=== PATIENT | male | born 1955 | race Caucasian/White ===

== ENCOUNTER 2020-12-04 11:17 | Inpatient (IN) | payer MEDICARE, SELFPAY ==
[2020-12-04] VITALS (7 sets, daily range): BP systolic 116–155; BP diastolic 47–66; PULSE 42–60; RESP 12–16; TEMP 36.7–36.8; O2SAT 96–98; BMI 34.4
--- NOTE | ~2020-12-04 | US_ITS ---
EXAMINATION: RENAL ARTERY ULTRASOUND AND DOPPLER EXAM CLINICAL INFORMATION: Uncontrolled hypertension COMPARISON: None TECHNIQUE: Doppler color and grayscale evaluation of the kidneys and the renal arteries including waveform spectral analysis evaluation of the renal veins. FINDINGS: The kidneys are normal in contour and symmetric in size with the right kidney measuring 10.3 x 5 x 5.2 cm and the left kidney measuring 10.8 x 5.4 x 4.5 cm. Renal cortical thickness and echogenicity is normal. No renal stone, mass or hydronephrosis is seen. Aortic peak systolic velocity of the mid abdominal aorta measures 97 cm/s which is normal. Right renal artery is patent. Right renal artery peak systolic velocities measure 187 cm/s proximally, 2 cm/s in the midportion and 10 2 cm/s distally. Right renal artery to aorta ratio is normal. Resistive indices in the right kidney are normal measuring 0.7-0 8. The right renal vein is patent. The left renal artery is patent. There is increased peak systolic velocity in the left renal artery and elevated left renal artery to aorta ratio suggestive of left renal artery stenosis. Left renal artery peak systolic velocities measure 96 cm/s proximally, 280 cm/s in the midportion and 202 cm/s distally. Left renal artery to aorta ratio measures 2.9. Resistive indices in the left kidney are normal measuring 0.7-0.8. The left renal vein is patent. US/US renal doppler IMPRESSION: Normal renal ultrasound. Left renal artery stenosis. No evidence of right renal artery stenosis.
--- NOTE | ~2020-12-04 | MR_ITS ---
EXAMINATION: MR ANGIOGRAPHY ABDOMEN WITHOUT AND WITH CONTRAST CLINICAL INFORMATION: Left renal artery stenosis by ultrasound. COMPARISON: Ultrasound kidneys 12/05/2020 TECHNIQUE: Axial T2 gradient-echo, fat-sat axial pre- and post-contrast T1 FSPGR and post-contrast MRA of abdominal aorta with attention to the renal arteries were performed. Approximately 20 mL of Gadavist was injected. FINDINGS: NON-MRA: Both kidneys are normal size, signal and contour. Right kidney measures 9.4 cm and left kidney measures 9.65 cm. Post-contrast, there is symmetrical renal cortical enhancement without any enhancing renal mass, cyst or hydronephrosis. The perinephric soft tissues are normal. Bilateral adrenal glands are symmetrical and normal. Partially visualized inferior right hepatic lobe, spleen and the pancreas appear unremarkable. MRA KIDNEYS: The abdominal aorta is normal course and caliber. No evidence of aneurysm. Bilateral common iliac arteries are widely patent and normal caliber. There are solitary renal arteries bilaterally. There is early bifurcation of left renal artery into a smaller superior and a larger inferior branch. There is minimal narrowing in the superior branch of left renal artery. The inferior larger branch renal artery is widely patent. The main renal artery is patent with a solitary right renal artery with early branching into superior smaller and inferior larger branch. Both the branches are widely patent. 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 The superior and the inferior mesenteric arteries are widely patent. MR/MR angio abdomen wo/w con IMPRESSION: Solitary renal arteries with early branching bilaterally. There is mild stenosis in the superior branch of left renal artery. The main arteries are widely patent. 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 The superior and inferior mesenteric arteries are patent. Normal bilateral symmetrical nephrograms without focal lesion or abnormal enhancement. No hydronephrosis seen.
--- NOTE | ~2020-12-04 | CT_ITS ---
EXAMINATION: CT HEAD WITHOUT CONTRAST CLINICAL INFORMATION: Chronic headache, hypertension COMPARISON: None TECHNIQUE: Contiguous axial imaging was performed from the skull base to vertex without intravenous administration of contrast. Additional 2-D coronal and sagittal reformatted images are generated on the CT workstation and uploaded to PACS. This CT examination was performed using dose optimization techniques as appropriate, variously including the following: *Automated exposure control *Adjustment of mA and/or kV according to patient size (this includes techniques or standardized protocols for targeted exams where dose is matched to indication/reason for exam; i.e. extremities or head) *Use of iterative reconstruction technique DLP: 710 mGy-cm FINDINGS: There is no intracranial hemorrhage, hematoma, or extra-axial fluid collection. There is no hydrocephalus. No edema or mass effect or midline shift. There is mild symmetric gliosis in the bilateral anterior external capsule and adjacent to the frontal horns likely small vessel ischemic changes. No visible acute territorial infarct. There is a benign midline lipoma 0.9 cm and homogeneous low attenuation residing just anterior superior to the calcified tiny open. The calvarium appears intact. There is no pneumocephalus or orbital emphysema. The visualized sinuses and middle ears and mastoid air cells show no significant mucosal thickening. There are no air-fluid levels. CT/CT head/brain wo con IMPRESSION: 1. No acute intracranial abnormality. No hydrocephalus or hemorrhage. 2. Incidental 1 cm midline lipoma. 3. Mild symmetric periventricular white matter gliosis adjacent to frontal horns and involving bilateral anterior external capsule. No acute territorial infarct.
--- NOTE | 2020-12-04 12:34 | ECG_ITS ---
Test Reason : HIGH BLOOD PRESSURE Blood Pressure : / mmHG Vent. Rate : 044 BPM Atrial Rate : 044 BPM P-R Int : 160 ms QRS Dur : 096 ms QT Int : 438 ms P-R-T Axes : 051 -40 016 degrees QTc Int : 374 ms Marked sinus bradycardia with sinus arrhythmia Left axis deviation Abnormal ECG No previous ECGs available Referred By: Rhett Cameron Electronically Signed By:GABBI CANCINO
[2020-12-04] MEDS: Butalb/Acetamin/Caff 50/325/40 TABLET 1 TAB PO (12:43)
[2020-12-04] MEDS: 0.9 % Sodium Chloride 1,000 ML 999 ML IV (12:46)
[2020-12-04 12:58] LABS: MANUAL DIFF FLAG NO
[2020-12-04 13:01] LABS: Basophils Percent Auto 0.5 % (0-2); Eosinophils Absolute Auto 0.1 X10*3/uL (0.0-0.4); Eosinophils Percent Auto 1.7 % (0-4); Hematocrit 45.4 % (42-52); Hemoglobin 14.9 g/dl (14.0-18.0); Imm Gran Abs Auto 0.01 X10*3/uL (0.00-0.03); Imm Gran Pct Auto 0.1 % (0.0-0.4); Lymphocytes Absolute Auto 1.9 X10*3/uL (1.2-4.9); Lymphocytes Percent Auto 25.6 % (20-40); Mean Corpuscular HGB Conc 32.8 g/dl (31.0-36.0); Mean Corpuscular Hemoglobin 29.6 pg (27.0-33.0); Mean Corpuscular Volume 90.3 fL (80-98); Mean Platelet Volume 9.4 fL (9.4-12.4); Monocytes Absolute Auto 0.7 X10*3/uL (0.1-1.2); Monocytes Percent Auto 9.2 % (2-11); Neutrophils Absolute Auto 4.7 X10*3/uL (2.0-8.3); Neutrophils Percent Auto 62.9 % (45-73); Platelet Count 235 X10*3/uL (160-400); Red Blood Count 5.03 X10*6/uL (4.60-5.80); Red Cell Distribution Width 12.5 % (11.0-16.0); White Blood Count 7.5 X10*3/uL (4.8-10.8)
[2020-12-04 13:06] LABS: INTERNATIONAL NORM RATIO 1.1 (0.9-1.1); Prothrombin Time 12.5 SEC (10.8-13.0)
[2020-12-04 13:10] LABS: Partial Thromboplastin Time 33.8 SEC (24.1-38.0)
[2020-12-04 13:22] LABS: Alanine Aminotransferase 41 U/L (0-40); Albumin Level 4.2 g/dL (3.5-5.0); Alkaline Phosphatase 70 U/L (39-117); Anion Gap 14 (12-20); Aspartate Amino Transferase 32 U/L (5-37); Bilirubin Total 0.3 mg/dL (0.0-1.0); Blood Urea Nitrogen 18 mg/dL (9-16); Calcium 9.8 mg/dL (8.4-10.2); Carbon Dioxide 27 mmol/L (22-29); Chloride 102 mmol/L (96-108); Creatinine Clr Calc Pharmacy 77.2; Estimated Glomerular Filt Rate > 60; Glucose Random 89 mg/dL (60-115); Potassium 4.3 mmol/L (3.3-5.1); Sodium 139 mmol/L (135-145)
[2020-12-04 13:27] LABS: B Type Natriuretic Peptide 24 pg/mL (<100); Troponin-I High Sensitivity < 3.5 ng/L (<3.5-35.0)
--- NOTE | 2020-12-04 13:50 | ED_ITS ---
HPI - General Adult General Chief complaint: Dizziness Stated complaint: uncontrolled BP Time Seen by Provider: 12/04/20 12:28 Source: patient Mode of arrival: ambulatory Limitations: no limitations History of Present Illness HPI narrative: Patient presents to the ED for elevated blood pressure. Patient presents to ED for elevated blood pressure at nighttime for months which cause headache. Patient states in the morning his blood pressure will be normal and then by 18:00 his blood pressure will be 235 systolic and he will have a headache. Patient states this has been going on since the last week of June. He states his PCP has changes meds multiple times. Patient states having headache since yesterday and blood pressure yesterday was systolic of 240. Patient states as expected this morning his blood pressure is fine. Patient is on losartan and Doxil sin. Related Data Allergies Allergy/AdvReac Type Severity Reaction Status Date / Time No Known Allergies Allergy Verified 12/04/20 12:28 Review of Systems Review of Systems: Yes all other systems are reviewed and are negative Constitutional: Constitutional: Reports as per HPI, Reports no additional constitutional complaints and Reports headache(s) Eyes: Eyes: Reports as per HPI and Reports no additional eye complaints ENT: Reports system reviewed and no additional complaints, except as documen michelle, Reports as per HPI and Reports headache(s) Cardiovascular: Cardiovascular: Reports as per HPI and Reports no additional cardiovascular complaints Respiratory: Respiratory: Reports as per HPI and Reports no additional respiratory complaints Gastrointestinal: Gastrointestinal: Reports as per HPI and Reports no additional gastrointestinal complaints Genitourinary: Genitourinary: Reports no additional male genitourinary complaints and Reports as per HPI Musculoskeletal: Musculoskeletal: Reports no additional musculoskeletal complaints and Reports as per HPI Neurologic: Reports system reviewed and no additional complaints, except as documented, Reports as per HPI and Reports headache(s) Psychiatric: Psychiatric: Reports no additional psychiatric complaints and Reports as per HPI [facility] Social History Social History Advance Directives: No Advance Directives Information Provided: No Physical Exam Vital Signs: Vital Signs: Last Vital Signs Temp 98.1 F 12/04/20 15:07 Pulse 42 L 12/04/20 15:07 Resp 15 12/04/20 15:07 BP 151/51 H 12/04/20 15:07 Pulse Ox 98 12/04/20 15:07 Body Mass Index 34.4 Const: General: cooperative, healthy appearing, comfortable, no acute distress, well developed, alert and awake Orientation/consciousness: patient oriented x3 HENMT: Head: Yes normal to inspection, Yes No palpable skull fracture present, Yes normocephalic, Yes atraumatic and No abrasion Eyes: General: appearance normal, both eyes and all related structures Neck: Neck: Yes normal visual inspection, Yes full ROM, Yes no lymphadenopathy, Yes no meningeal signs, Yes trachea midline, Yes supple and No tender Chest: Chest palpation & inspection: normal inspection of the chest and normal palpation of entire chest wall Resp: Effort & Inspection: normal respiratory effort and able to speak in complete sentences Auscultation: clear to auscultation bilaterally Cardio: Jugular venous distension: no JVD Heart sounds: S1 normal heart sound present and S2 normal heart sound present GI: Inspection: Yes normal to inspection and No abdominal wall ecchymosis Palpation (GI): Soft to palpation, not firm, nontender, no guarding and not rigid : General: No CVA tenderness and Yes no CVA tenderness Back/Spine/Pelvis: Back: no CVA tenderness, No CVA tenderness and No back tenderness Skin: General skin exam: no rashes or lesions noted and elasticity normal Neuro: Other: Negative facial droop. Negative slurred speech. All extremities equal strength 5+. Negative pronator drift. [id number] rapid hand movement intact. Negative Romberg General: patient oriented x3, gait normal, no meningeal signs and CN's II-XI intact bilaterally Cranial nerves: Yes CN's II-XII intact bilaterally Extrem: General: Yes normal to inspection and Yes full ROM Psych: Appearance: grossly normal, well kempt and not disheveled Course Course Course Narrative: Patient blood pressure is normal. Will do labs, EKG, troponi n, and head CT scan. Fioricet given. Negative for any neuro deficit. Reevaluation(s) Reevaluation #1: Patient's neuro exam is normal. Patient's CT scan of head came back normal EKG. Headache improved with Fioricet. Patient blood pressure has been stable during the ED visit. Patient is concerned to go home. Patient's tr oponin negative. Will speak with patient's PCP Dr. Hernández for any further recommendations. Time: 12:53 Reevaluation #2: I spoke with Dr. Hernández and he states patient should be admitted for pheochromocytoma workup. He states he has been aware of patient's blood pressure being normal in the morning and then increasing to systolic of 230s with headache at nighttime. He does not think patient should be discharged home. Patient presently stable. Presenting case to hospitalist Dr. Melgar who accepted case for admission for uncontrolled hypertension Time: 17:06 Medical Decision Making MDM Narrative Medical decision making narrative: Uncontrolled high blood pressure Lab Data Result diagrams: 12/04/20 12:53 12/04/20 12:53 Labs: Lab Results 12/04/20 12/04/20 12/04/20 Range/Units 12:53 12:53 12:53 WBC 7.5 (4.8-10.8) X10*3/uL RBC 5.03 (4.60-5.80) X10*6/uL Hgb 14.9 (14.0-18.0) g/dl Hct 45.4 (42-52) % MCV 90.3 (80-98) fL MCH 29.6 (27.0-33.0) pg MCHC 32.8 (31.0-36.0) g/dl RDW 12.5 (11.0-16.0) % Plt Count 235 (160-400) X10*3/uL MPV 9.4 (9.4-12.4) fL Immature Gran % (Auto) 0.1 (0.0-0.4) % Neut % (Auto) 62.9 (45-73) % Lymph % (Auto) 25.6 (20-40) % [place] % (Auto) 9.2 (2-11) % Eos % (Auto) 1.7 (0-4) % Baso % (Auto) 0.5 (0-2) % Lymph # (Auto) 1.9 (1.2-4.9) X10*3/uL [place] # (Auto) 0.7 (0.1-1.2) X10*3/uL Eos # (Auto) 0.1 (0.0-0.4) X10*3/uL Baso # (Auto) 0.0 (0.0-0.2) X10*3/uL Abs Immat Gran (auto) 0.01 (0.00-0.03) X10*3/uL Absolute Neuts (auto) 4.7 (2.0-8.3) X10*3/uL Absolute Nucleated RBC 0.000 (0.0-0.012) X10*3/uL Nucleated RBC % (auto) 0.0 (0.0-0.2) /100WBC Hold Purple Top SEE NOTE PT (10.8-13.0) SEC INR (0.9-1.1) APTT (24.1-38.0) SEC Sodium 139 (135-145) mmol/L Potassium 4.3 (3.3-5.1) mmol/L Chloride 102 (96-108) mmol/L Carbon Dioxide 27 (22-29) mmol/L Anion Gap 14 (12-20) BUN 18 H (9-16) mg/dL Creatinine 0.99 (0.5-1.4) mg/dL Estim Creat Clear Calc 77.2 Estimated GFR > 60 Random Glucose 89 (60-115) mg/dL Calcium 9.8 (8.4-10.2) mg/dL Total Bilirubin 0.3 (0.0-1.0) mg/dL AST 32 (5-37) U/L ALT 41 H (0-40) U/L Alkaline Phosphatase 70 (39-117) U/L Troponin I High Sens (<3.5-35.0) ng/L B-Natriuretic Peptide (<100) pg/mL Total Protein 7.0 (6.5-8.0) g/dL Albumin 4.2 (3.5-5.0) g/dL 12/04/20 12/04/20 Range/Units 12:53 12:53 WBC (4.8-10.8) X10*3/uL RBC (4.60-5.80) X10*6/uL Hgb (14.0-18.0) g/dl Hct (42-52) % MCV (80-98) fL MCH (27.0-33.0) pg MCHC (31.0-36.0) g/dl RDW (11.0-16.0) % Plt Count (160-400) X10*3/uL MPV (9.4-12.4) fL Immature Gran % (Auto) (0.0-0.4) % Neut % (Auto) (45-73) % Lymph % (Auto) (20-40) % [place] % (Auto) (2-11) % Eos % (Auto) (0-4) % Baso % (Auto) (0-2) % Lymph # (Auto) (1.2-4.9) X10*3/uL [place] # (Auto) (0.1-1.2) X10*3/uL Eos # (Auto) (0.0-0.4) X10*3/uL Baso # (Auto) (0.0-0.2) X10*3/uL Abs Immat Gran (auto) (0.00-0.03) X10*3/uL Absolute Neuts (auto) (2.0-8.3) X10*3/uL Absolute Nucleated RBC (0.0-0.012) X10*3/uL Nucleated RBC % (auto) (0.0-0.2) /100WBC Hold Purple Top PT 12.5 (10.8-13.0) SEC INR 1.1 (0.9-1.1) APTT 33.8 (24.1-38.0) SEC Sodium (135-145) mmol/L Potassium (3.3-5.1) mmol/L Chloride (96-108) mmol/L Carbon Dioxide (22-29) mmol/L Anion Gap (12-20) BUN (9-16) mg/dL Creatinine (0.5-1.4) mg/dL Estim Creat Clear Calc Estimated GFR Random Glucose (60-115) mg/dL Calcium (8.4-10.2) mg/dL Total Bilirubin (0.0-1.0) mg/dL AST (5-37) U/L ALT (0-40) U/L Alkaline Phosphatase (39-117) U/L Troponin I High Sens < 3.5 (<3.5-35.0) ng/L B-Natriuretic Peptide 24 (<100) pg/mL Total Protein (6.5-8.0) g/dL Albumin (3.5-5.0) g/dL ECG Data Interpretation: Sinus bradycardia. Ventricular rate 44. Pr interval 160. QRS 96. QTC 374 Discharge Plan Discharge Clinical Impression: Hypertension Patient Disposition: Admitted As Inpatient
--- NOTE | 2020-12-04 17:32 | PHA.MEDREC ---
Pharmacy Consult ? Medication Reconciliation Pharmacy has completed the medication reconciliation.
--- NOTE | 2020-12-04 17:52 | PM.IMHP ---
History of Present Illness Date of Service: 12/04/20 <JOSHUA Botello - Last Filed: 12/04/20 18:15> Chief Complaint: Uncontrolled hypertension <JOSHUA Botello - Last Filed: 12/04/20 18:15> This is a 65-year-old male who was sent to the emergency department by Dr. Hernández due to uncontrolled hypertension. Patient states that for the past 6 months he has been having elevated blood pressure at night. He reports that his blood pressure goes as high as 230 systolic. This is intermittently associated with posterior headaches. Twice this week he also reports having the sensation that his face was swollen. He denies any chest pain, dyspnea, orthopnea or vision changes. He recently had routine blood work drawn but is not aware of any imaging studies done as an outpatient. It seems he has been trialed on a few medications which she has been unable to tolerate for various reasons. Previously was on metoprolol, stopped 11/27. started on nifedipine that same day but only took for 2 days. Was previously on HCTZ it is unclear why he doesn't take that any longer. He is currently taking Cardura and losartan. On arrival to the emergency department his blood pressure was 140/63 followed by 151/51. CBC and BMP were unremarkable. He was noted to be bradycardic with heart rate in the 40s. EKG showed sinus bradycardia. He was previously on beta-gurinder but no longer takes metoprolol at home. <JOSHUA Botello - Last Filed: 12/04/20 18:15> Review of Systems Review of Systems: Yes all other systems are reviewed and are negative <JOSHUA Botello Last Filed: 12/04/20 18:15> Constitutional: Constitutional: Denies chills and Denies fever(s) <JOSHUA Botello Last Filed: 12/04/20 18:15> Cardiovascular: Cardiovascular: Denies chest pain <JOSHUA Botello Last Filed: 12/04/20 18:15> Respiratory: Respiratory: Denies cough <JOSHUA Botello Last Filed: 12/04/20 18:15> Gastrointestinal: Gastrointestinal: Denies abdominal pain <JOSHUA Botello Last Filed: 12/04/20 18:15> [facility] Medical History: Medical History (Updated 12/04/20 @ 18:00 by JOSHUA Botello) Hypertension <JOSHUA Botello - Last Filed: 12/04/20 18:15> Functional capacity: independent ambulation <JOSHUA Botello - Last Filed: 12/04/20 18:15> Pertinent family history: Multiple family members including mother and father with history of hypertension <JOSHUA Botello - Last Filed: 12/04/20 18:15> Surgical History: Surgical History H/O right knee surgery H/O shoulder surgery History of hip surgery Hx of cholecystectomy <JOSHUA Botello - Last Filed: 12/04/20 18:15> Social History: Social History (Updated 12/04/20 @ 18:02 by JOSHUA Botello) Household Members: Spouse Alcohol intake: current Alcohol intake frequency: holidays/special occasions only Patient Tobacco Use Status: Never used Tobacco Use of substances other than those prescribed or required for medical reasons: No Advance Directives: No Advance Directives Information Provided: No <JOSHUA Botello - Last Filed: 12/04/20 18:15> Meds Allergies/Adverse reactions: Allergies Allergy/AdvReac Type Severity Reaction Status Date / Time No Known Allergies Allergy Verified 12/04/20 12:28 <JOSHUA Botello - Last Filed: 12/04/20 18:15> Active Medications: Current Medications Generic Name Dose Route Start Last Admin Trade Name Andresq PRN Reason Stop Dose Admin Pharmacy Consult 1 each 12/04/20 17:12 Consult Rx Perform Med Rec MISCELLANE ONCE PRN Consult order <JOSHUA Botello - Last Filed: 12/04/20 18:15> Home medications: Home Medications Medication Instructions Recorded Confirmed Last Taken Type azelastine 1 spray INTRANASAL BEDTIME 12/04/20 12/04/20 12/03/20 History desonide 1 appl TOPICAL BID 12/04/20 12/04/20 12/04/20 History doxazosin 1 tab PO BEDTIME 12/04/20 12/04/20 12/03/20 History losartan 1 tab PO DAILY 12/04/20 12/04/20 12/04/20 History <JOSHUA Botello - Last Filed: 12/04/20 18:15> Physical Exam Vital Signs and Narrative: Vital Signs: Last Vital Signs Temp 98.1 F 12/04/20 15:07 Pulse 42 L 12/04/20 15:07 Resp 15 12/04/20 15:07 BP 151/51 H 12/04/20 15:07 Pulse Ox 98 12/04/20 15:07 Body Mass Index 34.4 <JOSHUA Botello - Last Filed: 12/04/20 18:15> Const: General: comfortable, no acute distress, alert and awake <JOSHUA Botello - Last Filed: 12/04/20 18:15> Nutritional Appearance: overweight <JOSHUA Botello - Last Filed: 12/04/20 18:15> Orientation/consciousness: patient oriented x3 <JOSHUA Botello - Last Filed: 12/04/20 18:15> HENMT: Head: Yes normocephalic and Yes atraumatic <JOSHUA Botello - Last Filed: 12/04/20 18:15> Eyes: Sclerae: sclerae normal <JOSHUA Botello - Last Filed: 12/04/20 18:15> Chest: Chest palpation & inspection: normal inspection of the chest <JOSHUA Botello - Last Filed: 12/04/20 18:15> Resp: Effort & Inspection: normal respiratory effort and no respiratory distress <JOSHUA Botello - Last Filed: 12/04/20 18:15> Auscultation: clear to auscultation bilaterally <JOSHUA Botello - Last Filed: 12/04/20 18:15> Cardio: Rate: bradycardic <JOSHUA Botello - Last Filed: 12/04/20 18:15> Rhythm: regular rhythm <JOSHUA Botello - Last Filed: 12/04/20 18:15> GI: Palpation (GI): Soft to palpation and nontender <JOSHUA Botello - Last Filed: 12/04/20 18:15> Neuro: General: patient oriented x3 <JOSHUA Botello - Last Filed: 12/04/20 18:15> Cranial nerves: Yes CN's II-XII intact bilaterally and Yes Bilaterally intact EOM present <JOSHUA Botello - Last Filed: 12/04/20 18:15> Results Labs CBC and Chem 7: : 12/04/20 12:53 12/04/20 12:53 <JOSHUA Botello - Last Filed: 12/04/20 18:15> Labs: Laboratory Results - last 24 hr 12/04/20 12/04/20 12/04/20 12:53 12:53 12:53 MCV 90.3 MCH 29.6 MCHC 32.8 RDW 12.5 Plt Count 235 MPV 9.4 Immature Gran % (Auto) 0.1 Neut % (Auto) 62.9 Lymph % (Auto) 25.6 [place] % (Auto) 9.2 Eos % (Auto) 1.7 Baso % (Auto) 0.5 Lymph # (Auto) 1.9 [place] # (Auto) 0.7 Eos # (Auto) 0.1 Baso # (Auto) 0.0 Abs Immat Gran (auto) 0.01 Absolute Neuts (auto) 4.7 Absolute Nucleated RBC 0.000 Nucleated RBC % (auto) 0.0 Hold Purple Top SEE NOTE PT INR APTT Anion Gap 14 Estim Creat Clear Calc 77.2 Estimated GFR > 60 Random Glucose 89 Calcium 9.8 Total Bilirubin 0.3 AST 32 ALT 41 H Alkaline Phosphatase 70 Troponin I High Sens B-Natriuretic Peptide Total Protein 7.0 Albumin 4.2 12/04/20 12/04/20 12:53 12:53 MCV MCH MCHC RDW Plt Count MPV Immature Gran % (Auto) Neut % (Auto) Lymph % (Auto) [place] % (Auto) Eos % (Auto) Baso % (Auto) Lymph # (Auto) [place] # (Auto) Eos # (Auto) Baso # (Auto) Abs Immat Gran (auto) Absolute Neuts (auto) Absolute Nucleated RBC Nucleated RBC % (auto) Hold Purple Top PT 12.5 INR 1.1 APTT 33.8 Anion Gap Estim Creat Clear Calc Estimated GFR Random Glucose Calcium Total Bilirubin AST ALT Alkaline Phosphatase Troponin I High Sens < 3.5 B-Natriuretic Peptide 24 Total Protein Albumin <JOSHUA Botello - Last Filed: 12/04/20 18:15> Imaging Radiologist's Impressions: Impressions Head CT 12/04/20 12:34 IMPRESSION: 1. No acute intracranial abnormality. No hydrocephalus or hemorrhage. 2. Incidental 1 cm midline lipoma. 3. Mild symmetric periventricular white matter gliosis adjacent to frontal horns and involving bilateral anterior external capsule. No acute territorial infarct. <JOSHUA Botello - Last Filed: 12/04/20 18:15> Assessment and Plan (1) Uncontrolled hypertension: Status: Acute <JOSHUA Botello - Last Filed: 12/04/20 18:15> This is a 65-year-old male with history of hypertension who was sent to the emergency department for further investigation of his uncontrolled hypertension. Uncontrolled hypertension Patient reports elevated blood pressure in the evening. BP currently 150s Sent for evaluation of pheochromocytoma Unclear if patient has had outpatient imaging, may need abdominal CT. Previously on metoprolol, stopped 11/27. started on nifedipine that same day but only took for 2 days. -nephrology consult -urinalysis -plasma metanephrines -continue home dose of losartan, Cardura -will add hydralazine, can up titrate as needed Bradycardia Denies current use of beta-gurinder, stopped metoprolol November 27 Does not appear to be on any other rate lowering medication at this time EKG was sinus bradycardia -telemetry monitoring -echocardiogram -cardiology consult DVT prophylaxis-Lovenox Code status-full code This case was discussed with Dr. Melgar <JOSHAU Botello - Last Filed: 12/04/20 18:15> Quality Stroke Does the patient have a stroke diagnosis?: No <JOSHUA Botello - Last Filed: 12/04/20 18:15> VTE Prior VTE?: No <JOSHUA Botello - Last Filed: 12/04/20 18:15> VTE Risk Level:: Medical - moderate - high <JOSHUA Botello Last Filed: 12/04/20 18:15> VTE Device Contraindication: Treatment Not Indicated <JOSHUA Botello - Last Filed: 12/04/20 18:15> VTE Drug Contraindication: N/A - Med Ordered <JOSHUA Botello - Last Filed: 12/04/20 18:15>
[2020-12-04 19:17] LABS: Glucose Urine UA NEG (NEG); Leukocyte Esterase Urine NEG (NEG); Nitrite Urine NEG (NEG); Specific Gravity - Urine 1.025 (1.005-1.025); Urine Blood NEG (NEG); Urine Ketones NEG (NEG); Urine Protein NEG (NEG-TRACE)
[2020-12-04 19:18] LABS: Appearance Urine CLEAR; Color Urine YELLOW
[2020-12-04 19:28] LABS: COVID-19 Test Negative (Negative)
--- NOTE | 2020-12-04 20:23 | PC.NURSE ---
PT RESTING IN STRETCHER AND DENIES ANY COMPLAINTS. PT ON MONITOR WITH HR 48, DENIES CP OR SOB. PT AWAITING FOR ROOM ASSIGNMENT. WILL CONTINUE TO MONITOR PT.
[2020-12-04] MEDS: Enoxaparin Sodium 40 MG/0.4 ML SYRINGE SUBCUT (22:05)
[2020-12-04] MEDS: Doxazosin Mesylate 2 MG TABLET 4 MG PO (22:06)
--- NOTE | 2020-12-04 22:13 | PC.NURSE ---
PT MEDICATED PER EMAR. WILL CONTINUE TO MONITOR PT.
[2020-12-05] VITALS (8 sets, daily range): BP systolic 131–164; BP diastolic 60–75; PULSE 43–97; RESP 18–20; TEMP 36.3–37; O2SAT 91–98
[2020-12-05 06:12] LABS: Anion Gap 11 (12-20); Blood Urea Nitrogen 14 mg/dL (9-16); Calcium 9.3 mg/dL (8.4-10.2); Carbon Dioxide 29 mmol/L (22-29); Chloride 105 mmol/L (96-108); Estimated Glomerular Filt Rate > 60; Glucose Random 85 mg/dL (60-115); Potassium 4.2 mmol/L (3.3-5.1); Sodium 141 mmol/L (135-145)
[2020-12-05] MEDS: Triamcinolone Acet 0.025 % Cream 15 GM TUBE 1 APPL TOPICAL ×2 (10:00→20:37)
[2020-12-05] MEDS: Losartan Potassium 50 MG TABLET 100 MG PO (10:00)
[2020-12-05] MEDS: 0.9 % Sodium Chloride Flush 3 ML SYRINGE IVFLUSH ×2 (10:00→15:56)
--- NOTE | 2020-12-05 11:26 | HO.PM.IMPN ---
Subjective Subjective Date of Service: 12/05/20 <JOSHUA Botello - Last Filed: 12/05/20 11:37> 12/05/20 <Harrison Leo MD - Last Filed: 12/05/20 21:46> Interval History: Seen and examined this morning Reports having a good night, uneventful No chest pain, dizziness, shortness of breath Blood pressure well controlled overnight <JOSHUA Botello - Last Filed: 12/05/20 11:37> Review of Systems Review of Systems: Yes all other systems are reviewed and are negative <JOSHUA Botello - Last Filed: 12/05/20 11:37> Constitutional Constitutional: Denies chills and Denies fever(s) <JOSHUA Botello - Last Filed: 12/05/20 11:37> Cardiovascular Cardiovascular: Denies chest pain <JOSHUA Botello - Last Filed: 12/05/20 11:37> Respiratory Respiratory: Denies cough <JOSHUA Botello - Last Filed: 12/05/20 11:37> Gastrointestinal Gastrointestinal: Denies abdominal pain <JOSHUA Botello - Last Filed: 12/05/20 11:37> Physical Exam Vital Signs: Vital Signs: Last Vital Signs Temp 98.3 F 12/05/20 11:22 Pulse 45 L 12/05/20 11:22 Resp 18 12/05/20 11:22 BP 138/60 12/05/20 11:22 Pulse Ox 94 12/05/20 11:22 Body Mass Index 34.4 <JOSHUA Botello - Last Filed: 12/05/20 11:37> Const: General: healthy appearing, comfortable, no acute distress, alert and awake <JOSHUA Botello - Last Filed: 12/05/20 11:37> Nutritional Appearance: overweight <JOSHUA Botello Last Filed: 12/05/20 11:37> Orientation/consciousness: patient oriented x3 <JOSHUA Botello Last Filed: 12/05/20 11:37> HENMT: Head: Yes normocephalic and Yes atraumatic <JOSHUA Botello - Last Filed: 12/05/20 11:37> Eyes: Sclerae: sclerae normal <JOSHUA Botello Last Filed: 12/05/20 11:37> Chest: Chest palpation & inspection: normal inspection of the chest <JOSHUA Botello - Last Filed: 12/05/20 11:37> Resp: Effort & Inspection: normal respiratory effort and no respiratory distress <JOSHUA Botello Last Filed: 12/05/20 11:37> Cardio: Rate: regular rate <JOSHUA Botello Last Filed: 12/05/20 11:37> Rhythm: regular rhythm <JOSHUA Botello Last Filed: 12/05/20 11:37> GI: Palpation (GI): Soft to palpation and nontender <JOSHUA Botello Last Filed: 12/05/20 11:37> Neuro: General: patient oriented x3 <JOSHUA Botello Last Filed: 12/05/20 11:37> Cranial nerves: Yes CN's II-XII intact bilaterally and Yes Bilaterally intact EOM present <JOSHUA Botello Last Filed: 12/05/20 11:37> Objective Data Current Medications Generic Name Dose Route Start Last Admin Trade Name Freq PRN Reason Stop Dose Admin Acetaminophen 650 mg 12/04/20 21:53 Acetaminophen 325 Mg Tablet PO Q6H PRN Pain, Mild (Pain Scale 1-3) Azelastine HCl 1 spray 12/04/20 21:53 12/05/20 01:43 Azelastine Hcl Nasal 137 Mcg/Pool 30 Ml NOSTRIL-B Not Given BEDTIME ALIZA Docusate Sodium 100 mg 12/04/20 21:53 Docusate Sodium 100 Mg Capsule PO DAILY PRN Constipation Doxazosin Mesylate 4 mg 12/04/20 21:53 12/04/20 22:06 Doxazosin Mesylate 2 Mg Tablet PO 4 mg BEDTIME ALIZA Administration Protocol Enoxaparin Sodium 40 mg 12/04/20 21:53 12/04/20 22:05 Enoxaparin Sodium 40 Mg/0.4 Ml Syringe SUBCUT 40 mg Q24H ALIZA Administration Losartan Potassium 100 mg 12/05/20 09:00 12/05/20 10:00 Losartan Potassium 50 Mg Tablet PO 100 mg DAILY ALIZA Administration Protocol Ondansetron HCl 4 mg 12/04/20 21:53 Ondansetron Hcl 4 Mg/2 Ml Vial IVPUSH Q8H PRN Nausea and Vomiting Pharmacy Consult 1 each 12/04/20 17:12 Consult Rx Perform Med Rec MISCELLANE ONCE PRN Consult order Sodium Chloride 3 ml 12/05/20 00:00 12/05/20 10:00 0.9 % Sodium Chloride Flush 3 Ml Syringe IVFLUSH 3 ml QSHIFT ALIZA Administration Triamcinolone Acetonide 1 appl 12/05/20 09:00 12/05/20 10:00 Triamcinolone Acet 0.025 % Cream 15 Gm Tube TOPICAL 1 appl BID ALIZA Administration <JOSHUA Botello - Last Filed: 12/05/20 11:37> Labs CBC & Chem 7: : 12/04/20 12:53 12/05/20 05:12 <JOSHUA Botello - Last Filed: 12/05/20 11:37> Labs: Laboratory Results - last 24 hr 12/04/20 12/04/20 12/04/20 12:53 12:53 12:53 WBC 7.5 RBC 5.03 Hgb 14.9 Hct 45.4 MCV 90.3 MCH 29.6 MCHC 32.8 RDW 12.5 Plt Count 235 MPV 9.4 Immature Gran % (Auto) 0.1 Neut % (Auto) 62.9 Lymph % (Auto) 25.6 [place] % (Auto) 9.2 Eos % (Auto) 1.7 Baso % (Auto) 0.5 Lymph # (Auto) 1.9 [place] # (Auto) 0.7 Eos # (Auto) 0.1 Baso # (Auto) 0.0 Abs Immat Gran (auto) 0.01 Absolute Neuts (auto) 4.7 Absolute Nucleated RBC 0.000 Nucleated RBC % (auto) 0.0 Hold Purple Top SEE NOTE PT INR APTT Sodium 139 Potassium 4.3 Chloride 102 Carbon Dioxide 27 Anion Gap 14 BUN 18 H Creatinine 0.99 Estim Creat Clear Calc 77.2 Estimated GFR > 60 Random Glucose 89 Calcium 9.8 Total Bilirubin 0.3 AST 32 ALT 41 H Alkaline Phosphatase 70 Troponin I High Sens B-Natriuretic Peptide Total Protein 7.0 Albumin 4.2 Urine Color Urine Appearance Urine pH Ur Specific [place] Urine Protein Urine Glucose (UA) Urine Ketones Urine Blood Urine Nitrite Ur Leukocyte Esterase COVID-19 (CHAPIN) COVID-19 Clin Com 12/04/20 12/04/20 12/04/20 12:53 12:53 19:06 WBC RBC Hgb Hct MCV MCH MCHC RDW Plt Count MPV Immature Gran % (Auto) Neut % (Auto) Lymph % (Auto) [place] % (Auto) Eos % (Auto) Baso % (Auto) Lymph # (Auto) [place] # (Auto) Eos # (Auto) Baso # (Auto) Abs Immat Gran (auto) Absolute Neuts (auto) Absolute Nucleated RBC Nucleated RBC % (auto) Hold Purple Top PT 12.5 INR 1.1 APTT 33.8 Sodium Potassium Chloride Carbon Dioxide Anion Gap BUN Creatinine Estim Creat Clear Calc Estimated GFR Random Glucose Calcium Total Bilirubin AST ALT Alkaline Phosphatase Troponin I High Sens < 3.5 B-Natriuretic Peptide 24 Total Protein Albumin Urine Color Urine Appearance Urine pH Ur Specific [place] Urine Protein Urine Glucose (UA) Urine Ketones Urine Blood Urine Nitrite Ur Leukocyte Esterase COVID-19 (CHAPIN) Negative COVID-19 Jewel [employer]oned Com See Note 12/04/20 12/05/20 19:06 05:12 WBC RBC Hgb Hct MCV MCH MCHC RDW Plt Count MPV Immature Gran % (Auto) Neut % (Auto) Lymph % (Auto) [place] % (Auto) Eos % (Auto) Baso % (Auto) Lymph # (Auto) [place] # (Auto) Eos # (Auto) Baso # (Auto) Abs Immat Gran (auto) Absolute Neuts (auto) Absolute Nucleated RBC Nucleated RBC % (auto) Hold Purple Top PT INR APTT Sodium 141 Potassium 4.2 Chloride 105 Carbon Dioxide 29 Anion Gap 11 L BUN 14 Creatinine 0.90 Estim Creat Clear Calc 85.0 Estimated GFR > 60 Random Glucose 85 Calcium 9.3 Total Bilirubin AST ALT Alkaline Phosphatase Troponin I High Sens B-Natriuretic Peptide Total Protein Albumin Urine Color YELLOW Urine Appearance CLEAR Urine pH 6.0 Ur Specific [place] 1.025 Urine Protein NEG Urine Glucose (UA) NEG Urine Ketones NEG Urine Blood NEG Urine Nitrite NEG Ur Leukocyte Esterase NEG COVID-19 (CHAPIN) COVID-19 Clin Com <JOSHUA Botello - Last Filed: 12/05/20 11:37> Quality Stroke Does the patient have a stroke diagnosis?: No <JOSHUA Botello - Last Filed: 12/05/20 11:37> VTE Prior VTE?: No <JOSHUA Botello - Last Filed: 12/05/20 11:37> VTE Risk Level:: Medical - moderate - high <JOSHUA Botello - Last Filed: 12/05/20 11:37> VTE Device Contraindication: Treatment Not Indicated <JOSHUA Botello - Last Filed: 12/05/20 11:37> VTE Drug Contraindication: N/A - Med Ordered <OJSHUA Botello - Last Filed: 12/05/20 11:37> Assessment and Plan (1) Uncontrolled hypertension: Status: Acute <JOSHUA Botello - Last Filed: 12/05/20 11:37> Assessment and Plan: This is a 65-year-old male with history of hypertension who was sent to the emergency department for further investigation of his uncontrolled hypertension. Uncontrolled hypertension Patient reports elevated blood pressure in the evening. BP currently 150s Sent for evaluation of uncontrolled hypertension, needs workup for secondary causes of hypertension Previously on metoprolol, stopped 11/27. started on nifedipine that same day but only took for 2 days. -continue home dose of losartan and Cardura. Initially hydralazine was added however blood pressure has been 150 or under since admission therefore will discontinue. -urinalysis unremarkable -plasma metanephrines and renin/aldosterone pending -renal ultrasound ordered and results pending -nephrology consult pending -consider abdominal CT if remainder of workup is unremarkable Bradycardia. HR in 40s Denies current use of beta-gurinder, stopped metoprolol November 27. Does not appear to be on any other rate lowering medication at this time EKG was sinus bradycardia -seen by Cardiology, does not feel that bradycardia is contributing to symptoms. No further workup necessary at this time -echocardiogram pending DVT prophylaxis-Lovenox Code status-full code This case was discussed with Dr. Leo <JOSHUA Botello - Last Filed: 12/05/20 11:37> I saw and examined the patient and discussed the managment with JOSHUA and I agree with discharge plan, except as otherwise stated <Harrison Leo MD - Last Filed: 12/05/20 21:46>
[2020-12-05] MEDS: Acetaminophen 325 MG TABLET 650 MG PO (11:30)
--- NOTE | 2020-12-05 12:15 | P.CONCA_ITS ---
History of Present Illness History of Present Illness Date of Service: 12/05/20 Consult reason: other (bradycardia) Chief complaint: uncontrolled hypertension Narrative: This is a cardiology consultation regarding bradycardia. patient denies any previous cardiac concerns whatsoever. No history of any coronary disease myocardial infarction or cardiomyopathy or in fact anything else at all. He states that he has hypertension and runs very high blood pressures as into the 200s. The concern raised at this time is bradycardia. It seems that he was on metoprolol 50 mg at 1 point but due to slower heart rates, it was cut down to 25 mg daily. Subsequently, it seems that has been stopped completely. Patient does not have any chest pain or shortness of breath or any other concerning symptoms. He does get lightheaded at times but that seems quite nonspecific. He also he gets headaches that could be just from the hypertension. Review of Systems Review of Systems: Yes all other systems are reviewed and are negative Cardiovascular: Cardiovascular: Reports as per HPI, Reports no additional cardiovascular complaints, Denies acrocyanosis, Denies cool extremities, Denies painful fingertips, Denies chest pain, Denies chest pain at rest, Denies diaphoresis, Denies syncope, Denies irregular heart rhythm, Denies claudication, Denies leg edema, Reports lightheadedness, Denies palpitations and Denies dyspnea Respiratory: Respiratory: Denies dyspnea Neurologic: Denies syncope Endocrine: Endocrine: Denies palpitations PMFSH Past Medical History Medical History (Updated 12/05/20 @ 12:18 by Vince Hernandez MD) Hypertension Functional capacity: independent ambulation Surgical History Surgical History H/O right knee surgery H/O shoulder surgery History of hip surgery Hx of cholecystectomy Social History Social History (Updated 12/04/20 @ 18:02 by JOSHUA Botello) Household Members: Spouse Housing: House Do you presently have visiting nurse or other home services: No Alcohol intake: current Alcohol intake frequency: holidays/special occasions only Patient Tobacco Use Status: Never used Tobacco Second Hand Smoke Exposure: No Use of substances other than those prescribed or required for medical reasons: No Currently Displaying Signs/Symptoms of Drug Intoxication Withdrawal: No Any prior treatment program specific to substance use: No Have you been hit, kicked, punched, or otherwise hurt by someone within the past year? If so, by whom?: No Do you feel safe in your current relationship?: Yes Is there a partner from a previous relationship who is making you feel unsafe now?: No Are you made to feel afraid or neglected: No [employer]ism Healthcare Practices: Confucianism Advance Directives: No Advance Directives Information Provided: No Do you have thoughts of harming others: None Do you have a plan to hurt others: No Plan Recently lost weight without trying: No Eating poorly because of decreased appetite: No Nutrition Risks: No Nutritional Risk Poor oral hygiene: No Meds Allergies Allergy/AdvReac Type Severity Reaction Status Date / Time No Known Allergies Allergy Verified 12/04/20 12:28 Active Medications: Current Medications Generic Name Dose Route Start Last Admin Trade Name Freq PRN Reason Stop Dose Admin Acetaminophen 650 mg 12/04/20 21:53 12/05/20 11:30 Acetaminophen 325 Mg Tablet PO 650 mg Q6H PRN Administration Pain, Mild (Pain Scale 1-3) Azelastine HCl 1 spray 12/04/20 21:53 12/05/20 01:43 Azelastine Hcl Nasal 137 Mcg/[place] 30 Ml NOSTRIL-B Not Given BEDTIME ALIZA Docusate Sodium 100 mg 12/04/20 21:53 Docusate Sodium 100 Mg Capsule PO DAILY PRN Constipation Doxazosin Mesylate 4 mg 12/04/20 21:53 12/04/20 22:06 Doxazosin Mesylate 2 Mg Tablet PO 4 mg BEDTIME ALIZA Administration Protocol Enoxaparin Sodium 40 mg 12/04/20 21:53 12/04/20 22:05 Enoxaparin Sodium 40 Mg/0.4 Ml Syringe SUBCUT 40 mg Q24H ALIZA Administration Losartan Potassium 100 mg 12/05/20 09:00 12/05/20 10:00 Losartan Potassium 50 Mg Tablet PO 100 mg DAILY ALIZA Administration Protocol Ondansetron HCl 4 mg 12/04/20 21:53 Ondansetron Hcl 4 Mg/2 Ml Vial IVPUSH Q8H PRN Nausea and Vomiting Pharmacy Consult 1 each 12/04/20 17:12 Consult Rx Perform Med Rec MISCELLANE ONCE PRN Consult order Sodium Chloride 3 ml 12/05/20 00:00 12/05/20 10:00 0.9 % Sodium Chloride Flush 3 Ml Syringe IVFLUSH 3 ml QSHIFT ALIZA Administration Triamcinolone Acetonide 1 appl 12/05/20 09:00 12/05/20 10:00 Triamcinolone Acet 0.025 % Cream 15 Gm Tube TOPICAL 1 appl BID ALIZA Administration Home Medications Medication Instructions Recorded Confirmed Last Taken Type azelastine 1 spray INTRANASAL BEDTIME 12/04/20 12/04/20 12/03/20 History desonide 1 appl TOPICAL BID 12/04/20 12/04/20 12/04/20 History doxazosin 1 tab PO BEDTIME 12/04/20 12/04/20 12/03/20 History losartan 1 tab PO DAILY 12/04/20 12/04/20 12/04/20 History Physical Exam Vital Signs: Vital Signs: Last Vital Signs Temp 98.3 F 12/05/20 11:22 Pulse 45 L 12/05/20 11:22 Resp 18 12/05/20 11:22 BP 138/60 12/05/20 11:22 Pulse Ox 94 12/05/20 11:22 Body Mass Index 34.4 Const: General: cooperative and no acute distress HENMT: Other: Unremarkable Neck: Neck: Yes normal visual inspection Chest: Chest palpation & inspection: normal inspection of the chest Resp: Auscultation: clear to auscultation bilaterally, no crackles and no wheezes Cardio: Jugular venous distension: no JVD Palpation: normal PMI Heart sounds: S1 normal heart sound present, S2 normal heart sound present, no gallops, no murmurs and no rubs GI: Palpation (GI): Soft to palpation Back/Spine/Pelvis: Other: unremarkable Skin: General skin exam: no rashes or lesions noted Neuro: Cranial nerves: Yes Other cranial nerve findings present Extrem: General: Yes no clubbing, cyanosis or edema Psych: Mental Status: other Results Labs and Meds Result diagrams: 12/04/20 12:53 12/05/20 05:12 Lab results: Laboratory Results - last 24 hr 12/04/20 12/04/20 12/04/20 12:53 12:53 12:53 WBC 7.5 RBC 5.03 Hgb 14.9 Hct 45.4 MCV 90.3 MCH 29.6 MCHC 32.8 RDW 12.5 Plt Count 235 MPV 9.4 Immature Gran % (Auto) 0.1 Neut % (Auto) 62.9 Lymph % (Auto) 25.6 [place] % (Auto) 9.2 Eos % (Auto) 1.7 Baso % (Auto) 0.5 Lymph # (Auto) 1.9 [place] # (Auto) 0.7 Eos # (Auto) 0.1 Baso # (Auto) 0.0 Abs Immat Gran (auto) 0.01 Absolute Neuts (auto) 4.7 Absolute Nucleated RBC 0.000 Nucleated RBC % (auto) 0.0 Hold Purple Top SEE NOTE PT INR APTT Sodium 139 Potassium 4.3 Chloride 102 Carbon Dioxide 27 Anion Gap 14 BUN 18 H Creatinine 0.99 Estim Creat Clear Calc 77.2 Estimated GFR > 60 Random Glucose 89 Calcium 9.8 Total Bilirubin 0.3 AST 32 ALT 41 H Alkaline Phosphatase 70 Troponin I High Sens B-Natriuretic Peptide Total Protein 7.0 Albumin 4.2 Urine Color Urine Appearance Urine pH Ur Specific [place] Urine Protein Urine Glucose (UA) Urine Ketones Urine Blood Urine Nitrite Ur Leukocyte Esterase COVID-19 (CHAPIN) COVID-[place] 12/04/20 12/04/20 12/04/20 12:53 12:53 19:06 WBC RBC Hgb Hct MCV MCH MCHC RDW Plt Count MPV Immature Gran % (Auto) Neut % (Auto) Lymph % (Auto) [place] % (Auto) Eos % (Auto) Baso % (Auto) Lymph # (Auto) [place] # (Auto) Eos # (Auto) Baso # (Auto) Abs Immat Gran (auto) Absolute Neuts (auto) Absolute Nucleated RBC Nucleated RBC % (auto) Hold Purple Top PT 12.5 INR 1.1 APTT 33.8 Sodium Potassium Chloride Carbon Dioxide Anion Gap BUN Creatinine Estim Creat Clear Calc Estimated GFR Random Glucose Calcium Total Bilirubin AST ALT Alkaline Phosphatase Troponin I High Sens < 3.5 B-Natriuretic Peptide 24 Total Protein Albumin Urine Color Urine Appearance Urine pH Ur Specific [place] Urine Protein Urine Glucose (UA) Urine Ketones Urine Blood Urine Nitrite Ur Leukocyte Esterase COVID-19 (CHAPIN) Negative COVID-[place] See Note 12/04/20 12/05/20 19:06 05:12 WBC RBC Hgb Hct MCV MCH MCHC RDW Plt Count MPV Immature Gran % (Auto) Neut % (Auto) Lymph % (Auto) [place] % (Auto) Eos % (Auto) Baso % (Auto) Lymph # (Auto) [place] # (Auto) Eos # (Auto) Baso # (Auto) Abs Immat Gran (auto) Absolute Neuts (auto) Absolute Nucleated RBC Nucleated RBC % (auto) Hold Purple Top PT INR APTT Sodium 141 Potassium 4.2 Chloride 105 Carbon Dioxide 29 Anion Gap 11 L BUN 14 Creatinine 0.90 Estim Creat Clear Calc 85.0 Estimated GFR > 60 Random Glucose 85 Calcium 9.3 Total Bilirubin AST ALT Alkaline Phosphatase Troponin I High Sens B-Natriuretic Peptide Total Protein Albumin Urine Color YELLOW Urine Appearance CLEAR Urine pH 6.0 Ur Specific [place] 1.025 Urine Protein NEG Urine Glucose (UA) NEG Urine Ketones NEG Urine Blood NEG Urine Nitrite NEG Ur Leukocyte Esterase NEG COVID-19 (CHAPIN) COVID-19 Clin Com ECG Attestation: I personally reviewed and interpreted this ECG as follows: Interpretation: EKG- Sinus bradycardia at 44/Min. No significant ST-T changes. Leftward axis. Imaging Radiologist's impression: Impressions Head CT 12/04/20 12:34 IMPRESSION: 1. No acute intracranial abnormality. No hydrocephalus or hemorrhage. 2. Incidental 1 cm midline lipoma. 3. Mild symmetric periventricular white matter gliosis adjacent to frontal horns and involving bilateral anterior external capsule. No acute territorial infarct. Renal Ultrasound 12/05/20 08:56 IMPRESSION: Normal renal ultrasound. Left renal artery stenosis. No evidence of right renal artery stenosis. Assessment and Plan (1) Sinus bradycardia: Status: Acute (2) Uncontrolled hypertension: Status: Acute Labs reviewed. Hemoglobin is 14.9. White cell 7.5. Platelets 235. Sodium 141. Potassium 4.2. Creatinine is 0.9. HS troponin less than 3.5. Cardiac BNP is 24. Telemetry shows sinus rhythm at about 52/min; over night rates in the 40s. Highly doubt if sinus bradycardia is actually causing any symptoms at this time. At this time, may stay off the beta-blockers. Otherwise no specific inpatient testing is needed. Upon discharge, we will get an outpatient Holter and an echocardiogram follow-up in the office. May need sleep study as well. Procedures Date of Service Date of Service: 12/05/20
--- NOTE | 2020-12-05 15:18 | MHC.CM.PN ---
Met with patient. Went over IMM. Lives with , independent, drives. sees PCP regularly, is HCP, she will bring in copy when she visits. Anticipate no needs at dc
[2020-12-05] MEDS: Spironolactone 25 MG TABLET PO (17:59)
[2020-12-05] MEDS: Magnesium Hydrox/Alum Hydrox 30 ML ORAL.SUSP 15 ML PO (19:25)
--- NOTE | 2020-12-05 19:32 | PC.NURSE ---
pt reported having 3 loose BM's today, reported some abdominal cramping and acid reflux.Educated to use the collection container for BM for RN to assess. Pt had one more loose BM that was lose and fluffy. JOSHUA Alaniz was notified. Maalox was ordered for acid reflux, will obtain next stool sample
[2020-12-05] MEDS: Doxazosin Mesylate 2 MG TABLET 4 MG PO (20:35)
[2020-12-05] MEDS: Azelastine HCl Nasal 137 MCG/Spray 30 ML 1 SPRAY NOSTRIL-B (20:37)
[2020-12-05 21:50] LABS: CDIFF Ag Negative (Negative); CDIFF Internal ctrl Dots and bkg OK (V); CDiff Toxin Negative (Negative)
[2020-12-05] MEDS: Enoxaparin Sodium 40 MG/0.4 ML SYRINGE SUBCUT (22:12)
[2020-12-06] VITALS (8 sets, daily range): BP systolic 127–152; BP diastolic 58–74; PULSE 45–60; RESP 18; TEMP 36.3–37.2; O2SAT 92–96
[2020-12-06] MEDS: 0.9 % Sodium Chloride Flush 3 ML SYRINGE IVFLUSH ×4 (01:49→21:03)
--- NOTE | 2020-12-06 09:07 | HO.PM.IMPN ---
Subjective Subjective Date of Service: 12/06/20 Interval History: seen and examined this morning. uneventful evening. no complaints today. headache resolved. had a few episodes of diarrhea yesterday after, no more diarrhea today. blood pressure has remained controlled ovrnight Review of Systems Review of Systems: Yes all other systems are reviewed and are negative Constitutional Constitutional: Denies chills and Denies fever(s) Cardiovascular Cardiovascular: Denies chest pain Respiratory Respiratory: Denies cough Gastrointestinal Gastrointestinal: Denies abdominal pain Physical Exam Vital Signs: Vital Signs: Last Vital Signs Temp 97.3 F 12/06/20 07:24 Pulse 60 12/06/20 07:24 Resp 18 12/06/20 07:24 BP 138/62 12/06/20 07:24 Pulse Ox 93 12/06/20 07:24 Body Mass Index 34.4 Const: Other: sitting up in chair General: healthy appearing, comfortable, alert and awake Nutritional Appearance: well nourished Orientation/consciousness: patient oriented x3 HENMT: Head: Yes normocephalic and Yes atraumatic Eyes: Sclerae: sclerae normal Chest: Chest palpation & inspection: normal inspection of the chest Resp: Effort & Inspection: normal respiratory effort and no respiratory distress Auscultation: clear to auscultation bilaterally Cardio: Rhythm: regular rhythm GI: Palpation (GI): Soft to palpation and nontender Neuro: General: patient oriented x3 Cranial nerves: Yes CN's II-XII intact bilaterally and Yes Bilaterally intact EOM present Objective Data Current Medications Generic Name Dose Route Start Last Admin Trade Name Freq PRN Reason Stop Dose Admin Acetaminophen 650 mg 12/04/20 21:53 12/05/20 11:30 Acetaminophen 325 Mg Tablet PO 650 mg Q6H PRN Administration Pain, Mild (Pain Scale 1-3) Al Hydroxide/Mg Hydroxide 15 ml 12/05/20 17:04 12/05/20 19:25 Magnesium Hydrox/Alum Hydrox 30 Ml Oral.Susp PO 15 ml Q6H PRN Administration Dyspepsia Azelastine HCl 1 spray 12/04/20 21:53 12/05/20 20:37 Azelastine Hcl Nasal 137 Mcg/[place] 30 Ml NOSTRIL-B 1 spray BEDTIME ALIZA Administration Docusate Sodium 100 mg 12/04/20 21:53 Docusate Sodium 100 Mg Capsule PO DAILY PRN Constipation Doxazosin Mesylate 4 mg 12/04/20 21:53 12/05/20 20:35 Doxazosin Mesylate 2 Mg Tablet PO 4 mg BEDTIME ALIZA Administration Protocol Enoxaparin Sodium 40 mg 12/04/20 21:53 12/05/20 22:12 Enoxaparin Sodium 40 Mg/0.4 Ml Syringe SUBCUT 40 mg Q24H ALIZA Administration Losartan Potassium 100 mg 12/05/20 09:00 12/05/20 10:00 Losartan Potassium 50 Mg Tablet PO 100 mg DAILY ALIZA Administration Protocol Ondansetron HCl 4 mg 12/04/20 21:53 Ondansetron Hcl 4 Mg/2 Ml Vial IVPUSH Q8H PRN Nausea and Vomiting Pharmacy Consult 1 each 12/04/20 17:12 Consult Rx Perform Med Rec MISCELLANE ONCE PRN Consult order Sodium Chloride 3 ml 12/05/20 00:00 12/06/20 01:49 0.9 % Sodium Chloride Flush 3 Ml Syringe IVFLUSH 3 ml QSHIFT ALIZA Administration Spironolactone 25 mg 12/05/20 17:45 12/05/20 17:59 Spironolactone 25 Mg Tablet PO 25 mg DAILY ALIZA Administration Protocol Triamcinolone Acetonide 1 appl 12/05/20 09:00 12/05/20 20:37 Triamcinolone Acet 0.025 % Cream 15 Gm Tube TOPICAL 1 appl BID ALIZA Administration Labs CBC & Chem 7: 12/04/20 12:53 12/05/20 05:12 Labs: Laboratory Results - last 24 hr 12/05/20 20:41 C. difficile Toxin A&B Negative C. difficile Antigen Negative C. difficile Interpret SEE NOTE Microbiology Microbiology Results: Microbiology 12/05/20 20:41 Stool Culture - Preliminary Stool Normal so far. Quality Stroke Does the patient have a stroke diagnosis?: No VTE Prior VTE?: No VTE Risk Level:: Medical - moderate - high VTE Device Contraindication: Treatment Not Indicated VTE Drug Contraindication: N/A - Med Ordered Assessment and Plan (1) Uncontrolled hypertension: Status: Acute Assessment and Plan: This is a 65-year-old male with history of hypertension who was sent to the emergency department for further investigation of his uncontrolled hypertension. Uncontrolled hypertension Sent for evaluation of uncontrolled hypertension, needs workup for secondary causes Patient reports elevated blood pressure primarily in the evening at home. BP has been well controlled during hospitalization. Has been tried on a few different medications but has been unable to tolerate for various reasons including metoprolol, nifedipine and HCTZ -continue home dose of losartan and Cardura. -urinalysis unremarkable -plasma metanephrines and renin/aldosterone pending -consider abdominal CT if remainder of workup is unremarkable -seen by nephrology, started on aldactone -renal doppler showing Left renal artery stenosis, will obtain renal MRA, if + will consult vascular surgery -sleep study scheduled for first week of September Bradycardia. HR in 40s Denies current use of beta-gurinder, stopped metoprolol November 27. Does not appear to be on any other rate lowering medication at this time EKG was sinus bradycardia -seen by Cardiology, does not feel that bradycardia is contributing to symptoms. No further workup necessary at this time. echo and further work up as outpatient Headache resolved Diarrhea resolved -cdif negative DVT prophylaxis-Lovenox Code status-full code This case was discussed with Dr. Leo
[2020-12-06] MEDS: Spironolactone 25 MG TABLET PO (09:21)
[2020-12-06] MEDS: Losartan Potassium 50 MG TABLET 100 MG PO (09:21)
--- NOTE | 2020-12-06 11:56 | PM.PNCARD ---
Subjective Subjective Date of Service: 12/06/20 Interval history: No dizziness. Denies any cardiac complaints. Review of Systems Review of Systems Yes all other systems are reviewed and are negative Cardiovascular: Reports as per HPI, Reports no additional cardiovascular complaints, Denies acrocyanosis, Denies cool extremities, Denies painful fingertips, Denies chest pain, Denies chest pain at rest, Denies diaphoresis, Denies syncope, Denies irregular heart rhythm, Denies claudication, Denies leg edema, Reports lightheadedness, Denies palpitations and Denies dyspnea Respiratory: Denies dyspnea Denies syncope Endocrine: Denies palpitations Physical Exam Vital Signs: Last Vital Signs Temp 97.4 F 12/06/20 11:23 Pulse 50 12/06/20 11:23 Resp 18 12/06/20 11:23 BP 142/62 H 12/06/20 11:23 Pulse Ox 92 12/06/20 11:23 Body Mass Index 34.4 Const General: cooperative and no acute distress HENIN Other: Unremarkable Neck Neck: Yes normal visual inspection Chest Chest palpation & inspection: normal inspection of the chest Resp Auscultation: clear to auscultation bilaterally, no crackles and no wheezes Cardio Jugular venous distension: no JVD Palpation: normal PMI Heart sounds: S1 normal heart sound present, S2 normal heart sound present, no gallops, no murmurs and no rubs GI Palpation (GI): Soft to palpation Back/Spine/Pelvis Other: unremarkable Skin General skin exam: no rashes or lesions noted Neuro Cranial nerves: Yes Other cranial nerve findings present Extrem General: Yes no clubbing, cyanosis or edema Psych Mental Status: other Results Labs and Meds Result diagrams: 12/04/20 12:53 12/05/20 05:12 Lab results: Laboratory Results - last 24 hr 12/05/20 20:41 C. difficile Toxin A&B Negative C. difficile Antigen Negative C. difficile Interpret SEE NOTE Progress Note: A&P Assessment and plan (1) Sinus bradycardia: Status: Acute (2) Uncontrolled hypertension: Status: Acute Assessment and Plan: Labs reviewed. Hemoglobin is 14.9. White cell 7.5. Platelets 235. Sodium 141. Potassium 4.2. Creatinine is 0.9. HS troponin less than 3.5. Cardiac BNP is 24. Telemetry shows sinus rhythm at about 52/min; over night rates in the 40s. Highly doubt if sinus bradycardia is actually causing any symptoms at this time. At this time, may stay off the beta-blockers. Otherwise no specific inpatient testing is needed. Upon discharge, we will get an outpatient Holter and an echocardiogram follow-up in the office. May need sleep study as well. Fall Risk Details Current Medications: Current Medications Generic Name Dose Route Start Last Admin Trade Name Freq PRN Reason Stop Dose Admin Acetaminophen 650 mg 12/04/20 21:53 12/05/20 11:30 Acetaminophen 325 Mg Tablet PO 650 mg Q6H PRN Administration Pain, Mild (Pain Scale 1-3) Al Hydroxide/Mg Hydroxide 15 ml 12/05/20 17:04 12/05/20 19:25 Magnesium Hydrox/Alum Hydrox 30 Ml Oral.Susp PO 15 ml Q6H PRN Administration Dyspepsia Azelastine HCl 1 spray 12/04/20 21:53 12/05/20 20:37 Azelastine Hcl Nasal 137 Mcg/[place] 30 Ml NOSTRIL-B 1 spray BEDTIME ALIZA Administration Docusate Sodium 100 mg 12/04/20 21:53 Docusate Sodium 100 Mg Capsule PO DAILY PRN Constipation Doxazosin Mesylate 4 mg 12/04/20 21:53 12/05/20 20:35 Doxazosin Mesylate 2 Mg Tablet PO 4 mg BEDTIME ALIZA Administration Protocol Enoxaparin Sodium 40 mg 12/04/20 21:53 12/05/20 22:12 Enoxaparin Sodium 40 Mg/0.4 Ml Syringe SUBCUT 40 mg Q24H ALIZA Administration Losartan Potassium 100 mg 12/05/20 09:00 12/06/20 09:21 Losartan Potassium 50 Mg Tablet PO 100 mg DAILY ALIZA Administration Protocol Ondansetron HCl 4 mg 12/04/20 21:53 Ondansetron Hcl 4 Mg/2 Ml Vial IVPUSH Q8H PRN Nausea and Vomiting Pharmacy Consult 1 each 12/04/20 17:12 Consult Rx Perform Med Rec MISCELLANE ONCE PRN Consult order Sodium Chloride 3 ml 12/05/20 00:00 12/06/20 09:24 0.9 % Sodium Chloride Flush 3 Ml Syringe IVFLUSH 3 ml QSHIFT ALIZA Administration Spironolactone 25 mg 12/05/20 17:45 12/06/20 09:21 Spironolactone 25 Mg Tablet PO 25 mg DAILY ALIZA Administration Protocol Triamcinolone Acetonide 1 appl 12/05/20 09:00 12/05/20 20:37 Triamcinolone Acet 0.025 % Cream 15 Gm Tube TOPICAL 1 appl BID ALIZA Administration Time Spent With Patient Time: Total time spent is greater than 50% in coordination of care (as documented) at patient's floor/unit and/or counseling patient: Time with patient: less than 15 minutes Progress Note: Quality Stroke Does the patient have a stroke diagnosis?: No Procedures Date of Service Date of Service: 12/06/20
[2020-12-06] MEDS: Triamcinolone Acet 0.025 % Cream 15 GM TUBE 1 APPL TOPICAL ×2 (13:18→21:03)
--- NOTE | 2020-12-06 14:55 | PM.PNNEP ---
Subjective Subjective Date of Service: 12/06/20 Interval history: seen and examined this morning. no complaints today. headache resolved. blood pressure has remained controlled overnight States BP is high only if active On Aldactone Physical Exam Vital Signs: Vital Signs: Last Vital Signs Temp 97.4 F 12/06/20 11:23 Pulse 50 12/06/20 11:23 Resp 18 12/06/20 11:23 BP 142/62 H 12/06/20 11:23 Pulse Ox 92 12/06/20 11:23 Body Mass Index 34.4 Const: Other: sitting up in chair General: cooperative, healthy appearing, comfortable, no acute distress, well developed, alert and awake Nutritional Appearance: well nourished and overweight Orientation/consciousness: patient oriented x3 HENMT: Other: Unremarkable Head: Yes normal to inspection, Yes No palpable skull fracture present, Yes normocephalic, Yes atraumatic and No abrasion Eyes: General: appearance normal, both eyes and all related structures Sclerae: sclerae normal Neck: Neck: Yes normal visual inspection, Yes full ROM, Yes no lymphadenopathy, Yes no meningeal signs, Yes trachea midline, Yes supple and No tender Chest: Chest palpation & inspection: normal inspection of the chest and normal palpation of entire chest wall Resp: Effort & Inspection: normal respiratory effort, able to speak in complete sentences and no respiratory distress Auscultation: clear to auscultation bilaterally, no crackles and no wheezes Cardio: Jugular venous distension: no JVD Palpation: normal PMI Rate: regular rate and bradycardic Rhythm: regular rhythm Heart sounds: S1 normal heart sound present, S2 normal heart sound present, no gallops, no murmurs and no rubs GI: Inspection: Yes normal to inspection and No abdominal wall ecchymosis Palpation (GI): Soft to palpation, not firm, nontender, no guarding and not rigid : General: No CVA tenderness and Yes no CVA tenderness Back/Spine/Pelvis: Other: unremarkable Back: no CVA tenderness, No CVA tenderness and No back tenderness Skin: General skin exam: no rashes or lesions noted and elasticity normal Neuro: General: patient oriented x3, gait normal, no meningeal signs and CN's II-XI intact bilaterally Cranial nerves: Yes CN's II-XII intact bilaterally, Yes Bilaterally intact EOM present and Yes Other cranial nerve findings present Extrem: General: Yes normal to inspection, Yes full ROM and Yes no clubbing, cyanosis or edema Psych: Appearance: grossly normal, well kempt and not disheveled Mental Status: other Objective Data Labs CBC & Chem 7: 12/04/20 12:53 12/05/20 05:12 Labs: Laboratory Results - last 24 hr 12/05/20 20:41 C. difficile Toxin A&B Negative C. difficile Antigen Negative C. difficile Interpret SEE NOTE Microbiology Microbiology Results: Microbiology 12/05/20 20:41 Stool Stool Culture - Preliminary Normal so far. Assessment & Plan Assessment and plan (1) Sinus bradycardia: Status: Acute (2) Uncontrolled hypertension: Status: Acute Assessment and Plan: This is a 65-year-old male with history of hypertension who was sent to the emergency department for further investigation of his uncontrolled hypertension. Uncontrolled hypertension Sent for evaluation of uncontrolled hypertension- Ongoing workup for secondary causes BP has been well controlled during hospitalization. Unable to tolerate for various reasons including metoprolol, nifedipine and HCTZ continue home dose of losartan and Cardura. plasma metanephrines and renin/aldosterone pending contineu aldactone doppler showing Left renal artery stenosis- Asked medical team to order- renal MRA sleep study scheduled for first week of September Bradycardia. HR in 40s-seen by Cardiology, does not feel that bradycardia is contributing to symptoms. No further workup necessary at this time Asked nurse to check his BP after he ambulates Time Spent With Patient Time: Total time spent is greater than 50% in coordination of care (as documented) at patient's floor/unit and/or counseling patient: Procedures Date of Service Date of Service: 12/06/20 Progress Note: Quality Stroke Does the patient have a stroke diagnosis?: No
[2020-12-06] MEDS: Doxazosin Mesylate 2 MG TABLET 4 MG PO (21:01)
[2020-12-06] MEDS: Enoxaparin Sodium 40 MG/0.4 ML SYRINGE SUBCUT (21:01)
[2020-12-06] MEDS: Azelastine HCl Nasal 137 MCG/Spray 30 ML 1 SPRAY NOSTRIL-B (21:01)
[2020-12-07] VITALS (7 sets, daily range): BP systolic 128–152; BP diastolic 58–74; PULSE 46–57; RESP 18–20; TEMP 36.3–37.3; O2SAT 93–95
[2020-12-07] MEDS: Spironolactone 25 MG TABLET PO (08:51)
[2020-12-07] MEDS: 0.9 % Sodium Chloride Flush 3 ML SYRINGE IVFLUSH (08:51)
[2020-12-07] MEDS: Losartan Potassium 50 MG TABLET 100 MG PO (08:51)
[2020-12-07] MEDS: Triamcinolone Acet 0.025 % Cream 15 GM TUBE 1 APPL TOPICAL (08:53)
--- NOTE | 2020-12-07 11:29 | MHC.CM.PN ---
Per ROUNDS discussion, Patient needs a MRA and may be able to return home later today; CM will follow.
--- NOTE | 2020-12-07 11:31 | CONS_ITS ---
DATE OF SERVICE: 12/05/2020 REASON FOR CONSULTATION: Consult requested by the medical team to evaluate and help in management of patient with uncontrolled hypertension. HISTORY OF PRESENT ILLNESS: The patient is a 65-year-old male with past medical history of longstanding ouagnzokj-dz-cfoloox hypertension followed by Dr. Hernández who send the patient to the hospital due to uncontrolled hypertension. For the last 6 months, he has been having elevated blood pressures at night. His blood pressure apparently goes up to the 230 systolics. This is associated with intermittent posterior headaches. He denied any chest pain, shortness of breath and orthopnea, vision changes. He has apparently tried a few antihypertensive medication, not able to be tolerate it. He was on metoprolol, which was started on November 27. He was started on nifedipine, but only took it for 2 days. He has been on hydrochlorothiazide and has been stopped for unclear reasons. Currently, he is taking Cardura and losartan. In the ER, patient had a systolic blood pressure was around 140 to 150. Lab was unremarkable. Has bradycardia with a heart rate of 40s. EKG also showed sinus bradycardia. The patient is able to ambulate inside the room. He gives history of having snoring episodes and is going for a sleep study in the near future. Renal consult has been requested to help with management of hypertension. REVIEW OF SYSTEMS: As noted above. Other system review negative. PAST MEDICAL HISTORY: Included history of hypertension as mentioned before. There is no diabetes. FAMILY HISTORY: Multiple members of the family having hypertension. PAST SURGICAL HISTORY: Right knee surgery, history of shoulder surgery, hip surgery and cholecystectomy. SOCIAL HISTORY: Patient lives with his spouse, frequently takes alcohol. Does not smoke or use drugs. ALLERGIES: PATIENT HAS NO KNOWN DRUG ALLERGIES. MEDICATION AT HOME: Include losartan and doxazosin. PHYSICAL EXAMINATION: GENERAL: Patient is resting in the bed. Awake, alert, oriented x3. No significant distress. VITAL SIGNS: Blood pressure was 131/63, and the pressures have been ranging in around 130 to 140s today. HEENT: Shows pupils equal round and reactive bilaterally light. No jugular venous distention noted. NECK: Supple. No thyromegaly is noted. Mucosa moist. There is no scleral icterus or conjunctival congestion. CARDIOVASCULAR SYSTEM: S1, S2 without rub or murmur. RESPIRATORY SYSTEM: Air entry decreased in bases. No crepitation or rhonchi is noted. ABDOMEN: Obese, soft. Bowel sounds normal. EXTREMITIES: Showed no edema. There is no peripheral cyanosis or clubbing. NEURO: Essentially nonfocal. LABS: Done recently sodium 141, potassium 4.2, chloride 105, CO2 29, BUN 14, creatinine 0.9. Hemoglobin 14.5, hematocrit 45, WBC 7.5, and platelets 235. IMPRESSION: A 65-year-old male with uncontrolled hypertension. His blood pressure has been fairly well controlled in the hospital on the same medication regimen. He was bradycardic, but he is off metoprolol and his pulse rate is still around 45 to 50. He has had multiple intolerances to medication. Renal ultrasound done and the results are pending. I agree with sending plasma metanephrines for workup for pheochromocytoma. I will also agree with doing a renin and aldosterone level to look for hyperadrenalism. I suspect this patient has sleep apnea based on the history and he might have secondary hypertension related to sleep apnea as well. The spironolactone works well with patients with sleep apnea associated secondary hypertension and I have taken the liberty to start him on a small dose of spironolactone 25 mg once a day. If his blood pressure drops, then we can cut down the losartan or discontinue the doxazosin. His potassium level and electrolyte level needs to be monitored in about 1-2 weeks on the ARB and spironolactone. He should be on a strict 2 g sodium diet and needs to lose weight. As mentioned before, patient stated that he has a sleep study, which is being scheduled as an outpatient, which might help us in managing his blood pressure better if he has sleep apnea. Thank you for allowing me to participate in medical management of patient. MD DINORAH Shin/RICKEY / [id number]
--- NOTE | 2020-12-07 12:12 | PM.CNGS ---
History of Present Illness Consult details Consult date: 12/07/20 Reason for consult: other (Left renal artery stenosis) Narrative: Very pleasant 65-year-old gentleman presents for evaluation regarding left renal artery stenosis. He was originally admitted to the hospital for uncontrolled hypertension. He had been maintained at home on losartan and docs as us in. At the time of admission his blood pressure systolic was in the 150s. He notes that it was significantly more uncontrolled at home. At the current time his blood pressure is 128/59. Review of Systems Review of Systems: Yes all other systems are reviewed and are negative Constitutional: Constitutional: Reports no additional constitutional complaints ENT: Reports Normal hearing present Cardiovascular: Cardiovascular: Denies chest pain, Denies chest pain at rest, Denies chest pain with activity and Denies pedal edema Respiratory: Respiratory: Denies cough Gastrointestinal: Gastrointestinal: Denies abdominal pain Musculoskeletal: Musculoskeletal: Denies abnormal gait, Denies muscle cramps and Denies radiating pain into limb Integumentary/Breasts: Skin/Breast: Denies skin ulcer and Denies wounds Neurologic: Reports Normal hearing present and Denies abnormal gait Psychiatric: Psychiatric: Reports no additional psychiatric complaints [facility] Past Medical History Medical History (Updated 12/07/20 @ 12:14 by Linwood Perdomo MD) Hypertension Functional capacity: independent ambulation Surgical History Surgical History H/O right knee surgery H/O shoulder surgery History of hip surgery Hx of cholecystectomy Social History Social History (Updated 12/04/20 @ 18:02 by JOSHUA Botello) Household Members: Spouse Housing: House Do you presently have visiting nurse or other home services: No Alcohol intake: current Alcohol intake frequency: holidays/special occasions only Patient Tobacco Use Status: Never used Tobacco Second Hand Smoke Exposure: No Use of substances other than those prescribed or required for medical reasons: No Currently Displaying Signs/Symptoms of Drug Intoxication Withdrawal: No Any prior treatment program specific to substance use: No Have you been hit, kicked, punched, or otherwise hurt by someone within the past year? If so, by whom?: No Do you feel safe in your current relationship?: Yes Is there a partner from a previous relationship who is making you feel unsafe now?: No Are you made to feel afraid or neglected: No Jewish Healthcare Practices: Orthodox Advance Directives: No Advance Directives Information Provided: No Do you have thoughts of harming others: None Do you have a plan to hurt others: No Plan Recently lost weight without trying: No Eating poorly because of decreased appetite: No Nutrition Risks: No Nutritional Risk Poor oral hygiene: No service: No Current occupational status: retired Meds Allergies Allergy/AdvReac Type Severity Reaction Status Date / Time No Known Allergies Allergy Verified 12/04/20 12:28 Active Medications: Current Medications Generic Name Dose Route Start Last Admin Trade Name Freq PRN Reason Stop Dose Admin Acetaminophen 650 mg 12/04/20 21:53 12/05/20 11:30 Acetaminophen 325 Mg Tablet PO 650 mg Q6H PRN Administration Pain, Mild (Pain Scale 1-3) Al Hydroxide/Mg Hydroxide 15 ml 12/05/20 17:04 12/05/20 19:25 Magnesium Hydrox/Alum Hydrox 30 Ml Oral.Susp PO 15 ml Q6H PRN Administration Dyspepsia Azelastine HCl 1 spray 12/04/20 21:53 12/06/20 21:01 Azelastine Hcl Nasal 137 Mcg/[place] 30 Ml NOSTRIL-B 1 spray BEDTIME ALIZA Administration Docusate Sodium 100 mg 12/04/20 21:53 Docusate Sodium 100 Mg Capsule PO DAILY PRN Constipation Doxazosin Mesylate 4 mg 12/04/20 21:53 12/06/20 21:01 Doxazosin Mesylate 2 Mg Tablet PO 4 mg BEDTIME ALIZA Administration Protocol Enoxaparin Sodium 40 mg 12/04/20 21:53 12/06/20 21:01 Enoxaparin Sodium 40 Mg/0.4 Ml Syringe SUBCUT 40 mg Q24H ALIZA Administration Losartan Potassium 100 mg 12/05/20 09:00 12/07/20 08:51 Losartan Potassium 50 Mg Tablet PO 100 mg DAILY ALIZA Administration Protocol Ondansetron HCl 4 mg 12/04/20 21:53 Ondansetron Hcl 4 Mg/2 Ml Vial IVPUSH Q8H PRN Nausea and Vomiting Pharmacy Consult 1 each 12/04/20 17:12 Consult Rx Perform Med Rec MISCELLANE ONCE PRN Consult order Sodium Chloride 3 ml 12/05/20 00:00 12/07/20 08:51 0.9 % Sodium Chloride Flush 3 Ml Syringe IVFLUSH 3 ml QSHIFT ALIZA Administration Spironolactone 25 mg 12/05/20 17:45 12/07/20 08:51 Spironolactone 25 Mg Tablet PO 25 mg DAILY ALIZA Administration Protocol Triamcinolone Acetonide 1 appl 12/05/20 09:00 12/07/20 08:53 Triamcinolone Acet 0.025 % Cream 15 Gm Tube TOPICAL 1 appl BID ALIZA Administration Home Medications Medication Instructions Recorded Confirmed Last Taken Type azelastine 1 spray INTRANASAL BEDTIME 12/04/20 12/04/20 12/03/20 History desonide 1 appl TOPICAL BID 12/04/20 12/04/20 12/04/20 History doxazosin 1 tab PO BEDTIME 12/04/20 12/04/20 12/03/20 History losartan 1 tab PO DAILY 12/04/20 12/04/20 12/04/20 History Physical Exam Vital Signs: Vital Signs: Last Vital Signs Temp 99.2 F 12/07/20 07:23 Pulse 48 L 12/07/20 08:51 Resp 18 12/07/20 07:23 BP 128/59 L 12/07/20 08:51 Pulse Ox 95 12/07/20 07:23 Body Mass Index 34.4 Const: General: cooperative, healthy appearing and comfortable Orientation/consciousness: oriented to person, oriented to place and oriented to time HENMT: Head: Yes normal to inspection Neck: Neck: Yes normal visual inspection Carotids: no bruits Chest: Chest palpation & inspection: normal inspection of the chest Resp: Effort & Inspection: normal respiratory effort and able to speak in complete sentences Auscultation: clear to auscultation bilaterally, no crackles, no rales, no rhonchi and no wheezes Cardio: Rate: regular rate Rhythm: regular rhythm Heart sounds: S1 normal heart sound present and S2 normal heart sound present Bruits: no carotid bruits Peripheral pulses: Peripheral pulses 2+ throughout GI: Inspection: Yes normal to inspection Skin: Wounds: no wounds Hair: normal Neuro: General: oriented to person, oriented to place and oriented to time Cranial nerves: Yes CN's II-XII intact bilaterally and Yes Normal hearing present Cognition (Neuro): normal cognition Motor exam (neuro): 5/5 motor strength present throughout Extrem: Other: venous exam: No significant superficial varicosities or spider telangiectasias, minimal edema General: No clubbing, No cyanosis and No edema Psych: Appearance: grossly normal Mental Status: mental status grossly normal Speech and movement: Normal speech and movement present Results Labs Result diagrams: 12/04/20 12:53 12/05/20 05:12 Labs: Urine 12/04/20 Range/Units 19:06 Urine Color YELLOW Urine Appearance CLEAR Urine pH 6.0 (5.0-8.0) Ur Specific [place] 1.025 (1.005-1.025) Urine Protein NEG (NEG-TRACE) MG/DL Urine Glucose (UA) NEG (NEG) MG/DL All other labs normal. Assessment and Plan (1) Left renal artery stenosis: Status: Acute In short patient has uncontrolled hypertension. It appears that he is doing better during his hospitalization. He is currently being maintained on losartan cardura and Aldactone. I did have an opportunity to review his renal artery ultrasound and images. There is evidence of elevated velocities in the left renal artery and is concerning for left renal artery stenosis. There is an MRA pending to better elucidate the true degree of stenosis. I have discussed the pathophysiology with the patient and the potential cause of hypertension from renal artery stenosis. I do think although his blood pressure is better controlled it is prudent for us to proceed with more detailed imaging. Pending those results will discuss findings with patient and possible options and interventions if required. Thank you for allowing us to assist in his care. If there are any questions or concerns please do not hesitate to contact us. Procedures Date of Service Date of Service: 12/07/20
--- NOTE | 2020-12-07 15:22 | P.PNIM_ITS ---
Subjective Subjective Date of Service: 12/07/20 <Re Jimenez NP - Last Filed: 12/07/20 15:27> 12/09/20 <Jarret Beckman MD - Last Filed: 12/09/20 16:18> Interval History: follow-up hypertension BP better today <Re Jimenez NP - Last Filed: 12/07/20 15:27> Physical Exam Vital Signs: Vital Signs: Last Vital Signs Temp 97.3 F 12/07/20 12:00 Pulse 57 12/07/20 12:00 Resp 18 12/07/20 12:00 BP 131/62 12/07/20 12:00 Pulse Ox 93 12/07/20 12:00 Body Mass Index 34.4 <Re Jimenez NP - Last Filed: 12/07/20 15:27> Appearing in no acute distress lung sounds are clear to auscultation heart regular rate rhythm, clear S1, S2 positive bowel sounds, abdomen is soft, nontender neuro patient is alert x3, no focal deficits <Re Jimenez NP - Last Filed: 12/07/20 15:27> Objective Data Current Medications Generic Name Dose Route Start Last Admin Trade Name Freq PRN Reason Stop Dose Admin Acetaminophen 650 mg 12/04/20 21:53 12/05/20 11:30 Acetaminophen 325 Mg Tablet PO 650 mg Q6H PRN Administration Pain, Mild (Pain Scale 1-3) Al Hydroxide/Mg Hydroxide 15 ml 12/05/20 17:04 12/05/20 19:25 Magnesium Hydrox/Alum Hydrox 30 Ml Oral.Susp PO 15 ml Q6H PRN Administration Dyspepsia Azelastine HCl 1 spray 12/04/20 21:53 12/06/20 21:01 Azelastine Hcl Nasal 137 Mcg/[place] 30 Ml NOSTRIL-B 1 spray BEDTIME ALIZA Administration Docusate Sodium 100 mg 12/04/20 21:53 Docusate Sodium 100 Mg Capsule PO DAILY PRN Constipation Doxazosin Mesylate 4 mg 12/04/20 21:53 12/06/20 21:01 Doxazosin Mesylate 2 Mg Tablet PO 4 mg BEDTIME ALIZA Administration Protocol Enoxaparin Sodium 40 mg 12/04/20 21:53 12/06/20 21:01 Enoxaparin Sodium 40 Mg/0.4 Ml Syringe SUBCUT 40 mg Q24H ALIZA Administration Losartan Potassium 100 mg 12/05/20 09:00 12/07/20 08:51 Losartan Potassium 50 Mg Tablet PO 100 mg DAILY ALIZA Administration Protocol Ondansetron HCl 4 mg 12/04/20 21:53 Ondansetron Hcl 4 Mg/2 Ml Vial IVPUSH Q8H PRN Nausea and Vomiting Pharmacy Consult 1 each 12/04/20 17:12 Consult Rx Perform Med Rec MISCELLANE ONCE PRN Consult order Sodium Chloride 3 ml 12/05/20 00:00 12/07/20 08:51 0.9 % Sodium Chloride Flush 3 Ml Syringe IVFLUSH 3 ml QSHIFT ALIZA Administration Spironolactone 25 mg 12/05/20 17:45 12/07/20 08:51 Spironolactone 25 Mg Tablet PO 25 mg DAILY ALIZA Administration Protocol Triamcinolone Acetonide 1 appl 12/05/20 09:00 12/07/20 08:53 Triamcinolone Acet 0.025 % Cream 15 Gm Tube TOPICAL 1 appl BID ALIZA Administration <Re Jimenez NP - Last Filed: 12/07/20 15:27> Labs CBC & Chem 7: : 12/04/20 12:53 12/05/20 05:12 <Re Jimenez NP - Last Filed: 12/07/20 15:27> Microbiology Microbiology Results: Microbiology 12/05/20 20:41 Stool Stool Culture - Preliminary Normal so far. <Re Jimenez NP - Last Filed: 12/07/20 15:27> Progress Note: A&P (1) Left renal artery stenosis: Status: Acute <Re Jimenez NP - Last Filed: 12/07/20 15:27> Assessment and Plan: This is a 65-year-old male with history of hypertension who was sent to the emergency department for further investigation of his uncontrolled hypertension. Uncontrolled hypertension. ? r/t sleep apnea Sent for evaluation of uncontrolled hypertension, needs workup for secondary causes Patient reports elevated blood pressure primarily in the evening at home. BP has been well controlled during hospitalization. Has been tried on a few different medications but has been unable to tolerate for various reasons including metoprolol, nifedipine and HCTZ -continue home dose of losartan and Cardura. -urinalysis unremarkable -plasma metanephrines and renin/aldosterone pending -consider abdominal CT if remainder of workup is unremarkable -seen by nephrology, started on aldactone -renal doppler showing Left renal artery stenosis, will obtain renal MRA, if + will consult vascular surgery -sleep study scheduled for first week of September Bradycardia. HR in 40s Denies current use of beta-gurinder, stopped metoprolol November 27. Does not appear to be on any other rate lowering medication at this time EKG was sinus bradycardia -seen by Cardiology, does not feel that bradycardia is contributing to symptoms. No further workup necessary at this time. echo and further work up as outpatient Headache resolved Diarrhea resolved -cdif negative DVT prophylaxis-Lovenox Code status-full code This case was discussed with Dr. Beckman <Re Jimenez NP - Last Filed: 12/07/20 15:27> Quality Stroke Does the patient have a stroke diagnosis?: No <Re Jimenez NP - Last Filed: 12/07/20 15:27> VTE Prior VTE?: No <Re Jimenez NP - Last Filed: 12/07/20 15:27> VTE Risk Level:: Medical - moderate - high <Re Jimenez NP - Last Filed: 12/07/20 15:27> VTE Device Contraindication: Treatment Not Indicated <Re Jimenez NP - Last Filed: 12/07/20 15:27> VTE Drug Contraindication: N/A - Med Ordered <Re Jimenez NP - Last Filed: 12/07/20 15:27>
--- NOTE | 2020-12-07 15:33 | PM.DS ---
DS: Providers Provider Date of Service: 12/07/20 <Re Jimenez NP - Last Filed: 12/07/20 15:44> 12/07/20 <Jarret Beckman MD - Last Filed: 12/08/20 11:56> Date of admission: 12/04/20 17:50 <Re Jimenez NP - Last Filed: 12/07/20 15:44> Date of discharge: 12/07/20 <Re Jimenez NP - Last Filed: 12/07/20 15:44> Primary care physician: Peewee Maxwell MD <Re Jimenez NP - Last Filed: 12/07/20 15:44> Admitting clinician: Reena Lerner <Re Jimenez NP - Last Filed: 12/07/20 15:44> Attending physician on admission: Sixto Melgar <Re Jimenez NP - Last Filed: 12/07/20 15:44> Consults: 12/04/20 17:50 Consult to Nephrology Routine Consulting Provider: Kyler Cid Reason for consultation: uncontrolled HTN Has provider been notified: No 12/04/20 21:53 Consult to Cardiology Routine Consulting Provider: Vince Hernandez Reason for consultation: bradycardia, uncontrolled htn Has provider been notified: No 12/05/20 11:37 Consult to Vascular Surgery Routine Consulting Provider: Linwood Perdomo Reason for consultation: Left renal artery stenosis Has provider been notified: No <Re Jimenez NP - Last Filed: 12/07/20 15:44> Attending physician on discharge: Jarret Beckman <Re Jimenez NP - Last Filed: 12/07/20 15:44> Discharging clinician: Re Jimenez <Re Jimenez NP - Last Filed: 12/07/20 15:44> DS: Diagnosis Discharge Diagnosis (1) Left renal artery stenosis: Status: Acute <Re Jimenez NP - Last Filed: 12/07/20 15:44> DS: Medications Discharge Medications Home Medications: Home Medications Medication Instructions Recorded Confirmed azelastine 1 spray INTRANASAL BEDTIME 12/04/20 12/04/20 desonide 1 appl TOPICAL BID 12/04/20 12/04/20 doxazosin 1 tab PO BEDTIME 12/04/20 12/04/20 losartan 1 tab PO DAILY 12/04/20 12/04/20 Previous Rx's Medication Instructions Recorded spironolactone 25 mg PO DAILY #30 tab 12/07/20 <Re Jimenez NP - Last Filed: 12/07/20 15:44> DS: Summary Hospital Course Hospital Course: HP as per admitting provider This is a 65-year-old male who was sent to the emergency department by Dr. Hernández due to uncontrolled hypertension. Patient states that for the past 6 months he has been having elevated blood pressure at night. He reports that his blood pressure goes as high as 230 systolic. This is intermittently associated with posterior headaches. Twice this week he also reports having the sensation that his face was swollen. He denies any chest pain, dyspnea, orthopnea or vision changes. He recently had routine blood work drawn but is not aware of any imaging studies done as an outpatient. It seems he has been trialed on a few medications which she has been unable to tolerate for various reasons. Previously was on metoprolol, stopped 11/27. started on nifedipine that same day but only took for 2 days. Was previously on HCTZ it is unclear why he doesn't take that any longer. He is currently taking Cardura and losartan. On arrival to the emergency department his blood pressure was 140/63 followed by 151/51. CBC and BMP were unremarkable. He was noted to be bradycardic with heart rate in the 40s. EKG showed sinus bradycardia. He was previously on beta-gurinder but no longer takes metoprolol at home . Hypertension. Patient Bety admitted with headaches, systolic blood pressures above 230 he was seen and evaluated by Nephrology. Continued on losartan and cardura, spironolactone added with good effect. Plasma metanephrines, renin and aldosterone workup pending renal ultrasound showed renal artery stenosis, MRA done today which showed solitary renal arteries with early branching bilaterally with mild stenosis in the superior branch of the left renal artery the main arteries are widely patent. His blood pressure pressure has been much more stable during this admission. He will be discharged follow-up with vascular surgery as an outpatient. Bradycardia. Appears to be chronic not on any beta blockades apparently his metoprolol was stopped on November 27 seen evaluated by Cardiology with no further workup necessary at this time. He could follow up with his primary care provider if further workup is discussed stated. Attending Attestation: Patient seen and examined independently and I was present during smith portion of E/M service. Agree with Luis Jimenez NP's history, physical, assessment, and plan. <Re Jimenez NP - Last Filed: 12/07/20 15:44> Time Spent with Patient Time attestation: Total time spent providing and/or coordinating discharge services: <Re Jimenez NP - Last Filed: 12/07/20 15:44> Discharge coordination time: Greater than 30 minutes <Re Jimenez NP - Last Filed: 12/07/20 15:44> Quality: Stroke Does the patient have a stroke diagnosis?: No <Re Jimenez NP - Last Filed: 12/07/20 15:44> Physical Exam Vital Signs: Vital Signs: Last Vital Signs Temp 97.9 F 12/07/20 15:24 Pulse 51 12/07/20 15:24 Resp 18 12/07/20 15:24 BP 131/58 L 12/07/20 15:24 Pulse Ox 95 12/07/20 15:24 Body Mass Index 34.4 <Re Jimenez NP - Last Filed: 12/07/20 15:44> Appearing in no acute distress lung sounds are clear to auscultation heart regular rate rhythm, clear S1, S2 positive bowel sounds, abdomen is soft, nontender neuro patient is alert x3, no focal deficits <Re Jimenez NP - Last Filed: 12/07/20 15:44> DS: Data Data Completed and Pending Labs on day of discharge: Preliminary micro results at discharge 12/05/20 20:41 Stool Culture - Preliminary Stool Normal so far. <Re Jimenez NP - Last Filed: 12/07/20 15:44> Discharge Plan Discharge Anticipated Discharge Date/Time: 12/07/20 15:29 <Re Jimenez NP - Last Filed: 12/07/20 15:44> Patient Disposition: Home, Self-Care <Re Jimneez NP - Last Filed: 12/07/20 15:44> Discharge Diagnosis: hypertension renal artery stenosis <Re Jimenez NP - Last Filed: 12/07/20 15:44> hypertension renal artery stenosis <Jarret Beckman MD - Last Filed: 12/08/20 11:56> Referrals: Linwood Perdomo MD [Physician] - 1 Week (Renal artery stenosis ) Peewee Maxwell MD [Primary Care Provider] - 1 Week <Re Jimenez NP - Last Filed: 12/07/20 15:44> Discharge Medications: New spironolactone 25 mg Tablet 25 mg PO DAILY Qty: 30 RF: 0 Continued desonide 0.05 % cream 1 appl topical BID RF: 0 doxazosin 4 mg tablet 1 tab PO BEDTIME RF: 0 losartan 100 mg tablet 1 tab PO DAILY RF: 0 azelastine 137 mcg (0.1 %) Aerosol,[place] 1 spray INTRANASAL BEDTIME RF: 0 <Re Jimenez NP - Last Filed: 12/07/20 15:44> Discharge Orders: Discharge Order (Routine); Ordered 12/07/20 Ordered By: Re Jimenez <Re Jimenez NP - Last Filed: 12/07/20 15:44> Diet: advance to usual diet <Re Jimenez NP - Last Filed: 12/07/20 15:44> advance to usual diet <Jarret Beckman MD - Last Filed: 12/08/20 11:56> Activity on Discharge: As tolerated <Re Jimenez NP - Last Filed: 12/07/20 15:44> As tolerated <Jarret Beckman MD - Last Filed: 12/08/20 11:56> Stand Alone Forms: Patient Portal Discharge page <Re Jimenez NP - Last Filed: 12/07/20 15:44> Care Plan Goals: improvement in blood pressure <Re Jimenez NP - Last Filed: 12/07/20 15:44> Health Concerns: hypertension renal artery stenosis <Re Jimenez NP - Last Filed: 12/07/20 15:44> Plan of Treatment: continue with new medications as prescribed Follow-up with your scheduled sleep study <Re Jimenez NP - Last Filed: 12/07/20 15:44> Assessment: see discharge summary <Re Jimenez NP - Last Filed: 12/07/20 15:44> Discharge Date/Time: 12/07/20 17:16 <Re Jimenez NP - Last Filed: 12/07/20 15:44>
--- NOTE | 2020-12-07 15:39 | MHC.CM.PN ---
Patient has been medically cleared for dc to home today, no services. Last IMM completed on 12/05/2020.
--- NOTE | 2020-12-07 17:21 | PM.PNNEP ---
Subjective Subjective Date of Service: 12/07/20 Interval history: follow-up hypertension BP better today Physical Exam Vital Signs: Vital Signs: Last Vital Signs Temp 97.9 F 12/07/20 15:24 Pulse 51 12/07/20 15:24 Resp 18 12/07/20 15:24 BP 131/58 L 12/07/20 15:24 Pulse Ox 95 12/07/20 15:24 Body Mass Index 34.4 Appearing in no acute distress lung sounds are clear to auscultation heart regular rate rhythm, clear S1, S2 positive bowel sounds, abdomen is soft, nontender neuro patient is alert x3, no focal deficits Objective Data Labs CBC & Chem 7: 12/04/20 12:53 12/05/20 05:12 Microbiology Microbiology Results: Microbiology 12/05/20 20:41 Stool Stool Culture - Preliminary Normal so far. Assessment & Plan Time Spent With Patient Time: This is a 65-year-old male with history of hypertension who was sent to the emergency department for further investigation of his uncontrolled hypertension. Uncontrolled hypertension- improved Sent for evaluation of uncontrolled hypertension- Ongoing workup for secondary causes BP has been well controlled during hospitalization. Unable to tolerate for various reasons including metoprolol, nifedipine and HCTZ continue home dose of losartan and Cardura. plasma metanephrines and renin/aldosterone pending continue aldactone doppler showing Left renal artery stenosis- Asked medical team to order- renal MRA- No sig MELVA sleep study scheduled for first week of September Can be d/c'd F/u with Dr. Hernández Needs out pt Lytes to check K level on Aldactone + ARB Total time spent is greater than 50% in coordination of care (as documented) at patient's floor/unit and/or counseling patient: Procedures Date of Service Date of Service: 12/07/20 Progress Note: Quality Stroke Does the patient have a stroke diagnosis?: No
[2020-12-09 18:26] LABS: Metanephrine, Free <25 pg/mL (<=57); Normetanephrines, Free 94 pg/mL (<=148); Total Metanephrine, Free 94 pg/mL (<=205)
[2020-12-11 15:06] LABS: Aldosterone/Renin Ratio 0.4 Ratio (0.9-28.9); Plasma Renin Activity 5.35 ng/mL/h (0.25-5.82)
== END 2020-12-07 17:16 | disposition home or self-care (01) | DRG 700 ==
LOC: HO.ED 17:07 → HO.EDOVER 18:05 → HO.IMC 22:45
PROVIDERS: Physician Assistant; Admitting Provider Physician Assistant Medical; Emergency Provider Emergency Medicine; PCP Internal Medicine; Visit Provider Family Medicine
DX: I70.1 Atherosclerosis of renal artery (principal); R00.1 Bradycardia, unspecified; R19.7 Diarrhea, unspecified; G47.30 Sleep apnea, unspecified; Z20.822 Contact with and (suspected) exposure to COVID-19; Z79.899 Other long term (current) drug therapy
CPT/HCPCS: 36415; 70450; 74185; 80048; 80053; 81003; 82088; 83835; 83880; 84484; 85025; 85610; 85730; 87045; 87046; 87324; 87449; 87635; 93005; 93975; 99285; A9585; J1650

== ENCOUNTER → 2020-12-23 20:04 | Outpatient (REF) | payer MEDICARE, SELFPAY | LOC: HO.SL 20:04 | PROVIDERS: PCP Internal Medicine; Visit Provider Internal Medicine | DX: R06.83 Snoring (principal); F51.11 Primary hypersomnia; I10 Essential (primary) hypertension; R35.1 Nocturia; R45.4 Irritability and anger; R40.0 Somnolence | CPT/HCPCS: 95810 ==

== ENCOUNTER 2021-01-07 16:15 | Outpatient (REF) | payer MEDICARE, SELFPAY ==
--- NOTE | ~2021-01-07 | US_ITS ---
EXAMINATION: US RETROPERITONEAL COMPLETE (RENAL) CLINICAL INFORMATION: Frequency. Check postvoid residual. COMPARISON: MRA abdomen 12/07/2020. Ultrasound renal Doppler 12/05/2020. TECHNIQUE: Real-time imaging of the kidneys and bladder. FINDINGS: RIGHT KIDNEY: 9.7 x 5.4 x 4.7 cm (SAG x AP x TRV). The kidney is normal in size, contour, and echogenicity. Renal cortical thickness is normal. No calculi or focal parenchymal lesions. No hydronephrosis. LEFT KIDNEY: 9.8 x 5.6 x 4.2 cm (SAG x AP x TRV). The kidney is normal in size, contour, and echogenicity. Renal cortical thickness is normal. No calculi or focal parenchymal lesions. No hydronephrosis. BLADDER: Well distended and normal. Bilateral ureteral jets are demonstrated. Prevoid bladder volume is 161.6 mL. Postvoid bladder volume is 35 mL. Prostate volume 3.2 mL. US/US retroperitoneal comp IMPRESSION: Unremarkable renal ultrasound. Small postvoid residual bladder volume. Normal bilateral ureteral jets seen.
== END 2021-01-07 16:16 | disposition home or self-care (01) ==
LOC: HO.US 16:15
PROVIDERS: Visit Provider Internal Medicine
DX: R39.15 Urgency of urination (principal)
CPT/HCPCS: 76770

== ENCOUNTER → 2021-05-04 14:13 | Outpatient (BNVA) | payer MEDICARE, SELFPAY | PROVIDERS: PCP Internal Medicine; Visit Provider Surgery Vascular Surgery | DX: I70.1 Atherosclerosis of renal artery (principal) | CPT/HCPCS: 99212 ==

== ENCOUNTER → 2022-03-21 13:19 | Outpatient (REF) | payer MEDICARE, SELFPAY ==
--- NOTE | 2022-03-21 13:23 | ECG_ITS ---
Hook-up date: 2022-03-21 12:36:00 Duration: 24:30:00 Test Indications: BRADYCARDIA Medications: 95558 QRS complexes 1707 Ventricular ectopics which represent 2 % of total QRS comp. 11 Supraventricular ectopics which represent <1 % of total QRS comp. * Paced QRS complexs which represent % of total QRS comp. VENTRICULAR ECTOPY 1699 Isolated 24 Bigeminal Cycles 4 Couplets 0 Runs 0 Beats in Runs * Beats LONGEST at * BPM at :: -- * Beats FASTEST at * BPM at :: -- SUPRAVENTRICULAR ECTOPY 11 Isolated 0 Couplets 0 Runs 0 Beats in Runs * Beats LONGEST at * BPM at :: -- * Beats FASTEST at * BPM at :: -- HEART RATES 32 MIN at 05:04:58 2022-03-22 51 AVG 100 MAX at 18:50:36 2022-03-21 LONGEST RR 2.2160 secs at 03:25:06 2022-03-22 S-T LEVELS Channel 1 - 128 mm at 12:36:00 2022-03-21 - 128 mm at 12:36:00 2022-03-21 Channel 2 - 128 mm at 12:36:00 2022-03-21 - 128 mm at 12:36:00 2022-03-21 Channel 3 - 128 mm at 03:15:51 -- - 128 mm at 03:15:51 Underlying rhythm is sinus; Average ventricular rate 51/min; range 32-100/min; About 58% of the time, rate <60/min; no significant pauses or heart blocks; Frequent ventricular ectopy, 2% burden; some couplets but no runs; 'heartburn' , 'warmth' described in diary correlates with sinus rhythm. Referred By: Peewee Maxwell Overread By: GABBI CANCINO
== END ==
LOC: HO.CARD 13:19
PROVIDERS: PCP Internal Medicine; Visit Provider Internal Medicine
DX: R00.1 Bradycardia, unspecified (principal)
CPT/HCPCS: 93226

== ENCOUNTER → 2022-05-05 09:52 | Outpatient (BNVA) | payer MEDICARE, SELFPAY | PROVIDERS: PCP Internal Medicine; Referring Provider Internal Medicine; Visit Provider Internal Medicine | DX: I10 Essential (primary) hypertension (principal); R00.1 Bradycardia, unspecified | CPT/HCPCS: 93005; 99212 ==

== ENCOUNTER → 2022-05-17 09:27 | Outpatient (REF) | payer MEDICARE, SELFPAY ==
--- NOTE | 2022-05-17 09:31 | CA_ITS ---
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 The visually estimated ejection fraction is between 65-70%. - No obvious valvular pathology seen on this study. Findings Left Ventricle Normal left ventricular cavity size. There is mildly increased left ventricular wall thickness. The left ventricular systolic function is normal. The visually estimated ejection fraction is between 65-70%. There is no evidence of regional wall motion abnormalities. Diastolic function is normal for age. Right Ventricle Normal right ventricular cavity size and systolic function. Atria Both atria are normal in size. Aortic Valve There is a normal trileaflet aortic valve. There is no aortic valve stenosis. There is no aortic valve regurgitation. Mitral Valve The mitral valve appears normal. There is no mitral valve regurgitation. There is no mitral valve stenosis. Pulmonic Valve The pulmonic valve is likely normal. Tricuspid Valve Normal tricuspid valve structure. There is trace tricuspid valve regurgitation. There is no evidence of pulmonary hypertension. Great Vessels The asc aorta is normal in size. Venous The inferior vena cava is normal in size and collapses greater than 50% with inspiration. Pericardium/Pleural There is no evidence of pericardial effusion. Prior Study Comparison No prior study available for comparison. Recommendations, Care & Conclusions No obvious valvular pathology seen on this study. Measurements 2D Linear Measurements IVSd: 1.12 0.6-0.9/0.6-1.0 cm LVIDd: 4.44 3.9-5.3/4.2-5.9 cm LVIDd Index: 2.20 2.4-3.2/2.2-3.1 cm/m2 LVIDs: 2.93 2.0-3.6 cm LVPWd: 1.12 0.7-1.1 cm Ao Root: 3.10 2.1-3.5 cm LA Diam: 4.40 2.7-3.8/3.0-4.0 cm LAIDs Index: 2.18 1.5-2.3 cm/m2 LV Mass: 218.97 67-162/88-224 g LV Mass Index: 108.40 43-95/49-115 g/m2 LVOT Diam: 2.30 3.0+(-)1.3 cm 2D Systolic Function EF 4C: 64.00 >55% EF 2C: 62.10 >55% EF BiP: 60.80 >55% Mitral Valve MV Pk E: 0.56 MV PK A: 0.88 MV Decel Time: 364.00 E/A: 0.60 E'Lateral: 4.24 E'Medial: 8.48 E/E' Med: 6.60 E/E' Lat: 13.10 PHT: 107.00 MVA PHT: 2.06 Decel [place]: 1.53 Aortic Valve AoV Pk [place]: 1.85 AoV Mn [place]: 1.08 AoV VTI: 0.36 AoV Pk Grad: 14.00 Aov Mn Grad: 6.00 JOE Cont.VTI: 3.36 LVOT LVOT Pk [place]: 1.33 LVOT Mn [place]: 0.79 LVOT VTI: 0.29 LVOT Pk Grad: 7.00 LVOT Mn Grad: 3.00 LVOT Diam: 2.30 LVOT Area: 4.15 Diastolic Function MV Pk E: 0.56 MV Pk A: 0.88 E/A: 0.60 E'Medial: 8.48 E/E' Med: 6.60 E' Laterial: 4.24 E/E' Lat: 13.10 Right Ventricle TAPSE (mm): 23.00 TVS' [place]: 14.00 Tricuspid Valve TR Pk Farhat: 2.22 TR Pk Grad: 20.00 RA Press: 3.00 RVSP: 23.00 Great Vessels Aorta Ao Root-2D: 3.10 2.0-3.7 cm Ao Asc: 3.10 2.1-3.4 cm Pulmonary Valve PV Pk Farhat: 1.27 Peak PV Grad: 6.00 Updated in Other Vendor System with Status of Final Vince Hernandez MD electronically signed on 05/18/2022 10:23:45 AM with status of Final
--- NOTE | 2022-05-17 09:31 | CA_ITS ---
Acquisition Time: 2022-05-17 10:25:35 Total Exercise Time: 00:08:30 Test Indications: BRADYCARDIA Medications: LOSARTAN Protocol: MARGY Max HR: 141 BPM 92% of Pred: 152 BPM Max BP: 170/048 mmHG Max Work Load: 10.1 METS Exercise stress test with exercise 8 min 30 sec of Margy protocol, achieving 92% MPHR, 10.1METs, with mild sob, no chest discomfort, with isolated PVCs and PACs, with normotensive and normal chronotopic response to exercise, without EKG changes meeting criteria for ischemia. In recovery EKGs show sinus arrythmia as heart rate returns back to baseline, no heart blocks seen during test. Test reviewed with Dr Dyson Referred By: Vince Hernandez Overread By: JENNIFER MTZ
== END ==
LOC: HO.CARD 09:27
PROVIDERS: Visit Provider Internal Medicine
DX: R00.1 Bradycardia, unspecified (principal); I10 Essential (primary) hypertension
CPT/HCPCS: 93017; 93306

== ENCOUNTER → 2022-08-26 13:08 | Outpatient (BNVA) | payer MEDICARE, SELFPAY | PROVIDERS: PCP Internal Medicine; Visit Provider Nurse Practitioner Family | DX: R00.1 Bradycardia, unspecified (principal); I10 Essential (primary) hypertension | CPT/HCPCS: 93005; 99212 ==

== ENCOUNTER → 2022-09-08 11:23 | Outpatient (REF) | payer MEDICARE, SELFPAY ==
--- NOTE | 2022-09-08 11:26 | HM_ITS ---
Conclusion: 1. Patient was monitored for total period of 2 days and 23 hours 2. Baseline was normal sinus rhythm with average heart of 59 beats per minute with lower start of 37 beats per minute 3. No significant pauses noted 4. Frequent sinus bradycardia with 66.8% of time heart rate below 60 beats per minute 5. Occasional PACs with total burden of 0.4% 6. Multiple short episodes of SVT longest lasting 9 beats at 159 beats per minute 7. Total of 1945 PVCs accounting for 0.85% of total PVCs accounting for occasional PVCs 8. 1 episode marked on the patient counter correlating with isolated PVCs MTDD
== END ==
LOC: HO.CARD 11:23
PROVIDERS: PCP Internal Medicine; Visit Provider Nurse Practitioner Family
DX: R00.1 Bradycardia, unspecified (principal)
CPT/HCPCS: 93242

== ENCOUNTER → 2022-10-18 14:11 | Outpatient (BNVA) | payer MEDICARE, SELFPAY | PROVIDERS: PCP Internal Medicine; Referring Provider Internal Medicine; Visit Provider Internal Medicine | DX: R00.1 Bradycardia, unspecified (principal); I10 Essential (primary) hypertension; E66.01 Morbid (severe) obesity due to excess calories; G47.33 Obstructive sleep apnea (adult) (pediatric); Z68.37 Body mass index [BMI] 37.0-37.9, adult; Z99.89 Dependence on other enabling machines and devices | CPT/HCPCS: 99212 ==

== ENCOUNTER → 2022-12-16 12:39 | Outpatient (BNVA) | payer MEDICARE, SELFPAY | PROVIDERS: PCP Internal Medicine; Visit Provider Nurse Practitioner Family | DX: N52.9 Male erectile dysfunction, unspecified (principal); E29.1 Testicular hypofunction | CPT/HCPCS: 99202 ==

== ENCOUNTER 2023-01-16 08:44 | Outpatient (REF) | payer MEDICARE, SELFPAY ==
--- NOTE | ~2023-01-16 | XR_ITS ---
EXAMINATION: XR PELVIS CLINICAL INFORMATION: Pain in unspecified hip COMPARISON: None TECHNIQUE: 2 AP views of the pelvis. FINDINGS: Left total hip arthroplasty. Advanced degenerative changes right hip with remodeling of articular surfaces and hypertrophic change. Degenerative changes with sclerosis in the bilateral sacroiliac joints. XR/XR pelvis 1-2V IMPRESSION: Left total hip arthroplasty. Advanced degenerative changes right hip. Evaluation limited due to technical factors, body habitus and only AP views provided. Dedicated imaging and possible CT scan or MRI recommended for further evaluation.
== END 2023-01-16 08:45 | disposition home or self-care (01) ==
LOC: HO.HOSX 08:44
PROVIDERS: Visit Provider Orthopaedic Surgery
DX: M16.11 Unilateral primary osteoarthritis, right hip (principal)
CPT/HCPCS: 72170

== ENCOUNTER 2023-01-16 08:51 | Outpatient (AMB) | payer MEDICARE, SELFPAY ==
[2023-01-16 08:56] VITALS: BMI 37.1
--- NOTE | 2023-01-16 08:56 | MHC.OFFVIS ---
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 States he is having hihp pain for the last few months. No injury he can recall. Pain is mainly by his lateral aspect of hip. Denies groin pain . Difficulty driving . States he has soreness especially in the mornings. 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 He has pain with weight-bearing activities, mostly walking or climbing in and out of a car. He says a recent long drive was very painful for him. He localizes his pain to the groin, and walks with a limp, which he did not realize he did. He says his pain limits his ability to drive, which he is upset about. He denies any prior treatment. He says he does not go walking often, and is limited to ~1 mile when he does go walking. He has a hx of a left RUBEN when he was 58. FOR[facility]LY [facility] Medical History Hypertension Morbid obesity Surgical History H/O right knee surgery H/O shoulder surgery History of hip surgery Hx of cholecystectomy Family History Father Enlarged heart Mother No problems noted. Social History Household Members: Spouse Housing: House Do you presently have visiting nurse or other home services: No Alcohol intake: never Patient Tobacco Use Status: Never used Tobacco Second Hand Smoke Exposure: No service: No Current occupational status: retired Review of Systems Const All systems reviewed & are unremarkable except as noted in HPI and below Physical Exam Vital Signs: BMI result Body Mass Index 37.1 Const General: no acute distress, alert and awake Orientation/consciousness: patient oriented x3 HEENT Head: Yes normocephalic and Yes atraumatic Eyes EOM: EOMs intact bilaterally Resp Effort & Inspection: normal respiratory effort and able to speak in complete sentences Cardio Jugular venous distension: no JVD Skin General skin exam: turgor normal Rashes: no rashes Neuro General: patient oriented x3 Extrem Other: Right Hip: Trendelenburg gait - Trendelenburg sign Limited IR Mildly + impingement test + stinchfield Psych Appearance: grossly normal Affect: normal affect Attitude: cooperative Results Reviewed Results Reviewed: I personally reviewed relevant radiographs. Severe right hip osteoarthritis Left total hip arthroplasty in expected post operative position with no hardware complications or evidence of loosening Assessment & Plan Assessment & Plan (1) Osteoarthritis of right hip: Code(s): M16.11 - Unilateral primary osteoarthritis, right hip Plan: This is a 67 year old man with severe right hip OA. He has pain with some activity, primarily with driving which he finds most bothersome, though he is unable to ambulate more than a few minutes he states he doesn't need to. He denies any prior treatment and is not particularly limited in his ADLs. I discussed his diagnosis and treatment options. I think he would benefit from a RUBEN in the future. He will speak with Fernanda for more information and will follow up with his to discuss surgery, prn. He is hesitant which I understand but his gait mechanics are terrible and he seems very limited. He will let me know. Plan Scribed for Michael John MD by Abdirizak Khan, medical transcription editor, on 01/16/23 at 9:15 AM, EST. Orders: Orders XR pelvis 1-2V 01/16/23 M25.559 - Pain in unspecified hip Coding Level of Care Code New Pt Level 4 (41249) Diagnoses Osteoarthritis of right hip M16.11
== END 2023-01-16 09:37 | disposition home or self-care (01) ==
PROVIDERS: PCP Internal Medicine; Visit Provider Orthopaedic Surgery
DX: M16.11 Unilateral primary osteoarthritis, right hip (principal)
CPT/HCPCS: 99204

== ENCOUNTER 2023-03-17 11:39 | Outpatient (AMB) | payer MEDICARE, SELFPAY ==
--- NOTE | 2023-03-17 11:42 | A.OFFVIS_ITS ---
Intake Intake Visit Reasons: 3 month labs Intake Note: Patient is present for follow-up low testosterone, labs results Urology Medications: none Blood Thinner: none Clinic Administrator Required: No Accompanied by: Self / Same As Patient Allergies No Known Allergies Allergy (Verified 03/18/23 09:26) Medication List - Last Reconciled 03/18/23 by KARINA Abdi azelastine intranasal clotrimazole-betamethasone 1-0.05 % appl topical fluticasone propionate 50 mcg/actuation sprays intranasal losartan 100 mg PO DAILY spironolactone 25 mg PO DAILY testosterone 2 pumps topical DAILY 30 days HPI HPI Comments History of Present Illness Details Joshua is a very pleasant 67 year old male patient of Dr. Maxwell. He has a past medical history of obesity, OLGA on CPAP, and hypertension. He presents to the office today for follow-up of his hypogonadism. Of note, patient was seen approximately 3 months ago at which time he was started on low- dose Cialis in attempt to improve hypogonadism/testosterone levels. Recent testosterone results reviewed with the patient today 03/11--123 free testosterone 4.7 11/08-- 132 Patient reports he continues with fatigue/tiredness and having issues with erectile dysfunction. When asked patient does report having sleep apnea and be ing complaint with his CPAP machine each and every night. Patient does report getting 8 hours of sleep per night. He reports recently retiring and has been going to the gym and doing 10-20 labs in an Olympic sized pool for approximately 30 minutes 3 times per week. He reports having lost approximately 15 lb. He otherwise denies any urinary issues or concerns. When asked he denies urinary urgency, urinary frequency, incontinence, nocturia, hematuria, dysuria, foul smelling urine, changes to urinary stream, flank pain, fever, and or chills. He is happy with his current voiding parameters. He reports having his PSA checked with his PCP. He otherwise denies any other issues or concerns at this time. Discussed at length importance of weight loss for improvement in erectile dysfunction, hypogonadism, and overall health and well being. He discusses the loss of his two children to overdose/substance abuse. He also discusses being retired and spending much of his time doing household and outdoor chores. PENDING SALE TO [facility] Medical History Morbid obesity Hypertension Surgical History H/O right knee surgery H/O shoulder surgery History of hip surgery Hx of cholecystectomy Family History Father Enlarged heart Mother No problems noted. Social History Household Members: Spouse Housing: House Do you presently have visiting nurse or other home services: No Alcohol intake: never Patient Tobacco Use Status: Never used Tobacco Second Hand Smoke Exposure: No service: No Current occupational status: retired Review of Systems Const All systems reviewed & are unremarkable except as noted in HPI and below Reports as per HPI Eyes Reports no additional complaints ENT Reports no additional complaints Card Reports as per HPI Resp Reports no additional complaints GI Reports no additional complaints Reports as per HPI Musc Reports no additional complaints Neuro Reports no additional complaints Psych Reports as per HPI Endo Reports no additional complaints Norm/Lymph Reports no additional complaints Aller/Immun Reports no additional complaints Physical Exam Const General: cooperative, comfortable, no acute distress, well developed, alert and awake Nutritional Appearance: overweight Orientation/consciousness: patient oriented x3 Limitations: no limitations HEENT Head: Yes normal to inspection, Yes normocephalic and Yes atraumatic Ears: hearing grossly normal bilaterally Eyes General: appearance normal, both eyes and all related structures Neck Neck: Yes normal visual inspection and Yes trachea midline Chest Chest palpation & inspection: normal inspection of the chest Resp Effort & Inspection: normal respiratory effort and able to speak in complete sentences Cardio Rate: regular rate GI Inspection: Yes normal to inspection General: Yes no CVA tenderness Back/Spine/Pelvis Back: no CVA tenderness Skin General skin exam: no rashes or lesions noted Neuro General: patient oriented x3 Extrem General: Yes normal to inspection Psych Appearance: grossly normal and well kempt Mental Status: mental status grossly normal Speech and movement: Normal speech and movement present and Clear speech present Affect: normal affect Attitude: cooperative Thought process: Normal thought process present Thought content: Normal thought content present Insight: Fair insight present (Psych) Judgement: Fair judgement present (Psych) Assessment & Plan Assessment & Plan (1) Hypogonadism in male: Code(s): E29.1 - Testicular hypofunction (2) Erectile disorder: Code(s): N52.9 - Male erectile dysfunction, unspecified Plan Recent testosterone results reviewed with the patient today; as noted above. Stop 5 mg of Cialis. Start testosterone as discussed and prescribed. Discussed at length importance of continuing to be compliant with CPAP machine as well as weight loss for improvement in hypogonadism, ED, as well as for overall health and well-being. Will obtain CBC, PSA, and testosterone total and free in 3 months. Patient denies any bothersome urinary issues at this time. Patient reports to be happy with current voiding parameters. Follow-up in 3 months with labs to be completed prior; or sooner with any issues, concerns, and or questions Orders: Orders Complete Blood Count no Diff 3 Months E29.1 - Testicular hypofunction Prostate Specific Antigen 3 Months E29.1 - Testicular hypofunction Testosterone, Free/Total 3 Months E29.1 - Testicular hypofunction Medications: New testosterone apply 2 pumps over max area - alternate shoulders on alternate days 2 pumps topical DAILY 30 days 75 grams 1RF E29.1 - Testicular hypofunction, R79.89 - Other specified abnormal findings of blood chemistry Patient Instructions: The patient had an opportunity to ask questions regarding the treatment plan. All questions were answered. Physical exam, labs, and imaging were discussed and reviewed in detail. As well as risks, benefits, and discussion of treatment choices. No major barriers to understanding were identified. The patient expressed understanding and agreement with the above treatment plan. The patient was made aware they should contact our office by phone for worsening of their current condition, the appearance of new symptoms, or with any questions or concerns. Compliance is encouraged with any medications and follow up testing that is ordered. It is a privilege to be allowed the opportunity to participate in? your urological care.? Again, if you have any questions or concerns If you have any questions or concerns please do not hesitate to contact me. The office is [phone]. This note is constructed using voice recognition software. While every effort has been made to ensure accuracy tram driver errors may have been included. Yours sincerely, KARINA Abdi Coding Level of Care Code Est Pt Level 4 (56831) Diagnoses Hypogonadism in male E29.1 Erectile disorder N52.9
== END 2023-03-17 12:05 | disposition home or self-care (01) ==
PROVIDERS: PCP Internal Medicine; Visit Provider Nurse Practitioner Family
DX: E29.1 Testicular hypofunction (principal); N52.9 Male erectile dysfunction, unspecified
CPT/HCPCS: 99214

== ENCOUNTER → 2023-03-17 11:39 | Outpatient (BNVA) | payer MEDICARE, SELFPAY | PROVIDERS: PCP Internal Medicine; Visit Provider Nurse Practitioner Family | DX: E29.1 Testicular hypofunction (principal); N52.9 Male erectile dysfunction, unspecified | CPT/HCPCS: 99212 ==

== ENCOUNTER 2023-06-16 10:55 | Outpatient (AMB) | payer MEDICARE, SELFPAY ==
--- NOTE | 2023-06-16 11:18 | MHC.OFFVIS ---
Intake Intake Visit Reasons: 3m/labs Intake Note: Patient is present for follow-up low testosterone, labs results (psa 0.42) (testosterone 230) Urology Medications: testosterone Blood Thinner: none Order Management Specialist Required: No Accompanied by: Self / Same As Patient Allergies No Known Allergies Allergy (Verified 06/17/23 19:16) Medication List - Last Reconciled 06/17/23 by KARINA Abdi azelastine intranasal clotrimazole-betamethasone 1-0.05 % appl topical fluticasone propionate 50 mcg/actuation sprays intranasal losartan 100 mg PO DAILY spironolactone 25 mg PO DAILY testosterone 4 pumps topical DAILY 30 days HPI HPI Comments History of Present Illness Details Joshua is a very pleasant 68 year old male patient of Dr. Maxwell. He has a past medical history of obesity, OLGA on CPAP, and hypertension. He presents to the office today for follow-up of his hypogonadism. In discussion with the patient today reports compliance with testosterone as prescribed. Recent labs reviewed with the patient today. 03/11--123 free testosterone 4.7 11/08-- 132 06/10--Total T--230 free T--9.17 06/10--PSA--0.42 Patient reports he continues with fatigue/tiredness and having issues with erectile dysfunction. Discussed increasing testosterone. He otherwise denies any urinary issues or concerns. When asked he denies urinary urgency, urinary frequency, incontinence, nocturia, hematuria, dysuria, foul smelling urine, changes to urinary stream, flank pain, fever, and or chills. He is happy with his current voiding parameters. He otherwise denies any other issues or concerns at this time. Discussed at length importance of weight loss for improvement in erectile dysfunction, hypogonadism, and overall health and well being. He discusses the loss of his two children to overdose/substance abuse. He also discusses being retired and spending much of his time doing household and outdoor chores. REPLACED BY [facility] Medical History Morbid obesity Hypertension Surgical History History of hip surgery H/O shoulder surgery Hx of cholecystectomy H/O right knee surgery Family History Father Enlarged heart Mother No problems noted. Social History Household Members: Spouse Housing: House Do you presently have visiting nurse or other home services: No Alcohol intake: never Patient Tobacco Use Status: Never used Tobacco Second Hand Smoke Exposure: No service: No Current occupational status: retired Review of Systems Const All systems reviewed & are unremarkable except as noted in HPI and below Reports as per HPI Eyes Reports no additional complaints ENT Reports no additional complaints Card Reports as per HPI Resp Reports no additional complaints GI Reports no additional complaints Reports as per HPI Musc Reports no additional complaints Neuro Reports no additional complaints Psych Reports as per HPI Endo Reports no additional complaints Norm/Lymph Reports no additional complaints Aller/Immun Reports no additional complaints Physical Exam Const General: cooperative, comfortable, no acute distress, well developed, alert and awake Nutritional Appearance: overweight Orientation/consciousness: patient oriented x3 Limitations: no limitations HEENT Head: Yes normal to inspection, Yes normocephalic and Yes atraumatic Ears: hearing grossly normal bilaterally Eyes General: appearance normal, both eyes and all related structures Neck Neck: Yes normal visual inspection and Yes trachea midline Chest Chest palpation & inspection: normal inspection of the chest Resp Effort & Inspection: normal respiratory effort and able to speak in complete sentences Cardio Rate: regular rate GI Inspection: Yes normal to inspection General: Yes no CVA tenderness Back/Spine/Pelvis Back: no CVA tenderness Skin General skin exam: no rashes or lesions noted Neuro General: patient oriented x3 Extrem General: Yes normal to inspection Psych Appearance: grossly normal and well kempt Mental Status: mental status grossly normal Speech and movement: Normal speech and movement present and Clear speech present Affect: normal affect Attitude: cooperative Thought process: Normal thought process present Thought content: Normal thought content present Insight: Fair insight present (Psych) Judgement: Fair judgement present (Psych) Results AMB Urinalysis, Automated UA Leukoctes 0 Karan/uL Last Edit by Fany Womack on 06/16/23 11:55 UA Nitrite Negative Last Edit by Fany Womack on 06/16/23 11:55 UA Urobilinogen 0.2 mg/dL Last Edit by Fany Womack on 06/16/23 11:55 UA Protein 0 mg/dL Last Edit by Fany Womack on 06/16/23 11:55 UA pH 6.0 Last Edit by Fany Womack on 06/16/23 11:55 UA Blood 0 Young/uL Last Edit by Fany Womack on 06/16/23 11:55 UA Specific [place] 1.025 Last Edit by Fany Womack on 06/16/23 11:55 UA Ketone Negative Last Edit by Fany Womack on 06/16/23 11:55 UA Bilirubin 0 mg/dL Last Edit by Fany Womack on 06/16/23 11:55 UA Glucose 0 mg/dL Last Edit by Fany Womack on 06/16/23 11:55 Results Reviewed Results Reviewed: Laboratory Last Values Urine pH (Auto) 6.0 06/16/23 11:19 Specific [place] (Auto) 1.025 06/16/23 11:19 Urine Protein (Auto) 0 mg/dL 06/16/23 11:19 Glucose (UA)(Auto) 0 mg/dL 06/16/23 11:19 Urine Ketones (Auto) Negative 06/16/23 11:19 Urine Blood (Auto) 0 Young/uL 06/16/23 11:19 Urine Nitrite (Auto) Negative 06/16/23 11:19 Urine Bilirubin (Auto) 0 mg/dL 06/16/23 11:19 Urine Urobilinogen (Auto) 0.2 mg/dL 06/16/23 11:19 Leukocyte Esterase (Auto) 0 Karan/uL 06/16/23 11:19 Assessment & Plan Assessment & Plan (1) Hypogonadism in male: Code(s): E29.1 - Testicular hypofunction (2) Erectile disorder: Code(s): N52.9 - Male erectile dysfunction, unspecified Plan In office urinalysis results reviewed with the patient today; as noted above Recent testosterone results reviewed with the patient today; as noted above. Will increase testosterone as discussed; increase in script sent Discussed at length importance of continuing to be compliant with CPAP machine as well as weight loss for improvement in hypogonadism, ED, as well as for overall health and well-being. Will obtain CBC and testosterone total and free in 3 months. Patient denies any bothersome urinary issues at this time. Patient reports to be happy with current voiding parameters. Follow-up in 3 months with labs to be completed prior; or sooner with any issues, concerns, and or questions Orders: Orders AMB Urinalysis Automated 06/16/23 Z13.9 - Encounter for screening, unspecified Complete Blood Count no Diff 3 Months E29.1 - Testicular hypofunction Testosterone, Free/Total 3 Months E11.69 - Type 2 diabetes mellitus with other specified complication, N52.1 - Erectile dysfunction due to diseases classified elsewhere Medications: Changed From testosterone apply 2 pumps over max area - alternate shoulders on alternate days 2 pumps topical DAILY 30 days 75 grams 1RF E29.1 - Testicular hypofunction, R79.89 - Other specified abnormal findings of blood chemistry To testosterone apply 2 pumps over max area - alternate shoulders on alternate days 4 pumps topical DAILY 30 days 75 grams 1RF E29.1 - Testicular hypofunction, R79.89 - Other specified abnormal findings of blood chemistry Patient Instructions: The patient had an opportunity to ask questions regarding the treatment plan. All questions were answered. Physical exam, labs, and imaging were discussed and reviewed in detail. As well as risks, benefits, and discussion of treatment choices. No major barriers to understanding were identified. The patient expressed understanding and agreement with the above treatment plan. The patient was made aware they should contact our office by phone for worsening of their current condition, the appearance of new symptoms, or with any questions or concerns. Compliance is encouraged with any medications and follow up testing that is ordered. It is a privilege to be allowed the opportunity to participate in? your urological care.? Again, if you have any questions or concerns If you have any questions or concerns please do not hesitate to contact me. The office is [phone]. This note is constructed using voice recognition software. While every effort has been made to ensure accuracy featherer errors may have been included. Yours sincerely, KARINA Abdi Coding Level of Care Code Est Pt Level 3 (93057) Diagnoses Hypogonadism in male E29.1 Erectile disorder N52.9
== END 2023-06-16 12:11 | disposition home or self-care (01) ==
PROVIDERS: PCP Internal Medicine; Visit Provider Nurse Practitioner Family
DX: E29.1 Testicular hypofunction (principal); N52.9 Male erectile dysfunction, unspecified
CPT/HCPCS: 99213

== ENCOUNTER → 2023-06-16 10:55 | Outpatient (BNVA) | payer MEDICARE, SELFPAY | PROVIDERS: PCP Internal Medicine; Visit Provider Nurse Practitioner Family | DX: E29.1 Testicular hypofunction (principal); N52.9 Male erectile dysfunction, unspecified | CPT/HCPCS: 81003; 99212 ==

== ENCOUNTER 2023-09-15 10:07 | Outpatient (AMB) | payer MEDICARE, SELFPAY ==
--- NOTE | 2023-09-15 10:37 | MHC.OFFVIS ---
Intake Intake Visit Reasons: 6m follow up/Labs(set) Intake Note: Patient is present for follow up hypogonadism, erectile dysfunction, and lab results Testosterone: 596 Free Testosterone: 24.8 Urology Medications: testosterone Blood Thinner: none Superintendent Menagerie Required: No Accompanied by: Self / Same As Patient Allergies No Known Allergies Allergy (Verified 09/16/23 11:29) Medication List - Last Reconciled 09/16/23 by DESIREE Abdi- azelastine intranasal clotrimazole-betamethasone 1-0.05 % appl topical fluticasone propionate 50 mcg/actuation sprays intranasal losartan 100 mg PO DAILY metoprolol succinate ER 12.5 mg PO DAILY spironolactone 25 mg PO DAILY testosterone 4 pumps topical DAILY 30 days HPI HPI Comments History of Present Illness Details Joshua is a very pleasant 68 year old male patient of Dr. Maxwell. He has a past medical history of obesity, OLGA on CPAP, and hypertension. He presents to the office today for follow-up of his hypogonadism. In discussion with the patient today reports compliance with testosterone as prescribed. Recent labs reviewed with the patient today. 03/11--Total T 123, free testosterone 4.7--11/08-- Total Testosterone 132--06/10--Total Testosterone 230, free Testosterone 9.17--06/10--PSA--0.42 09/09--Total Testosterone 596, Free testosterone 24.8, H/H 13.9, 43.3 Patient discusses he is somewhat starting to feel his energy is returning. He reports having finally gotten better as he had been following up with his PCP for bronchitis and pneumonia. He reports having gotten back to the gym and is swimming approximately 45 minutes daily. He otherwise denies any urinary issues or concerns. When asked he denies urinary urgency, urinary frequency, incontinence, nocturia, hematuria, dysuria, foul smelling urine, changes to urinary stream, flank pain, fever, and or chills. He is happy with his current voiding parameters. He otherwise denies any other issues or concerns at this time. Discussed at length importance of weight loss for improvement in erectile dysfunction, hypogonadism, and overall health and well being. He discusses noting increase heart rate and palpitations the last two times he was having sexual intercorse and is following up with cardiology regarding this issue. He discusses the loss of his two children to overdose/substance abuse. He also discusses being retired and spending much of his time doing household and outdoor chores. [facility] Medical History Morbid obesity Hypertension Surgical History History of hip surgery H/O shoulder surgery Hx of cholecystectomy H/O right knee surgery Family History Father Enlarged heart Mother No problems noted. Social History Household Members: Spouse Housing: House Do you presently have visiting nurse or other home services: No Alcohol intake: never Patient Tobacco Use Status: Never used Tobacco Second Hand Smoke Exposure: No service: No Current occupational status: retired Review of Systems Const All systems reviewed & are unremarkable except as noted in HPI and below Reports as per HPI Eyes Reports no additional complaints ENT Reports no additional complaints Card Reports as per HPI Resp Reports no additional complaints GI Reports no additional complaints Reports as per HPI Musc Reports no additional complaints Neuro Reports no additional complaints Psych Reports as per HPI Endo Reports no additional complaints Norm/Lymph Reports no additional complaints Aller/Immun Reports no additional complaints Physical Exam Const General: cooperative, comfortable, no acute distress, well developed, alert and awake Nutritional Appearance: overweight Orientation/consciousness: patient oriented x3 Limitations: no limitations HEENT Head: Yes normal to inspection, Yes normocephalic and Yes atraumatic Ears: hearing grossly normal bilaterally Eyes General: appearance normal, both eyes and all related structures Neck Neck: Yes normal visual inspection and Yes trachea midline Chest Chest palpation & inspection: normal inspection of the chest Resp Effort & Inspection: normal respiratory effort and able to speak in complete sentences Cardio Rate: regular rate GI Inspection: Yes normal to inspection General: Yes no CVA tenderness Back/Spine/Pelvis Back: no CVA tenderness Skin General skin exam: no rashes or lesions noted Neuro General: patient oriented x3 Extrem General: Yes normal to inspection Psych Appearance: grossly normal and well kempt Mental Status: mental status grossly normal Speech and movement: Normal speech and movement present and Clear speech present Affect: normal affect Attitude: cooperative Thought process: Normal thought process present Thought content: Normal thought content present Insight: Fair insight present (Psych) Judgement: Fair judgement present (Psych) Results AMB Urinalysis, Automated UA Leukoctes 0 Karan/uL Last Edit by Fany Womack on 09/15/23 11:07 UA Nitrite Negative Last Edit by Fany Womack on 09/15/23 11:07 UA Urobilinogen 0.2 mg/dL Last Edit by Fany Womack on 09/15/23 11:07 UA Protein 0 mg/dL Last Edit by Fany Womack on 09/15/23 11:07 UA pH 5.5 Last Edit by Fany Womack on 09/15/23 11:07 UA Blood 25 [place]/uL Last Edit by Fany Womack on 09/15/23 11:07 UA Specific [place] 1.025 Last Edit by Fany Womack on 09/15/23 11:07 UA Ketone Negative Last Edit by Fayn Womack on 09/15/23 11:07 UA Bilirubin 1 mg/dL Last Edit by Fany Womack on 09/15/23 11:07 UA Glucose 0 mg/dL Last Edit by Fany Womack on 09/15/23 11:07 Results Reviewed Results Reviewed: Laboratory Last Values Urine pH (Auto) 5.5 09/15/23 10:38 Specific [place] (Auto) 1.025 09/15/23 10:38 Urine Protein (Auto) 0 mg/dL 09/15/23 10:38 Glucose (UA)(Auto) 0 mg/dL 09/15/23 10:38 Urine Ketones (Auto) Negative 09/15/23 10:38 Urine Blood (Auto) 25 Young/uL 09/15/23 10:38 Urine Nitrite (Auto) Negative 09/15/23 10:38 Urine Bilirubin (Auto) 1 mg/dL 09/15/23 10:38 Urine Urobilinogen (Auto) 0.2 mg/dL 09/15/23 10:38 Leukocyte Esterase (Auto) 0 Karan/uL 09/15/23 10:38 Assessment & Plan Assessment & Plan (1) Hypogonadism in male: Code(s): E29.1 - Testicular hypofunction (2) Erectile disorder: Code(s): N52.9 - Male erectile dysfunction, unspecified Plan In office urinalysis results reviewed with the patient today; as noted above Recent labs reviewed with the patient today; as noted above. Continue Testosterone as prescribed; refill provided Discussed at length importance of continuing to be compliant with CPAP machine as well as weight loss for improvement in hypogonadism, ED, as well as for overall health and well-being. Will obtain CBC, testosterone, free testosterone, and PSA in 6 months. Patient denies any bothersome urinary issues at this time. Patient reports to be happy with current voiding parameters. Follow up with cardiology as planned. Follow-up in 6 months with labs to be completed prior; or sooner with any issues, concerns, and or questions Orders: Orders AMB Urinalysis Automated 09/15/23 Z13.9 - Encounter for screening, unspecified Testosterone, Free/Total 6 Months E29.1 - Testicular hypofunction Prostate Specific Antigen 6 Months E29.1 - Testicular hypofunction Complete Blood Count no Diff 6 Months E29.1 - Testicular hypofunction Medications: Refilled testosterone This is an increase in dosage 4 pumps topical DAILY 30 days 75 grams 5RF E29.1 - Testicular hypofunction, R79.89 - Other specified abnormal findings of blood chemistry Patient Instructions: The patient had an opportunity to ask questions regarding the treatment plan. All questions were answered. Physical exam, labs, and imaging were discussed and reviewed in detail. As well as risks, benefits, and discussion of treatment choices. No major barriers to understanding were identified. The patient expressed understanding and agreement with the above treatment plan. The patient was made aware they should contact our office by phone for worsening of their current condition, the appearance of new symptoms, or with any questions or concerns. Compliance is encouraged with any medications and follow up testing that is ordered. It is a privilege to be allowed the opportunity to participate in? your urological care.? Again, if you have any questions or concerns If you have any questions or concerns please do not hesitate to contact me. The office is [phone]. This note is constructed using voice recognition software. While every effort has been made to ensure accuracy rabbet operator errors may have been included. Yours sincerely, KARINA Abdi Coding Level of Care Code Est Pt Level 4 (69553) Diagnoses Hypogonadism in male E29.1 Erectile disorder N52.9 Time Spent (min) 30
== END 2023-09-15 11:39 | disposition home or self-care (01) ==
PROVIDERS: PCP Internal Medicine; Visit Provider Nurse Practitioner Family
DX: E29.1 Testicular hypofunction (principal); N52.9 Male erectile dysfunction, unspecified
CPT/HCPCS: 99214

== ENCOUNTER → 2023-09-15 10:07 | Outpatient (BNVA) | payer MEDICARE, SELFPAY | PROVIDERS: PCP Internal Medicine; Visit Provider Nurse Practitioner Family | DX: N52.9 Male erectile dysfunction, unspecified (principal); E29.1 Testicular hypofunction; R79.89 Other specified abnormal findings of blood chemistry; I10 Essential (primary) hypertension | CPT/HCPCS: 81003; 99212 ==

== ENCOUNTER → 2023-10-18 10:42 | Outpatient (REF) | payer MEDICARE, SELFPAY ==
--- NOTE | 2023-10-18 10:45 | HM_ITS ---
Conclusion: 1. Patient was monitored for total period of 3 days 2. Baseline was normal sinus rhythm with average heart of 51 beats per minute 3. Frequent sinus bradycardia noted with 72% of time heart rate below 60 beats per minute with no significant pauses 4. Occasional PACs and PVCs noted with 5 SVT events, longest lasting 4 beats at 134 beats per minute 5. No patient reported events MTDD
== END ==
LOC: HO.CARD 10:42
PROVIDERS: PCP Internal Medicine; Visit Provider Nurse Practitioner Family
DX: R00.1 Bradycardia, unspecified (principal); I47.10 Supraventricular tachycardia, unspecified
CPT/HCPCS: 93242

== ENCOUNTER → 2023-10-18 10:45 | Outpatient (BNV) | payer MEDICARE, SELFPAY | PROVIDERS: PCP Internal Medicine; Visit Provider Internal Medicine Cardiovascular Disease | DX: R00.1 Bradycardia, unspecified (principal) | CPT/HCPCS: 93244 ==

== ENCOUNTER 2023-10-31 14:11 | Outpatient (AMB) | payer MEDICARE, SELFPAY ==
[2023-10-31 14:16] VITALS: BP 142/70; PULSE 54; BMI 37.8
--- NOTE | 2023-10-31 14:16 | MHC.OFFVIS ---
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 Today he reports that he has been noticing fatigue and shortness of breath. He denies PND, orthopnea or edema. He exercises routinely and says that when he does his usual exercise he has 2 stopped early due to his shortness of breath symptom. Is not getting chest discomfort at rest or with activity. Does not check his heart rate regularly. Tells me he needs a pacemaker. He says when he is at rest he can feel his heart rate slowing down. When this happens he usually gets up and does some activity which helps. No presyncope, syncope, falls. He had been on metoprolol low-dose up until recently when he was instructed to stop. [facility] Medical History Morbid obesity Hypertension Surgical History History of hip surgery H/O shoulder surgery Hx of cholecystectomy H/O right knee surgery Family History Father Enlarged heart Mother No problems noted. Social History Household Members: Spouse Housing: House Do you presently have visiting nurse or other home services: No Alcohol intake: never Patient Tobacco Use Status: Never used Tobacco Second Hand Smoke Exposure: No service: No Current occupational status: retired Review of Systems Const All systems reviewed & are unremarkable except as noted in HPI and below Reports fatigue ENT Denies dizziness Card Denies chest pain, Denies chest pain at rest, Denies chest pain with activity, Denies rapid heart rate, Denies pedal edema, Denies edema, Denies leg edema, Denies lightheadedness, Denies palpitations, Reports dyspnea, Reports dyspnea on exertion and Denies orthopnea Resp Denies cough, Reports dyspnea and Reports dyspnea on exertion GI Denies hematochezia and Denies change in stool character Musc Denies abnormal gait, Denies limited range of motion, Denies muscle cramps, Denies muscle weakness, Denies numbness, Denies radiating pain into limb, Denies stiffness and Denies tingling Neuro Denies abnormal gait, Denies dizziness, Denies numbness and Denies tingling Endo Reports fatigue and Denies palpitations Physical Exam Vital Signs: Last Vital Signs Pulse 54 10/31/23 14:16 BP 142/70 H 10/31/23 14:16 BMI result Body Mass Index 37.8 Const General: cooperative, healthy appearing, comfortable and no acute distress Orientation/consciousness: patient oriented x3 Neck Neck: Yes normal visual inspection and Yes no JVD Resp Effort & Inspection: normal respiratory effort Auscultation: clear to auscultation bilaterally, no crackles, no rales, no rhonchi and no wheezes Cardio Jugular venous distension: no JVD Rate: bradycardic Rhythm: regular rhythm Heart sounds: S1 normal heart sound present, S2 normal heart sound present, no murmurs and no rubs Neuro General: patient oriented x3 Extrem General: Yes normal to inspection, No no pedal edema and No calf tenderness Psych Appearance: grossly normal Mental Status: mental status grossly normal Speech and movement: Normal speech and movement present Office Procedures EKG Details: today, read by me, sinus bradycardia, left axis deviation, QTC 371 milliseconds, rate 54. [id number], Complete Assessment & Plan Assessment & Plan (1) Sinus bradycardia: Code(s): R00.1 - Bradycardia, unspecified Category: Medical Plan: History of sinus bradycardia. Holter monitor done 03/21/2022 showing sinus bradycardia with average heart rate 51, heart rate range 32 to 100, 58% of the time heart rate less than 60. Holter monitor done 09/08/2022 showed sinus bradycardia with average heart rate 59, heart rate range 37 to 146. Exercise stress test done 05/17/2022 showing exercise 8 minutes 30 seconds with normal chronotropic response, sinus rhythm, no heart block. A repeat Holter was done on 10/18/2023 showing sinus bradycardia, average heart rate 51, heart rate range 34 to 118. Patient was on metoprolol XL 12.5 mg daily at that time and was instructed to stop. Today he reports he has been having symptoms of new shortness of breath with activity and fatigue which is not new. He says he can feel his heart rate slowing down when he is at rest. He then will get up and do physical activity. He has been exercising routinely which he says he usually tolerates well but has been getting the shortness of breath recently. EKG done today showing sinus bradycardia, rate 54. Will check an exercise nuclear stress test to evaluate chronotropic competence and for any ischemia. Will keep off all rate slowing medications. Patient informed Pacemaker not indicated at this time. Emergency care if ever needed for change in symptoms. Cardiology follow-up in 6 weeks, sooner if needed (2) Paroxysmal SVT (supraventricular tachycardia): Code(s): I47.10 - Supraventricular tachycardia, unspecified Category: Medical Plan: Brief episodes of SVT noted on Holter monitors. Most recent Holter shows 5 episodes with longest 4 beats. (3) Hypertension: Code(s): I10 - Essential (primary) hypertension Category: Medical Plan: Well controlled at present time. No med changes made (4) Shortness of breath: Code(s): R06.02 - Shortness of breath Category: Medical Plan: Mild elevation at this time, 142/70. Patient concerned about blood pressure as he is no longer taking the metoprolol. He feels he needs something else for blood pressure control. He is currently on losartan and Aldactone. Will add amlodipine 2.5 mg daily. Has an upcoming visit with his PCP and blood pressure will be rechecked at that time. Cardiology follow-up 6 weeks. Plan Time spent on chart review, documentation, interview and assessment Orders: Orders CA stress test Today R00.1 - Bradycardia, unspecified, R06.02 - Shortness of breath NM cardiolite stress test Today R00.1 - Bradycardia, unspecified, R06.02 - Shortness of breath Medications: New amlodipine For high blood pressure 2.5 mg PO DAILY 30 tabs 3RF Coding Level of Care Code Est Pt Level 4 (54994) Diagnoses Sinus bradycardia R00.1 Paroxysmal SVT (supraventricular tachycardia) I47.10 Hypertension I10 Shortness of breath R06.02 CPT Codes EKG - CPT: 04684-[id number], Complete ([id number]) Time Spent (min) 28
== END 2023-10-31 14:58 | disposition home or self-care (01) ==
PROVIDERS: PCP Internal Medicine; Visit Provider Nurse Practitioner Family
DX: R00.1 Bradycardia, unspecified (principal); I47.10 Supraventricular tachycardia, unspecified; I10 Essential (primary) hypertension; R06.02 Shortness of breath
CPT/HCPCS: 93010; 99214

== ENCOUNTER → 2023-10-31 14:11 | Outpatient (BNVA) | payer MEDICARE, SELFPAY | PROVIDERS: PCP Internal Medicine; Visit Provider Nurse Practitioner Family | DX: R00.1 Bradycardia, unspecified (principal); I47.10 Supraventricular tachycardia, unspecified; I10 Essential (primary) hypertension; R06.02 Shortness of breath; Z79.899 Other long term (current) drug therapy | CPT/HCPCS: 93005; 99212 ==

== ENCOUNTER → 2023-12-01 08:53 | Outpatient (REF) | payer MEDICARE, SELFPAY ==
--- NOTE | ~2023-12-01 | NM_ITS ---
Exercise Myocardial perfusion study Indication: Shortness of breath to evaluate for myocardial ischemia Technique: The patient was brought in for an exercise perfusion study on 12/01/2023. Patient performed exercise as per Ry protocol and was injected 35 mCi of sestamibi was given intravenously one target HR was achieved. Images were obtained using the SPECT gamma camera interlaced with the gating device. Images were obtained in supine position. Resting perfusion study was performed on 12/05/2023. Patient was administered 35 mCi of sestamibi intravenously at rest. Images were then obtained in supine position. Images obtained with and without CT attenuation. Total DLP 213 mGy-cm Images were processed with the software and compared side to side in short axis, horizontal long axis and vertical long axis views. Findings: The stress perfusion study showed non attenuated images show mildly reduced uptake in the distal lateral wall of the LV myocardium. Remainder of the LV myocardium is normally perfused. Attenuation corrected images show normalized uptake in the distal lateral wall of the LV myocardium suggestive of possibly shifting position during imaging. There is suggestion of left ventricle hypertrophy. The gated study shows normal LV systolic function with calculated LVEF of 58%. LV cavity is normal in size. The gated study shows normal systolic wall thickening and contraction of all segments. There is no transient ischemic dilation. Resting study shows attenuated corrected images show normal uptake of radiotracer myocardium. Gating at rest reveals systolic wall motion with visually estimated ejection fraction at greater than 50%. The findings are consistent with likely normal myocardial perfusion. NM/NM cardiolite stress test Impression: 1. Normal myocardial perfusion 2. Gated LVEF is 58% 3. Transient ischemic dilatation not present Stress EKG is negative for ischemia
--- NOTE | 2023-12-01 11:49 | CA_ITS ---
Acquisition Time: 2023-12-01 09:09:37 Total Exercise Time: 00:07:30 Test Indications: sob, sb, svt Medications: see h Protocol: MARGY Max HR: 134 BPM 88% of Pred: 151 BPM Max BP: 172/058 mmHG Max Work Load: 9.3 METS Exercise stress test exercise 7 min 30 sec of Margy protocol achieving 88% MPHR, with mild to moderate SOB, no chest discomfort, with isolated PACs and PVCs, with normotensive reponse to exercise, with appropriate heart rate response, without EKG changes. Nuclear images pending. Test reviewed with Dr. Hernandez. Referred By: Elisa Rojo Overread By: Marlene Byrne
== END ==
LOC: HO.CARD 08:53
PROVIDERS: PCP Internal Medicine; Visit Provider Nurse Practitioner Family
DX: R06.02 Shortness of breath (principal); R00.1 Bradycardia, unspecified
CPT/HCPCS: 78452; 93017; 93350; A9500

== ENCOUNTER → 2023-12-01 09:26 | Outpatient (BNV) | payer MEDICARE, SELFPAY | PROVIDERS: PCP Internal Medicine; Visit Provider Internal Medicine Cardiovascular Disease | DX: R06.02 Shortness of breath (principal) | CPT/HCPCS: 78452; 93016; 93018 ==

== ENCOUNTER 2023-12-22 07:59 | Outpatient (REF) | payer MEDICARE, SELFPAY ==
--- NOTE | ~2023-12-22 | XR_ITS ---
EXAMINATION: XR PELVIS CLINICAL INFORMATION: Pain in unspecified hip. COMPARISON: January 16, 2023. TECHNIQUE: AP view of the pelvis. FINDINGS: There has been no significant radiographic change compared with January 16, 2023. The patient is status post left hip arthroplasty. No evidence of hardware fracture or loosening. Moderate osteoarthritis of the right hip, with joint space narrowing, sclerosis, and osteophyte formation. Mild degenerative change of the symphysis pubis. No acute fracture or dislocation identified. No lytic or sclerotic bony lesion identified. Soft tissues appear unremarkable. XR/XR pelvis 1-2V IMPRESSION: Findings as above.
== END 2023-12-22 08:00 | disposition home or self-care (01) ==
LOC: HO.HOSX 07:59
PROVIDERS: Visit Provider Orthopaedic Surgery
DX: M16.11 Unilateral primary osteoarthritis, right hip (principal)
CPT/HCPCS: 72170; 99212

== ENCOUNTER 2023-12-22 11:38 | Outpatient (AMB) | payer MEDICARE, SELFPAY ==
--- NOTE | 2023-12-22 11:52 | MHC.OFFVIS ---
Intake Visit Reasons: R RUBEN Discussion Intake Note: Joshua is a 68 year old male who presents today for a follow up of his right hip OA. He was last seen in 2022 where RUBEN was discussed but he was hesitant at the time, however now he wishes to move forward with surgical intervention Allergies No Known Allergies Allergy (Verified 10/31/23 14:19) HPI HPI R RUBEN Discussion: Details: 68 yo M with severe right hip OA. He has pain with weight-bearing activities, mostly walking or climbing in and out of a car. He says a recent long drive was very painful for him. He localizes his pain to the groin, and walks with a limp. He is scheduled for surgery in February. [facility] Medical History Morbid obesity Hypertension Surgical History History of hip surgery H/O shoulder surgery Hx of cholecystectomy H/O right knee surgery Family History Father Enlarged heart Mother No problems noted. Social History Household Members: Spouse Housing: House Do you presently have visiting nurse or other home services: No Alcohol intake: never Patient Tobacco Use Status: Never used Tobacco Second Hand Smoke Exposure: No service: No Current occupational status: retired Review of Systems Const All systems reviewed & are unremarkable except as noted in HPI and below Eyes Reports no additional complaints ENT Reports no additional complaints Card Reports no additional complaints Resp Reports no additional complaints GI Reports no additional complaints Musc Details: knee pain Reports as per HPI Skin/Breast Reports system reviewed and no additional complaints, except as documented Neuro Reports no additional complaints and Reports as per HPI Psych Reports no additional complaints Physical Exam Const General: no acute distress, alert and awake Orientation/consciousness: patient oriented x3 HEENT Head: Yes normocephalic and Yes atraumatic Eyes EOM: EOMs intact bilaterally Resp Effort & Inspection: normal respiratory effort and able to speak in complete sentences Cardio Jugular venous distension: no JVD Skin General skin exam: turgor normal Rashes: no rashes Neuro General: patient oriented x3 Extrem Other: Right Hip: Trendelenburg gait - Trendelenburg sign Limited IR Mildly + impingement test + stinchfield Psych Appearance: grossly normal Affect: normal affect Attitude: cooperative Results Reviewed Results Reviewed: I personally reviewed relevant radiographs. Severe right hip OA Assessment & Plan Assessment & Plan (1) Osteoarthritis of right hip: Code(s): M16.11 - Unilateral primary osteoarthritis, right hip Category: Medical Plan: This is a 67 year old man with severe right hip OA. I dsicussed the surgery with him. I discussed the risks benefits and alternatives including but not limited to the risk of pain, infection, stiffness, fracture and dislocation as well as the possible need for further surgery as well as potential medical complications such as blood clots, pulmonary embolism and cardiac complications. He expressed understanding. We will see him back for his pre operative eval. Orders: Orders XR pelvis 1-2V 12/22/23 M25.559 - Pain in unspecified hip Coding Level of Care Code Est Pt Level 4 (39165) Diagnoses Osteoarthritis of right hip M16.11
== END 2023-12-22 12:45 | disposition home or self-care (01) ==
PROVIDERS: PCP Internal Medicine; Visit Provider Orthopaedic Surgery
DX: M16.11 Unilateral primary osteoarthritis, right hip (principal)
CPT/HCPCS: 99214

== ENCOUNTER 2024-01-11 13:50 | Outpatient (AMB) | payer MEDICARE, SELFPAY ==
--- NOTE | 2024-01-11 14:03 | MHC.OFFVIS ---
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 Pile Driving Required: No Allergies No Known Allergies Allergy (Verified 01/11/24 14:05) Medication List - Last Reconciled 01/11/24 by Elisa Rojo, JAGDISH-C amlodipine 2.5 mg PO DAILY azelastine intranasal clotrimazole-betamethasone 1-0.05 % appl topical fluticasone propionate 50 mcg/actuation sprays intranasal losartan 100 mg PO DAILY omeprazole 20 mg PO DAILY spironolactone 25 mg PO DAILY testosterone 4 pumps topical DAILY 30 days HPI HPI 6wk fu/ preop left tkr 02/19: Details: Joshua is a 68-year-old male with past medical history hypertension, left renal artery stenosis, sinus bradycardia who presents for follow-up.. Today he reports that he has been feeling well overall since his last visit in October. He is not having shortness of breath like he previously reported. He denies PND, orthopnea or edema. Been active with work around the house and tells me that he was able to clean and vacuum the pool today. No reports of chest discomfort at rest or with activity. Does not check his heart rate regularly. Says that when he is resting or watching TV he can feel that his heart rate slows down. On rare occasions he feels a more elevated heart rate. He denies any lightheadedness, dizziness, presyncope, syncope, falls. He reports good activity tolerance. Taking meds as directed. Wakes up frequently during the night to urinate. Has been taking spironolactone before bedtime. [facility] Medical History Morbid obesity Hypertension Surgical History History of hip surgery H/O shoulder surgery Hx of cholecystectomy H/O right knee surgery Family History Father Enlarged heart Mother No problems noted. Social History Household Members: Spouse Housing: House Do you presently have visiting nurse or other home services: No Alcohol intake: never Patient Tobacco Use Status: Never used Tobacco Second Hand Smoke Exposure: No service: No Current occupational status: retired Review of Systems Const All systems reviewed & are unremarkable except as noted in HPI and below ENT Denies dizziness Card Denies chest pain, Denies chest pain at rest, Denies chest pain with activity, Denies rapid heart rate, Denies pedal edema, Denies edema, Denies leg edema, Denies lightheadedness, Denies palpitations, Denies dyspnea, Denies dyspnea on exertion and Denies orthopnea Resp Denies cough, Denies dyspnea and Denies dyspnea on exertion GI Denies hematochezia and Denies change in stool character Musc Details: hip discomfort Denies abnormal gait, Denies limited range of motion, Denies muscle cramps, Denies muscle weakness, Denies numbness, Denies radiating pain into limb, Denies stiffness and Denies tingling Neuro Denies abnormal gait, Denies dizziness, Denies numbness and Denies tingling Endo Denies palpitations Physical Exam Vital Signs: Last Vital Signs Pulse 54 01/11/24 14:04 BP 132/52 L 01/11/24 14:04 BMI result Body Mass Index 36.8 Const General: cooperative, healthy appearing, comfortable and no acute distress Orientation/consciousness: patient oriented x3 Neck Neck: Yes normal visual inspection and Yes no JVD Resp Effort & Inspection: normal respiratory effort Auscultation: clear to auscultation bilaterally, no crackles, no rales, no rhonchi and no wheezes Cardio Jugular venous distension: no JVD Rate: bradycardic Rhythm: regular rhythm Heart sounds: S1 normal heart sound present, S2 normal heart sound present, no murmurs and no rubs Neuro General: patient oriented x3 Extrem General: Yes normal to inspection and No no pedal edema Psych Appearance: grossly normal Mental Status: mental status grossly normal Speech and movement: Normal speech and movement present Office Procedures EKG Details: Today, read by me, sinus bradycardia, left axis deviation, rate 54, QTC 358 millisecond [id number], Complete Assessment & Plan Assessment & Plan (1) Sinus bradycardia: Code(s): R00.1 - Bradycardia, unspecified Category: Medical Plan: History of sinus bradycardia, asymptomatic. Holter monitor done 03/21/2022 showing sinus bradycardia with average heart rate 51, heart rate range 32 to 100, 58% of the time heart rate less than 60. Holter monitor done 09/08/2022 showed sinus bradycardia with average heart rate 59, heart rate range 37 to 146. Exercise stress test done 05/17/2022 showing exercise 8 minutes 30 seconds with normal chronotropic response, sinus rhythm, no heart block. A repeat Holter was done on 10/18/2023 showing sinus bradycardia, average heart rate 51, heart rate range 34 to 118. Patient was on metoprolol XL 12.5 mg daily at that time and was instructed to stop. He then underwent an exercise nuclear stress test on 12/01/2023 with exercise 7.5 minutes, no anginal symptoms, normal chronotropic competence, no EKG changes of ischemia and normal myocardial perfusion imaging. Today he reports feeling well overall. Good activity tolerance. No presyncope, syncope, falls. No indication for ppm placement at this time. Instructed to notify this office if he has any issues with lightheadedness, presyncope, syncope. Emergency care if needed. Continue activity as tolerated. Avoid all rate slowing medications. (2) Paroxysmal SVT (supraventricular tachycardia): Code(s): I47.10 - Supraventricular tachycardia, unspecified Category: Medical Plan: Brief episodes of SVT noted on Holter monitors. Most recent Holter shows 5 episodes with longest 4 beats. Patient states that on occasion he will notice that his heartbeat is going faster. No heart rates recorded by him. Pulse is regular on exam today with EKG showing sinus bradycardia. (3) Hypertension: Code(s): I10 - Essential (primary) hypertension Category: Medical Plan: Well controlled at present time. No med changes made (4) Preop cardiovascular exam: Code(s): Z01.810 - Encounter for preprocedural cardiovascular examination Category: Medical Plan: Preop for total hip replacement 02/20/[address] John. Patient has a known history of sinus bradycardia and brief SVT. Is not on any rate slowing agents. EKG done today showing sinus bradycardia, rate 54. No known history of CAD. Recent nuclear stress test was normal. Echocardiogram done 05/17/2022 showed normal EF, no valve abnormalities and no regional wall motion abnormalities. Patient can be cleared for hip surgery with low to intermediate cardiac risk. Watch for significant sinus bradycardia, sinus pauses. Avoid rate slowing medications. Call/consult Cardiology if needed. Plan Time spent on chart review, documentation, interview and assessment Medications: Refilled amlodipine For high blood pressure 2.5 mg PO DAILY 90 tabs 3RF Coding Level of Care Code Est Pt Level 4 (74402) Diagnoses Sinus bradycardia R00.1 Paroxysmal SVT (supraventricular tachycardia) I47.10 Hypertension I10 Preop cardiovascular exam Z01.810 CPT Codes EKG - CPT: [id number], Complete ([id number]) Time Spent (min) 30
[2024-01-11 14:04] VITALS: BP 132/52; PULSE 54; BMI 36.8
== END 2024-01-11 14:44 | disposition home or self-care (01) ==
PROVIDERS: PCP Internal Medicine; Visit Provider Nurse Practitioner Family
DX: R00.1 Bradycardia, unspecified (principal); I47.10 Supraventricular tachycardia, unspecified; I10 Essential (primary) hypertension; Z01.810 Encounter for preprocedural cardiovascular examination
CPT/HCPCS: 93010; 99214

== ENCOUNTER → 2024-01-11 13:50 | Outpatient (BNVA) | payer MEDICARE, SELFPAY | PROVIDERS: PCP Internal Medicine; Visit Provider Nurse Practitioner Family | DX: Z01.810 Encounter for preprocedural cardiovascular examination (principal); I47.10 Supraventricular tachycardia, unspecified; I10 Essential (primary) hypertension; R00.1 Bradycardia, unspecified | CPT/HCPCS: 93005; 99212 ==

== ENCOUNTER → 2024-01-22 08:46 | Outpatient (BNVA) | payer MEDICARE, SELFPAY | PROVIDERS: PCP Internal Medicine | DX: Z01.818 Encounter for other preprocedural examination (principal) ==

== ENCOUNTER 2024-02-15 10:51 | Outpatient (REF) | payer MEDICARE, SELFPAY ==
--- NOTE | ~2024-02-15 | XR_ITS ---
EXAMINATION: Right Hip and pelvis x-ray. CLINICAL INFORMATION: Right hip pain, preoperative evaluation COMPARISON: X-ray pelvis on 12/22/2023 TECHNIQUE: Frontal x-ray of the pelvis, Frontal and Frog leg lateral x-rays of right hip. FINDINGS: BONES: Bony structures are intact. Extensive sclerotic changes are seen in the right acetabulum. Lateral right acetabular roof osteophytosis is seen. There is mild flattening deformity of superior right femoral head. There is no focal bone destruction or periosteal reaction seen. JOINTS: Alignment of hip joint is normal. There is normal alignment of left total hip arthroplasty prostheses. There is marked loss of right hip joint space. SOFT TISSUE: Soft tissue is normal. No radiopaque foreign body or abnormal air collection is seen. XR/XR hip RT min 2V IMPRESSION: 1. Unchanged Normal pelvis x-ray. No fracture or dislocation is seen. Unchanged normal alignment of left total hip arthroplasty prostheses. 2. Unchanged marked osteoarthritis of right hip with flattening deformity of the superior right femoral head. No fracture or dislocation is seen. Electronically signed by: Latesha Hanks MD 02/20/2024 12:44 PM EDT
== END 2024-02-15 10:52 | disposition home or self-care (01) ==
LOC: HO.HOSX 10:51
PROVIDERS: PCP Internal Medicine; Visit Provider Physician Assistant
DX: Z01.810 Encounter for preprocedural cardiovascular examination (principal); M16.11 Unilateral primary osteoarthritis, right hip; R00.1 Bradycardia, unspecified; I47.10 Supraventricular tachycardia, unspecified; I10 Essential (primary) hypertension
CPT/HCPCS: 73502; 99212

== ENCOUNTER 2024-02-15 11:27 | Outpatient (AMB) | payer MEDICARE, SELFPAY ==
--- NOTE | 2024-02-15 09:14 | A.OFFVIS_ITS ---
Vital Signs 3 02/15/24 11:51 Height 5 ft 5 in Weight 221 lb BMI 36.8 Intake Visit Reasons: Pre-Op: R RUBEN w/NE 02/20/24 Intake Note: Joshua a 68 year old male who presents today for a preoperative visit for right RUBEN with NE on 02/20/24. Pain management agreement reviewed and signed. Allergies No Known Allergies Allergy (Verified 02/15/24 11:49) Medication List - Last Reconciled 02/15/24 by Dean Dillon PA-C amlodipine 2.5 mg PO .DAILY@0100 azelastine 1 spray intranasal DAILY PRN clotrimazole-betamethasone 1-0.05 % appl topical DAILY PRN fluticasone propionate 50 mcg/actuation 1 spray intranasal DAILY PRN losartan 50 mg PO BID omeprazole 20 mg PO DAILY PRN spironolactone 25 mg PO DAILY testosterone 4 pumps topical DAILY 30 days HPI Comments Details: Mr Way presents to the office today for preop visit. He is scheduled for right total hip arthroplasty with Dr. John. He continues to have ongoing pain and difficulty with ambulation in the right hip, which is affecting his quality of life; therefore, he has elected to move forward with surgery. LT RUBEN done [address] Ugalde -no complications [facility] Medical History (Updated 02/13/24 @ 16:16 by Tiarra Beaulieu RN) Sinus bradycardia COPD (chronic obstructive pulmonary disease) Asthma DJD (degenerative joint disease) Allergic rhinitis Hx of renal artery stenosis Arthritis Has a tremor GERD (gastroesophageal reflux disease) History of itching Itching of male genitalia Seasonal allergies Nasal dryness Morbid obesity Hypertension Surgical History Hx of colonoscopy History of total left hip replacement (~2015) Hx of repair of right rotator cuff Hx of eye surgery Hx of vasectomy Hx of Achilles tendon repair (~2005) History of hip surgery Hx of cholecystectomy H/O right knee surgery (~2016) Family History Father Enlarged heart Mother No problems noted. Social History Household Members: Spouse Housing: House Are you a primary child care leader to a significant other at home: No Do you presently have visiting nurse or other home services: No Alcohol intake: never Comment: Uses store carriage for stability when shopping Patient Tobacco Use Status: Never used Tobacco Second Hand Smoke Exposure: No service: No Current occupational status: retired Review of Systems Const All systems reviewed & are unremarkable except as noted in HPI and below Physical Exam Vital Signs: BMI result Body Mass Index 36.8 Const General: no acute distress, alert and awake Orientation/consciousness: patient oriented x3 HEENT Head: Yes normocephalic and Yes atraumatic Eyes General: appearance normal, both eyes and all related structures EOM: EOMs intact bilaterally Neck Neck: Yes normal visual inspection and Yes no lymphadenopathy Resp Effort & Inspection: normal respiratory effort and able to speak in complete sentences Cardio Jugular venous distension: no JVD Rate: regular rate Peripheral pulses: Peripheral pulses 2+ throughout GI Inspection: Yes normal to inspection Palpation (GI): Soft to palpation Skin General skin exam: turgor normal Rashes: no rashes Neuro General: patient oriented x3 Extrem Other: Right Hip: Trendelenburg gait - Trendelenburg sign Limited IR Mildly + impingement test + [facility] Psych Appearance: grossly normal Mental Status: mental status grossly normal Affect: normal affect Attitude: cooperative Results Reviewed Results Reviewed: Cardiology clearance Elisa Rojo Assessment & Plan (1) Sinus bradycardia: Code(s): R00.1 - Bradycardia, unspecified Category: Medical Plan: History of sinus bradycardia, asymptomatic. Holter monitor done 03/21/2022 showing sinus bradycardia with average heart rate 51, heart rate range 32 to 100, 58% of the time heart rate less than 60. Holter monitor done 09/08/2022 showed sinus bradycardia with average heart rate 59, heart rate range 37 to 146. Exercise stress test done 05/17/2022 showing exercise 8 minutes 30 seconds with normal chronotropic response, sinus rhythm, no heart block. A repeat Holter was done on 10/18/2023 showing sinus bradycardia, average heart rate 51, heart rate range 34 to 118. Patient was on metoprolol XL 12.5 mg daily at that time and was instructed to stop. He then underwent an exercise nuclear stress test on 12/01/2023 with exercise 7.5 minutes, no anginal symptoms, normal chronotropic competence, no EKG changes of ischemia and normal myocardial perfusion imaging. Today he reports feeling well overall. Good activity tolerance. No presyncope, syncope, falls. No indication for ppm placement at this time. Instructed to notify this office if he has any issues with lightheadedness, presyncope, syncope. Emergency care if needed. Continue activity as tolerated. Avoid all rate slowing medications. (2) Paroxysmal SVT (supraventricular tachycardia): Code(s): I47.10 - Supraventricular tachycardia, unspecified Category: Medical Plan: Brief episodes of SVT noted on Holter monitors. Most recent Holter shows 5 episodes with longest 4 beats. Patient states that on occasion he will notice that his heartbeat is going faster. No heart rates recorded by him. Pulse is regular on exam today with EKG showing sinus bradycardia. (3) Hypertension: Code(s): I10 - Essential (primary) hypertension Category: Medical Plan: Well controlled at present time. No med changes made (4) Preop cardiovascular exam: Code(s): Z01.810 - Encounter for preprocedural cardiovascular examination Category: Medical Plan: Preop for total hip replacement 02/20/[address] John. Patient has a known history of sinus bradycardia and brief SVT. Is not on any rate slowing agents. EKG done today showing sinus bradycardia, rate 54. No known history of CAD. Recent nuclear stress test was normal. Echocardiogram done 05/17/2022 showed normal EF, no valve abnormalities and no regional wall motion abnormalities. Patient can be cleared for hip surgery with low to intermediate cardiac risk. Watch for significant sinus bradycardia, sinus pauses. Avoid rate slowing medications. Call/consult Cardiology if needed. PCP clearance Assessment & Plan Assessment & Plan (1) Osteoarthritis of right hip: Code(s): M16.11 - Unilateral primary osteoarthritis, right hip Category: Medical Plan: I discussed in detail the procedure and what to expect pre and post operatively. We discussed the risks, benefits and alternatives to the surgery as well as the rehabilitation course. The risks; which include, but are not limited to infection, bleeding, nerve injury, ongoing pain, swelling, and stiffness, perioperative risk of injury to bones and soft tissues, and blood clots. I?ve answered all questions and with their understanding they have consented to move forward with Right total hip arthroplasty with Dr. John Patient plants to attend [facility] [facility] is walker at home from previous surgery He will take ASA post op for dvt ppx Orders: Orders 2 XR hip RT min 2V Today M25.551 - Pain in right hip Patient Instructions: Scribed for Dean Dillon PA-C, by [facility] medical office asst, on 02/15/2024 at 12:30 PM EST.? I, Dean Dillon PA-C, have personally reviewed and agree with the information entered by the scribe. Coding Level of Care Code Est Pt Level 3 (14286) Diagnoses Osteoarthritis of right hip M16.11
[2024-02-15 11:51] VITALS: BMI 36.8
== END 2024-02-15 12:10 | disposition home or self-care (01) ==
PROVIDERS: PCP Internal Medicine; Visit Provider Physician Assistant
DX: M16.11 Unilateral primary osteoarthritis, right hip (principal)
CPT/HCPCS: 99024

== ENCOUNTER 2024-02-20 06:57 | Inpatient (IN) | payer MEDICARE, SELFPAY ==
[2024-02-12 13:03] VITALS: BP 126/58; PULSE 50; RESP 16; O2SAT 96; BMI 36.4
[2024-02-12 15:00] LABS: Baso%MD 0.7 %; Eos%MD 1.2 %; Hematocrit 44.9 % (42.0-52.0); IG%MD 0.4 %; Lymph%MD 30.5 %; Mean Corpuscular HGB Conc 33.4 g/dl (31.0-36.0); Mean Corpuscular Hemoglobin 30.3 pg (27.0-33.0); Mean Corpuscular Volume 90.7 fL (80.0-98.0); Mean Platelet Volume 9.5 fL (9.4-12.4); Mono%MD 8.9 %; Neut%MD 58.3 %; Platelet Count 260 X10*3/uL (160-400); Red Blood Count 4.95 X10*6/uL (4.60-5.80); Red Cell Distribution Width 12.9 % (11.0-16.0); White Blood Count 8.1 X10*3/uL (4.8-10.8)
[2024-02-12 15:19] LABS: MRSA Nasal PCR NEGATIVE (Negative); SA Nasal PCR NEGATIVE (Negative)
[2024-02-12 15:32] LABS: Estimated Average Glucose 114 mg/dL; Hemoglobin A1c % 5.6 % (<6.0)
[2024-02-12 15:36] LABS: Anion Gap 13 (12-20); Blood Urea Nitrogen 23 mg/dL (9-16); Calcium 10.1 mg/dL (8.4-10.2); Carbon Dioxide 29 mmol/L (22-29); Chloride 102 mmol/L (96-108); Creatinine Clr Calc Pharmacy 60.4; Estimated Glomerular Filt Rate 57; Glucose Random 86 mg/dL (60-115); Potassium 4.5 mmol/L (3.3-5.1); Sodium 139 mmol/L (135-145)
[2024-02-12 20:15] LABS: Basophils Abs Manual 0.1 X10*3/uL (0.0-0.2); Basophils Percent Manual 1 % (0-2); Lymphocytes Absolute Manual 2.3 X10*3/uL (1.2-4.9); Lymphocytes Percent Manual 28 % (20-40); Monocytes Absolute Manual 0.7 X10*3/uL (0.1-1.2); Monocytes Percent Manual 9 % (2-11); Neutrophils Percent Manual 62 % (45-73)
[2024-02-12 20:16] LABS: Platelet Estimate NORMAL (NORMAL); Platelet Morphology Comment NORMAL; RBC Morphology NORMAL
[2024-02-12 20:17] LABS: Band Neutrophils Percent 0 % (3-5)
--- NOTE | 2024-02-14 14:54 | HO.ANESPROP2 ---
Documented by User: Clare Ayon NP 02/14/24 14:57 HPI - Anesthesia Eval Consult details Narrative: 68yo M for Right Hip Total Replacement Medically optimized Cardiac optimized. Follows with [facility] cardiology for htn, [place], SVT. Follows with renal for htn. Stable at 08/2023 visit [facility] Active Problems Active Problems: All Active Problems Preop cardiovascular exam (Acute) Shortness of breath (Acute) Paroxysmal SVT (supraventricular tachycardia) (Acute) Osteoarthritis of right hip (Acute) Hypogonadism in male (Acute) Erectile disorder (Acute) OLGA on CPAP (Acute) Left renal artery stenosis (Acute) Sinus bradycardia (Acute) Morbid obesity (Acute) Hypertension (Acute) Past Medical History Medical History Sinus bradycardia COPD (chronic obstructive pulmonary disease) Asthma DJD (degenerative joint disease) Allergic rhinitis Hx of renal artery stenosis Arthritis Has a tremor GERD (gastroesophageal reflux disease) History of itching Itching of male genitalia Seasonal allergies Nasal dryness Morbid obesity Hypertension Family History Family History Father Enlarged heart Mother No problems noted. Surgical History Surgical History Hx of colonoscopy History of total left hip replacement (~2015) Hx of repair of right rotator cuff Hx of eye surgery Hx of vasectomy Hx of Achilles tendon repair (~2005) History of hip surgery Hx of cholecystectomy H/O right knee surgery (~2017) Social History Social History Household Members: Spouse Housing: House Are you a primary pharmacy care coordinator to a significant other at home: No Do you presently have visiting nurse or other home services: No Alcohol intake: never Comment: Uses store carriage for stability when shopping Patient Tobacco Use Status: Never used Tobacco Second Hand Smoke Exposure: No Use of substances other than those prescribed or required for medical reasons: No Have you been hit, kicked, punched, or otherwise hurt by someone within the past year? If so, by whom?: No Are you DNR?: No Advance Directives: No Advance Directives Information Provided: Yes Advance Directives on File: No Recently lost weight without trying: No Nutrition Risks: No Nutritional Risk service: No Current occupational status: retired Meds Allergies Allergy/AdvReac Type Severity Reaction Status Date / Time No Known Allergies Allergy Verified 02/20/24 06:23 Home Medications ?Medication ?Instructions ?Recorded ?Confirmed ?Last Taken ?Type losartan 100 mg tablet 50 mg PO BID 05/05/22 02/20/24 Unknown History spironolactone 25 mg tablet 25 mg PO DAILY 10/18/22 02/20/24 Unknown History azelastine 137 mcg (0.1 %) nasal 1 spray intranasal DAILY PRN 12/16/22 02/20/24 Unknown History spray Allergy Symptoms clotrimazole-betamethasone 1 1 appl topical DAILY PRN Itching 12/16/22 02/20/24 Unknown History %-0.05 % topical cream fluticasone propionate 50 1 spray intranasal DAILY PRN Dry 12/16/22 02/20/24 Unknown History mcg/actuation nasal Nasal Passages spray,suspension omeprazole 20 mg capsule,delayed 20 mg PO DAILY PRN Gastric Reflux 10/31/23 02/20/24 02/19/24 History release amlodipine 2.5 mg tablet 2.5 mg PO .DAILY@0100 02/05/24 02/20/24 02/20/24 02:00 History Exam Height,Weight and Vital Signs: Height 5 ft 5 in Weight 99.291 kg Last Vital Signs Pulse 50 02/12/24 13:03 Resp 16 02/12/24 13:03 BP 126/58 L 02/12/24 13:03 Pulse Ox 96 02/12/24 13:03 O2 Del Method Room Air 02/12/24 13:03 Pertinent Lab Results Pertinent Lab Results: Laboratory Tests 02/12/24 02/12/24 13:45 14:29 WBC 8.1 RBC 4.95 Hgb 15.0 Hct 44.9 MCV 90.7 MCH 30.3 MCHC 33.4 RDW 12.9 Plt Count 260 MPV 9.5 Absolute Nucleated RBC 0.000 Nucleated RBC % (auto) 0.0 Neutrophils % (Manual) 62 Band Neutrophils % 0 L Lymphocytes % (Manual) 28 Monocytes % (Manual) 9 Basophils % (Manual) 1 Abs Neuts (Manual) 5.0 Lymphocytes # (Manual) 2.3 Monocytes # (Manual) 0.7 Basophils # (Manual) 0.1 Platelet Estimate NORMAL Plt Morphology Comment NORMAL RBC Morphology NORMAL Sodium 139 Potassium 4.5 Chloride 102 Carbon Dioxide 29 Anion Gap 13 BUN 23 H Creatinine 1.25 Estim Creat Clear Calc 60.4 Estimated GFR 57 Random Glucose 86 Estimat Average Glucose 114 Hemoglobin A1c % 5.6 Calcium 10.1 D Nasal Screen MRSA (PCR) NEGATIVE Nasal S. aureus Screen NEGATIVE Nasal MRSA/S.aureus Interp SEE NOTE Narrative Narrative: EKG 10/2023 sinus bradycardia, left axis deviation, QTC 371 milliseconds, rate 54 NM cardiolite stress test 12/2023 Impression: 1. Normal myocardial perfusion 2. Gated LVEF is 58% 3. Transient ischemic dilatation not present Stress EKG is negative for ischemia Holter 2023 1. Patient was monitored for total period of 3 days 2. Baseline was normal sinus rhythm with average heart of 51 beats per minute 3. Frequent sinus bradycardia noted with 72% of time heart rate below 60 beats per minute with no significant pauses 4. Occasional PACs and PVCs noted with 5 SVT events, longest lasting 4 beats at 134 beats per minute 5. No patient reported events ECHO 2021 Conclusions: - The left ventricular systolic function is normal. The visually estimated ejection fraction is between 65-70%. - No obvious valvular pathology seen on this study. Assessment and Plan Assessment Anesthesia Assessment: Chart Reviewed Documented by User: La Daugherty MD 02/20/24 08:10 [facility] Past Medical History Medical History Sinus bradycardia COPD (chronic obstructive pulmonary disease) Asthma DJD (degenerative joint disease) Allergic rhinitis Hx of renal artery stenosis Arthritis Has a tremor GERD (gastroesophageal reflux disease) History of itching Itching of male genitalia Seasonal allergies Nasal dryness Morbid obesity Hypertension Family History Family History Father Enlarged heart Mother No problems noted. Family history of problems with anesthesia: No Surgical History Surgical History Hx of colonoscopy History of total left hip replacement (~2015) Hx of repair of right rotator cuff Hx of eye surgery Hx of vasectomy Hx of Achilles tendon repair (~2005) History of hip surgery Hx of cholecystectomy H/O right knee surgery (~2016) History of Problems with Anesthesia: No Social History Social History Household Members: Spouse Housing: House Are you a primary pharmacy care coordinator to a significant other at home: No Do you presently have visiting nurse or other home services: No Alcohol intake: never Comment: Uses store carriage for stability when shopping Patient Tobacco Use Status: Never used Tobacco Second Hand Smoke Exposure: No Use of substances other than those prescribed or required for medical reasons: No Have you been hit, kicked, punched, or otherwise hurt by someone within the past year? If so, by whom?: No Are you DNR?: No Advance Directives: No Advance Directives Information Provided: Yes Advance Directives on File: No Recently lost weight without trying: No Nutrition Risks: No Nutritional Risk service: No Current occupational status: retired [employer] Allergies Allergy/AdvReac Type Severity Reaction Status Date / Time No Known Allergies Allergy Verified 02/20/24 06:23 Home Medications ?Medication ?Instructions ?Recorded ?Confirmed ?Last Taken ?Type losartan 100 mg tablet 50 mg PO BID 05/05/22 02/20/24 Unknown History spironolactone 25 mg tablet 25 mg PO DAILY 10/18/22 02/20/24 Unknown History azelastine 137 mcg (0.1 %) nasal 1 spray intranasal DAILY PRN 12/16/22 02/20/24 Unknown History spray Allergy Symptoms clotrimazole-betamethasone 1 1 appl topical DAILY PRN Itching 12/16/22 02/20/24 Unknown History %-0.05 % topical cream fluticasone propionate 50 1 spray intranasal DAILY PRN Dry 12/16/22 02/20/24 Unknown History mcg/actuation nasal Nasal Passages spray,suspension omeprazole 20 mg capsule,delayed 20 mg PO DAILY PRN Gastric Reflux 10/31/23 02/20/24 02/19/24 History release amlodipine 2.5 mg tablet 2.5 mg PO .DAILY@0100 02/05/24 02/20/24 02/20/24 02:00 History Exam Airway Mallampati Class: III TM Dist: >3cm Neck ROM: Limited Heart: rrr Lungs: cta Assessment and Plan Assessment Anesthesia Assessment: Anesthesia Plan Discussed Final Anesthetic Review Family History of Problems with Anesthesia: No History of Problems with Anesthesia: No NPO: Yes ASA Class: III Final Preanesthetic Review: No Changes in Pt Med Stat, Meds/Allgs Chart Reviewed, Consent Obtained/Reviewed and Anes Risks/Benef Reviewed Patient Risk: Intermediate Procedure Risk: Intermediate Anesthetic Plan Anesthetic Plan: GA Disposition: Standard PACU
[2024-02-20] VITALS (11 sets, daily range): BP systolic 153–178; BP diastolic 58–74; PULSE 48–62; RESP 14–18; TEMP 36.3–37.1; O2SAT 93–99; BMI 36.4
--- NOTE | ~2024-02-20 | XR_ITS ---
EXAMINATION: Right Hip and pelvis x-ray. CLINICAL INFORMATION: Right hip pain, preoperative evaluation COMPARISON: X-ray pelvis on 12/22/2023 TECHNIQUE: Frontal x-ray of the pelvis, Frontal and Frog leg lateral x-rays of right hip. FINDINGS: BONES: Bony structures are intact. Extensive sclerotic changes are seen in the right acetabulum. Lateral right acetabular roof osteophytosis is seen. There is mild flattening deformity of superior right femoral head. There is no focal bone destruction or periosteal reaction seen. JOINTS: Alignment of hip joint is normal. There is normal alignment of left total hip arthroplasty prostheses. There is marked loss of right hip joint space. SOFT TISSUE: Soft tissue is normal. No radiopaque foreign body or abnormal air collection is seen. XR/XR pelvis 1-2V IMPRESSION: 1. Unchanged Normal pelvis x-ray. No fracture or dislocation is seen. Unchanged normal alignment of left total hip arthroplasty prostheses. 2. Unchanged marked osteoarthritis of right hip with flattening deformity of the superior right femoral head. No fracture or dislocation is seen. Electronically signed by: Latesha Hanks MD 02/20/2024 12:44 PM EDT
[2024-02-20] MEDS: oxyCODONE HCl ER 10 MG TAB.ER.12H PO ×2 (06:56→20:32)
--- NOTE | 2024-02-20 07:20 | MHC.SHP ---
Pre-Procedural Eval Section A - 24 Hr Update-Section A only Date of Service: 02/20/24 The patient is an INPATIENT: No Changes since office visit: No Cold of Flu in the past 2 weeks, No New Medical Problems, No Changes in Medication and No Patient answered all questions The patient has been examined within 24 hours of the surgical procedure. The History & Physical has been completed within 30 days and I have reviewed it.: Yes Section B - Complete if H&P > 30 days Chief Complaint: rt gio Allergies: Allergies Allergy/AdvReac Type Severity Reaction Status Date / Time No Known Allergies Allergy Verified 02/20/24 06:23 Plan I have reviewed the history and physical and performed a pertinent physical examination on my patient. No changes have occurred unless specified. Time Spent With Patient Time: Total time managing care of this patient today ____ minutes.
[2024-02-20] MEDS: Lactated Ringers 1,000 ML 100 ML IVCONT ×3 (07:22→21:56)
--- NOTE | 2024-02-20 09:36 | P.BOP_ITS ---
Brief Operative Note Date of Service: 02/20/24 Pre-op diagnosis: Right hip OA Post-op diagnosis: same Procedure: Right RUBEN Implants: Hugo Trident2 50 Emblem Accoalde 2 #4 132 deg with + 0/32 femoral head Surgeon: Michael John MD Anesthesia: GETA and local Was an Certified Pharmacist Assistant used for this Procedure?: Yes Certified Pharmacist Assistant: Dean Dillon Estimated blood loss (mL): 200 IV fluids (mL): 1,200 Pathology: other Condition: stable Disposition: PACU
[2024-02-20] MEDS: HYDROmorphone HCl 0.5 MG/0.5 ML SYRINGE 0.25 MG IVPUSH (11:43)
--- NOTE | 2024-02-20 11:44 | P.CONHOSP_ITS ---
History of Present Illness Data of Consult Service Date: 02/20/24 Requesting physician: Dean Dillon Primary Care Provider: Peewee Maxwell MD HPI Reason for consult: medical management 68-year-old male with history of hypertension, GERD, asthma/copd overlap, OLGA compliant with CPAP, history of PSVT, cutaneous candidiasis, who is severely obese with BMI greater than 36 admitted to Orthopedic surgery for right hip OA s/p RUBEN with consult placed to hospitalist service for medical management. The patient has sinus bradycardia chronically and is not on any rate controlling medications. He has followed with outpt cardiology. Has had normal echo and tolerated well. He is asymptomatic denying sob. lighthaededness, palptiations, syncope, chest pain. He has had holter monitors without significant pauses and several very brief episodes of SVT. There is no indication for pacemaker per cardiology. The patient is currently reportign discomfort in the hip but otherwise no complaints. No etoh, drugs, or cigarettes. Review of Systems 2 Review of Systems: Yes all other systems are reviewed and are negative [facility] Medical History Sinus bradycardia COPD (chronic obstructive pulmonary disease) Asthma DJD (degenerative joint disease) Allergic rhinitis Hx of renal artery stenosis Arthritis Has a tremor GERD (gastroesophageal reflux disease) History of itching Itching of male genitalia Seasonal allergies Nasal dryness Morbid obesity Hypertension Family History Father Enlarged heart Mother No problems noted. Surgical History Hx of colonoscopy History of total left hip replacement (~2015) Hx of repair of right rotator cuff Hx of eye surgery Hx of vasectomy Hx of Achilles tendon repair (~2005) History of hip surgery Hx of cholecystectomy H/O right knee surgery (~2016) Social History Household Members: Spouse Housing: House Are you a primary senior care assistant to a significant other at home: No Do you presently have visiting nurse or other home services: No Alcohol intake: never Comment: Uses store carriage for stability when shopping Patient Tobacco Use Status: Never used Tobacco Second Hand Smoke Exposure: No Use of substances other than those prescribed or required for medical reasons: No Have you been hit, kicked, punched, or otherwise hurt by someone within the past year? If so, by whom?: No Do you feel safe in your current relationship?: Yes Is there a partner from a previous relationship who is making you feel unsafe now?: No Are you made to feel afraid or neglected: No Are you DNR?: No Advance Directives: No Advance Directives Information Provided: Yes Advance Directives on File: No Do you have a plan to hurt others: No Plan Recently lost weight without trying: No How much weight loss: Not applicable Eating poorly because of decreased appetite: No Nutrition screen score: 0 Nutrition Risks: No Nutritional Risk Poor oral hygiene: No service: No Current occupational status: retired [employer] Allergies Allergy/AdvReac Type Severity Reaction Status Date / Time No Known Allergies Allergy Verified 02/20/24 06:23 Active Medications: Current Medications Acetaminophen (Acetaminophen 325 Mg Tablet) 650 mg PO Q6H PRN PRN Reason: Pain, Mild (Pain Scale 1-3), fever or headache Aspirin (Aspirin 325 Mg Tablet) 325 mg PO BID ALIZA Azelastine HCl (Azelastine Hcl Nasal 137 Mcg/[place] 30 Ml) 1 spray NOSTRIL-B DAILY PRN PRN Reason: Allergy Symptoms Celecoxib (Celecoxib 200 Mg Capsule) 200 mg PO BID ALIZA Docusate Sodium (Docusate Sodium 100 Mg Capsule) 100 mg PO BID ALIZA Fluticasone Propionate (Fluticasone Propionate Nasal 16 Gm [place]) 1 spray NOSTRIL-B DAILY PRN PRN Reason: Dry Nasal Passages Hydromorphone HCl (Hydromorphone Hcl 0.5 Mg/0.5 Ml Syringe) 0.25 mg IVPUSH Q4H PRN; Protocol PRN Reason: Pain, Severe (Pain Scale 7-10) Last Admin: 02/20/24 11:43 Dose: 0.25 mg Lactated Ringer's (Lr) 1,000 mls @ 100 mls/hr IVCONT .Q10H ALIZA Stop: 02/21/24 09:45 Last Admin: 02/20/24 11:44 Dose: 100 mls/hr Cefazolin Sodium/Dextrose (Ancef) 2 gm in 50 mls @ 100 mls/hr IV POSTOP ONE Stop: 02/20/24 14:29 Influenza Virus Vaccine (Flu Vacc [id number](6mos Up)/Pf 0.5 Ml Syringe) 0.5 ml IM .ONCE ONE Stop: 02/20/24 11:36 Non-Formulary Medication (Clotrimazole-Betamethasone) 1 appl TOPICAL DAILY PRN PRN Reason: Itching Non-Formulary Medication (Testosterone) 4 pump TOPICAL DAILY ALIZA Omeprazole (Omeprazole 20 Mg Capsule.Dr) 20 mg PO DAILY PRN PRN Reason: Gastric Reflux Ondansetron HCl (Ondansetron Hcl 4 Mg/2 Ml Vial) 4 mg IVPUSH Q8H PRN PRN Reason: Nausea and Vomiting Oxycodone HCl (Oxycodone Hcl Immed Release 5 Mg Tablet) 5 mg PO Q4H PRN PRN Reason: Pain, Moderate(Pain Scale 4-6) Oxycodone HCl (Oxycodone Hcl Er 10 Mg Tab.Er.12h) 10 mg PO BID ALIZA Sodium Chloride (0.9 % Sodium Chloride Flush 3 Ml Syringe) 3 ml IVFLUSH QSHIFT ALIZA Spironolactone (Spironolactone 25 Mg Tablet) 25 mg PO DAILY ALIZA; Protocol Home Medications ?Medication ?Instructions ?Recorded ?Confirmed ?Last Taken ?Type losartan 100 mg tablet 50 mg PO BID 05/05/22 02/20/24 Unknown History spironolactone 25 mg tablet 25 mg PO DAILY 10/18/22 02/20/24 Unknown History azelastine 137 mcg (0.1 %) nasal 1 spray intranasal DAILY PRN 12/16/22 02/20/24 Unknown History spray Allergy Symptoms fluticasone propionate 50 1 spray intranasal DAILY PRN Dry 12/16/22 02/20/24 Unknown History mcg/actuation nasal Nasal Passages spray,suspension omeprazole 20 mg capsule,delayed 20 mg PO DAILY@0630 10/31/23 02/20/24 02/19/24 History release amlodipine 2.5 mg tablet 2.5 mg PO .DAILY@0200 02/05/24 02/20/24 02/20/24 02:00 History Physical Exam 2 Vital Signs and Narrative: Vital Signs: Last Vital Signs Temp 97.3 F 02/20/24 11:13 Pulse 57 02/20/24 11:13 Resp 14 02/20/24 11:13 BP 153/67 H 02/20/24 11:13 Pulse Ox 97 02/20/24 11:13 O2 Del Method Nasal Cannula 02/20/24 11:13 O2 Flow Rate 2 02/20/24 11:13 BMI result Body Mass Index 36.4 Constitutional - Awake and Alert, No apparent distress Eyes - PERRLA, EOMI Cardiovascular - S1S2, RRR, No edema Respiratory - Normal lung expansion, Normal respiratory effort, No respiratory distress, CTA bilaterally Gastrointestinal - NT / ND; +BS; No rebound or guarding Extremities - no calf tenderness bilaterally, no swelling Skin - Warm/Dry Neurological - Alert & oriented x3 Psychological - Appropriate affect Results Labs 02/12/24 14:29 02/12/24 14:29 Labs: Laboratory Results - last 24 hr 02/20/24 06:30 Blood Type O Positive Antibody Screen NEGATIVE Assessment and Plan (1) Osteoarthritis of right hip: Status: Acute Plan 68-year-old male with history of hypertension, GERD, asthma/copd overlap, OLGA compliant with CPAP, history of PSVT, cutaneous candidiasis, who is severely obese with BMI greater than 36 admitted to ortho surgery for management of OA R Hip s/p RUBEN with consult placed to hospitalist service for medical management #OA R Hip s/p RUBEN POD0 -plan per ortho surgery -wean O2 as tolerated #Sinus bradycardia- chronic -has had extensive unremarkable work up [facility] cardiology. No indication for pacemaker. No pauses -can place on night monitor to monitor for post op bradycardia especially in setting of narctic use. Recommend judicious use of narcotic medication -not on bb or rate lowering CCB #HTN -continue amlodipine and spironolactone. Resume losartan if patient remains hypertensive despite pain control. #GERD -ppi #Candidiasis -clotrimazole prn Thank you for allowing me to participate in this consult. Signing off at this time. Please do not hesitate to call for further questions or for any acute medical issues
--- NOTE | 2024-02-20 12:18 | PHA.MEDREC ---
Pharmacy Consult ? Medication Reconciliation Pharmacy has completed the medication reconciliation. Spoke to pt at bedside, he confirmed his home medications with me. Stated he no longer takes the clotrimazole-betamethasone cream. Stated he takes his Amlodipine at 0200.
[2024-02-20] MEDS: Flu Vacc TS2024-25(6mos up)/PF 0.5 ML SYRINGE IM (12:25)
[2024-02-20] MEDS: ceFAZolin Sodium/Dextrose,Iso 2 GM/50 ML PIGGYBACK IV (14:33)
[2024-02-20] MEDS: 0.9 % Sodium Chloride Flush 3 ML SYRINGE IVFLUSH (14:33)
[2024-02-20] MEDS: oxyCODONE HCl Immed Release 5 MG TABLET PO (18:45)
[2024-02-20] MEDS: Azelastine HCl Nasal 137 MCG/Spray 30 ML 1 SPRAY NOSTRIL-B (18:45)
[2024-02-20] MEDS: Celecoxib 200 MG CAPSULE PO (20:32)
[2024-02-20] MEDS: Docusate Sodium 100 MG CAPSULE PO (20:32)
[2024-02-20] MEDS: Losartan Potassium 50 MG TABLET PO (20:46)
[2024-02-20] MEDS: Omeprazole 20 MG CAPSULE.DR PO (22:00)
--- NOTE | 2024-02-20 22:00 | PC.NURSE ---
2200- patients ordered dose of po Prilosec due in am, pt insistent to take now as dose was missed due to surgery, po given.
[2024-02-21 00:45] VITALS: BP 166/72; PULSE 54; RESP 16; TEMP 36.6; O2SAT 96
[2024-02-21] MEDS: oxyCODONE HCl Immed Release 5 MG TABLET PO ×3 (00:47→14:13)
[2024-02-21 00:56] VITALS: BP 166/72
[2024-02-21] MEDS: amLODIPine Besylate 2.5 MG TABLET PO (00:56)
[2024-02-21 03:48] VITALS: BP 114/58; PULSE 50; RESP 18; TEMP 37.2; O2SAT 94
[2024-02-21 06:05] LABS: MANUAL DIFF FLAG NO
[2024-02-21 06:25] LABS: Basophils Percent Auto 0.2 % (0-2); Eosinophils Percent Auto 0.1 % (0-4); Hematocrit 36.3 % (42.0-52.0); Imm Gran Abs Auto 0.05 X10*3/uL (0.00-0.03); Imm Gran Pct Auto 0.4 % (0.0-0.4); Lymphocytes Absolute Auto 1.8 X10*3/uL (1.2-4.9); Lymphocytes Percent Auto 15.1 % (20-40); Mean Corpuscular HGB Conc 33.1 g/dl (31.0-36.0); Mean Corpuscular Volume 90.8 fL (80.0-98.0); Mean Platelet Volume 9.5 fL (9.4-12.4); Monocytes Absolute Auto 1.2 X10*3/uL (0.1-1.2); Monocytes Percent Auto 9.9 % (2-11); Neutrophils Percent Auto 74.3 % (45-73); Platelet Count 218 X10*3/uL (160-400); Red Cell Distribution Width 13.1 % (11.0-16.0); White Blood Count 12.1 X10*3/uL (4.8-10.8)
[2024-02-21 06:27] LABS: Anion Gap 12 (12-20); Blood Urea Nitrogen 18 mg/dL (9-16); Calcium 8.5 mg/dL (8.4-10.2); Carbon Dioxide 27 mmol/L (22-29); Chloride 102 mmol/L (96-108); Creatinine Clr Calc Pharmacy 60.4; Estimated Glomerular Filt Rate 57; Glucose Fasting 113 mg/dL (60-99); Potassium 4.6 mmol/L (3.3-5.1); Sodium 136 mmol/L (135-145)
[2024-02-21 06:53] VITALS: BP 132/60; PULSE 50; RESP 17; TEMP 36.7; O2SAT 97
[2024-02-21] MEDS: Aspirin 325 MG TABLET PO (08:09)
[2024-02-21] MEDS: Losartan Potassium 50 MG TABLET PO (08:09)
[2024-02-21] MEDS: Docusate Sodium 100 MG CAPSULE PO (08:10)
[2024-02-21] MEDS: Spironolactone 25 MG TABLET PO (08:10)
[2024-02-21] MEDS: oxyCODONE HCl ER 10 MG TAB.ER.12H PO (08:10)
[2024-02-21] MEDS: Celecoxib 200 MG CAPSULE PO (08:10)
[2024-02-21] MEDS: Lactated Ringers 1,000 ML 100 ML IVCONT (08:13)
--- NOTE | 2024-02-21 09:39 | P.PNOP_ITS ---
Subjective Subjective Date of Service: 02/21/24 Interval history: POD 1 s/p RT RUBEN No overnight events Patient is walking with PT, ambulating with walker denies cp, sob, palpitations Physical Exam Vital Signs: Vital Signs: Last Vital Signs Temp 98.1 F 02/21/24 06:53 Pulse 50 02/21/24 06:53 Resp 17 02/21/24 06:53 BP 132/60 02/21/24 06:53 Pulse Ox 97 02/21/24 06:53 O2 Del Method Room Air 02/21/24 06:53 O2 Flow Rate 2 02/20/24 11:13 BMI result Body Mass Index 36.4 Const: General: cooperative, healthy appearing and no acute distress Resp: Effort & Inspection: normal respiratory effort and able to speak in complete sentences Cardio: Rate: regular rate Peripheral pulses: Peripheral pulses 2+ throughout GI: Palpation (GI): Soft to palpation Skin: General skin exam: no rashes or lesions noted Extrem: Other: bandage clean dry and intact. Holton intact. No erythema or effusion. Calf supple nontender. Neurovascularly intact. Procedures Date of Service Date of Service: 02/21/24 Progress Note: A&P Assessment and plan (1) History of total right hip replacement: Status: Acute Assessment and Plan: * Continue pain mgmnt * Begin Aspirin for dvt ppx * begin PT for RT RUBEN post precautions * Dispo planning-Pending PT eval, pain mgmnt Time Spent With Patient Time: Total time managing care of this patient today ____ minutes. Quality Stroke Does the patient have a stroke diagnosis?: No VTE Prior VTE?: No VTE Risk Level:: Surgical - very high VTE Device Contraindication: N/A - Device Ordered VTE Drug Contraindication: N/A - Med Ordered
--- NOTE | 2024-02-21 10:37 | MHC.CM.PN ---
IMM DELIVERED PT LIVES WITH SPOUSE. INDEPENDENT AND DRIVES AT BASELINE. HAS C PAP FOR SLEEP VIA [facility]. NO PREVIOUS SERVICES. P.T. REC HOME WITH [facility], FIRST CHOICE [facility]. REFERRAL SENT. +HCP PCP DR. URRUTIA DP: HOME WITH NEW [facility] FOR P.T. /O.T. SERVICES IS THE RECOMMENDATION. [facility] WILL TRANSPORT. CM WILL CONTINUE TO FOLLOW FOR ANY CHANGE TO DC PLAN/NEEDS.
[2024-02-21 15:07] VITALS: BP 133/61; PULSE 56; RESP 18; TEMP 36.2; O2SAT 94
[2024-02-21] MEDS: 0.9 % Sodium Chloride Flush 3 ML SYRINGE IVFLUSH (15:17)
--- NOTE | 2024-02-21 16:25 | MHC.CM.PN ---
Per ortho PA patient is cleared for dc. [facility] has accepted and are aware of dc. Patient's will transport home at 6pm. RN aware.
--- NOTE | 2024-02-21 16:35 | W.MHC.F2F ---
Service Date Service Date: 02/21/24 Encounter Date of encounter: 02/21/24 Reasons for Services Signs and symptoms assessed: Weakness, poor balance, poor gait mechanics Reason for physical therapy: home safety and mobility, therapeutic exercises, restore joint function, gait/transfer training, ADL training and energy conservation Reason for occupational therapy: home safety and mobility, therapeutic exercises, restore joint function, gait/transfer training, ADL training and energy conservation Homebound: Leaving the home is medically contraindicated at this time without the asist of a device and/or another person due th the listed conditions above and below. Reason homebound: unsteady gait / fall risk, pain with ambulation, poor balance / fall risk and unable to drive Homebound supporting statement: Pt. is considered home bound due to recent surgery. Unable to drive, poor balance, poor gait mechanics. Certification: Based on the above findings, I certify that this patient is confined to the home and needs intermittent [facility] care, physical therapy and/or speech therapy, or continues to need occupational therapy. The patient is under my care, and I have initiated the establishment of the plan of care. The patient will be followed by a physician who will periodically review the plan of care. Time Spent With Patient Time: Total time managing care of this patient today ____ minutes.
--- NOTE | 2024-02-21 16:36 | P.DS_ITS ---
DS: Providers Provider Date of Service: 02/21/24 Date of admission: 02/20/24 06:57 Primary care physician: Peewee Maxwell MD Consults: 02/20/24 11:25 Consult to Hospitalist Routine Comment: Consulting Provider: Hospitalist Reason For Exam: OLGA, sinus [place] ( monitor ) DS: Diagnosis Discharge Diagnosis (1) History of total right hip replacement: Status: Acute DS: Summary Hospital Course Hospital Course: The patient underwent a successful right total hip arthroplasty on 02/20/24, was transferred to PACU and then to the floor to recover. During their stay, their vitals were stable, afebrile at 97.2 . Labs were unremarkable, H/H 12.0/36.3 . POD 1 he was started on ASA 325mg tabs twice a day for DVT ppx, they also received Physical Therapy services twice a day. Physical therapy should include gait training, core and lumbar strength, glute strength. Posterior precautions intact. WBAT. Prior to discharge, her dressing was changed, incision clean dry and intact, new Aquacel dressing applied. The Aquacel dressing should remain intact and dry at all times. Any concerns with the dressing, please contact orthopedic office. No showering. The plan is to be discharged home with [facility]na Time Attestation Discharge Coordination Time (in mins): 30 Quality: Safe Use of Opioids Does Pt have an Active Cancer Diagnosis on the Problem List?: No Quality: Stroke Does the patient have a stroke diagnosis?: No Physical Exam Vital Signs: Vital Signs: Last Vital Signs Temp 97.2 F 02/21/24 15:07 Pulse 56 02/21/24 15:07 Resp 18 02/21/24 15:07 BP 133/61 02/21/24 15:07 Pulse Ox 94 02/21/24 15:07 O2 Del Method Room Air 02/21/24 15:07 O2 Flow Rate 2 02/20/24 11:13 BMI result Body Mass Index 36.4 DS: Data Data Completed and Pending Pending studies at discharge: Pending at discharge 02/20/24 09:09 Surgical [PTH] Routine Labs on day of discharge: Laboratory Results - last 24 hr 02/21/24 05:34 WBC 12.1 H RBC 4.00 L Hgb 12.0 L Hct 36.3 L MCV 90.8 MCH 30.0 MCHC 33.1 RDW 13.1 Plt Count 218 MPV 9.5 Immature Gran % (Auto) 0.4 Neut % (Auto) 74.3 H Lymph % (Auto) 15.1 L [place] % (Auto) 9.9 Eos % (Auto) 0.1 Baso % (Auto) 0.2 Lymph # (Auto) 1.8 [place] # (Auto) 1.2 Eos # (Auto) 0.0 Baso # (Auto) 0.0 Abs Immat Gran (auto) 0.05 H Absolute Neuts (auto) 9.0 H Absolute Nucleated RBC 0.000 Nucleated RBC % (auto) 0.0 Sodium 136 Potassium 4.6 Chloride 102 Carbon Dioxide 27 Anion Gap 12 BUN 18 H Creatinine 1.25 Estim Creat Clear Calc 60.4 Estimated GFR 57 Fasting Glucose 113 H Calcium 8.5 D Discharge Plan Discharge Anticipated Discharge Date/Time: 02/21/24 16:30 Patient Disposition: Home Health Service Discharge Diagnosis: RT RUBEN Referrals: [facility] [Outside] - 3-5 Days ([facility] will call you to schedule PT appointments.) Dean Dillon PA-C [Physician Machined Parts Quality Inspector] - 2 Weeks (03/07/24 13:00 [facility] Dean Dillon PA-C ) Discharge Medications: New celecoxib 200 mg Capsule 200 mg PO BID 30 Days Qty: 60 0RF acetaminophen 325 mg Tablet 650 mg PO Q6H PRN (Reason: Pain, Mild (Pain Scale 1-3), fever or headache) 30 Days Qty: 240 0RF aspirin 325 mg Tablet 325 mg PO BID 42 Days Qty: 84 0RF docusate sodium 100 mg Capsule 100 mg PO BID 14 Days Qty: 28 0RF oxycodone 5 mg Tablet 5 mg PO Q4H PRN (Reason: Pain, Moderate(Pain Scale 4-6)) 7 Days Qty: 42 0RF Rx Instructions: Partial Fill upon patient request. Continued testosterone 20.25 mg/1.25 gram (1.62 %) gel in metered-dose pump 4 pump topical DAILY 30 Days Qty: 75 5RF Rx Instructions: This is an increase in dosage losartan 100 mg tablet 50 mg PO BID amlodipine 2.5 mg tablet 2.5 mg PO .DAILY@0200 Rx Instructions: For high blood pressure spironolactone 25 mg tablet 25 mg PO DAILY omeprazole 20 mg capsule,delayed release(DR/EC) 20 mg PO DAILY@0630 azelastine 137 mcg (0.1 %) aerosol,spray 1 spray intranasal DAILY PRN (Reason: Allergy Symptoms) fluticasone propionate 50 mcg/actuation spray,suspension 1 spray intranasal DAILY PRN (Reason: Dry Nasal Passages) Discharge Orders: Discharge Order (Routine); Ordered 02/21/24 Ordered By: Dean Dillon Diet: Regular diet Activity on Discharge: Use cane or walker Stand Alone Forms: Patient Portal Discharge page Print Language: Palauan Care Plan Goals: Restore function of joint Health Concerns: none Plan of Treatment: Physical Therapy Pain management DVT prophylaxis Assessment: * Physical Therapy for Total hip arthroplasty: wbat, posterior precautions, gait training, ROM, strength * Limit stair climbing * No showering, no tub bath-keep dressing clean, dry and intact * No driving x6 weeks * Continue Aspirin twice a day x 6 weeks * Follow up with [facility] in 2 weeks
--- NOTE | 2024-03-12 07:31 | W.PM.OPN ---
Operative Note Operative Note Date of Service: 02/20/24 Narrative: Date of Service: 02/20/24 Pre-op diagnosis: Right hip OA Post-op diagnosis: same Procedure: Right RUBEN Implants: [place] Trident2 50 [place] Accolade2 #4 132 deg with + 0/32 femoral head Surgeon: Michael John MD Anesthesia: GETA and local Was an Product Support Rep used for this Procedure?: Yes Product Support Rep: Dean Dillon Estimated blood loss (mL): 200 IV fluids (mL): 1,200 Pathology: other Condition: stable Disposition: PACU Patient was brought into the operating room and placed in the right lateral decubitus position. All bony prominences were well padded and the limb was prepped and draped in standard sterile fashion. A time-out was called to identify proper site procedure proper surgeon IV antibiotics and 1 g of tranexamic acid were administered. I began by making a curvilinear incision over the posterolateral aspect of the greater trochanter. Dissection was taken down to the tensor fascia which was incised in line with the incision and a Charnley retractor was placed. Cautery was used to maintain hemostasis. The hip was internally rotated and the external rotators were identified. The vessels were cauterized and a full-thickness capsular/external rotator layer was developed starting just proximal to the piriformis. This layer was tagged and a dull Hohmann retractor was placed underneath the neck in the hip was dislocated. A neck cut was made 1 cm proximal to the lesser trochanter and the head and neck were removed and measured 46mm on the back table. The head was deformed and eburnated. I then removed the labrum and cauterized the fovea. I started with a 44 reamer and medialized to the inner table. I sequentially reamed up to a size 50 and impacted a 50mm cup at 45 degrees of inclination and 25 degrees of version. I then placed a 10 deg posterior lipped liner and turned my attention to the femur. I identified the piriformis insertion and used this as a starting point for my leonor cutter. The medius tendon was protected with a Hibs retractor. A Charnley awl was inserted in the canal and a curved curette used to remove the lateral bone. I irrigated copiously. I then sequentially broached in the patient's natural version to a size 4 and placed my trial implants. I used a #4/132/+0 based on my pre-operative template. I removed all instrumentation and copiously irrigated. I placed my final femoral implant and again took the hip through range of motion and was satisfied with the stability and length. The final +0 implant was impacted in place and the hip reduced. I then irrigated copiously and placed 1 g of local tranexamic acid. I performed a capsular closure with 2.0 fiberwire, Joe's fascia with 0 Vicryl, subcuticular with 2-0 Vicryl and the skin with mc. Patient was placed into a sterile dressing. Patient was extubated brought to the recovery room in stable condition. There were no known complications.
== END 2024-02-21 17:38 | disposition home health service (06) | DRG 470 ==
LOC: HO.SSSA 07:01 → HO.S3 10:05
PROVIDERS: Anesthesiology; Orthopaedic Surgery; Admitting Provider Physician Assistant; PCP Internal Medicine; Visit Provider Physician Assistant
PROC: 0SR903A Replacement of Right Hip Joint with Ceramic Synthetic Substitute, Uncemented, Open Approach (ICD-10-PCS; CPT 27130; principal; 2024-02-20 07:30)
DX: M16.11 Unilateral primary osteoarthritis, right hip (principal); J44.9 Chronic obstructive pulmonary disease, unspecified; I10 Essential (primary) hypertension; B37.2 Candidiasis of skin and nail; R00.1 Bradycardia, unspecified; K21.9 Gastro-esophageal reflux disease without esophagitis; G47.33 Obstructive sleep apnea (adult) (pediatric); E66.01 Morbid (severe) obesity due to excess calories; Z68.36 Body mass index [BMI] 36.0-36.9, adult; Z23 Encounter for immunization; Z79.899 Other long term (current) drug therapy
CPT/HCPCS: 27130; 36415; 72170; 80048; 83036; 85007; 85025; 85027; 86850; 86900; 86901; 87640; 87641; 88304; 88311; 90656; 97110; 97116; 97162; 97166; 97530; C1776; J0131; J0690; J1100; J1170; J2250; J2405; J2704; J2795; J3010; J7120

== ENCOUNTER → 2024-02-20 06:57 | Outpatient (BNV) | payer MEDICARE, SELFPAY | PROVIDERS: Admitting Provider Physician Assistant; PCP Internal Medicine; Visit Provider Physician Assistant | DX: M16.11 Unilateral primary osteoarthritis, right hip (principal) | CPT/HCPCS: 99222 ==

== ENCOUNTER → 2024-02-20 06:57 | Outpatient (BNV) | payer MEDICARE, SELFPAY | PROVIDERS: Admitting Provider Physician Assistant; PCP Internal Medicine; Visit Provider Orthopaedic Surgery | DX: Z47.1 Aftercare following joint replacement surgery (principal); Z96.641 Presence of right artificial hip joint | CPT/HCPCS: 27130; 99024; G0180 ==

== ENCOUNTER 2024-03-07 12:30 | Outpatient (AMB) | payer MEDICARE, SELFPAY ==
--- NOTE | 2024-03-07 13:07 | A.OFFVIS_ITS ---
Intake Visit Reasons: 2WK PO: R RUBEN w/NE 02/20/24 Intake Note: pain ponts near his right sides chestno pain at the moment Allergies No Known Allergies Allergy (Verified 03/07/24 13:10) HPI HPI 2WK PO: R RUBEN w/NE 02/20/24: Details: 68-year-old male who returns to the office today for post-op right RUBEN, 02/20/[address] John. He states he has no pain and is doing well overall. He has no concerns today. [facility] Medical History Sinus bradycardia COPD (chronic obstructive pulmonary disease) Asthma DJD (degenerative joint disease) Allergic rhinitis Hx of renal artery stenosis Arthritis Has a tremor GERD (gastroesophageal reflux disease) History of itching Itching of male genitalia Seasonal allergies Nasal dryness Morbid obesity Hypertension Surgical History Hx of colonoscopy History of total left hip replacement (~2015) Hx of repair of right rotator cuff Hx of eye surgery Hx of vasectomy Hx of Achilles tendon repair (~2005) History of hip surgery Hx of cholecystectomy H/O right knee surgery (~2016) Family History Father Enlarged heart Mother No problems noted. Social History Household Members: Spouse Housing: House Are you a primary critical care unit nurse to a significant other at home: No Do you presently have visiting nurse or other home services: No Alcohol intake: never Comment: Uses store carriage for stability when shopping Patient Tobacco Use Status: Never used Tobacco Second Hand Smoke Exposure: No service: No Current occupational status: retired Review of Systems Const All systems reviewed & are unremarkable except as noted in HPI and below Physical Exam Const General: cooperative and no acute distress Orientation/consciousness: patient oriented x3 Resp Effort & Inspection: normal respiratory effort and able to speak in complete sentences Cardio Peripheral pulses: Peripheral pulses 2+ throughout Neuro General: patient oriented x3 Extrem Other: Right hip: Incision clean, dry and intact. No swelling, no erythema. No pain hip ROM. Mild discomfort with hip flexion. NVI. Assessment & Plan Assessment & Plan (1) History of total right hip replacement: Code(s): Z96.641 - Presence of right artificial hip joint Category: Surgical Plan Higinio removed, steri strips applied. He will begin to transition to Outpatient PT to continue working on Gait training, ROM and quad strength. He was given an outpatient PT order today, since he wants to make an appt closer to home. No driving for another 4 weeks. He will require ppx abx for dental procedures. He will f/u in 4 weeks, sooner if needed. Orders: Orders PT Evaluation and Treatment Today Z96.641 - Presence of right artificial hip joint Patient Instructions: Scribed for Dean Dillon PA-C, by Ant Rogers medical staff director, on 03/07/2024 at 1:00 PM EST.? I, Dean Dillon PA-C, have personally reviewed and agree with the information entered by the scribe. Coding Level of Care Code Global (53605) Diagnoses History of total right hip replacement Z96.641
== END 2024-03-07 13:29 | disposition home or self-care (01) ==
PROVIDERS: PCP Internal Medicine; Visit Provider Physician Assistant
DX: Z96.641 Presence of right artificial hip joint (principal)
CPT/HCPCS: 99024

== ENCOUNTER → 2024-03-07 12:30 | Outpatient (BNVA) | payer MEDICARE, SELFPAY | PROVIDERS: PCP Internal Medicine; Visit Provider Physician Assistant | DX: Z47.1 Aftercare following joint replacement surgery (principal); Z96.641 Presence of right artificial hip joint | CPT/HCPCS: 99212 ==

== ENCOUNTER 2024-03-28 10:30 | Outpatient (AMB) | payer MEDICARE, SELFPAY ==
--- NOTE | 2024-03-28 10:37 | MHC.OFFVIS ---
Vital Signs 03/28/24 10:39 Height 5 ft 5 in Weight 220 lb BMI 36.6 Intake Visit Reasons: 6WK PO: R RUBEN w/NE 02/20/24 Intake Note: Joshua is a 68 year old male who presents today for a post operative appointment s/p Right RUBEN 02/19/24. Patient reports that the hip is feeling good, however he is having increased pain in the lower back and the right knee and ankle. He has been working with physical therapy which has been painful. The pain in the right knee is causing a limp. He explains that he is feeling worse than he did two days ago but is unable to provide detail. He has resumed using a cane due to instability Allergies No Known Allergies Allergy (Verified 03/07/24 13:10) HPI HPI 6WK PO: R RUBEN w/NE 02/20/24: Details: Joshua is a 68 year old male who presents today for a post operative appointment s/p Right RUBEN 02/19/24. Patient reports that the hip is feeling good, however he is having increased pain in the lower back and the right knee and ankle. He has been working with physical therapy which has been painful. The pain in the right knee is causing a limp. He explains that he is feeling worse than he did two days ago but is unable to provide detail. He has resumed using a cane due to instability [facility] Medical History Sinus bradycardia COPD (chronic obstructive pulmonary disease) Asthma DJD (degenerative joint disease) Allergic rhinitis Hx of renal artery stenosis Arthritis Has a tremor GERD (gastroesophageal reflux disease) History of itching Itching of male genitalia Seasonal allergies Nasal dryness Morbid obesity Hypertension Surgical History Hx of colonoscopy History of total left hip replacement (~2015) Hx of repair of right rotator cuff Hx of eye surgery Hx of vasectomy Hx of Achilles tendon repair (~2005) History of hip surgery Hx of cholecystectomy H/O right knee surgery (~2016) Family History Father Enlarged heart Mother No problems noted. Social History Household Members: Spouse Housing: House Are you a primary client care consultant to a significant other at home: No Do you presently have visiting nurse or other home services: No Alcohol intake: never Comment: Uses store carriage for stability when shopping Patient Tobacco Use Status: Never used Tobacco Second Hand Smoke Exposure: No service: No Current occupational status: retired Physical Exam Vital Signs: BMI result Body Mass Index 36.6 Extrem Other: stable passive rom right hip with no pain ttp lateral knee and ITB mild antalgia with gait initiation that localizes to knee Assessment & Plan Assessment & Plan (1) History of total right hip replacement: Code(s): Z96.641 - Presence of right artificial hip joint Category: Surgical Plan: 6 weeks s/p right RUBEN. Doing well with complaints of mild increased pain ovver past week. Pain localizes to right knee. His right hip appears to be doing well. He has just started PT. Continue PT and activity as toelrated. f/u 6 weeks Coding Level of Care Code Global (67785) Diagnoses History of total right hip replacement Z96.641
[2024-03-28 10:39] VITALS: BMI 36.6
== END 2024-03-28 11:06 | disposition home or self-care (01) ==
PROVIDERS: PCP Internal Medicine; Visit Provider Orthopaedic Surgery
DX: Z96.641 Presence of right artificial hip joint (principal)
CPT/HCPCS: 99024

== ENCOUNTER → 2024-03-28 10:30 | Outpatient (BNVA) | payer MEDICARE, SELFPAY | PROVIDERS: PCP Internal Medicine; Visit Provider Orthopaedic Surgery | DX: M54.50 Low back pain, unspecified (principal); M25.561 Pain in right knee; M25.571 Pain in right ankle and joints of right foot; R26.89 Other abnormalities of gait and mobility; Z47.1 Aftercare following joint replacement surgery; Z96.641 Presence of right artificial hip joint | CPT/HCPCS: 99212 ==

== ENCOUNTER 2024-04-18 15:47 | Outpatient (AMB) | payer MEDICARE, SELFPAY ==
--- NOTE | 2024-04-18 16:12 | MHC.OFFVIS ---
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 Maxwell. He has a past medical history of obesity, OLGA on CPAP, and hypertension. He presents to the office today for follow-up of his hypogonadism. In discussion with the patient today he reports having stopped his testosterone since having had a recent right hip replacement. He discusses feeling overwhelmed with his 's health issues as well as trying to recover from his recent hip surgery. Recent labs reviewed with the patient today. Testosterone:03/11 123, 11/08 132, 06/10 230, 11/09 596, 04/11 136 Free Testosterone: 02/08 4.7, 06/10 9.17, 09/09 24.8, 04/11 4.57 PSA: 06/10 0.4, 04/11 0.7 H/H: 09/09 13.9/43.3, 04/11 12/37.8 We discussed restart of testosterone and how this can further help him recover and heal from recent right hip replacement as well as help his overall mood and well being. He otherwise denies any urinary issues or concerns. When asked he denies urinary urgency, urinary frequency, incontinence, nocturia, hematuria, dysuria, foul smelling urine, changes to urinary stream, flank pain, fever, and or chills. He is happy with his current voiding parameters. He otherwise denies any other issues or concerns at this time. Discussed at length importance of weight loss for improvement in erectile dysfunction, hypogonadism, and overall health and well being. He otherwise offers no other issues or concerns at this time. COUNT INCLUDES [facility] Medical History Osteoarthritis of right hip Sinus bradycardia COPD (chronic obstructive pulmonary disease) Asthma DJD (degenerative joint disease) Allergic rhinitis Hx of renal artery stenosis Arthritis Has a tremor GERD (gastroesophageal reflux disease) History of itching Itching of male genitalia Seasonal allergies Nasal dryness Morbid obesity Hypertension Surgical History Hx of colonoscopy History of total left hip replacement (~2015) Hx of repair of right rotator cuff Hx of eye surgery Hx of vasectomy Hx of Achilles tendon repair (~2005) History of hip surgery Hx of cholecystectomy H/O right knee surgery (~2016) Family History Father Enlarged heart Mother No problems noted. Social History Household Members: Spouse Housing: House Are you a primary career guidance technician to a significant other at home: No Do you presently have visiting nurse or other home services: No Alcohol intake: never Comment: Uses store carriage for stability when shopping Patient Tobacco Use Status: Never used Tobacco Second Hand Smoke Exposure: No service: No Current occupational status: retired Review of Systems Const All systems reviewed & are unremarkable except as noted in HPI and below Reports as per HPI Eyes Reports no additional complaints ENT Reports no additional complaints Card Reports as per HPI Resp Reports no additional complaints GI Reports no additional complaints Reports as per HPI Musc Reports no additional complaints Neuro Reports no additional complaints Psych Reports as per HPI Endo Reports no additional complaints Norm/Lymph Reports no additional complaints Aller/Immun Reports no additional complaints Physical Exam Const General: cooperative, comfortable, no acute distress, well developed, alert and awake Nutritional Appearance: overweight Orientation/consciousness: patient oriented x3 Limitations: ambulation with cane HEENT Head: Yes normal to inspection, Yes normocephalic and Yes atraumatic Ears: hearing grossly normal bilaterally Eyes General: appearance normal, both eyes and all related structures Neck Neck: Yes normal visual inspection and Yes trachea midline Chest Chest palpation & inspection: normal inspection of the chest Resp Effort & Inspection: normal respiratory effort and able to speak in complete sentences Cardio Rate: regular rate GI Inspection: Yes normal to inspection General: Yes no CVA tenderness Back/Spine/Pelvis Back: no CVA tenderness Skin General skin exam: no rashes or lesions noted Neuro General: patient oriented x3 Extrem General: Yes normal to inspection Psych Appearance: grossly normal and well kempt Mental Status: mental status grossly normal Speech and movement: Normal speech and movement present and Clear speech present Affect: normal affect Attitude: cooperative Thought process: Normal thought process present Thought content: Normal thought content present Insight: Fair insight present (Psych) Judgement: Fair judgement present (Psych) Results AMB Urinalysis, Automated UA Leukoctes 0 Karan/uL Last Edit by [employer]stone Kitchens on 04/18/24 16:33 UA Nitrite Last Edit by [employer]s on 04/18/24 16:33 UA Urobilinogen 0.2 mg/dL Last Edit by [employer]s on 04/18/24 16:33 UA Protein 0 mg/dL Last Edit by [employer]s on 04/18/24 16:33 UA pH 6.0 Last Edit by [employer]s on 04/18/24 16:33 UA Blood 10 Young/uL Last Edit by Keystone Kitchens on 04/18/24 16:33 UA Specific [place] 1.030 Last Edit by Keystone Kitchens on 04/18/24 16:33 UA Ketone Last Edit by [employer]stone [employer]s on 04/18/24 16:33 UA Bilirubin 0 mg/dL Last Edit by Keystone Kitchens on 04/18/24 16:33 UA Glucose 0 mg/dL Last Edit by Keystone Kitchens on 04/18/24 16:33 Results Reviewed Results Reviewed: Laboratory Last Values Urine pH (Auto) 6.0 04/18/24 16:27 Specific [place] (Auto) 1.030 04/18/24 16:27 Urine Protein (Auto) 0 mg/dL 04/18/24 16:27 Glucose (UA)(Auto) 0 mg/dL 04/18/24 16:27 Urine Blood (Auto) 10 Young/uL 04/18/24 16:27 Urine Bilirubin (Auto) 0 mg/dL 04/18/24 16:27 Urine Urobilinogen (Auto) 0.2 mg/dL 04/18/24 16:27 Leukocyte Esterase (Auto) 0 Karan/uL 04/18/24 16:27 Assessment & Plan Assessment & Plan (1) Hypogonadism in male: Code(s): E29.1 - Testicular hypofunction Category: Medical (2) Erectile disorder: Code(s): N52.9 - Male erectile dysfunction, unspecified Category: Medical Plan In office urinalysis results reviewed with the patient today; as noted above Recent labs reviewed with the patient today; as noted above. Encouraged to restart/ Continue Testosterone. Discussed at length importance of continuing to be compliant with CPAP machine as well as weight loss for improvement in hypogonadism, ED, as well as for overall health and well-being. Patient denies any bothersome urinary issues at this time. Patient reports to be happy with current voiding parameters. Educated to call office if he restarts testosterone prior to next appointment to obtain CBC, PSA, testosterone, and testosteone free and total. Follow-up in 6 months; or sooner with any issues, concerns, and or questions Orders: Orders AMB Urinalysis Automated 04/18/24 Z13.9 - Encounter for screening, unspecified Patient Instructions: The patient had an opportunity to ask questions regarding the treatment plan. All questions were answered. Physical exam, labs, and imaging were discussed and reviewed in detail. As well as risks, benefits, and discussion of treatment choices. No major barriers to understanding were identified. The patient expressed understanding and agreement with the above treatment plan. The patient was made aware they should contact our office by phone for worsening of their current condition, the appearance of new symptoms, or with any questions or concerns. Compliance is encouraged with any medications and follow up testing that is ordered. It is a privilege to be allowed the opportunity to participate in? your urological care.? Again, if you have any questions or concerns If you have any questions or concerns please do not hesitate to contact me. The office is [phone]. This note is constructed using voice recognition software. While every effort has been made to ensure accuracy link trainer operator errors may have been included. Yours sincerely, KARINA Abdi Coding Level of Care Code Est Pt Level 3 (38064) Complex EM visit Add On G2211 Diagnoses Hypogonadism in male E29.1 Erectile disorder N52.9
== END 2024-04-18 17:00 | disposition home or self-care (01) ==
LOC: HO.HUSH 15:47
PROVIDERS: PCP Internal Medicine; Visit Provider Nurse Practitioner Family
DX: E29.1 Testicular hypofunction (principal); N52.9 Male erectile dysfunction, unspecified
CPT/HCPCS: 99213; G2211

== ENCOUNTER → 2024-04-18 15:47 | Outpatient (BNVA) | payer MEDICARE, SELFPAY | PROVIDERS: PCP Internal Medicine; Visit Provider Nurse Practitioner Family | DX: E29.1 Testicular hypofunction (principal); N52.9 Male erectile dysfunction, unspecified | CPT/HCPCS: 81003; 99212 ==

== ENCOUNTER 2024-05-08 13:39 | Outpatient (AMB) | payer MEDICARE, SELFPAY ==
--- NOTE | 2024-05-08 13:41 | A.OFFVIS_ITS ---
Vital Signs 05/08/24 13:42 Height 5 ft 5 in Weight 207 lb 3.752 oz BMI 34.5 BP 118/62 Blood Pressure Location Lt brachial Position Sitting Pulse 72 Pulse Source Pulse Oximeter Intake Visit Reasons: 4m follow up Allergies No Known Allergies Allergy (Verified 04/20/24 16:46) Medication List - Last Reconciled 05/08/24 by Vince Hernandez MD acetaminophen 650 mg (2 x 325 mg) PO Q6H PRN 30 days amlodipine 2.5 mg PO .DAILY@0200 azelastine 1 spray intranasal DAILY PRN celecoxib 200 mg PO BID 30 days docusate sodium 100 mg PO BID 14 days fluticasone propionate 50 mcg/actuation 1 spray intranasal DAILY PRN losartan 50 mg PO BID omeprazole 20 mg PO DAILY@0630 spironolactone 25 mg PO DAILY HPI Comments Details: Joshua returns for follow-up regarding sinus bradycardia. He does not really have any clear-cut cardiac symptoms like angina or shortness of breath or palpitations or syncopal episodes or in fact anything there is cardiac sounding. No known coronary disease myocardial infarction or cardiomyopathy. He is overweight. Overall, no new concerns since last seen. [facility] Medical History Osteoarthritis of right hip Sinus bradycardia COPD (chronic obstructive pulmonary disease) Asthma DJD (degenerative joint disease) Allergic rhinitis Hx of renal artery stenosis Arthritis Has a tremor GERD (gastroesophageal reflux disease) History of itching Itching of male genitalia Seasonal allergies Nasal dryness Morbid obesity Hypertension Surgical History Hx of colonoscopy History of total left hip replacement (~2015) Hx of repair of right rotator cuff Hx of eye surgery Hx of vasectomy Hx of Achilles tendon repair (~2005) History of hip surgery Hx of cholecystectomy H/O right knee surgery (~2016) Family History Father Enlarged heart Mother No problems noted. Social History Household Members: Spouse Housing: House Are you a primary career orientation teacher to a significant other at home: No Do you presently have visiting nurse or other home services: No Alcohol intake: never Comment: Uses store carriage for stability when shopping Patient Tobacco Use Status: Never used Tobacco Second Hand Smoke Exposure: No service: No Current occupational status: retired Review of Systems Const Denies weakness ENT Denies dizziness Card Denies chest pain, Denies chest pain with activity, Denies syncope, Denies rapid heart rate, Denies pedal edema, Denies edema, Denies leg edema, Denies lightheadedness, Denies palpitations, Denies dyspnea, Denies dyspnea on exertion and Denies orthopnea Resp Denies cough, Denies dyspnea and Denies dyspnea on exertion GI Denies hematochezia and Denies change in stool character Musc Denies abnormal gait, Denies muscle cramps, Denies muscle weakness, Denies numbness, Denies radiating pain into limb and Denies tingling Neuro Denies abnormal gait, Denies dizziness, Denies syncope, Denies numbness, Denies tingling and Denies weakness Endo Denies palpitations Physical Exam Vital Signs: Last Vital Signs Pulse 72 05/08/24 13:42 BP 118/62 05/08/24 13:42 BMI result Body Mass Index 34.5 Const General: comfortable and no acute distress Orientation/consciousness: patient oriented x3 HEENT Other: Unremarkable Head: Yes normal to inspection Neck Neck: Yes normal visual inspection Chest Chest palpation & inspection: normal inspection of the chest Resp Auscultation: clear to auscultation bilaterally Cardio Palpation: normal PMI Heart sounds: S1 normal heart sound present, S2 normal heart sound present, no gallops, no murmurs and no rubs GI Palpation (GI): Soft to palpation Back/Spine/Pelvis Other: unremarkable Skin General skin exam: no rashes or lesions noted Neuro General: patient oriented x3 Extrem General: Yes normal to inspection Psych Mental Status: mental status grossly normal Assessment & Plan Assessment & Plan (1) Sinus bradycardia: Code(s): R00.1 - Bradycardia, unspecified Category: Medical Plan: Echocardiogram with LVEF of 65-70%. No wall motion abnormalities and otherwise unremarkable. In the recent stress test, he was able to exercise for 7 minutes and 30 seconds and reached 88% of target heart rate. Maximum METS 9.3 METS. Had shortness of breath but no angina. No EKG evidence of ischemia. Perfusion imaging was unremarkable. In the previous stress test, again had exercise tolerance of 10.1 METS with normal chronotropic response. He reached 92% of predicted heart rate. In the most recent Holter, underlying rhythm is sinus bradycardia with an average rate of 51/Min. Sinus bradycardia is noted about 72% of the time. No patient reported events. In summary, he has asymptomatic sinus bradycardia but no indication for pacemaker or anything too aggressive. He is already off the beta-blockers and we can keep it that way. If any future concerns like dizziness or presyncope, to reassess. (2) Hypertension: Code(s): I10 - Essential (primary) hypertension Category: Medical Plan: Listed to be on amlodipine, losartan, spironolactone. (3) OLGA on CPAP: Code(s): G47.33 - Obstructive sleep apnea (adult) (pediatric); Z99.89 - Dependence on other enabling machines and devices Category: Medical Plan: Continue CPAP. (4) Morbid obesity: Code(s): E66.01 - Morbid (severe) obesity due to excess calories Category: Medical Plan: Losing weight will certainly improve his cardiovascular metabolic risk profile. His weight seems to be a bit less than in the past but not too much. Plan Total time spent including review of data, counseling, documentation, coordination of care-31 minutes. Coding Level of Care Code Est Pt Level 4 (20595) Diagnoses Sinus bradycardia R00.1 Hypertension I10 OLGA on CPAP G47.33; Z99.89 Morbid obesity E66.01
[2024-05-08 13:42] VITALS: BP 118/62; PULSE 72; BMI 34.5
== END 2024-05-08 14:03 | disposition home or self-care (01) ==
PROVIDERS: PCP Internal Medicine; Visit Provider Internal Medicine
DX: R00.1 Bradycardia, unspecified (principal); I10 Essential (primary) hypertension; G47.33 Obstructive sleep apnea (adult) (pediatric); Z99.89 Dependence on other enabling machines and devices; E66.01 Morbid (severe) obesity due to excess calories
CPT/HCPCS: 99214

== ENCOUNTER → 2024-05-08 13:39 | Outpatient (BNVA) | payer MEDICARE, SELFPAY | PROVIDERS: PCP Internal Medicine; Visit Provider Internal Medicine | DX: R00.1 Bradycardia, unspecified (principal); I10 Essential (primary) hypertension; G47.33 Obstructive sleep apnea (adult) (pediatric); E66.01 Morbid (severe) obesity due to excess calories; Z99.89 Dependence on other enabling machines and devices; Z68.34 Body mass index [BMI] 34.0-34.9, adult | CPT/HCPCS: 99212 ==

== ENCOUNTER 2024-05-09 11:01 | Outpatient (AMB) | payer MEDICARE, SELFPAY ==
--- NOTE | 2024-05-09 11:08 | MHC.OFFVIS ---
Vital Signs 05/09/24 11:19 Height 5 ft 5 in Weight 207 lb BMI 34.4 Intake Visit Reasons: PO- R RUBEN w/NE 02/20/24 Intake Note: Joshua is a 68 year old male who presents today for a post operative appointment s/p Right RUBEN 02/19/24. Patient reports that he is doing well and has no concerns. He is exercising about an hour a day and feels good. Allergies No Known Allergies Allergy (Verified 05/09/24 11:19) HPI HPI PO- R RUBEN w/NE 02/20/24: Details: 69-year-old gentleman 2 and half months status post right hip replacement doing very well. He has been walking and has improved dramatically since last visit. He denies pain. [facility] Medical History Osteoarthritis of right hip Sinus bradycardia COPD (chronic obstructive pulmonary disease) Asthma DJD (degenerative joint disease) Allergic rhinitis Hx of renal artery stenosis Arthritis Has a tremor GERD (gastroesophageal reflux disease) History of itching Itching of male genitalia Seasonal allergies Nasal dryness Morbid obesity Hypertension Surgical History Hx of colonoscopy History of total left hip replacement (~2015) Hx of repair of right rotator cuff Hx of eye surgery Hx of vasectomy Hx of Achilles tendon repair (~2005) History of hip surgery Hx of cholecystectomy H/O right knee surgery (~2016) Family History Father Enlarged heart Mother No problems noted. Social History Household Members: Spouse Housing: House Are you a primary customer care specialist to a significant other at home: No Do you presently have visiting nurse or other home services: No Alcohol intake: never Comment: Uses store carriage for stability when shopping Patient Tobacco Use Status: Never used Tobacco Second Hand Smoke Exposure: No service: No Current occupational status: retired Physical Exam Vital Signs: BMI result Body Mass Index 34.4 Extrem Other: Mild Trendelenburg gait otherwise no pain with hip range of motion and walking much better than prior. Assessment & Plan Assessment & Plan (1) History of total right hip replacement: Code(s): Z96.641 - Presence of right artificial hip joint Category: Surgical Plan: Doing well follow up 9 months. Dental prophylaxis discussed. Orders: Orders XR pelvis 1-2V Today M25.559 - Pain in unspecified hip Coding Level of Care Code Global (97603) Diagnoses History of total right hip replacement Z96.641
[2024-05-09 11:19] VITALS: BMI 34.4
== END 2024-05-09 11:27 | disposition home or self-care (01) ==
PROVIDERS: PCP Internal Medicine; Visit Provider Orthopaedic Surgery
DX: Z96.641 Presence of right artificial hip joint (principal)
CPT/HCPCS: 99024

== ENCOUNTER 2024-05-09 15:05 | Outpatient (REF) | payer MEDICARE, SELFPAY ==
--- NOTE | ~2024-05-09 | XR_ITS ---
EXAMINATION: XR PELVIS CLINICAL INFORMATION: Pain in unspecified hip M25.559. COMPARISON: XR Pelvis 02/20/2024 TECHNIQUE: AP view of the pelvis. FINDINGS: There are bilateral hip prosthesis without evidence of hardware complication. Alignment is normal. No periprosthetic fracture. XR/XR pelvis 1-2V IMPRESSION: Bilateral hip prosthesis without evidence of hardware complication. Electronically signed by: Emmanuel Cuello MD 06/11/2024 09:49 AM [facility]
== END 2024-05-09 15:06 | disposition home or self-care (01) ==
LOC: HO.HOSX 15:05
PROVIDERS: Visit Provider Orthopaedic Surgery
DX: M25.559 Pain in unspecified hip (principal); Z96.641 Presence of right artificial hip joint
CPT/HCPCS: 72170; 99212

== ENCOUNTER 2024-12-19 09:44 | Outpatient (AMB) | payer MEDICARE, SELFPAY ==
--- NOTE | 2024-12-19 09:46 | MHC.PC.OV ---
Vital Signs 12/19/24 09:52 Height 5 ft 5.51 in Weight 218 lb 2 oz BMI 35.7 BP 142/62 H Blood Pressure Location Rt brachial Position Sitting Respiration 16 Pulse 47 L Pulse Source Pulse Oximeter Temp 97.8 F Temp Source Temporal Artery Scan Pulse Oximetry (%) 94 Oxygen Delivery Method Room Air Intake Visit Reasons: Establish Care Bobbin Disker Required: No Accompanied by: Self / Same As Patient Allergies No Known Allergies Allergy (Verified 12/19/24 10:12) Medication List - Last Reconciled 12/19/24 by Sylvia Ibarra PA-C acetaminophen 650 mg (2 x 325 mg) PO Q6H PRN 30 days amlodipine 2.5 mg PO .DAILY@0200 azelastine 1 spray intranasal DAILY PRN fluticasone propionate 50 mcg/actuation 1 spray intranasal DAILY PRN losartan 50 mg PO BID naproxen 500 mg PO BID omeprazole 20 mg PO DAILY@0630 spironolactone 25 mg PO DAILY Tobacco use date assessed: 12/19/24 Fall risk assessment: 2 + Falls in past year Last assessed Fall Risk: 12/19/24 Dental Screening Dental Screen Date: 12/19/24 Did you have a dental visit in the last 12 months?: Yes Did you have a dental problem in the last 6 months where you did not have access to dental care?: No Was dental information given to patient?: Patient has dentist HPI Establish Care HPI Details The patient is a 69-year-old male presenting for a new patient appointment and evaluation of multiple chronic conditions. The patient has a history of essential hypertension, managed with amlodipine, losartan, and spironolactone. He reports adherence to this medication regimen. The patient also has gastroesophageal reflux disease (GERD), for which he takes omeprazole twice daily. He experiences intermittent abdominal pain, which is improving with current treatment. The patient reports knee pain following a fall, which has limited his ability to walk and exercise. He is considering x-rays and physical therapy for further evaluation and management. There is a concern for possible Lyme disease due to a scab on the right ankle, although the patient believes it is due to irritation from slippers. A Lyme disease test has been offered for further evaluation. Preventative care includes a colonoscopy performed in 2016 with normal results, and the next is due in 2026. Social History - Exercise: Limited due to knee pain and back discomfort, previously used stationary bike and elliptical. [facility] Medical History Bilateral knee pain Abdominal cramps Osteoarthritis of right hip Sinus bradycardia COPD (chronic obstructive pulmonary disease) Asthma DJD (degenerative joint disease) Allergic rhinitis Hx of renal artery stenosis Arthritis Has a tremor GERD (gastroesophageal reflux disease) History of itching Itching of male genitalia Seasonal allergies Nasal dryness Morbid obesity Hypertension Surgical History Hx of colonoscopy History of total left hip replacement (~2015) Hx of repair of right rotator cuff Hx of eye surgery Hx of vasectomy Hx of Achilles tendon repair (~2005) History of hip surgery Hx of cholecystectomy H/O right knee surgery (~2016) Family History Father Enlarged heart Mother No problems noted. Social History Household Members: Spouse Housing: House Are you a primary school child care attendant to a significant other at home: No Do you presently have visiting nurse or other home services: No Alcohol intake: current Alcohol intake frequency: does not drink Comment: Uses store carriage for stability when shopping Patient Tobacco Use Status: Never used Tobacco Second Hand Smoke Exposure: No service: No Current occupational status: retired Cognitive needs: No Hearing needs: No Vision needs: Yes (reading glasses ) Questionnaire PHQ-9 Over the last 2 weeks, how often have you been bothered by any of the following problems? 1. Little interest or pleasure in doing things: not at all 2. Feeling down, depressed, or hopeless: not at all 3. Trouble falling or staying asleep, or sleeping too much: not at all 4. Feeling tired or having little energy: not at all 5. Poor appetite or overeating: not at all 6. Feeling bad about yourself - or that you are a failure or have let yourself or your family down: not at all 7. Trouble concentrating on things, such as reading the newspaper or watching television: not at all 8. Moving or speaking so slowly that other people could have noticed. Or the opposite - being so fidgety or restless that you have been moving around a lot more than usual: not at all 9. Thoughts that you would be better off or of hurting yourself in some way: not at all Total score: 0 Depression Screening Interpretation: Negative Depression Screening Done: Yes 77622 - PHQ-9 Billing: Yes Source: Developed by Drs. Emmanuel Juarez, Dacia Rojo, Santos Patel and colleagues, with an educational osmar from [employer]. Thrive Questionnaire Date Thrive assessed: 12/19/24 I am a: Patient What is your living situation today?: I have a steady place to live Within the past 12 months, did the food you bought not last and you didn't have the money to get more?: Never true Within the past 12 months, did you worry whether your food would run out before you got money to buy more?: Never true Do you have trouble paying for medicines?: No Do you have trouble getting transportation to medical appointments?: No Do you have trouble paying your heating and electricity bill?: No Do you have trouble taking care of your child, family member or friend?: No Do you have trouble with day-to-day activities such as bathing, preparing meals, shopping, managing finances, etc.?: No Are you currently unemployed and looking for a job?: No Are you interested in more education?: No Please select the resources that you would like help with: None Currently or been in a relationship where the following occur: No concerns reported THRIVE Score: 0 AUDIT C Alcohol Use Questionnaire (AUDIT-C) 1. How often do you have a drink containing alcohol?: Never 3. How often do you have six or more drinks on one occasion?: Never Total Score: 0 Score Reviewed/Action Taken: No LANA-7 AMB Questionnaire LANA-7 Date LANA - 7 assessed: 12/19/24 Feeling nervous, anxious, or on edge: 0 = Not at all Not being able to stop or control worryin = Not at all Worrying too much about different things: 0 = Not at all Trouble relaxin = Not at all Being so restless that it is hard to sit still: 0 = Not at all Becoming easily annoyed or irritable: 0 = Not at all Feeling afraid as if something awful might happen: 0 = Not at all Total LANA-7 score (0-4 normal; 5-9 mild; 10-14 moderate; 15-21 severe): 0 Source: Developed by Drs. Emmanuel Juarez, Dacia Rojo, Santos Patel and colleagues, with an educational osmar from [employer]. LANA-7 Assessment Billing LANA-7 Assessment Tool: LANA-7 Assessment 99302 Review of Systems Const Details: - Cardiovascular: Denies chest pain, dyspnea, or leg swelling. - Gastrointestinal: Reports intermittent abdominal pain, denies vomiting, diarrhea, unintentional weight loss, or hematochezia. - Musculoskeletal: Reports knee pain, denies other joint pain. - Neurological: Denies dizziness or syncope. All systems reviewed & are unremarkable except as noted in HPI and below Physical exam (Primary Care) Vital Signs: Last Vital Signs Temp 97.8 F 12/19/24 09:52 Pulse 47 L 12/19/24 09:52 Resp 16 12/19/24 09:52 BP 142/62 H 12/19/24 09:52 Pulse Ox 94 12/19/24 09:52 Oxygen Delivery Method Room Air 12/19/24 09:52 Care Plan Goal for BP management: <140/90 at Goal BMI result Body Mass Index 35.7 BMI Assessment/Plan discussion: High BMI High, discussed plan: lifestyle, weight reduction, dietary, physical activity and alcohol moderation Tobacco/Smoking Status: Tobacco use Status Tobacco use date assessed 12/19/24 12/19/24 10:07 Patient Tobacco Use Status Never used Tobacco 12/19/24 10:07 PHQ-9: PHQ-9 Score PHQ-9: Total score 0 12/19/24 10:13 Depression Screening Interpretation: Negative Thrive Assessment: Date of Thrive Assessment Date Thrive assessed 12/19/24 12/19/24 10:07 Currently or been in a relationship where the following occur: No concerns reported Const Other: Appearance: Alert. Oriented X3. No acute distress. Head: Normal external exam. Normocephalic. Atraumatic. Eyes: Pupils are equal, round, and reactive to light. Extraocular movements intact. Conjunctiva and sclera normal. Eyelids normal. Ears: External auditory canal normal. Tympanic membranes normal. Throat: Pharynx normal. Uvula midline. Moist mucous membranes. Neck: Normal inspection. Neck supple. Full range of motion. No adenopathy. Thyroid Normal. No meningeal signs. No neck mass noted. Cardiovascular: Bradycardic otherwise normal heart sounds. No murmurs noted. Pulses normal throughout. Pulse is usually low, around 39. Respiratory: No respiratory distress. Painless inspiration. Breath sounds normal. No wheezes/rales/rhonchi noted. Chest nontender. No accessory muscle usage noted or decreased air movement noted. Abdomen: Soft and nontender. Bowel sounds normal in all 4 quadrants. No distention noted. No organomegaly noted. No visible injury noted. Back: No costovertebral angle tenderness. Full range of motion noted. Skin: Skin warm and dry. Normal skin color. Normal skin turgor. No rashes/lesions/lacerations noted. A small scab on the right ankle anterior aspect, likely from irritation. Extremities: No lower extremity edema. Bilateral knee pain noted, with plans for x-rays and physical therapy. Although patient has good range of motion of bilateral knees no joint effusion no signs of infection no rashes. Otherwise all other extremities exhibit normal range of motion nontender. Normal steady gait noted. Neuro: Oriented X 3. No motor deficit. No sensory deficit. Reflexes normal. Results Reviewed Results Reviewed: - Labs: Last blood work in February 2024, results not yet received. - Imaging: Colonoscopy in 2017, normal results. Coding Level of Care Code New Pt Level 4 (79629) Complex EM visit Add On G2211 Diagnoses Hypertension I10 GERD (gastroesophageal reflux disease) K21.9 Bilateral knee pain M25.561; M25.562 Additional Codes PHQ-9 - 47740 - PHQ-9 Billing: Yes ([id number]) LANA-7 Assessment Billing - LANA-7 Assessment Tool: LANA-7 Assessment 95074 ([id number]) Assessment & Plan Assessment & Plan (1) Hypertension: Code(s): I10 - Essential (primary) hypertension Category: Medical Plan: The patient continues on his current antihypertensive regimen of amlodipine, losartan, and spironolactone. No changes to the medication plan were discussed during this visit. Condition is chronic and stable continue to monitor. (2) GERD (gastroesophageal reflux disease): Code(s): K21.9 - Gastro-esophageal reflux disease without esophagitis Category: Medical Plan: The patient is advised to continue omeprazole twice daily and may use Tums as needed, ensuring a two-hour gap after omeprazole. Information on managing GERD will be mailed to the patient. Referral to Gastroenterology sent at this time. Condition is chronic and stable will continue to monitor. (3) Bilateral knee pain: Code(s): M25.561 - Pain in right knee; M25.562 - Pain in left knee Category: Medical Plan: The patient is referred for bilateral knee x-rays and physical therapy to assess and manage knee pain following a fall. The x-ray results will be reviewed to determine further management steps. Plan Plan Patient was informed and verbally consented to the use of an ambient scribe for clinic note documentation during this visit. 1. Essential Hypertension The patient continues on his current antihypertensive regimen of amlodipine, losartan, and spironolactone. No changes to the medication plan were discussed during this visit. 2. Gastroesophageal Reflux Disease (Gerd) The patient is advised to continue omeprazole twice daily and may use Tums as needed, ensuring a two-hour gap after omeprazole. Information on managing GERD will be mailed to the patient. 3. Possible Lyme Disease A Lyme disease test has been offered to rule out infection due to a scab on the right ankle. The patient is advised to proceed with the test if desired. 4. Knee Pain The patient is referred for bilateral knee x-rays and physical therapy to assess and manage knee pain following a fall. The x-ray results will be reviewed to determine further management steps. During the visit, we discussed the management of the patient's hypertension with his current medication regimen, which remains unchanged. We also reviewed the treatment plan for GERD, emphasizing the use of omeprazole and Tums, and I will send additional information by mail. The possibility of Lyme disease was addressed, and the patient was offered a test to confirm or rule out the infection. For knee pain, we planned x-rays and physical therapy to evaluate and manage the condition. Orders: Orders Lyme IgG/IgM w/reflex to WB Today Z00.00 - Encounter for general adult medical examination without abnormal findings XR knee standing BI Today M25.561 - Pain in right knee, M25.562 - Pain in left knee PT Evaluation and Treatment Today M25.561 - Pain in right knee, M25.562 - Pain in left knee Referrals Gastroenterology Referral K21.9 - Gastro-esophageal reflux disease without esophagitis, R10.9 - Unspecified abdominal pain Medications: Changed From omeprazole 20 mg PO DAILY@0630 To omeprazole 20 mg PO BID Discontinued acetaminophen Discontinued Reason: Doctor's Order 650 mg (2 x 325 mg) PO Q6H 30 days PRN 240 tabs 0RF Pain, Mild (Pain Scale 1-3), fever or headache Patient Instructions: - Continue taking blood pressure medications as prescribed. - Take omeprazole twice daily and use Tums as needed, ensuring a two-hour gap after omeprazole. - Consider getting tested for Lyme disease if concerned about the scab on the ankle. - Follow up with x-rays and physical therapy for knee pain management. - Expect additional information on GERD management to be mailed.
[2024-12-19 09:52] VITALS: BP 142/62; PULSE 47; RESP 16; TEMP 36.6; O2SAT 94; BMI 35.7
--- OUTSIDE RECORDS SUMMARY | 2024-12-19 10:12 | XMS_ITS ---
Author Organization [facility] Care Team Providers Care Bpm Solution Architect Name Role Phone Abel Zavaleta Unavailable Unavailable Allergies and adverse reactions Code CodeSystem Substance Reaction Severity StartDate Concern Status MILK Unknown Unknown active Care Team Name Role Address Phone Organization Dates Abel Zavaleta [address], [place], [address], [place] (Office): : [facility] 03/22/2013 - 03/28/2013 Immunizations Immunization Status Vaccine Details Vaccine Code CodeSystem Date Notes Influenza completed Influenza, high-dose, split virus, trivalent, injectable, preservative free 135 CVX created date: 03/25/2013 administer ed date: 02/17/2013 Educated by kia on 03/25/2013 Pneumovax Dose 1 completed pneumococcal polysaccharide vaccine, 23 valent 33 CVX created date: 03/25/2013 administer ed date: 05/30/2012 Reason for Referral No Reasons for Referral Entered Social History Social History Observation Description Start Date End Date Code Code System Current Smoking Status Tobacco smoking consumption unknown [id number] SNOMED CT Sex Assigned At Male 1955 69471-1 [facility] Gender Identity Vital Signs Code Code System Vitals Name Values and Units Timing Information 17922-4 [facility] Weight Qduac=058.4 Units=Lbs 03/2013 9279-1 [facility] Respiratory Rate Value=18.0 Units=/m in 03/28/2013 8462-4 [facility] Blood Pressure-Diastolic Value=68 Un its=mmHg 03/28/2013 8480-6 [facility] Blood Pressure-Systolic Tkfow=850 Un its=mmHg 03/28/2013 8310-5 [facility] Body Temperature Value=98.1 Units= F 03/28/2013 8867-4 [facility] Heart rate Value=68.0 Units=/min 03/2013 95547-4 [facility] O2 % BldC Oximetry Value=98.0 Units= % 03/28/2013 8302-2 [facility] Height Value=65.0 Units=Inches 03/23/2013
--- OUTSIDE RECORDS SUMMARY | 2024-12-19 10:12 | XMS_ITS | Encounter Summary ---
Author Organization [facility] Address [address] [facility] [address] [place] [address] Phone Care Team Providers Care Commercial Singer Name Role Phone Peewee Maxwell MD Primary Care Provider [phone] Reason for Visit * Reason Comments Med Refill Encounter Details Date Type Department Care Team ([facility] Contact Info) Description 07/18/2021 Refill [facility] [address] [facility] [address] [place] [phone] Kee Hernández MD [address] [facility] [address] [place] [phone] Social History Tobacco Use Types Packs/Day Years Used Date Smoking Tobacco: Never Smokeless Tobacco: Never Alcohol Use Standard Drinks/Week Comments Yes 0 (1 standard drink = 0.6 oz pur e alcohol) socially Sex and Gender Information Value Date Recorded Sex Assigned at Not on file Legal Sex Male 11:27 AM EDT Gender Identity Not on file Sexual Orientation Not on file documented as of this encounter Miscellaneous Notes * Telephone Encounter - Kee Hernández MD - 07/18/2021 10:22 PM EST Needs f/u in 5-6 weeks with me 1. tell them I sent rx but no refils 2. They must see me or have a telehealth visit with me before I can renew it again 3. when u call them be sure to make the f/u appt at the same time u inform them th rx was sent by me documented in this encounter Plan of Treatment Upcoming Encounters Date Type Department Care Team (Late st Contact Info) Description 10/13/2025 1:00 PM EDT Office Visit [facility] [address] [place] [phone] Kee Hernández MD [address] [facility] [address] [place] [address] documented as of this encounter Visit Diagnoses Not on filedocumented in this encounter Care Teams Commercial Singer Relationship Specialty Start Date End Date Peewee Maxwell MD [address] [place] [address] PCP - General Internal Medicine 10/21/20 documented as of this encounter
--- OUTSIDE RECORDS SUMMARY | 2024-12-19 10:13 | XMS_ITS | Data Portability ---
Author Organization [facility], , [facility] Address [address] [place] [address] Care Team Providers Care Corporate Legal Intern Name Role Phone [facility] OTHER JACKIE HUITRON Primary Care Provide r Assessment Encounter Date Assessment Date Assessment LastModified by Organization Details LastModified Time 04/09/2024 04/09/2024 Assessment : Session was productive today in reviewing and progressing HEP with goal of improving single leg standing on Right LE. Moderate tactile cues of for lateral hip was effective at reducing lumbar lateral sway during gait tasks which should improve back pain Please see procedure documentation for more details on today's session. The patient continues to require and will benefit from skilled intervention by a physical therapist to address impairments in order to achieve their identified goals. Plan : Progress HEP as tolerated. Goal Progress Comment Pt will demonstrate improved rating on Patient-Specific Functional Scale activities by 2 points (MCID). In progress Pt will be independent in comprehensive HEP. In progresss Pt will be able to complete 5 sit <> stands in at least 13 seconds In progress Pt will be able to complete single leg stance for at least 10 seconds on R LE In progress Additional goals to be added as appropriate. Not available 04/09/2024 14:35:44 04/16/2024 04/16/2024 Assessment : Pt was progressed in weight bearing exercise including hip hiking and squatting with goal of improving gait mechanics using less lateral lumbar flexion. His reports of difficulty holding his bladder when walking to the bathroom is concerning and prompts me to follow up with surgeon via phone call today. Please see procedure documentation for more details on today's session. The patient continues to require and will benefit from skilled intervention by a physical therapist to address impairments in order to achieve their identified goals. Plan : Progress HEP as tolerated. Goal Progress Comment Pt will demonstrate improved rating on Patient-Specific Functional Scale activities by 2 points (MCID). In progress Pt will be independent in comprehensive HEP. In progresss Pt will be able to complete 5 sit <> stands in at least 13 seconds In progress Pt will be able to complete single leg stance for at least 10 seconds on R LE In progress Additional goals to be added as appropriate. Not available 04/16/2024 16:34:05 11/01/2024 11/01/2024 Assessment: Patient presents for treatment of low back pain following a fall. He currently presents with muscle guarding throughout the lumbar, pelvic and thoracic region. He is expected to respond to an initial focus on gentle stretching, self mobilization/mas iris, 90-90 positioning and gradual progression of activities. He appears to be a good candidate for PT services. Clinical goals: 1) Decrease pain to 3/10 or less. 2) Improve Patient Specific Functional Scale score to less than 30% impaired 3) Pain free standing lumbar AROM >=75% of full range 4) Independent with HEP including consistent positive symptom responses. Treatment Plan: Patient to return for 10 visits over the upcoming 12 weeks Treatment may include: Therapeutic exercises for improved lumbopelvic strength and control as well as improved flexibility, neuromuscular reeducation for improved motor control with functional activities as well as improved balance, manual therapy techniques for improved joint and soft tissue mobility as well as reduced pain. [email or web address] Not available 11/01/2024 10:35:34 11/07/2024 11/07/2024 Assessment: Patient responding well to exercises in 90-90 positioning. Encouraged patient to perform gentle knee extensions, posterior pelvic tilts and gentle eileen eto side rocking from 90-90 positioning. Clinical goals: 1) Decrease pain to 3/10 or less. 2) Improve Patient Specific Functional Scale score to less than 30% impaired 3) Pain free standing lumbar AROM >=75% of full range 4) Independent with HEP including consistent positive symptom responses. Treatment Plan: Patient to return for 10 visits over the upcoming 12 weeks Treatment may include: Therapeutic exercises for improved lumbopelvic strength and control as well as improved flexibility, neuromuscular reeducation for improved motor control with functional activities as well as improved balance, manual therapy techniques for improved joint and soft tissue mobility as well as reduced pain. [email or web address] Not available 11/07/2024 10:56:38 11/19/2024 11/19/2024 Assessment: Encouraged continued performance of exercises in 90-90 positioning, even while starting to feel fairly good, to help reduce risk of recurrence and facilitate improved mobility. Patient verbalizing good understanding of use of exercises for reduced stiffness on days where he is doing physical activities around the house and yard. Clinical goals: 1) Decrease pain to 3/10 or less. 2) Improve Patient Specific Functional Scale score to less than 30% impaired 3) Pain free standing lumbar AROM >=75% of full range 4) Independent with HEP including consistent positive symptom responses. Treatment Plan: Patient to return for 10 visits over the upcoming 12 weeks Treatment may include: Therapeutic exercises for improved lumbopelvic strength and control as well as improved flexibility, neuromuscular reeducation for improved motor control with functional activities as well as improved balance, manual therapy techniques for improved joint and soft tissue mobility as well as reduced pain. [email or web address] Not available 11/19/2024 15:42:10 Plan of Treatment Reminders Order Date Submit Date Provider Last Modified By Organization Details Last Modified Time Details Appointments None record ed. Lab None record ed. Referral None record ed. Procedures None record ed. Surgeries None record ed. Imaging None record ed. Medication Orders None record ed. Patient TargetsNo targets recorded. Patient InstructionsNo instructions recorded. Reason for Referral None Reported. Problems Name Problem SNOMED Code Status Onset Date Resolution Date Notes Provider Name and Address Organization Details Recorded Time Hyperlipid emia 00751184 Completed 01/15/2016 Polo Jett MD [address] [place] [address], [id number] , [facility] 6 16:58:50 Insomnia 491428591 Active 2015 Polo Jett MD [address] [place] [address], [phone] , [facility] 6 17:09:51 Contusion 667600723 Completed 200508/20/2010 Not Available [facility] 3 03:08:44 Cough 08019538 Completed 200708/20/2010 Not Available [facility] 3 03:08:44 Benign essential hypertensi on 4982232 Active 2005 Elizabeth soto [facility] 6 09:09:19 Open wound of hand, excluding finger(s) 721121030 Completed 200508/20/2010 Not Available [facility] 3 03:08:44 Swelling of limb 74037251 Completed 200508/20/2010 Not Available [facility] 3 03:08:44 Allergic rhinitis 26239513 Active 2006 Not Available [facility] 3 03:08:44 Impacted cerumen 81885754 Completed 200408/20/2010 Not Available [facility] 3 03:08:44 Ill-define d intestinal infection Completed 08/20/2010 Not Available [facility] 3 03:08:44 Sciatica 87878881 Completed 200708/20/2010 Not Available [facility] 3 03:08:44 Respirator y finding 402141558 Completed 08/20/2010 Not Available [facility] 3 03:08:44 Localized, primary osteoarthr itis of the pelvic region and thigh 931380624 Active Jackie Hodge MD [address] [place] [address], [phone] 3 19:14:53 Finding by method [id number] Completed 200408/20/2010 Not Available [facility] 3 03:08:44 Pneumonia 177753185 Completed 200408/20/2010 Not Available [facility] 3 03:08:44 Common cold 30595138 Completed 200408/20/2010 Not Available [facility] 3 03:08:44 Nonvenomou s insect bite of multiple sites 890122391 Completed 200508/20/2010 Not Available [facility] 3 03:08:44 On examinatio n - a rash Completed 200708/20/2010 Not Available [facility] 3 03:08:44 Chest pain 08142826 Completed 05/08/2013 Not Available [facility] 3 02:01:45 Contusion of lower leg 12854410 Completed 200508/20/2010 Not Available [facility] 3 03:08:44 Type 2 diabetes mellitus without complicati on 466580739 Completed 200608/20/2010 Not Available [facility] 3 03:08:44 Elevated blood-pres sure reading without diagnosis of hypertensi on 983595913 Completed 200508/20/2010 Not Available [facility] 3 03:08:44 Low back pain 538362535 Completed 200708/20/2010 Not Available [facility] 3 03:08:44 Backache 421186720 Completed 05/08/2013 Not Available [facility] 3 02:01:12 Pain in limb 31821548 Completed 200508/20/2010 Not Available [facility] 3 03:08:44 Indigestio n 608295204 Completed 05/08/2013 Not Available [facility] 3 02:03:52 Problem Notes None recorded. Procedures Surgical History Date Name Laterality Status Provider Name and Address Organization Details Recorded Time 11/20/19 25 05679: Therapeutic Exercise completed VEENA HOFF DPT [address] [place] [address], [phone], [facility] 11/19/2024 11:41:03 11/20/19 25 Physical Activity Counselling completed VEENA HOFF DPT [address] [place] [address], [phone], [facility] 11/19/2024 11:41:03 11/20/19 25 87206: Neuromuscular Re-Education completed VEENA HOFF DPT [address] [place], [address], [facility] 11/19/2024 11:41:03 11/20/19 25 Treatment and Advice completed VEENA HOFF DPT [address] [place] [address], [phone], [facility] 11/19/2024 15:38:51 05/22/20 25 50276: Therapeutic Exercise completed VEENA HOFF, TERESO [address] [place] [address], [phone], [facility] 11/07/2024 10:57:50 11/08/19 Physical Activity Counselling completed VEENA HOFF, TERESO [address] [place] [address], [address], [facility] 11/07/2024 10:08:27 11/08/19 93463: Neuromuscular Re-Education completed VEENA HOFF, TERESO [address] [place] [address], [phone], [facility] 11/07/2024 10:58:44 11/08/19 Treatment and Advice completed VEENA HOFF DPT [address] [place] [address], [phone], [facility] 11/07/2024 10:54:55 11/02/19 Physical Activity Counselling completed VEENA HOFF DPT [address] [place] [address], [address], [facility] 11/01/2024 09:38:46 11/02/19 48588: PT Eval Low Complexity completed VEENA HOFF DPT [address] [place] [address], [phone], [facility] 11/01/2024 09:38:46 11/02/19 Treatment and Advice completed VEENA HOFF DPT [address] [place] [address], [phone], [facility] 11/01/2024 10:33:34 04/16/20 02033: Therapeutic Exercise completed CASSIDY DAVE DPT [address] [place] [address], [address], [facility] 04/16/2024 14:06:40 04/16/20 44691: Therapeutic Activities - Direct 1:1 completed CASSIDY DAVE DPT [address] [place] [address], [address], [facility] 04/16/2024 14:37:16 04/16/20 Treatment and Advice completed CASSIDY DAVE DPT [address] [place] [address], [address], [facility] 04/16/2024 14:31:30 04/09/20 21645: Therapeutic Exercise completed CASSIDY DAVE DPT [address] [place] [address], [phone], [facility] 04/09/2024 14:28:50 04/09/20 47569: Neuromuscular Re-Education completed CASSIDY DAVE DPT [address] [place] [address], [address], [facility] 04/09/2024 14:28:51 04/09/20 Treatment and Advice completed CASSIDY DAVE DPT [address] [place] [address], [address], [facility] 04/09/2024 14:29:45 04/02/20 58082: Therapeutic Exercise completed CASSIDY DAVE DPT [address] [place] [address], [address], [facility] 04/02/2024 14:28:45 04/02/20 Treatment and Advice completed CASSIDY DAVE DPT [address] [place] [address], [address], [facility] 04/02/2024 14:29:24 03/26/20 24 Smoking Cessation Counselling completed CASSIDY DAVE DPT [address] [place] [address], [address], [facility] 03/26/2024 07:56:05 03/26/20 24 Physical Activity Counselling completed CASSIDY DAVE DPT [address] [place] [address], [address], [facility] 03/26/2024 07:56:05 03/26/20 24 95850: PT Eval Low Complexity completed CASSIDY DAVE DPT [address] [place] [address], [address], [facility] 03/26/2024 07:56:05 03/26/20 24 Treatment and Advice completed CASSIDY DAVE DPT [address] [place] [address], [address], [facility] 03/26/2024 08:02:31 06/06/20 16 69001: PT Evaluation completed Hunter Wing, PT [address] [place] [address], [address], [facility] 06/06/2016 12:27:32 06/06/20 16 Physical Activity Counselling completed Hunter Wing, PT [address] [place], [address], [facility] 06/06/2016 10:59:30 03/07/20 14 Other (specify) completed Jackie Hodge MD [address] [place], [address], [facility] 03/23/2014 14:03:44 03/18/20 13 Hip Replacement completed Jackie Hodge MD [address] [place] [address], [address], [facility] 03/23/2013 18:59:03 09/12/19 07 Colonoscopy completed Jackie Hodge MD [address] [place], [address], [facility] 08/27/2013 11:52:25 Cholecystectomy completed Jackie Hodge MD [address] [place], [address], [facility] 08/14/2012 16:33:40 Imaging Results None recorded. Procedure Notes None recorded. Medical Equipment None Reported. Allergies No known drug allergies Medications Name Sig Start Date Stop Date Status Note LastModified by Organization Details LastModified Time losartan 50 mg tablet TAKE 1 TABLET BY MOUTH TWICE DAILY active Not Available Not Available No t Available celecoxib 200 mg capsule active Not Available Not Available Not Available amoxicilli n 500 mg capsule TAKE 4 CAPSULES 1 HOUR PRIOR TO DENTAL PROCEDUR E active Not Available Not Available No t Available doxycyclin e hyclate 100 mg capsule TAKE 1 CAPSULE BY MOUTH TWICE DAILY active Not Available Not Available No t Available trazodone 50 mg tablet Take 1 tablet as needed by oral route at bedtime for 90 days. active Not Available Not Available No t Available aspirin 325 mg tablet Take 1 tablet every day by oral route. active Not Available Not Available No t Available miconazole nitrate 2 % topical cream Apply by topical route. twice a day on affected area as needed. 2013 active Not Available Not Available Not Avai lable ibuprofen 800 mg tablet 2007 active Take 1.00 tabs every 8 hours as needed Not Available Not Available Not Available Lotrisone 1 %-0.05 % topical cream Apply by topical route twice a day as needed on affected . 2012 active Not Available Not Available Not Avai lable Nystop 100,000 unit/gram topical powder Apply by topical route. three times a day as needed active Not Available Not Available No t Available lisinopril 20 mg tablet Take 1 tablet every day by oral route. active Not Available Not Available No t Available prednisone 20 mg tablet TAKE 1 TABLET BY MOUTH TWICE DAILY FOR 7 DAYS active Not Available Not Available No t Available simvastati n 10 mg tablet Take 1 tablet every day by oral route for 30 days. 01/14 completed Not Available Not Available Not Available amlodipine 2.5 mg tablet TAKE 1 TABLET BY MOUTH ONCE DAILY FOR HIGH BLOOD PRESSURE active Not Available Not Available No t Available triamcinol one acetonide 0.1 % topical cream APPLY A THIN FILM TO AFFECTED AREAS OF SKIN TOPICALL Y TWICE DAILY active Not Available Not Available No t Available spironolac tone 25 mg tablet TAKE 1 TABLET BY MOUTH ONCE DAILY active Not Available Not Available No t Available oxycodone- acetaminop hen 5 mg-325 mg tablet 2007 active Take 1.00 tabs every 6 hours as needed Not Available Not Available Not Available citalopram 20 mg tablet Take 1 tablet every day by oral route. 2009 active Not Available Not Available Not Avai lable cephalexin 500 mg capsule TAKE FOUR CAPSULES BY MOUTH ONE HOUR BEFORE APPOINTM ENT active Not Available Not Available No t Available lisinopril 10 mg tablet TAKE ONE TABLET BY MOUTH DAILY 06/01 completed Not Available Not Available Not Available warfarin 2 mg tablet active Not Available Not Available No t Available nitroglyce rin 0.[address] 1 tablet as needed by sublingu al route. 2008 active Not Available Not Available Not Avai lable omeprazole 20 mg capsule,de layed release TAKE 1 CAPSULE BY MOUTH ONCE DAILY active Not Available Not Available No t Available mupirocin 2 % topical ointment active Not Available Not Available Not Available diclofenac sodium 50 mg tablet,del ayed release Take 1 tablet every 8 hours by oral route as needed for 15 days. 06/01 completed Not Available Not Available Not Available metoprolol succinate ER 25 mg tablet,ext ended release 24 hr TAKE 1/2 (ONE-RAJIV F) TABLET BY MOUTH ONCE DAILY active Not Available Not Available No t Available azelastine 137 mcg (0.1 %) nasal spray USE 2 SPRAY(S) IN EACH NOSTRIL TWICE DAILY active Not Available Not Available No t Available Aspir-81 mg tablet,del ayed release Take 1 tablet every day by oral route. 2008 active Not Available Not Available Not Avai lable ibuprofen 600 mg tablet Take 1 tablet twice a day by oral route as needed. 2012 active Not Available Not Available Not Avai lable levofloxac in 500 mg tablet TAKE 1 TABLET BY MOUTH EVERY 24 HOURS FOR 7 DAYS active Not Available Not Available No t Available albuterol sulfate HFA 90 mcg/actuat ion aerosol inhaler INHALE 2 PUFFS BY MOUTH EVERY 4 TO 6 HOURS NEEDED active Not Available Not Available No t Available losartan 100 mg tablet TAKE 1 TABLET BY MOUTH ONCE DAILY IN THE MORNING active Not Available Not Available No t Available fluticason e propionate 50 mcg/actuat ion nasal spray,susp ension SPRAY 2 SPRAYS IN EACH NOSTRIL BY INTRANAS AL ROUTE ONCE DAILY active Not Available Not Available No t Available doxycyclin e hyclate 100 mg tablet TAKE 1 TABLET BY MOUTH EVERY 12 HOURS FOR 7 DAYS MAY TAKE WITH FOOD TO MINIMIZE ABDOMINA L DISCOMFO RT , TAKE WITH A FULL GLASS OF WATER active Not Available Not Available No t Available loratadine 10 mg tablet 2007 active Take 1.00 tabs daily Not Available Not Available Not Available naproxen 500 mg tablet TAKE 1 TABLET BY MOUTH TWICE DAILY WITH FOOD active Not Available Not Available No t Available amoxicilli n 875 mg-potassi um clavulanat e 125 mg tablet TAKE 1 TABLET BY MOUTH TWICE DAILY active Not Available Not Available No t Available oxycodone 5 mg tablet active Not Available Not Available Not Available cyclobenza janine 5 mg tablet Take 1 tablet 3 times a day by oral route as needed for spasm for 5 days. active Not Available Not Available No t Available Fish Oil tke 1.00 caps daily 01/14 completed Not Available Not Available Not Available Acid [employer] D[employer] active otc Not Available Not Available Not Available testostero ne 20.25 mg/1.25 gram per pump act.(1.62 %) transderma l gel APPLY FOUR PUMPS TOPICALL Y DAILY FOR 30 DAYS. THIS IS AN INCREASE IN DOSE active Not Available Not Available No t Available Vitals None Recorded Social History Question Answer Notes LastModified by Organizat ion Details LastModified Time Tobacco Smoking Status Never Smoker Not Available [facility] 05/05/2011 04:49:55 Do You Wear A Helmet When Biking? Yes Information not available 01/09/2015 What Is Your Level Of Caffeine Consumption? Occasional Soda [email or web address] Information not available 03/08/2010 What Type Of Diet Are You Following? REGULAR Information not available 05/05/2011 Which Illicit Or Recreational Drugs Have You Used? None Information not available 01/09/2015 How Many Days In The Past Year Have You Had A Heavy Drinking Consumption (4+ Female, 5+ Male)? 0 Information not available 08/23/2013 Are There Any Guns Present In Your Home? No Information not available 01/09/2015 Live Alone Or With Others? With Others Information not available 08/14/2012 Patient Has Health Care Proxy Signed And In Chart Yes Form Scanned 09/05/2013 Information not available 09/05/2013 Marital Status Tati - 30 Yrs. Information not available 01/09/2015 Mosquito Repellent Used Routinely No Information not available 01/09/2015 How Many Children Do You Have? 3 Hanny Heredia On , 2 Kids , Ericka [email or web address] Information not available 01/10/2015 Are There Any Occupational Health Risks Where You Work? Infection Risk Information not available 01/09/2015 Seat Belts Used Routinely Yes Information not available 01/09/2015 Are You Sexually Active? Yes Information not available 01/09/2015 Smoke Alarm In Home Yes Information not available 01/09/2015 What Types Of Sporting Activities Do You Participate In? None Information not available 01/09/2015 General Stress Level Low Information not available 01/09/2015 Do You Use Sunscreen Routinely? No Information not available 01/09/2015 Sex: Unknown Functional Status Question Answer Note LastModified by Organizat ion Details LastModified Time What is your level of alcohol consumption? 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 Family History Relationship Description Onset Age of this Age Resolved Age Notes LastModified by Organization Details LastModified Time Father Myocardial infarction 55 88 [email or web address] Not available 01/09/2015 08:57:11 Father Diabetes mellitus previo usly record ed as Diabet es [email or web address] Not available 01/09/2015 08:57:11 Father Hypertensive disorder 88 previo usly record ed as Hypert ension Not available 01/15/2016 16:59:11 Sister Hypertensive disorder Hypert ension , Diandra e , Makenna eld , + 4 yrs Not available 01/15/2016 16:59:52 Brother Hypertensive disorder HTN, Princess t , + 2 yrs, S Jonh Not available 01/15/2016 17:00:14 Mother Dementia 82 [email or web address] [address] Not available 01/09/2015 08:57:11 Medical History Condition Response Allergic Rhinitis Y Chronic Back Pain Y GERD Y Hypertension Y Immunizations Vaccine Type Date Status Note Provider Nam e and Address Organization Details Recorded Time Influenza, split virus, trivalent, preservative 1 completed Not Available [facility] 07/06/2019 02:29:55 Td(adult) unspecified formulation 5 completed Not Available [facility] 05/04/2011 05:21:29 Influenza, split virus, trivalent, preservative 2 completed Not Available [facility] 07/06/2019 02:18:34 Tdap 3 completed Not Available [facility] 07/06/2019 02:16:04 Influenza, split virus, trivalent, preservative 9 completed Not Available [facility] 07/06/2019 02:38:00 Influenza, split virus, trivalent, PF 3 completed Not Available [facility] 07/06/2019 02:18:58 Influenza, split virus, trivalent, PF 4 completed Not Available [facility] 07/06/2019 02:25:10 influenza, unspecified formulation 5 [facility] 10:05:09 Influenza, split virus, trivalent, preservative 0 completed Not Available [facility] 07/06/2019 02:17:47 Hep B, adult 0 completed Not Available [facility] 07/06/2019 02:25:07 Past Encounters Encounter ID Performer Location Encounter Start Date Encounter Closed Date Diagnosis/Indication Diagnosis SNOMED-CT Code Diagnosis ICD10 Code Diagnosis Note [id number] MD KENNEDY Dalal, [facility], OFFICE [address] [place] [address] 03/04/2005 15:09:27 03/05/2005 11:33:17 [id number] Lorene Tarango, [facility], OFFICE [address] [place] [address] 03/10/2005 12:57:03 07/09/2008 02:02:29 [id number] [facility] , [address] [address] 03/10/2005 13:58:20 03/14/2005 14:39:21 [id number] [facility] RADIOLOGY [facility] , [address] [address] 03/10/2005 00:00:00 07/09/2008 02:02:29 [id number] Fela Saxena NP , [facility], OFFICE [address] [place] [address] 04/01/2005 15:20:14 07/09/2008 02:02:29 [id number] [facility] RADIOLOGY [facility] , [address] [address] 6 04/01/2005 15:48:11 07/09/2008 02:02:29 [id number] [facility] RADIOLOGY [employer] , [address] [address] 6 04/01/2005 00:00:00 07/09/2008 02:02:29 [id number] FP TREATMENT NURSE [facility], [facility], OFFICE [address] [place] [address] 6 04/04/2005 07:58:26 07/09/2008 02:02:29 [id number] JAGDISH Kim, [facility], OFFICE [address] [place] [address] 6 04/11/2005 15:22:41 07/09/2008 02:02:29 [id number] Lorene Tarango , [facility], OFFICE [address] [place] [address] 6 06/15/2005 08:28:21 07/09/2008 02:02:29 [id number] [facility] - [facility] [address] [place] [address] 6 06/27/2005 07:47:29 06/27/2005 07:47:34 [id number] [facility] - [address] [place] [address] 07/15/2005 11:40:48 07/15/2005 11:41:07 [id number] [facility] RADIOLOGY [facility] , [address] [address] 6 08/03/2005 12:39:41 07/09/2008 02:02:29 [id number] [facility] [employer] Radiology , [address] [address] 6 08/09/2005 10:25:20 08/10/2005 09:34:30 [id number] Kathryn james, PT Physical Therapy, [address] [address] 6 08/16/2005 12:23:39 07/09/2008 02:02:29 [id number] Kathryn james, PT Physical Therapy, [address] [address] 6 08/18/2005 12:46:55 07/09/2008 02:02:29 [id number] Kathryn james, PT Physical Therapy, [address] [address] 6 08/23/2005 12:50:42 07/09/2008 02:02:29 [id number] Kathryn james, PT Physical Therapy, [address] [address] 6 08/26/2005 12:50:29 07/09/2008 02:02:29 [id number] Kathryn james, PT Physical Therapy, [address] [address] 6 08/29/2005 08:30:12 07/09/2008 02:02:29 [id number] Lorene Tarango, [facility], OFFICE [address] [place] [address] 08/11/2005 10:15:40 08/31/2005 16:38:31 [id number] Lorene Tarango [facility], OFFICE [address] [place] [address] 6 08/08/2005 09:14:51 08/31/2005 16:39:23 [id number] Lorene Tarango [facility], OFFICE [address] [place] [address] 6 08/04/2005 10:17:15 08/31/2005 16:40:34 [id number] Reji Lynn [facility], OFFICE [address] [place] [address] 6 08/03/2005 12:04:52 08/31/2005 16:41:15 [id number] Kathryn james, PT Physical Therapy, [address] [address] 6 09/01/2005 12:54:16 07/09/2008 02:02:29 [id number] Kathryn james, PT Physical Therapy, [address] [address] 6 09/05/2005 09:47:34 09/08/2005 08:51:17 [id number] Wanda Ferreira MD [facility], OFFICE [address] [place] [address] 6 01/16/2006 14:18:41 07/09/2008 02:02:29 [id number] Fela Saxena NP [facility], OFFICE [address] [place] [address] 6 04/13/2006 14:59:00 2006 08:36:29 [id number] Lorene Tarango [facility], OFFICE [address] [place] [address] 6 07/10/2006 10:44:55 07/10/2006 15:09:19 [id number] Lorene Tarango [facility], OFFICE [address] [place] [address] 6 10/09/2006 10:26:08 10/09/2006 11:48:20 [id number] Lorene Tarango [facility], OFFICE [address] [place] [address] 6 12/04/2006 10:58:41 12/04/2006 16:13:19 [id number] [facility] - [address] [address] 12/18/2006 12:47:32 12/18/2006 12:47:40 [id number] [facility] - [address] [address] 01/02/2007 15:26:44 01/02/2007 15:26:58 [id number] Lorene Tarango , [facility], OFFICE [address] [place] [address] 02/01/2007 15:09:21 02/01/2007 16:31:43 [id number] JOSHUA Grimm , [facility], OFFICE [address] [place] [address] 6 02/12/2007 10:18:12 07/09/2008 02:02:29 [id number] Lorene Tarango [facility], OFFICE [address] [place] [address] 6 07/13/2007 10:22:51 07/09/2008 02:02:29 [id number] [facility] - [address] [address] 08/20/2007 08:16:17 08/20/2007 08:16:45 [id number] Lorene Tarango [facility], OFFICE [address] [place] [address] 6 08/27/2007 10:09:52 07/09/2008 02:02:29 [id number] JOSHUA Batres , [facility], OFFICE [address] [place] [address] 6 04/28/2008 11:43:22 07/09/2008 02:02:29 [id number] [facility] - [address] [address] 04/28/2008 12:58:03 04/28/2008 12:58:12 [id number] Anna Carrera NP , [facility], OFFICE [address] [place] [address] 6 05/23/2008 14:58:54 07/09/2008 02:02:29 [id number] Kathryn james, PT Physical Therapy, [address] [address] 6 05/26/2008 12:49:52 05/26/2008 16:16:40 [id number] Kathryn james, PT Physical Therapy, [address] [address] 6 06/02/2008 11:36:24 06/03/2008 08:36:05 [id number] Polo Howell MD , [facility], OFFICE [address] [place] [address] 09/18/2008 13:57:27 10/09/2008 10:44:34 [id number] MD KENNEDY Huynh, [facility], OFFICE [address] [place] [address] 6 11/17/2008 10:40:45 11/20/2008 14:41:17 [id number] JOSHUA Batres , [facility], OFFICE [address] [place] [address] 12/11/2008 15:09:33 12/15/2008 09:06:11 [id number] [facility] RADIOLOGY [facility] , [facility] [address] [place] [address] 12/11/2008 16:15:48 12/15/2008 13:59:42 [id number] [facility] - [address] [address] 11/12/2008 06:42:31 11/12/2008 06:42:37 [id number] Tre Brar MD , [facility], OFFICE [address] [place] [address] 6 06/08/2009 11:12:24 06/10/2009 10:16:02 [id number] Tre Brar MD , [facility], OFFICE [address] [place] [address] 6 03/08/2010 10:32:17 03/10/2010 10:22:43 [id number] Tre Brar MD , [facility], OFFICE [address] [place] [address] 6 11/22/2010 10:21:25 11/23/2010 14:11:20 [id number] Tre Brar MD , [facility], OFFICE [address] [place] [address] 6 12/13/2010 10:16:14 12/15/2010 14:48:38 [id number] Hunter Wing , PT Physical Therapy, [facility] [address] [place] [address] 12/15/2010 15:19:56 12/16/2010 07:47:33 [id number] Kathryn Kelsie james, PT Physical Therapy, [facility] [address] [place] [address] 6 12/21/2010 09:04:58 12/21/2010 09:05:23 [id number] [facility] FLU CLINIC FP, [facility], OFFICE [address] [place] [address] 04/05/2011 07:28:06 04/05/2011 15:14:55 [id number] Eulalio Tompkins MD , [facility], OFFICE [address] [place] [address] 05/02/2011 09:51:14 05/03/2011 11:10:25 [id number] Tre Brar MD , [facility], OFFICE [address] [place] [address] 08/01/2011 09:14:35 08/01/2011 10:09:09 [id number] Ramin Arcos MD , [facility], OFFICE [address] [place] [address] 6 09/26/2011 10:34:18 09/26/2011 11:11:06 [id number] Tre Brar MD , [facility], OFFICE [address] [place] [address] 6 10/24/2011 09:48:41 10/24/2011 20:35:45 [id number] JOSHUA Grimm , [facility], OFFICE [address] [place] [address] 02/06/2012 11:58:16 02/07/2012 08:08:14 [id number] MD KENNEDY Hernandez, [facility], OFF[address] [place] [address] 02/07/2012 09:02:22 02/07/2012 09:33:14 [id number] Chandler Joseph MD , [facility], OFF[address] [place] [address] 6 02/27/2012 14:11:40 02/27/2012 14:55:06 [id number] Jackie Hodge MD , [facility], OFFICE [address] [place] [address] 6 08/14/2012 15:40:20 08/14/2012 17:14:48 [id number] Nelia Okeefe , [facility], OFFICE [address] [place] [address] 6 10/11/2012 08:13:59 10/11/2012 08:56:12 [id number] Jackie Hodge MD , [facility], OFFICE [address] [place] [address] 6 02/21/2013 10:13:45 02/21/2013 11:08:16 Localized, primary osteoarthritis of the pelvic region and thigh [id number] Pre-surger y evaluation 619414525 Benign ess ential hypertension 8231063 [id number] Zhanna Garcia M.D. , [facility], OFFICE [address] [place] [address] 6 03/11/2013 10:56:08 03/11/2013 11:32:45 Subconjunctival hemorrhage 44666236 benign will resolve in ~1-3 weeks call if any visual impairment or pain avoid blood thinners (you should already NOT be taking any blood thinners as you are going for surgery on monday for your Left hip) blood pressure under good control Influenza vaccine needed [id number] [id number] Jackie Hodge MD , [facility], OFFICE [address] [place] [address] 6 08/23/2013 11:17:14 08/23/2013 13:33:32 Adult health examination 284647603 see Risk Assessment and Lifestyle Change Counseling section above Counseling [id number] Fracture of rib 49434308 Dermatophytosis 84925374 Benign ess ential hypertension 1840606 Impacted cerumen 45535129 [id number] Jackie Hodge MD , [facility], OFFICE [address] [place] [address] 6 09/05/2013 10:24:51 09/05/2013 11:16:27 Fracture of rib 15084345 Tinea cruris 112966682 [id number] Jackie Hodge MD FP, [facility], OFFICE [address] [place] [address] 6 12/02/2013 13:22:10 12/02/2013 13:57:24 Shoulder joint painful on movement 019315063 Irvin paige 601362214 Insomnia 390539607 [id number] Jackie Hodge MD FP, [facility], OFFICE [address] [place] [address] 6 04/10/2014 11:25:14 04/10/2014 12:43:50 Benign essential hypertension 7826554 Blood pressure at goal Influenza vaccine needed [id number] 106 Insomnia 093889047 [id number] Nelia Okeefe FP, [facility], OFFICE [address] [place] [address] 6 06/30/2014 13:34:32 06/30/2014 14:28:52 Low back pain 837427785 [id number] Jackie Hodge MD , [facility], OFFICE [address] [place] [address] 6 01/09/2015 08:11:28 01/09/2015 09:29:08 Adult health examination 144468475 see Risk Assessment and Lifestyle Change Counseling section above Counseling 077495140 Insomnia 560019804 Benign ess ential hypertension 0548953 Impacted cerumen 63533399 Hyperlipidemia 12945029 [id number] Jackie Hodge MD FP, [facility], OFFICE [address] [place] [address] 6 06/18/2015 14:42:01 06/18/2015 15:47:32 Knee pain 29543069 M25.038 [id number] Jackie Hodge MD FP, C, OFFICE [address] [place] [address] 6 07/10/2015 09:20:46 07/10/2015 10:48:36 Benign essential hypertension 6178767 I10 Hyperlipidemia 43024628 E78.5 Insomnia 664195104 G47.0 0 Knee pain 36451686 M25.5 61 [id number] Polo Jett MD FP, C, OFFICE [address] [place] [address] 6 01/15/2016 15:46:16 01/15/2016 17:18:12 Benign essential hypertension 5012673 I10 Localized, primary osteoarthritis of the pelvic region and thigh 800556061 M19.91 Insomnia 277436197 G47.0 0 [id number] Nelia Okeefe , [facility], OFFICE [address] [place] [address] 6 06/01/2016 14:04:58 06/01/2016 14:29:33 Benign essential hypertension 2423495 I10 - Increase Lisinopril to 20mg daily- Continue to monitor blood pressure at home daily at different times of the day- Return in one week for blood pressure check- Bring in your home blood pressure cuff to the office so we can compare readings- If blood pressure >180 top number or >100 bottom number, call the office sooner- If you develop chest pain, extremity numbness or weakness - go to the ER Gastroesop hageal reflux disease 787232978 K21.9 - Will start omeprazole for symptoms relief [id number] Hunter Wing , PT Physical Therapy, [address] [address] 06/06/2016 10:55:09 06/06/2016 11:44:56 Pain in right knee 7343318633 17299 M25.561 [id number] CASSIDY DAVE DPT Physical Therapy, [address] [address] 03/26/2024 12:41:16 03/26/2024 14:10:04 Pain of right hip joint 3035908947 87168 M25.551 History of total replacement of right hip joint 7985866941 13456 Z96.641 [id number] CASSIDY DAVE DPT Physical Therapy, [address] [address] 04/02/2024 13:46:13 04/02/2024 14:41:16 Pain of right hip joint 6982087399 27504 M25.551 History of total replacement of right hip joint 6028626821 48911 Z96.641 [id number] CASSIDY DAVE DPT Physical Therapy, [address] [address] 6 04/09/2024 13:43:52 04/09/2024 14:44:36 Pain of right hip joint 7414273726 86831 M25.551 History of total replacement of right hip joint 2863949736 30802 Z96.641 [id number] CASSIDY DAVE DPT Physical Therapy, [address] [address] 6 04/16/2024 13:50:33 04/16/2024 14:51:24 Pain of right hip joint 9026377948 56471 M25.551 History of total replacement of right hip joint 8801836667 30063 Z96.641 [id number] VEENA HOFF DPT Physical Therapy, [address] [address] 6 11/01/2024 09:30:49 11/01/2024 10:38:56 Acute low back pain 352782605 M54.50 Muscle spa sm of thoracic back 9303328352 32603 M62.830 Difficulty walking 91776 2002 R26.2 [id number] VEENA HOFF DPT Physical Therapy, [address] [address] 6 11/07/2024 09:48:36 11/07/2024 11:00:32 Acute low back pain 621766491 M54.50 Muscle spa sm of thoracic back 6205082391 84834 M62.830 Difficulty walking 10560 2002 R26.2 [id number] VEENA HOFF DPT Physical Therapy, [address] [address] 6 11/19/2024 14:41:12 11/19/2024 15:42:38 Acute low back pain 520037697 M54.50 Muscle spa sm of thoracic back 7728772035 46553 M62.830 Difficulty walking 39687 2002 R26.2 Health Concerns Section Related Observation LastModified by Organization Detai ls LastModified Time None Recorded Concern Status LastModified by Organization Details LastModified Time None Recorded Advance Directives Directive None Recorded Payers Insurance Date Sequence Insurance Name Policy Number Policy Jeter Covered Member ID Jeter Member ID Guarantor Name 03/26/2024 2 [employer]UE (MEDICARE REPLACEMENT PPO) [address] [id number] [address] 03/26/2024 [employer] [facility] [address] [id number] 03/04/[address] [place] [id number] 11/26/[address] 10/10/2001 1 [facility] (HMO) [id number] [id number] 03/26/[address] [facility] (HMO) [id number] [id number] 03/26/2024 1 [facility] (O) [address] [id number] [address] 11/23/2010 [facility] [id number] [facility] [address] 07/01/[address] [employer] [id number] [address] 11/18/2024 1 [facility] [place]UE (MEDICARE REPLACEMENT HMO) [id number] [address] [id number] [address] Notes Date Note Type Note Provider Name and Address Organization Details Recorded Time 04/09/2024 text/html Patient Specific Functional Score:100 Percent limitation in [id number] Percent limitation in house [id number] Percent limitation in sleeping in bedPt reports improved ability to reach out forward to tie shoe. He notes some back pain with walking. Of note, he also reports he is having increased back pain. CASSIDY DAVE DPT [address] [place], [address], [facility] 04/09/2024 14:35:53 04/16/2024 text/html Patient Specific Functional Score:100 Percent limitation in [id number] Percent limitation in house [id number] Percent limitation in sleeping in bedPt has follow up 05/16/2024 with surgeon because of his abnormal gait during walk. Joshua reports his low back feels tight and causes him increased pain when he tries to stand. CASSIDY DAVE DPT [address] [place], [address], [facility] 04/16/2024 16:34:16 11/01/2024 text/html HPI at time of initial evaluation: Patient presents for treatment of low back pain. The pain increased about 2 weeks ago, falling down the steps to his deck. He reports that the pain is sometimes in the middle back, but is often in the low back. He reports laying on the hardwood floor with an ice pack underneath his back helps, with feet up on the couch. Chief complaint: Low back pain 7/10Aggs: riding stationary bikeEases:ice on back, lying on hardwood floor Previous treatment: No previous PT for this issue. Imaging: Patient had an x-ray, which was negative for fractures, but some arthritis was noted. Activities: Retired, normally likes to exercise twice/day, Patient goals: get rid of pain Patient Specific Functional Score: 90 Percent limitation in walking 90 Percent limitation in exercise 70 Percent limitation in sleeping VEENA HOFF DPT [address] [place], [address], [facility] 11/01/2024 10:36:52 11/07/2024 text/html Current Subjective: Jenny reports that he has done his exercises only semi-consistently, due to being very busy. The thing he found the most helpful was the 90-90 positioning with his couch. Activities: Retired, normally likes to exercise twice/day, Patient goals: get rid of pain Patient Specific Functional Score:90 Percent limitation in rqiywxd45 Percent limitation in jwwjlhif06 Percent limitation in sleeping VEENA HOFF DPT [address] [place] [address], [address], [facility] 11/07/2024 10:58:58 11/19/2024 text/html Current Subjective: Joshua reports feeling that he is getting better overall. He was feeling much better the first 5 days of doing his new exercises, but he had some increased pain after swinging a sledge hammer to remove a fence. He reports he feels ready to work on his exercises on his own. Activities: Retired, normally likes to exercise twice/day, Patient goals: get rid of pain Patient Specific Functional Score:90 Percent limitation in soxdapc44 Percent limitation in nyaaxijj19 Percent limitation in sleeping VEENA HOFF DPT [address] [place], [address], [facility] 11/19/2024 15:42:22
== END 2024-12-19 10:35 | disposition home or self-care (01) ==
LOC: HO.HMCSH 09:44
PROVIDERS: PCP Physician Assistant Medical; Visit Provider Physician Assistant Medical
DX: I10 Essential (primary) hypertension (principal); K21.9 Gastro-esophageal reflux disease without esophagitis; M25.561 Pain in right knee; M25.562 Pain in left knee

== ENCOUNTER → 2024-12-19 09:44 | Outpatient (BNVA) | payer MEDICARE, SELFPAY | PROVIDERS: PCP Internal Medicine; Visit Provider Physician Assistant Medical | DX: I10 Essential (primary) hypertension (principal); K21.9 Gastro-esophageal reflux disease without esophagitis; R10.9 Unspecified abdominal pain; M25.561 Pain in right knee; M25.562 Pain in left knee; Z79.899 Other long term (current) drug therapy | CPT/HCPCS: 96127; 99202 ==

== ENCOUNTER 2025-03-24 10:28 | Outpatient (AMB) | payer MEDICARE, SELFPAY ==
[2025-03-24 10:29] VITALS: BP 133/64; PULSE 52; RESP 16; TEMP 36.2; O2SAT 97; BMI 35.7
--- NOTE | 2025-03-24 10:29 | MHC.PC.OV ---
Vital Signs 03/24/25 10:29 Height 5 ft 5.51 in Weight 218 lb BMI 35.7 BP 133/64 Blood Pressure Location Lt brachial Position Sitting Respiration 16 Pulse 52 Pulse Source Pulse Oximeter Temp 97.1 F Temp Source Temporal Artery Scan Pulse Oximetry (%) 97 Oxygen Delivery Method Room Air Intake Visit Reasons: 3 month follow up - see comments Cio Required: No Accompanied by: Self / Same As Patient Allergies No Known Allergies Allergy (Verified 03/24/25 10:51) Medication List - Last Reconciled 03/24/25 by Sylvia Ibarra PA-C amlodipine 2.5 mg PO .DAILY@0200 azelastine 1 spray intranasal DAILY PRN fluticasone propionate 50 mcg/actuation 1 spray intranasal DAILY PRN losartan 50 mg PO BID omeprazole 20 mg PO BID spironolactone 25 mg PO DAILY Tobacco use date assessed: 03/24/25 Dental Screening Dental Screen Date: 03/24/25 Did you have a dental visit in the last 12 months?: Yes HPI 3 month follow up - see comments HPI Details The patient is a 69-year-old male presenting with management of obstructive sleep apnea. He had a sleep study conducted in November 2020 at [facility], which indicated severe sleep apnea. The patient has been using a CPAP machine, but there have been issues with obtaining supplies due to recalls and delays. The patient also presents with bilateral knee pain. He has a history of a unicompartmental knee arthroplasty on the right knee and mild degenerative changes in the left knee, which were confirmed by recent x-rays. The patient reports difficulty walking, which may be attributed to the arthritis in his knees and back. Additionally, the patient reports symptoms consistent with eustachian tube dysfunction, including blocked ears and pressure, which have not been alleviated by earwax removal methods. He also suspects sinusitis due to pressure and discomfort in the sinus region. For preventative care, the patient is scheduled for a colonoscopy, which is part of his routine health maintenance. [facility] Medical History (Updated 03/24/25 @ 13:12 by Sylvia Ibarra PA-C) Preventative health care Sinusitis Hearing difficulty Ear pressure Bilateral knee pain Abdominal cramps Osteoarthritis of right hip Sinus bradycardia COPD (chronic obstructive pulmonary disease) Asthma DJD (degenerative joint disease) Allergic rhinitis Hx of renal artery stenosis Arthritis Has a tremor GERD (gastroesophageal reflux disease) History of itching Itching of male genitalia Seasonal allergies Nasal dryness Morbid obesity Hypertension Surgical History Hx of colonoscopy History of total left hip replacement (~2015) Hx of repair of right rotator cuff Hx of eye surgery Hx of vasectomy Hx of Achilles tendon repair (~2005) History of hip surgery Hx of cholecystectomy H/O right knee surgery (~2016) Family History Father Enlarged heart Mother No problems noted. Social History Household Members: Spouse Housing: House Are you a primary progressive care unit registered nurse to a significant other at home: No Do you presently have visiting nurse or other home services: No Alcohol intake: current Alcohol intake frequency: does not drink Comment: Uses store carriage for stability when shopping Patient Tobacco Use Status: Never used Tobacco Second Hand Smoke Exposure: No service: No Current occupational status: retired Cognitive needs: No Hearing needs: No Vision needs: Yes (reading glasses ) Questionnaire PHQ-9 Over the last 2 weeks, how often have you been bothered by any of the following problems? 1. Little interest or pleasure in doing things: not at all 2. Feeling down, depressed, or hopeless: not at all 3. Trouble falling or staying asleep, or sleeping too much: not at all 4. Feeling tired or having little energy: not at all 5. Poor appetite or overeating: not at all 6. Feeling bad about yourself - or that you are a failure or have let yourself or your family down: not at all 7. Trouble concentrating on things, such as reading the newspaper or watching television: not at all 8. Moving or speaking so slowly that other people could have noticed. Or the opposite - being so fidgety or restless that you have been moving around a lot more than usual: not at all 9. Thoughts that you would be better off or of hurting yourself in some way: not at all Total score: 0 Depression Screening Interpretation: Negative Depression Screening Done: Yes 39994 - PHQ-9 Billing: Yes Source: Developed by Drs. Emmanuel Juarez, Santos Morales and colleagues, with an educational osmar from [employer]. Thrive Questionnaire Date Thrive assessed: 03/24/25 I am a: Patient What is your living situation today?: I have a steady place to live Within the past 12 months, did the food you bought not last and you didn't have the money to get more?: Never true Within the past 12 months, did you worry whether your food would run out before you got money to buy more?: Never true Do you have trouble paying for medicines?: No Do you have trouble getting transportation to medical appointments?: No Do you have trouble paying your heating and electricity bill?: No Do you have trouble taking care of your child, family member or friend?: No Do you have trouble with day-to-day activities such as bathing, preparing meals, shopping, managing finances, etc.?: No Are you currently unemployed and looking for a job?: No Are you interested in more education?: No Please select the resources that you would like help with: None Currently or been in a relationship where the following occur: No concerns reported THRIVE Score: 0 AUDIT C Alcohol Use Questionnaire (AUDIT-C) 1. How often do you have a drink containing alcohol?: Never 3. How often do you have six or more drinks on one occasion?: Never Total Score: 0 Score Reviewed/Action Taken: No LANA-7 AMB Questionnaire LANA-7 Date LANA - 7 assessed: 03/24/25 Feeling nervous, anxious, or on edge: 0 = Not at all Not being able to stop or control worryin = Not at all Worrying too much about different things: 0 = Not at all Trouble relaxin = Not at all Being so restless that it is hard to sit still: 0 = Not at all Becoming easily annoyed or irritable: 0 = Not at all Feeling afraid as if something awful might happen: 0 = Not at all Total LANA-7 score (0-4 normal; 5-9 mild; 10-14 moderate; 15-21 severe): 0 Source: Developed by Drs. Emmanuel Juarez, Santos Morales and colleagues, with an educational osmar from [employer]. LANA-7 Assessment Billing LANA-7 Assessment Tool: LANA-7 Assessment 36510 Review of Systems Const Details: - Ears: Reports blocked ears and pressure, denies improvement with earwax removal. - Musculoskeletal: Reports bilateral knee pain and difficulty walking, denies acute injury. - Respiratory: Denies dyspnea or cough. - Neurological: Denies headaches or dizziness. All systems reviewed & are unremarkable except as noted in HPI and below Physical exam (Primary Care) Vital Signs: Last Vital Signs Temp 97.1 F 03/24/25 10: Pulse 52 03/24/25 10: Resp 16 03/24/25 10:29 BP 133/64 03/24/25 10:29 Pulse Ox 97 03/24/25 10:29 Oxygen Delivery Method Room Air 03/24/25 10:29 Care Plan Goal for BP management: <140/90 at Goal BMI result Body Mass Index 35.7 BMI Assessment/Plan discussion: High BMI High, discussed plan: lifestyle, weight reduction, dietary, physical activity, alcohol moderation and other Tobacco/Smoking Status: Tobacco use Status Tobacco use date assessed 03/24/25 03/24/25 10:34 Patient Tobacco Use Status Never used Tobacco 03/24/25 10:34 PHQ-9: PHQ-9 Score PHQ-9: Total score 0 03/24/25 10:34 Depression Screening Interpretation: Negative Thrive Assessment: Date of Thrive Assessment Date Thrive assessed 03/24/25 03/24/25 10:34 Currently or been in a relationship where the following occur: No concerns reported Const Other: Appearance: Alert. Oriented X3. No acute distress. Head: Normal external exam. Normocephalic. Atraumatic. Eyes: Pupils are equal, round, and reactive to light. Extraocular movements intact. Conjunctiva and sclera normal. Eyelids normal. Ears: External auditory canal normal. Tympanic membranes normal. Ears are completely clear, but patient reports feeling pressure. Throat: Pharynx normal. Uvula midline. Moist mucous membranes. Neck: Normal inspection. Neck supple. Full range of motion. Cardiovascular: Normal heart rate and rhythm. Heart sound normal. No murmurs noted. Pulses normal throughout. Respiratory: No respiratory distress. Painless inspiration. Breath sounds normal. No wheezes/rales/rhonchi noted. Chest nontender. No accessory muscle usage noted or decreased air movement noted. Back: Full range of motion noted. Skin: Skin warm and dry. Normal skin color. Extremities: No lower extremity edema. Extremities exhibit normal range of motion. Results Reviewed Results Reviewed: - X-rays: Status post unicompartmental knee arthroplasty on the right knee; mild degenerative changes in the left knee. - Sleep Study: Severe obstructive sleep apnea diagnosed in November 2020. Coding Level of Care Code Est Pt Level 4 (56966) Complex EM visit Add On G2211 Diagnoses OLGA on CPAP G47.33; Z99.89 Bilateral knee pain M25.561; M25.562 Ear pressure H93.8X9 Sinusitis J32.9 Preventative health care Z00.00 Additional Codes LANA-7 Assessment Billing - LANA-7 Assessment Tool: LANA-7 Assessment 15936 ([id number]) PHQ-9 - 77564 - PHQ-9 Billing: Yes ([id number]) Time Spent (min) 50 Assessment & Plan Assessment & Plan (1) OLGA on CPAP: Code(s): G47.33 - Obstructive sleep apnea (adult) (pediatric); Z99.89 - Dependence on other enabling machines and devices Category: Medical Plan: The patient will continue using the CPAP machine, and a referral to pulmonology will be made to ensure proper management and supply of CPAP equipment. The patient is advised to ensure that all necessary documentation is provided to the insurance for continued coverage. (2) Bilateral knee pain: Code(s): M25.561 - Pain in right knee; M25.562 - Pain in left knee Category: Medical Plan: The patient is referred to physical therapy for management of bilateral knee pain, with instructions to make his own appointments. He is advised to follow up with orthopedics if symptoms persist or worsen. (3) Ear pressure: Code(s): H93.8X9 - Other specified disorders of ear, unspecified ear Category: Medical Plan: The patient is referred for a hearing evaluation to assess the cause of persistent ear blockage and pressure. (4) Sinusitis: Code(s): J32.9 - Chronic sinusitis, unspecified Category: Medical Plan: The patient is prescribed antibiotics to address suspected sinusitis. (5) Preventative health care: Code(s): Z00.00 - Encounter for general adult medical examination without abnormal findings Category: Medical Plan: The patient is scheduled for a colonoscopy as part of routine preventative care. Plan Plan Patient was informed and verbally consented to the use of an ambient scribe for clinic note documentation during this visit. 1. Obstructive Sleep Apnea The patient will continue using the CPAP machine, and a referral to pulmonology will be made to ensure proper management and supply of CPAP equipment. The patient is advised to ensure that all necessary documentation is provided to the insurance for continued coverage. 2. Bilateral Knee Pain The patient is referred to physical therapy for management of bilateral knee pain, with instructions to make his own appointments. He is advised to follow up with orthopedics if symptoms persist or worsen. 3. Eustachian Tube Dysfunction The patient is referred for a hearing evaluation to assess the cause of persistent ear blockage and pressure. 4. Sinusitis The patient is prescribed antibiotics to address suspected sinusitis. 5. Preventative Care: Colonoscopy The patient is scheduled for a colonoscopy as part of routine preventative care. During the visit, we discussed the management of obstructive sleep apnea, including the importance of CPAP compliance and coordination with pulmonology for equipment supply. We also addressed the patient's bilateral knee pain, recommending physical therapy and potential orthopedic follow-up if symptoms persist. For the patient's eustachian tube dysfunction, a hearing evaluation was advised to determine the underlying cause. Antibiotics were prescribed for suspected sinusitis, and the patient was informed about the upcoming colonoscopy for preventative care. Orders: Orders Comprehensive [place]. Panel Fast Today Z00.00 - Encounter for general adult medical examination without abnormal findings Hemoglobin A1c Today Z00.00 - Encounter for general adult medical examination without abnormal findings Magnesium Today Z00.00 - Encounter for general adult medical examination without abnormal findings TSH reflex Free T4 Today Z00.00 - Encounter for general adult medical examination without abnormal findings PSA,Total (Free>4and<10) Today Z00.00 - Encounter for general adult medical examination without abnormal findings Erythrocyte Sedimentation Rate Today Z00.00 - Encounter for general adult medical examination without abnormal findings PT Evaluation and Treatment Today M25.561 - Pain in right knee, M25.562 - Pain in left knee C Reactive Protein Today Z00.00 - Encounter for general adult medical examination without abnormal findings Complete Blood Count Auto Diff Today Z00.00 - Encounter for general adult medical examination without abnormal findings Lipid Panel Today Z00.00 - Encounter for general adult medical examination without abnormal findings Liver Panel Today Z00.00 - Encounter for general adult medical examination without abnormal findings Vitamin B12 and Folate Today Z00.00 - Encounter for general adult medical examination without abnormal findings Vitamin D 25-OH Total Today Z00.00 - Encounter for general adult medical examination without abnormal findings UA CC w/rflx Micro + Cult Today Z00.00 - Encounter for general adult medical examination without abnormal findings Referrals Pulmonology Referral E66.01 - Morbid (severe) obesity due to excess calories, G47.33 - Obstructive sleep apnea (adult) (pediatric), Z99.89 - Dependence on other enabling machines and devices Speech and Hearing Referral H91.90 - Unspecified hearing loss, unspecified ear, H93.8X9 - Other specified disorders of ear, unspecified ear Medications: New amoxicillin-pot clavulanate 875-125 mg 1 tab PO BID 14 tabs 0RF 7 days Patient Instructions: - Continue using the CPAP machine and ensure all necessary documentation is submitted to insurance. - Schedule and attend physical therapy sessions for knee pain management. - Follow up with orthopedics if knee pain persists or worsens. - Attend the hearing evaluation as scheduled. - Complete the prescribed course of antibiotics for sinusitis. - Ensure the colonoscopy is completed as scheduled for preventative care.
--- OUTSIDE RECORDS SUMMARY | 2025-03-24 12:17 | XMS_ITS | Encounter Summary ---
Author Organization [facility] Address [address] [facility] [address] [place] [address] Phone Care Team Providers Care Market Risk Specialist Name Role Phone Peewee Maxwell MD Primary Care Provider [phone] Reason for Visit * Reason Comments Med Refill Encounter Details Date Type Department Care Team ([facility] Contact Info) Description 07/18/2021 Refill [facility] [address] [facility] [address] [place] [phone] Kee Hernández MD [address] [facility] [address] [place] [phone] Social History Tobacco Use Types Packs/Day Years [...] Visit [facility] [address] [place] [phone] Kee Hernández MD [address] [facility] [address] [place] [address] documented as of this encounter Visit Diagnoses Not on filedocumented in this encounter Care Teams Market Risk Specialist Relationship Specialty Start Date End Date Peewee Maxwell MD [address] [place] [address] PCP - General Internal Medicine 10/21/20 documented as of this encounter
--- OUTSIDE RECORDS SUMMARY | 2025-03-24 12:17 | XMS_ITS | Encounter Summary ---
Author Organization [facility] Address [address] [place] [address] Phone Care Team Providers Care Package Yarns Drying Machine Operator Name Role Phone Kee Ugalde DO Unavailable [phone] Peewee Maxwell MD Primary Care Provider [phone] Pcp, Unknown Primary Care Provider Unavailabl e Encounter Details Date Type Department Care Team (Late st Contact Info) Description 07/02/2024 Procedure Pass [facility], [facility] [address] [place] [address] Social History Tobacco Use Types Packs/Day Years Used Date Smoking Tobacco: Never Smokeless Tobacco: Never Comments:does not smoke now, do not know id he ever smoked Alcohol Use Standard Drinks/Week Comments Yes 0 (1 standard drink = 0.6 oz pur e alcohol) occasional wine cooler Education Answer Date Recorded Are you interested in more education? Not on aicha e 10/14/2022 Are you concerned about learning? Not on file 10/14/2022 No 10/14/2022 No 10/14/2022 Food Answer Date Recorded Within the past 6 months we worried whether our food would run out before we got money to buy more. Never True 07/02/2024 Within the past 6 months the food we bought just didn't last and we didn't have enough money to get more. Never True Residential Stability Answer Date Recor ded What is your housing situation today? I have giovanna sing 07/02/2024 How many times have you move d in the past 12 months? Zero (I did not move) 07/02/2024 Paying for Meds Answer Date Recorded Do you have trouble paying for medicines? No 07/02/2024 Paying Utility Bills Answer Date Record ed Do you have trouble paying your heating or elect ricity bill? No 07/02/2024 Transportation Answer Date Recorded Has the lack of transportati on kept you from medical appointments or from getting medications? No 07/02/2024 Digital Access Answer Date Recorded No 07/02/2024 Yes 07/02/2024 Do you have reliable internet access at home? Ye s 07/02/2024 Do you have a device (e.g., phone, tablet, computer) with a working camera? Yes 07/02/2024 Intimate Partner Violence Answer Date R ecorded Are you denied basic needs s uch as food, clothing, or medical care? No 07/02/2024 In the past 12 months have y ou been in a relationship with a person who hurts, threatens, or tries to control you? No 07/02/2024 Are you denied basic needs s uch as food, clothing, or medical care? No 07/02/2024 In the past 12 months have y ou been in a relationship with a person who hurts, threatens, or tries to control you? No 07/02/2024 Sex and Gender Information Value Date Recorded Sex Assigned at Male 06/26/2017 9:38 AM EST Legal Sex Male 9:56 PM EDT Gender Identity Male 06/26/2017 9:38 AM EST Sexual Orientation Straight 06/26/2017 9: 38 AM EST documented as of this encounter Plan of Treatment Not on file documented as of this encounter Visit Diagnoses Not on filedocumented in this encounter Care Teams Package Yarns Drying Machine Operator Relationship Specialty Start Date End Date Peewee Maxwell MD [address] [place] [id number] PCP - General Internal Medicine 08/11/20 03/13/25 Pcp, Unknown PCP - General 03/14/25 Kee Ugalde DO [address] [place] [address] Orthopedics & Sports Medicine, [facility] [place] [address] Historical LMR Provider 04/05/17 documented as of this encounter Additional Source Comments The information contained in this document represents components of the legal health record. It is not the complete legal health record.[facility]
--- OUTSIDE RECORDS SUMMARY | 2025-03-24 12:17 | XMS_ITS | Encounter Summary ---
Author Organization [facility] Address [address] [place] [address] Phone Care Team Providers Care Process Design Chemical Engineer Name Role Phone Kee Ugalde DO Unavailable [phone] Peewee Maxwell MD Primary Care Provider [phone] Pcp, Unknown Primary Care Provider Unavailabl e Encounter Details Date Type Department Care Team (Late st Contact Info) Description 10/18/2024 Transcribe Orders Virtual Department [address] [place] [address] Kee Hernández MD [address] [place] [address] [address] [address] [email or web address] Hypertension, unspecified type (Primary Dx) Social History Tobacco Use Types Packs/Day Years [...] your housing situation today? I have giovanna oliveira 07/02/2024 How many times have you move [...] documented as of this encounter Visit Diagnoses Diagnosis Hypertension, unspecified type- Primary documented in this encounter Care Teams Process Design Chemical Engineer Relationship Specialty Start Date End Date Peewee Maxwell MD [address] [place] [id number] PCP - General Internal Medicine 08/11/20 03/13/25 Pcp, Unknown PCP - General 03/14/25 Kee Ugalde DO [address] [place] [address] Orthopedics & Sports Medicine, [place] [address] [email or web address] Historical LMR Provider 04/05/17 documented as of this encounter Additional Source Comments The information contained in this document represents components of the legal health record. It is not the complete legal health record.[facility]
--- OUTSIDE RECORDS SUMMARY | 2025-03-24 12:17 | XMS_ITS | Encounter Summary ---
Author Organization [facility] Address [address] [place] [address] Phone Care Team Providers Care Manager Flight Name Role Phone Eulalio Ahuja MD Primary Care Provider [phone] Tico Martell MD Unavailable [phone] Kee Alexander MD Unavailable [phone] Kee Ugalde DO Unavailable [phone] Polo Guadarrama MD Unavailable Dilcia Gould MD Unavailable [phone] Antoinette Ching PA-C Unavailable [phone] Seamus [place] MD Primary Care Provide r Peewee Maxwell MD Primary Care Provider Pcp, Unknown Primary Care Provider Unavailabl e Encounter Details Date Type Department Care Team (Late st Contact Info) Description 04/18/2017 Procedure Pass [facility]oscopy Admitting Dept Virtual Department [address] [place] [address] Social History Tobacco Use Types Packs/Day Years Used Date Smoking Tobacco: Unknown Smokeless Tobacco: Never Comments:does not smoke now, do not know id he ever smoked Alcohol Use Standard Drinks/Week Comments Yes 0 (1 standard drink = 0.6 oz pur e alcohol) occasional wine cooler Sex and Gender Information Value Date Recorded Sex Assigned at Male 06/26/2017 9:38 AM EST Legal Sex Male 9:56 PM EDT Gender Identity Male 06/26/2017 9:38 AM EST Sexual Orientation Straight 06/26/2017 9: 38 AM EST documented as of this encounter Plan of Treatment Not on file documented as of this encounter Visit Diagnoses Not on filedocumented in this encounter Additional Health Concerns Infection Onset Date Last Indicated Resolved Time CoV-Exposed Comment:Positive COVID-19 12/24/2021 12/24/2021 12/25/2021 10: 54 AM EDT COVID-19 12/24/2021 12/24/2021 01/14/2022 1:21 AM EDT documented as of this encounter Care Teams Manager Flight Relationship Specialty Start Date End [place] [address] [email or web address] PCP - General 04/04/17 08/04/18 Seamus [place] MD [address] [place] [address] PCP - General Family Medicine 08/05/18 08/10/20 Peewee Maxwell MD [address] [place] [address] PCP - General Internal Medicine 08/11/20 03/13/25 Pcp, Unknown PCP - General 03/14/25 Tico Martell MD [address] [place] [address] Historical LMR Provider 04/05/17 06/26/21 Kee Alexander MD [address] [place] [address] Historical LMR Provider 04/05/17 Kee Ugalde DO [address] [place] [address] [facility], [place] [address] [email or web address] Historical LMR Provider 04/05/17 Polo Guadarrama MD [address] [address] [email or web address] Historical LMR Provider 04/05/17 2 Dilcia Gould MD [address] [place] [address] [email or web address] Historical LMR Provider 04/05/17 Antoinette Ching PA-C [address] [place] [address] [facility], [place] [address] [email or web address] Historical LMR Provider 04/05/17 06/26/21 documented as of this encounter Additional Source Comments The information contained in this document represents components of the legal health record. It is not the complete legal health record.[facility]
--- OUTSIDE RECORDS SUMMARY | 2025-03-24 12:17 | XMS_ITS | Encounter Summary ---
Author Organization [facility] Address [address] [place] [address] Phone Care Team Providers Care Walking Dragline Oiler Name Role Phone Tico Martell MD Unavailable Kee Alexander MD Unavailable Kee gUalde DO Unavailable Polo Guadarrama MD Unavailable Dilcia Gould MD Unavailable [phone] Antoinette Ching PA-C Unavailable Peewee Maxwell MD Primary Care Provider [phone] Pcp, Unknown Primary Care Provider Unavailabl e Encounter Details Date Type Department Care Team (Late st Contact Info) Description 08/11/2020 Procedure Pass [facility], Ct Scan - [address] [address] Social History Tobacco Use Types Packs/Day Years [...] documented as of this encounter Care Teams Walking Dragline Oiler Relationship Specialty Start Date End Date Peewee [place] MD [address] [place] [address] PCP - General Internal Medicine 08/11/20 03/13/25 Pcp, Unknown PCP - General 03/14/25 Tico Martell MD [address] [place] [address] [email or web address] Historical LMR Provider 04/05/17 06/26/21 Kee Alexander MD [address] [place] [address] Historical LMR Provider 04/05/17 Kee Ugalde DO [address] [place] [address] [facility], [place] [address] [email or web address] Historical LMR Provider 04/05/17 Polo Guadarrama MD [address] [address] [email or web address] Historical LMR Provider 04/05/17 2 Dilcia Gould MD [address] [place] [address] Historical LMR Provider 04/05/17 Antoinette Ching PA-C [address] [place] [address] [facility], [place] [address] Historical LMR Provider 04/05/17 06/26/21 documented as of this encounter Additional Source Comments The information contained in this document represents components of the legal health record. It is not the complete legal health record.[facility]
--- OUTSIDE RECORDS SUMMARY | 2025-03-24 12:17 | XMS_ITS | Encounter Summary ---
Author Organization [facility] Address [address] [place] [address] Phone Care Team Providers Care Production Operations Inspector Name Role Phone Tico Martell MD Unavailable [phone] Kee Alexander MD Unavailable Kee Ugalde DO Unavailable Polo Guadarrama MD Unavailable Dilcia Gould MD Unavailable [phone] Antoinette Ching PA-C Unavailable Peewee Maxwell MD Primary Care Provider [phone] Pcp, Unknown Primary Care Provider Unavailabl e Reason for Referral * MRI/CAT Scan - Closed Specialty Diagnoses / Procedures Referred By Contac t Referred To Contact Radiology Diagnoses Sinusitis, unspecified chronicity, unspecified location Procedures CT Face Peewee Maxwell MD [address] [place] [address] Phone: tel: fax: Referral ID Status Reason Start Date Expiration Date Visits Re quested Visits Authorized [id number] Closed 08/11/2020 08/11/2021 1 1 Encounter Details Date Type Department Care Team (Late st Contact Info) Description 08/11/2020 Ancillary Orders [facility] Department [address] [place] [address] Peewee Maxwell MD [address] [place] [address] Sinusitis, unspecified chronicity, unspecified location Social History Tobacco Use Types Packs/Day Years [...] on file documented as of this encounter Results * CT FACE (SINUS) WITHOUT CONTRAST (08/17/2020 3:02 PM EST) Anatomical Region Laterality Modality Face Computed Tomogra phy 08/17/2020 3:03 PM EST Impressions 08/17/2020 3:06 PM EST Minor zones of polypoid thickening/retention cysts in the maxillary and left sphenoid sinus as above. Patent OMUs. No findings of acute sinusitis or bony changes of concern. Narrative 08/17/2020 3:06 PM EST HISTORY: Sinusitis COMPARISON: None TECHNIQUE: CT sinus without IV contrast with axial, coronal, and sagittal reformatted images. Technique tailored for patient body habitus and [id number]. FINDINGS: Some mild thickening seen in the anterior lateral side of the left sphenoid sinus as well as small retention cysts in the lower maxillary sinuses. No prominent mucoperiosteal thickening. Frontal sinuses are small but patent. OMUs patent. There is leann bullosa bullosa more prominent at the left middle turbinate. The a tight patent. No orbital lesions identified. No edema or mass-effect in the visualized portion of the brain. No hydrocephalus. Mastoids and middle ear spaces clear. No bony destructive lesions. There is suggestion of some mild joint space loss particularly at the left TM joint but no marked spurring or sclerosis. No soft tissue masses or prominent inflammatory changes regionally. Procedure Note Mitesh Hallman MD - 08/17/2020 HISTORY: Sinusitis COMPARISON: None TECHNIQUE: CT sinus without IV contrast with axial, coronal, and sagittalreformatted images. Technique tailored for patient body habitus [id number]. FINDINGS: Some mild thickening seen in the anterior lateral side of the leftsphenoid sinus as well as small retention cysts in the lower maxillarysinuses. No prominent mucoperiosteal thickening. Frontal sinuses are smallbut patent. OMUs patent. There is leann bullosa bullosa more prominent atthe left middle turbinate. The a tight patent. No orbital lesions identified. No edema or mass-effect in the visualizedportion of the brain. No hydrocephalus. Mastoids and middle ear spacesclear. No bony destructive lesions. There is suggestion of some mild jointspace loss particularly at the left TM joint but no marked spurring orsclerosis. No soft tissue masses or prominent inflammatory changesregionally. IMPRESSION: Minor zones of polypoid thickening/retention cysts in the maxillary andleft sphenoid sinus as above. Patent OMUs. No findings of acute sinusitisor bony changes of concern. Peewee Maxwell MD IMG CT HEAD/NECK Final Res ult documented in this encounter Visit Diagnoses Diagnosis Sinusitis, unspecified chronicity, unspecified location Sinusitis, unspecified chronicity, unspecified location documented in this encounter Additional Health Concerns Infection Onset Date Last Indicated Resolved Time CoV-Exposed Comment:Positive COVID-19 12/24/2021 12/24/2021 12/25/2021 10: 54 AM EDT COVID-19 12/24/2021 12/24/2021 01/14/2022 1:21 AM EDT documented as of this encounter Care Teams Production Operations Inspector Relationship Specialty Start Date End Date Peewee Maxwell MD [address] [place] [address] PCP - General Internal Medicine 08/11/20 03/13/25 Pcp, Unknown PCP - General 03/14/25 Tico Martell MD [address] [place] [address] [email or web address] Historical LMR Provider 04/05/17 06/26/21 Kee Alexander MD [address] [place] [address] Historical LMR Provider 04/05/17 Kee Ugalde DO [address] [place] [address] [facility], [place] [address] [email or web address] Historical LMR Provider 04/05/17 Polo Guadarrama MD [facility] [place] [address] [email or web address] Historical LMR Provider 04/05/17 2 Dilcia Gould MD [address] [place] [address] [email or web address] Historical LMR Provider 04/05/17 Antoinette Ching PA-C [address] [place] [address] [facility], [place] [address] [email or web address] Historical LMR Provider 04/05/17 06/26/21 documented as of this encounter Additional Source Comments The information contained in this document represents components of the legal health record. It is not the complete legal health record.[facility]
--- OUTSIDE RECORDS SUMMARY | 2025-03-24 12:17 | XMS_ITS | Encounter Summary ---
Author Organization [facility] Address [address] [place] [address] Phone Care Team Providers Care Sign Manufacturer Name Role Phone Kee Ugalde DO Unavailable [phone] Peewee Maxwell MD Primary Care Provider [phone] Pcp, Unknown Primary Care Provider Unavailabl e Encounter Details Date Type Department Care Team (Late st Contact Info) Description 07/01/2024 Procedure Pass [facility], Ct Scan - [facility] [address] [place] [address] Social History Tobacco Use Types Packs/Day Years [...] AM EST documented as of this encounter Functional Status * Calculated C-SSRS Risk Score (Lifetime/Recent) Answer Date of Assessment Author No Risk Indicated 07/01/2024 11:31 PM Isaura Bojorquez RN * Cobb Suicide Severity Rating Scale (Screener/Recent Self-Report) Question Answer Date of Assessment Author 1. Wish to be (Past 1 Month) No 07/01/2024 11:31 PM EST Radha Lee RN 2. Non-Specific Active Suicidal Thoughts (Past 1 Month) No 07/01/2024 11:31 PM Radha Tellez RN 6. Suicidal Behavior (Lifetime) No 07/01/2024 11:31 PM Radha Tellez RN documented as of this encounter Plan of Treatment Not on file documented as of this encounter Visit Diagnoses Not on filedocumented in this encounter Care Teams Sign Manufacturer Relationship Specialty Start Date End Date Peewee Maxwell MD [address] [place] [address] PCP - General Internal Medicine 08/11/20 03/13/25 Pcp, Unknown PCP - General 03/14/25 Kee Ugalde DO [address] [place] [address] Orthopedics [facility] Sports Medicine, [place] [address] [email or web address] Historical LMR Provider 04/05/17 documented as of this encounter Additional Source Comments The information contained in this document represents components of the legal health record. It is not the complete legal health record.[facility]
--- OUTSIDE RECORDS SUMMARY | 2025-03-24 12:17 | XMS_ITS | Encounter Summary ---
Author Organization [facility] Address [address] [place] [address] Phone Care Team Providers Care Card Stripper Name Role Phone Kee Ugalde DO Unavailable [phone] Peewee Maxwell MD Primary Care Provider [phone] Pcp, Unknown Primary Care Provider Unavailabl e Encounter Details Date Type Department Care Team (Latest Contact Info) Description 03/13/2025 Transcribe Orders [facility] [address] [address] [place] [address] Dacia Watkins NP [address] [place] [address] Bloating (Primary Dx); Gastroesophageal reflux disease, unspecified whether esophagitis present Social History Tobacco Use Types Packs/Day Years [...] documented as of this encounter Results * Vitamin B12 (03/13/2025 2:28 PM EDT) VITAMIN B12 375 232 - 1,245 pg/mL [facility] Blood 03/13/2025 2:28 PM EDT 03/13/2025 2:37 PM EDT Dacia Watkins CERTIFIED MEDICAL AIDE LAB BLOOD ORDERABLES Kelsey l Result [address] [address] * TSH (03/13/2025 2:28 PM EDT) TSH 2.24 0.27 - 4.20 uIU/mL [facility] Blood 03/13/2025 2:28 PM EDT 03/13/2025 2:37 PM EDT Dacia Watkins NP LAB BLOOD ORDERABLES Kelsey l Result Performing Organization Address [facility]/ZIP Co de Phone Number [address] [address] * Iron and iron binding capacity (03/13/2025 2:28 PM EDT) IRON 116 45 - 160 ug/dL [facility] IRON BINDING CAPACITY 375 228 - 428 ug/dL [facility] TRANSFERRIN SATURAT. 31 20 - 55 % [facility] Blood 03/13/2025 2:28 PM EDT 03/13/2025 2:37 PM EDT Dacia Watkins NP LAB BLOOD ORDERABLES Kelsey l Result Performing Organization Address [facility]/ZIP Co de Phone Number [address] [address] * (ABNORMAL) C-Reactive Protein (03/13/2025 2:28 PM EDT) C REACTIVE PROTEIN 4.9(H) 0.0 - 4.0 mg/L [facility] Blood 03/13/2025 2:28 PM EDT 03/13/2025 2:37 PM EDT Dacia Watkins NP LAB BLOOD ORDERABLES Kelsey l Result [address] [address] * (ABNORMAL) Comprehensive metabolic panel (03/13/2025 2:28 PM EDT) Pathologist [facility] SODIUM 138 133 - 146 mmol/L [facility] POTASSIUM 4.2 3.3 - 5.1 mmol/L [facility] CHLORIDE 102 96 - 108 mmol/L [facility] CO2 25 21 - 35 mmol/L [facility] BUN 25(H) 6 - 19 mg/dL [facility] CREATININE 1.10 0.5 - 1.5 mg/dL [facility] GLUCOSE 118(H) 70 - 99 mg/dL [facility] ALBUMIN 4.0 3.9 - 4.8 g/dL [facility] TOTAL PROTEIN 7.2 6.5 - 8.0 g/dL [facility] CALCIUM 9.2 8.4 - 10.3 mg/dL [facility] ALKALINE PHOSPHATASE 67 39 - 117 U/L [facility] TOTAL BILIRUBIN 0.4 0.0 - 1.2 mg/dL [facility] AST 41(H) 0 - 37 U/L [facility] ALT 31 0 - 40 U/L [facility] GLOBULIN 3.2 1 - 4.8 g/dL [facility] EGFR 72 >59 mL/min/1.7 3m2 [facility] Comment:Estimated glomerular filtration rate calculated using the CKD-EPI refit equation. ANION GAP 15 10 - 20 mmol/L [facility] Blood 03/13/2025 2:28 PM EDT 03/13/2025 2:37 PM EDT us Dacia Watkins NP LAB BLOOD ORDERABLES Kelsey l Result [address] [address] * (ABNORMAL) CBC (03/13/2025 2:28 PM EDT) WBC 6.47 4.00 - 11.00 K/uL [facility] RBC 4.69 4.50 - 5.90 M/uL [facility] HGB 13.4(L) 13.5 - 17.5 g/dL [facility] HCT 41.8 41.0 - 53.0 % [facility] PLT 279 150 - 450 K/uL [facility] MCV 89.1 80.0 - 100.0 [facility] MCH 28.6 27.0 - 31.0 pg [facility] MCHC 32.1 32.0 - 36.0 g/dL [facility] RDW 13.0 11.5 - 14.5 % [facility] MPV 10.0 8.4 - 12.0 [facility] NRBC 0.00 0.00 /100 WBCs [facility] ABSOLUTE NRBC 0.00 0.00 K/uL [facility] Blood 03/13/2025 2:28 PM EDT 03/13/2025 2:37 PM EDT Dacia Watkins NP LAB BLOOD ORDERABLES Kelsey l Result Performing Organization Address City/[facility]/ZIP Co de Phone Number [address] [address] * Immunoglobulin A (03/13/2025 2:28 PM EDT) IgA 302 70 - 400 mg/dL [facility] Blood 03/13/2025 2:28 PM EDT 03/13/2025 2:37 PM EDT Dacia Watkins CERTIFIED MEDICAL AIDE LAB BLOOD ORDERABLES Kelsey l Result Performing Organization Address City/[facility]/ZIP Co de Phone Number [address] [address] * Tissue transglutaminase IgA (03/13/2025 2:28 PM EDT) TTG IGA ANTIBODY 1.8 <4.0 (Negative) U/mL [facility] Blood 03/13/2025 2:28 PM EDT 03/13/2025 2:37 PM EDT us [facility] Verito Watkins CERTIFIED MEDICAL AIDE LAB BLOOD ORDERABLES Kelsey l Result [facility] [address] [place] [address] documented in this encounter Visit Diagnoses Diagnosis Bloating- Primary Flatulence, eructation, and gas pain Gastroesophageal reflux disease, unspecified whether esophagitis present documented in this encounter Care Teams Card Stripper Relationship Specialty Start Date End Date Peewee Maxwell MD [address] [place] [address] PCP - General Internal Medicine 08/11/20 03/13/25 Pcp, Unknown PCP - General 03/14/25 Kee Ugalde DO [address] [place] [address] [facility], [place] [address] [email or web address] Historical LMR Provider 04/05/17 documented as of this encounter Additional Source Comments The information contained in this document represents components of the legal health record. It is not the complete legal health record.[facility]
--- OUTSIDE RECORDS SUMMARY | 2025-03-24 12:17 | XMS_ITS | Clinical Summary ---
Author Organization [facility] Address [address] [facility] [address] [place] [address] Phone Care Team Providers Care Financial Aid Name Role Phone Peewee Maxwell MD Primary Care Provider [phone] Allergies No known active allergies Medications spironolactone (ALDACTONE) 25 MG tablet Take 25 mg by mouth 1 (one) time each day Active losartan (COZAAR) 100 MG tablet Take 1 tablet by mouth once daily 90 tablet 2 Active Testosterone 1.62 % gel APPLY FOUR PUMPS TOPICALLY DAILY FOR 30 DAYS. THIS IS AN INCREASE IN DOSE 4 Active amLODIPine (NORVASC) 2.5 MG tablet Take 2.5 mg by mouth 1 (one) time each day Active omeprazole (PriLOSEC) [address] capsule Take 20 mg by mouth in the morning. Active Azelastine HCl 137 MCG/SPRAY solution use 2 spray(s) in each nostril twice daily 5 Active fluticasone (FLONASE) 50 MCG/ACT nasal spray SPRAY 2 SPRAYS IN EACH NOSTRIL BY INTRANASAL ROUTE ONCE DAILY Active Active Problems Problem Noted Date Diagnosed Date Seasonal allergic rhinitis 09/16/2021 Major depressive disorder 09/16/2021 Insomnia 09/16/2021 Anxiety 09/16/2021 Hypertension 05/30/2017 Resolved Problems Problem Noted Date Diagnosed Date Resolved Date Renal artery stenosis 01/07/20212020 Partial thickness rotator cuff tear 01/30/2018 01/07/2021 Shoulder pain 01/25/2018 01/07/2021 Immunizations Immunization Administration Dates Next Due Td, Unspecified 12/07/2018 Family History Medical History Relation Comments Hypertension Brother Hypertension Father Hypertension Mother Hypertension Sister Relation Status Comments Brother Father Mother Sister Social History Tobacco Use Types Packs/Day Years Used Date Smoking Tobacco: Never Smokeless Tobacco: Never Alcohol Use Standard Drinks/Week Comments Yes 0 (1 standard drink = 0.6 oz pur e alcohol) socially Sex and Gender Information Value Date Recorded Sex Assigned at Not on file Legal Sex Male 11:27 AM EDT Gender Identity Not on file Sexual Orientation Not on file Last Filed Vital Signs Vital Sign Reading Time Taken Comments Blood Pressure 138/78 10/14/2024 1:40 PM EDT Pulse 75 10/14/2024 1:40 PM EDT Temperature - - Respiratory Rate - - Oxygen Saturation 99% 10/14/2024 1:40 PM EDT Inhaled Oxygen Concentration - - Weight 102 kg (223 lb 12.8 oz) 10/14/2024 1:40 P M EDT Height - - Body Mass Index - - Plan of Treatment Upcoming Encounters Date Type Department Care Team (Late st Contact Info) Description 10/13/2025 1:00 PM EDT Office Visit [facility] [address] [place] [address] Kee Hernández MD [address] [facility] [address] [place] [address] Health Maintenance Due Date Last Done Comments Colorectal Cancer Screening: Annual FOBT 2003 Colorectal Cancer Screening: Colonoscopy 2003 Colorectal Cancer Screening: Sigmoidoscopy 2003 Pneumococcal Vaccine: 50+ Years (2 of 2 - PCV) 05/30/2013 05/30/2012 Diabetes: Hemoglobin A1C 09/04/2024 Diabetes: Ophthalmology Exam 09/04/2024 Diabetes: Pedal Pulse Checked 09/04/2024 Diabetes: Sensory Foot Exam 09/04/2024 Diabetes: Visual Foot Exam 09/04/2024 Influenza Vaccine (#1) 2025 5, 04/10/2014, 03/11/2013, Additional history exists Hepatitis B Vaccine Aged Out 03/08/2010 No longe r eligible based on patient's age to complete this topic Insurance [facility] PPO Blue([id number]) [facility] PPO Blue([id number]) Care Teams Financial Aid Relationship Specialty Start Date End Date Peewee Maxwell MD [address] [place] [address] PCP - General Internal Medicine 10/21/20
--- OUTSIDE RECORDS SUMMARY | 2025-03-24 12:17 | XMS_ITS | Clinical Summary ---
Author Organization [facility] Address [address] [place] [address] Phone Care Team Providers Care Podiatrist Name Role Phone Tram Kee M DO Unavailable [phone] Pcp, Unknown Primary Care Provider Unavailabl e Allergies No known active allergies Medications spironolactone (ALDACTONE) 25 MG tablet Take 25 mg by mouth daily. Active losartan (COZAAR) 100 MG tablet Take 50 mg by mouth 2 (two) times a day. Active omeprazole (PRILOSEC) 20 MG capsule Take 20 mg by mouth daily. Active amLODIPine (NORVASC) 2.5 MG tablet Take 2.5 mg by mouth daily. Active Active Problems Problem Noted Date Diagnosed Date Incomplete tear of left rotator cuff 01/30/2018 Left shoulder pain 01/25/2018 Right shoulder pain 01/25/2018 Hypertension 05/30/2017 Assessment & Plan (07/02/2024 6:37 PM EST): Avoid hypotension, generally recommend permissive hypertension for stroke Continue amlodipine, spironolactone, losartan Resolved Problems Problem Noted Date Diagnosed Date Resolved Date Ataxia 07/02/2024 07/03/2024 Assessment & Plan (07/02/2024 6:37 PM EST): Improving with time however neurology consult concern of posterior circulation stroke given risk factors. -MRI brain ordered, will not be completed till tomorrow -Check lipid panel and A1c -PT consult in a.m. -Echocardiogram pending Encounters Date Type Department Care Team Description 03/13/2025 2:28 PM EDT - 03/13/2025 11:59 PM EDT Hospital Encounter [facility] [address] [address] Dacia Watkins NP Discharge Disposition: Home or Self Care 03/13/2025 Transcribe Orders [facility] [address] [address] Dacia Watkins NP Bloating (Primary Dx); Gastroesophageal reflux disease, unspecified whether esophagitis present from Last 3 Months Family History Medical History Relation Comments No Known Problems Brother Diabetes Father No Known Problems Maternal Aunt No Known Problems Maternal Grandfather No Known Problems Maternal Grandmother No Known Problems Maternal Uncle No Known Problems Mother No Known Problems Paternal Aunt No Known Problems Paternal Grandfather No Known Problems Paternal Grandmother No Known Problems Paternal Uncle No Known Problems Sister Infl. arthritis Unspecified Cancer Neg Hx Clotting disorder Neg Hx Collagen disease Neg Hx Depression Neg Hx Dislocations Neg Hx Gout Neg Hx Osteoporosis Neg Hx Scoliosis Neg Hx Relation Status Comments Brother Father enlarged heart Maternal Aunt Maternal Grandfather Maternal Grandmother Maternal Uncle Mother Paternal Aunt Paternal Grandfather Paternal Grandmother Paternal Uncle Sister Unspecified Social History Tobacco Use Types Packs/Day Years [...] Orientation Straight 06/26/2017 9: 38 AM EST Last Filed Vital Signs Vital Sign Reading Time Taken Comments Blood Pressure 122/56 07/03/2024 12:07 PM EST Pulse 46 07/03/2024 12:07 PM EST Temperature 36.6 C (97.9 F) 07/03/2024 12:07 PM EST Respiratory Rate 18 07/03/2024 12:07 PM EST Oxygen Saturation 97% 07/03/2024 12:07 PM EST Inhaled Oxygen Concentration - - Weight 88.6 kg (195 lb 5.2 oz) 07/03/2024 6:49 A M EST Height 162.6 cm (5' 4 ) 07/01/2024 11:30 PM EST Body Mass Index 33.53 07/01/2024 11:30 PM EST Plan of Treatment Health Maintenance Due Date Last Done Comments BLOOD PRESSURE 1955 DEPRESSION SCREENING 1966 HEPATITIS C SCREENING 1972 COLOGUARD 1999 FIT TEST 1999 FOBT 1999 SIGMOIDOSCOPY 1999 VIRTUAL COLONOSCOPY 1999 PNEUMOCOCCAL VACCINES (50+ years) (1 of 1 - PCV) 2004 ZOSTER VACCINES (1 of 2) 2004 INFLUENZA VACCINE (#1) 2025 , 03/19/2015, 04/10/2014, Additional history exists COVID-19 VACCINE ( season) 2025 10/19/2021, 06/04/2021, 11/01/2020, Additional history exists CREATININE LEVEL 03/13/2026 03/13/2025, , 07/01/2024, Additional history exists POTASSIUM LEVEL 03/13/2026 03/13/2025, 11/17, 07/01/2024, Additional history exists COLONOSCOPY 04/18/2027 04/18/2017 COLORECTAL CANCER SCREENING 04/18/2027 Adult Td,Tdap Booster 12/07/2028 12/07/2018 , 08/14/2012, 06/15/2005 RSV VACCINE (1 - 1-dose 75+ series) 2029 LIPID PANEL 12/04/2029 12/04/2024, 06/19, 06/27/2005 SMOKING STATUS SCREENING (Once After 26 Yrs) Completed 07/01/2022 HEPATITIS A VACCINES Aged Out No long er eligible based on patient's age to complete this topic HIB VACCINES Aged Out No longer eligi ble based on patient's age to complete this topic MENINGOCOCCAL VACCINES (ACWY) Aged Out No longer eligible based on patient's age to complete this topic MENINGOCOCCAL VACCINES (B) Aged Out N o longer eligible based on patient's age to complete this topic Medical Devices Implanted Type Area Instructional Services Specialist Device Identifier Shelf Expiration Date Model / Serial / Lot Metal Left Hip Metal Right Shoulder Procedures Procedure Name Priority Date/Time Associated Diagnosis Comments TISSUE TRANSGLUTAMINASE IGA Routine 03/13/2025 2:28 PM EDT Bloating Gastroesophageal reflux disease, unspecified whether esophagitis present IMMUNOGLOBULIN A Routine 03/13/2025 2:28 PM EDT Bloating Gastroesophageal reflux disease, unspecified whether esophagitis present CBC Routine 03/13/2025 2:28 PM EDT Bloating Gastroesophageal reflux disease, unspecified whether esophagitis present COMPREHENSIVE METABOLIC PANEL Routine 03/13/2025 2:28 PM EDT Bloating Gastroesophageal reflux disease, unspecified whether esophagitis present C-REACTIVE PROTEIN Routine 03/13/2025 2: 28 PM EDT Bloating Gastroesophageal reflux disease, unspecified whether esophagitis present IRON AND IRON BINDING CAPACITY Routine 03/13/2025 2:28 PM EDT Bloating Gastroesophageal reflux disease, unspecified whether esophagitis present TSH Routine 03/13/2025 2:28 PM EDT Bloating Gastroesophageal reflux disease, unspecified whether esophagitis present VITAMIN B12 Routine 03/13/2025 2:28 PM EDT Bloating Gastroesophageal reflux disease, unspecified whether esophagitis present LIPID PANEL Routine 12/04/2024 8:48 AM EDT Screening for prostate cancer Fatigue, unspecified type ENDOSCOPY, COLON 04/18/2017 8:07 AM EDT from Last 3 Months or Most Recently Relevant to Health Maintenance Results * (ABNORMAL) Comprehensive metabolic panel (03/13/2025 2:28 PM EDT) SODIUM 138 133 - 146 mmol/L [facility] POTASSIUM 4.2 3.3 - 5.1 mmol/L [facility] CHLORIDE 102 96 - 108 mmol/L [facility] CO2 25 21 - 35 mmol/L [facility] BUN 25(H) 6 - 19 mg/dL [facility] CREATININE 1.10 0.5 - 1.5 mg/dL [facility] GLUCOSE 118(H) 70 - 99 mg/dL [facility] ALBUMIN 4.0 3.9 - 4.8 g/dL [facility] TOTAL PROTEIN 7.2 6.5 - 8.0 g/dL [facility] CALCIUM 9.2 8.4 - 10.3 mg/dL [facility] ALKALINE PHOSPHATASE 67 39 - 117 U/L [facility] TOTAL BILIRUBIN 0.4 0.0 - 1.2 mg/dL [facility] AST 41(H) 0 - 37 U/L [facility] ALT 31 0 - 40 U/L [facility] GLOBULIN 3.2 1 - 4.8 g/dL [facility] EGFR 72 >59 mL/min/1.7 3m2 [facility] Comment:Estimated glomerular filtration rate calculated using the CKD-EPI refit equation. ANION GAP 15 10 - 20 mmol/L [facility] Blood 03/13/2025 2:28 PM EDT 03/13/2025 2:37 PM EDT Dacia Watkins NP LAB BLOOD ORDERABLES Kelsey l Result [address] [address] * Iron and iron binding capacity (03/13/2025 2:28 PM EDT) Pathologist [facility] IRON 116 45 - 160 ug/dL [facility] IRON BINDING CAPACITY 375 228 - 428 ug/dL [facility] TRANSFERRIN SATURAT. 31 20 - 55 % [facility] Blood 03/13/2025 2:28 PM EDT 03/13/2025 2:37 PM EDT Dacia Watkins REPAIR TABLE OPERATOR LAB BLOOD ORDERABLES Kelsey l Result [address] [address] * Tissue transglutaminase IgA (03/13/2025 2:28 PM EDT) TTG IGA ANTIBODY 1.8 <4.0 (Negative) U/mL [facility]PATH [address] Blood 03/13/2025 2:28 PM EDT 03/13/2025 2:37 PM EDT Dacia Watkins NP LAB BLOOD ORDERABLES Kelsey l Result [facility] [email or web address] [place] [address] * (ABNORMAL) CBC (03/13/2025 2:28 PM EDT) WBC 6.47 4.00 - 11.00 K/uL [facility] RBC 4.69 4.50 - 5.90 M/uL [facility] HGB 13.4(L) 13.5 - 17.5 g/dL [facility] HCT 41.8 41.0 - 53.0 % [facility] PLT 279 150 - 450 K/uL [facility] MCV 89.1 80.0 - 100.0 fL [facility] MCH 28.6 27.0 - 31.0 pg [facility] MCHC 32.1 32.0 - 36.0 g/dL [facility] RDW 13.0 11.5 - 14.5 % [facility] MPV 10.0 8.4 - 12.0 fL [facility] NRBC 0.00 0.00 /100 WBCs [facility] ABSOLUTE NRBC 0.00 0.00 K/uL [facility] Blood 03/13/2025 2:28 PM EDT 03/13/2025 2:37 PM EDT Dacia Watkins NP LAB BLOOD ORDERABLES Kelsey l Result [facility] [address] [place], [place] [id number] * (ABNORMAL) C-Reactive Protein (03/13/2025 2:28 PM EDT) C REACTIVE PROTEIN 4.9(H) 0.0 - 4.0 mg/L [facility] Blood 03/13/2025 2:28 PM EDT 03/13/2025 2:37 PM EDT Dacia Watkins REPAIR TABLE OPERATOR LAB BLOOD ORDERABLES Kelsey l Result [address] [address] * TSH (03/13/2025 2:28 PM EDT) TSH 2.24 0.27 - 4.20 uIU/mL [facility] Blood 03/13/2025 2:28 PM EDT 03/13/2025 2:37 PM EDT Dacia Watkins REPAIR TABLE OPERATOR LAB BLOOD ORDERABLES Kelsey l Result Performing Organization Address City/[facility]/ZIP Co de Phone Number [address] [address] * Immunoglobulin A (03/13/2025 2:28 PM EDT) IgA 302 70 - 400 mg/dL [facility] Blood 03/13/2025 2:28 PM EDT 03/13/2025 2:37 PM EDT Dacia Watkins REPAIR TABLE OPERATOR LAB BLOOD ORDERABLES Kelsey l Result Performing Organization Address City/[facility]/ZIP Co de Phone Number [address] [address] * Vitamin B12 (03/13/2025 2:28 PM EDT) VITAMIN B12 375 232 - 1,245 pg/mL [facility] Blood 03/13/2025 2:28 PM EDT 03/13/2025 2:37 PM EDT Dacia Watkins REPAIR TABLE OPERATOR LAB BLOOD ORDERABLES Kelsey l Result [address] [address] * (ABNORMAL) Lipid panel (12/04/2024 8:48 AM EDT) HDL 35 mg/dL [facility] Comment: Interpretation <40 mg/dL: Low HDL cholesterol (major risk factor for CHD) Greater than or equal to 60 mg/dL: High HDL cholesterol ( negative risk factor for CHD) HDL - cholesterol is affected by a number of factors, e.g. smoking, excerise, hormones, sex and age. CHOLESTEROL 144 0 - 240 mg/dL [facility] TRIGLYCERIDES 191(H) 30 - 160 mg/dL [facility] LDL 71 50 - 129 mg/dL [facility] Comment: LDL levels in terms of risk for coronary heart disease: <100 mg/dL: Optimal 100-129 mg/dL: Near or above optimal 130-159 mg/dL: Borderline high 160-189 mg/dL: High >190 mg/dL: Very High CARDIAC RISK RATIO 4.1 3.4 - 5.0 C [facility] Blood 12/04/2024 8:48 AM EDT 12/04/2024 8:57 AM EDT us Peewee Maxwell MD LAB BLOOD ORDERABLES Final Result [address] [address] * ENDOSCOPY, COLON (04/18/2017 8:07 AM EDT) Narrative Transcriptions Yossi Vasquez MD - 04/18/2017 8:07 AM EDT Patient Name: Joshua Fairchild MD:: YOSSI VASQUEZ MD Procedure Date: 04/18/2017 8:07 AM Date of : 1955 Age: 62 Admit Type: Outpatient Gender: Male Room: [place] [address] Exam Type: Colonoscopy Indications: Screening for colorectal malignant neoplasm, Last colonoscopy: August 2006 Medications: Propofol per Anesthesia Procedure: Informed consent was obtained from the patient after discussion of the indications, limitations,alternatives, benefits, and risks of the procedure. Risksspecifically discussed include but are not limited to medication reactions, missed lesions, bleeding, perforation, orthe need for emergent surgery. Throughout the procedure, the patient's blood pressure, pulse, end-tidal CO2, and oxygen saturations were monitored continuously. The Olympus adult colonoscope CFQ 180AL #3 wasintroduced through the anus and advanced to the terminal ileum,with identification of the appendiceal orifice and IC valve. The colonoscopy was performed without difficulty. The patient tolerated the procedure well. The quality ofthe bowel preparation was good. The terminal ileum,ileocecal valve, appendiceal orifice, and rectum werephotographed. The patient tolerated the procedure well. The bowel preparation used was GoLYTELY. Complications: No immediate complications. Estimated blood loss:None. Findings: The perianal and digital rectal examinations werenormal. Pertinent negatives include normal prostate (size,shape, and consistency). Internal hemorrhoids were found during retroflexion.The hemorrhoids were small. A few small-mouthed diverticula were found in the ascending colon. The exam was otherwise without abnormality. The terminal ileum appeared normal. Retroflexion in the right colon was performed. Impression: - Internal hemorrhoids. - Diverticulosis in the ascending colon. - The examination was otherwise normal. - The examined portion of the ileum was normal. - No specimens collected. Recommendation: - Repeat colonoscopy in 10 years for screeningpurposes. YOSSI VASQUEZ MD 04/18/2017 8:32:41 AM This report has been signed electronically. Number of Addenda: 0 Note Initiated On: 04/18/2017 8:07 AM Procedure Code(s): --- Professional --- 40463, Colonoscopy, flexible; diagnostic, including collection of specimen(s) by brushing or washing, when performed (separateprocedure) --- Technical --- 76769, Colonoscopy, flexible; diagnostic, including collection of specimen(s) by brushing or washing, when performed (separateprocedure) Diagnosis Code(s): --- Professional --- Z12.11, Encounter for screening for malignant neoplasm of colon K64.8, Other hemorrhoids K57.30, Diverticulosis of large intestine without perforation orabscess without bleeding --- Technical --- Z12.11, Encounter for screening for malignant neoplasm of colon K64.8, Other hemorrhoids K57.30, Diverticulosis of large intestine without perforation orabscess without bleeding CPT copyright 2016 [employer]. All rights reserved. The codes documented in this report are preliminary and upon technology consultant reviewmay be revised to meet current compliance requirements. [address] [place] [address] Yossi Guadarrama MD GI PROCEDURE ORDERABLES Edited R esult - Final from Last 3 Months or Most Recently Relevant to Health Maintenance Insurance [place] H[place] BLUE REPLACEMENT MEDICARE HMO BLUE REPLAC[place] [address] [place] [address] MEDICARE HMO BLUE REPLACEMENT [facility] MEDICARE HMO BLUE REPLACEMENT [facility] MEDICARE HMO BLUE REPLACEMENT [place] [address] MEDICARE HMO BLUE REPLACEMENT [facility] MEDICARE HMO BLUE REPLACEMENT [facility] MEDICARE HMO BLUE REPLAC[place] BLUE REPLACEMENT WORKERS COMPENSATION Advance Directives For more information, please contact: [phone] (9AM - 5PM [facility], Monday-Monday) Documents on File Type Date Recorded Patient Nursing Service Director Expl anation Healthcare Proxy 07/05/2024 1:49 PM * Full Code (Latest Code Status on File) Date Activated Date Inactivated Comments 07/02/2024 7:36 AM Question Answer Comments Code Status Confirmed With: Patient Care Teams Podiatrist Relationship Specialty Start Date End Date Pcp, Unknown PCP - General 03/14/25 Kee Ugalde DO [address] [place] [address] Orthopedics & Sports Medicine, [facility] [place] [address] Historical LMR Provider 04/05/17 Additional Source Comments The information contained in this document represents components of the legal health record. It is not the complete legal health record.[facility]
--- OUTSIDE RECORDS SUMMARY | 2025-03-24 12:17 | XMS_ITS | Encounter Summary ---
Author Organization [facility] Address [address] [place] [address] Phone Care Team Providers Care Women Designer Name Role Phone Kee Ugalde DO Unavailable Peewee Maxwell MD Primary Care Provider [phone] Pcp, Unknown Primary Care Provider Unavailabl e Encounter Details Date Type Department Care Team (Late st Contact Info) Description 07/02/2024 Procedure [facility] [address] [place] [address] Social History Tobacco Use Types Packs/Day Years [...] on filedocumented in this encounter Care Teams Women Designer Relationship Specialty Start Date End Date Peewee Maxwell MD [address] [place] [address] PCP - General Internal Medicine 08/11/20 03/13/25 Pcp, Unknown PCP - General 03/14/25 Kee Ugalde DO [address] [place] [address] Orthopedics & Sports Medicine, [place] [address] Historical LMR Provider 10/18/17 documented as of this encounter Additional Source Comments The information contained in this document represents components of the legal health record. It is not the complete legal health record.[facility]
--- OUTSIDE RECORDS SUMMARY | 2025-03-24 12:17 | XMS_ITS | Encounter Summary ---
Author Organization [facility] Address [address] [facility] [address] [place] [address] Phone Care Team Providers Care Beaver Trapper Name Role Phone Peewee Maxwell MD Primary Care Provider [phone] Encounter Details Date Type Department Care Team (Late Contact Info) Description 10/30/2020 Orders Only [facility] [address] [place] [address] Kee Hernández MD [address] [facility] [address] [place] [address] Essential (primary) hypertension Social History Tobacco Use Types Packs/Day Years Used Date Smoking Tobacco: Never Smokeless Tobacco: Never Alcohol Use Standard Drinks/Week Comments Not Currently 0 (1 standard drink = 0.6 oz pur e alcohol) Sex and Gender Information Value Date Recorded Sex Assigned at Not on file Legal Sex Male 11:27 AM EDT Gender Identity Not on file Sexual Orientation Not on file COVID-19 Exposure Response Date Recorded In the last month, have you been in contact with someone who was confirmed or suspected to have Coronavirus / COVID-19? No / Unsure 10/23/2020 1:08 PM EDT documented as of this encounter Plan of Treatment Upcoming Encounters Date Type Department Care Team (Late st Contact Info) Description 10/13/2025 1:00 PM EDT Office Visit [facility] [address] [place] [id number] Kee Hernández MD [address] [facility] [address] [place] [address] documented as of this encounter Visit Diagnoses Diagnosis Essential (primary) hypertension documented in this encounter Care Teams Beaver Trapper Relationship Specialty Start Date End Date Peewee Maxwell MD [address] [place] [address] PCP - General Internal Medicine 10/21/20 documented as of this encounter
== END 2025-03-24 11:19 | disposition home or self-care (01) ==
LOC: HO.HMCSH 10:28
PROVIDERS: PCP Physician Assistant Medical; Visit Provider Physician Assistant Medical
DX: G47.33 Obstructive sleep apnea (adult) (pediatric) (principal); Z99.89 Dependence on other enabling machines and devices; M25.561 Pain in right knee; M25.562 Pain in left knee; H93.8X9 Other specified disorders of ear, unspecified ear; J32.9 Chronic sinusitis, unspecified; Z00.00 Encounter for general adult medical examination without abnormal findings

== ENCOUNTER → 2025-03-24 10:28 | Outpatient (BNVA) | payer MEDICARE, SELFPAY | PROVIDERS: PCP Physician Assistant Medical; Visit Provider Physician Assistant Medical | DX: Z00.00 Encounter for general adult medical examination without abnormal findings (principal); G47.33 Obstructive sleep apnea (adult) (pediatric); M25.561 Pain in right knee; M25.562 Pain in left knee; J32.9 Chronic sinusitis, unspecified; Z99.89 Dependence on other enabling machines and devices | CPT/HCPCS: 96127; 99212 ==

== ENCOUNTER 2025-05-09 09:03 | Outpatient (REF) | payer MEDICARE, SELFPAY ==
--- NOTE | ~2025-05-09 | XR_ITS ---
EXAMINATION: XR CERVICAL SPINE CLINICAL INFORMATION: M54.2 - Cervicalgia COMPARISON: None available. TECHNIQUE: Lateral views in neutral, flexion and extension position. AP oblique and atlantoodontoid views. FINDINGS: Craniocervical junction is intact. Multilevel marginal osteophyte formation and endplate sclerosis decreased intervertebral disc height throughout the cervical spine from C3 to C7. There is a grade 1 retrolisthesis at C5-6 in neutral position which persists during flexion and extension position. No lytic or blastic lesions. Multilevel neuroforamina stenosis secondary to posterior osteophyte formation at C3-4 C5-6 levels mostly on the left side. XR/XR cervical spine min 6V IMPRESSION: Multilevel moderate to severe cervical spondylosis resulting in grade 1 retrolisthesis C5-6 without gross instability. Electronically signed by: Tristin Avila MD 05/09/2025 11:04 AM MITCHEL PALOMINO
[2025-05-09 10:30] LABS: MANUAL DIFF FLAG NO
[2025-05-09 11:18] LABS: Appearance Urine Clear; Glucose Urine UA Negative (Negative); PH 6.5 (5.0-9.0); Specific Gravity - Urine 1.025 (1.005-1.025)
[2025-05-09 11:24] LABS: Hemoglobin A1C 148.5228 umol/L
[2025-05-09 11:26] LABS: Hematocrit 44.2 % (42.0-52.0); Hemoglobin 14.2 g/dl (14.0-18.0); Imm Gran Pct Auto 0.3 % (0.0-0.4); Mean Corpuscular HGB Conc 32.1 g/dl (31.0-36.0); Mean Corpuscular Hemoglobin 28.8 pg (27.0-33.0); Mean Corpuscular Volume 89.7 fL (80.0-98.0); Platelet Count 305 X10*3/uL (160-400); Red Blood Count 4.93 X10*6/uL (4.60-5.80); White Blood Count 6.4 X10*3/uL (4.8-10.8)
[2025-05-09 11:27] LABS: Imm Gran Abs Auto 0.02 X10*3/uL (0.00-0.03); Lymphocytes Absolute Auto 1.9 X10*3/uL (1.2-4.9); NRBC Abs Auto 0.000 X10*3/uL (0.0-0.012); NRBC Pct Auto 0.0 /100WBC (0.0-0.2)
[2025-05-09 12:08] LABS: Erythrocyte Sedimentation Rate 20 MM/HR (0-15)
[2025-05-09 12:17] LABS: Alanine Aminotransferase 47 U/L (0-40); Albumin Level 4.7 g/dL (3.5-5.0); Alkaline Phosphatase 79 U/L (39-117); Anion Gap 10 (12-20); Aspartate Amino Transferase 38 U/L (5-37); Blood Urea Nitrogen 20 mg/dL (9-16); Calcium 9.5 mg/dL (8.4-10.2); Carbon Dioxide 32 mmol/L (22-29); Chloride 103 mmol/L (96-108); Cholesterol 133 mg/dL (<200); Estimated Glomerular Filt Rate > 60; HDL Cholesterol 32 mg/dL (>40); Magnesium 2.0 mg/dL (1.6-2.6); Potassium 4.4 mmol/L (3.3-5.1); Sodium 141 mmol/L (135-145); Total Protein 7.9 g/dL (6.5-8.0); Triglycerides 209 mg/dL (<150)
[2025-05-09 12:26] LABS: PSA,Total (Free>4and<10) 0.40 ng/mL (0.00-4.00)
[2025-05-09 12:51] LABS: Folate 13.3 ng/mL (> or = 4.0); Vitamin B12 387 pg/mL (200-900)
[2025-05-10 14:18] LABS: Lyme Abs Screen <0.90 index
== END 2025-05-09 09:04 | disposition home or self-care (01) ==
LOC: HO.XRAY 09:03
PROVIDERS: PCP Physician Assistant Medical; Visit Provider Physician Assistant Medical
DX: Z00.00 Encounter for general adult medical examination without abnormal findings (principal); M54.2 Cervicalgia; K21.9 Gastro-esophageal reflux disease without esophagitis; G25.0 Essential tremor; Z12.5 Encounter for screening for malignant neoplasm of prostate; Z13.1 Encounter for screening for diabetes mellitus; R74.8 Abnormal levels of other serum enzymes
CPT/HCPCS: 36415; 72052; 80053; 80061; 80076; 81003; 82248; 82306; 82607; 82746; 83036; 83735; 84153; 84443; 85025; 85652; 86140; 86617; 86618; 96127; 99212

== ENCOUNTER 2025-05-09 09:03 | Outpatient (AMB) | payer MEDICARE, SELFPAY ==
--- NOTE | 2025-05-09 09:06 | A.OFFPC_ITS ---
Vital Signs 05/09/25 09:07 Height 5 ft 5.51 in Weight 220 lb BMI 36.0 BP 135/63 Blood Pressure Location Rt brachial Position Sitting Respiration 12 Pulse 40 L Pulse Source Pulse Oximeter Temp 97.7 F Temp Source Temporal Artery Scan Pulse Oximetry (%) 99 Oxygen Delivery Method Room Air Intake Visit Reasons: Back pain A P Manager Required: No Accompanied by: Self / Same As Patient Allergies No Known Allergies Allergy (Verified 05/09/25 10:15) Medication List - Last Reconciled 05/09/25 by Sylvia Ibarra PA-C amlodipine 2.5 mg PO .DAILY@0200 azelastine 1 spray intranasal DAILY PRN clotrimazole-betamethasone 1-0.05 % 1 appl topical Q12H 4 weeks fluticasone propionate 50 mcg/actuation 1 spray intranasal DAILY PRN losartan 50 mg PO BID omeprazole 20 mg PO BID primidone 25 mg (1/2 x 50 mg) PO BEDTIME 90 days spironolactone 25 mg PO DAILY Tobacco use date assessed: 03/24/25 Dental Screening Dental Screen Date: 03/24/25 HPI HPI Comments History of Present Illness Details History of Present Illness The patient is a 70 year old individual presenting with tremors. The patient reports a head tremor that has been present for approximately 10 years, which is characterized as a [id number] or no motion. The patient also reports hand tremors, which have been noted by the patient's . The head tremor recently interfered with monitoring during a colonoscopy. The patient also complains of cracking sounds in the neck upon movement and pain with certain head movements. There is a family history on the patient's mother's side of head shaking and Alzheimer's disease. The patient denies any family history of Parkinson's disease. The patient has a history of gastroesophageal reflux disease (GERD) and underwent an endoscopy and colonoscopy about three weeks ago. The procedures revealed a small hiatal hernia, and biopsies were negative for colon cancer, with a recommendation for a repeat colonoscopy in 10 years. The patient denies caffeine use and reports a prior adverse reaction to a medication that caused a low heart rate. Social History - Substance Use: The patient denies any use of caffeine. [facility] Medical History (Updated 05/09/25 @ 10:41 by Sylvia Ibarra PA-C) Essential tremor Nontraumatic neck pain Neck pain Preventative health care Sinusitis Hearing difficulty Ear pressure Bilateral knee pain Abdominal cramps Osteoarthritis of right hip Sinus bradycardia COPD (chronic obstructive pulmonary disease) Asthma DJD (degenerative joint disease) Allergic rhinitis Hx of renal artery stenosis Arthritis Has a tremor GERD (gastroesophageal reflux disease) History of itching Itching of male genitalia Seasonal allergies Nasal dryness Morbid obesity Hypertension Surgical History History of endoscopy (~04/28/25) Hx of colonoscopy (~04/28/25) History of total left hip replacement (~2015) Hx of repair of right rotator cuff Hx of eye surgery Hx of vasectomy Hx of Achilles tendon repair (~2005) History of hip surgery Hx of cholecystectomy H/O right knee surgery (~2016) Family History Father Enlarged heart Mother No problems noted. Social History Household Members: Spouse Housing: House Are you a primary healthcare network pricing consultant to a significant other at home: No Do you presently have visiting nurse or other home services: No Alcohol intake: current Alcohol intake frequency: does not drink Comment: Uses store carriage for stability when shopping Patient Tobacco Use Status: Never used Tobacco Second Hand Smoke Exposure: No service: No Current occupational status: retired Cognitive needs: No Hearing needs: No Vision needs: Yes (reading glasses ) Questionnaire PHQ-9 Over the last 2 weeks, how often have you been bothered by any of the following problems? 1. Little interest or pleasure in doing things: not at all 2. Feeling down, depressed, or hopeless: not at all 3. Trouble falling or staying asleep, or sleeping too much: not at all 4. Feeling tired or having little energy: not at all 5. Poor appetite or overeating: not at all 6. Feeling bad about yourself - or that you are a failure or have let yourself or your family down: not at all 7. Trouble concentrating on things, such as reading the newspaper or watching television: not at all 8. Moving or speaking so slowly that other people could have noticed. Or the opposite - being so fidgety or restless that you have been moving around a lot more than usual: not at all 9. Thoughts that you would be better off or of hurting yourself in some way: not at all Total score: 0 Depression Screening Interpretation: Negative Depression Screening Done: Yes 29636 - PHQ-9 Billing: Yes Source: Developed by Drs. Emmanuel Juarez, Dacia Rojo, Santos Patel and colleagues, with an educational osmar from [employer]. Thrive Questionnaire Date Thrive assessed: 03/24/25 I am a: Patient What is your living situation today?: I have a steady place to live Within the past 12 months, did the food you bought not last and you didn't have the money to get more?: Never true Within the past 12 months, did you worry whether your food would run out before you got money to buy more?: Never true Do you have trouble paying for medicines?: No Do you have trouble getting transportation to medical appointments?: No Do you have trouble paying your heating and electricity bill?: No Do you have trouble taking care of your child, family member or friend?: No Do you have trouble with day-to-day activities such as bathing, preparing meals, shopping, managing finances, etc.?: No Are you currently unemployed and looking for a job?: No Are you interested in more education?: No Please select the resources that you would like help with: None Currently or been in a relationship where the following occur: No concerns reported THRIVE Score: 0 AUDIT C Alcohol Use Questionnaire (AUDIT-C) 1. How often do you have a drink containing alcohol?: Never 3. How often do you have six or more drinks on one occasion?: Never Total Score: 0 Score Reviewed/Action Taken: No LANA-7 AMB Questionnaire LANA-7 Date LANA - 7 assessed: 03/24/25 Feeling nervous, anxious, or on edge: 0 = Not at all Not being able to stop or control worryin = Not at all Worrying too much about different things: 0 = Not at all Trouble relaxin = Not at all Being so restless that it is hard to sit still: 0 = Not at all Becoming easily annoyed or irritable: 0 = Not at all Feeling afraid as if something awful might happen: 0 = Not at all Total LANA-7 score (0-4 normal; 5-9 mild; 10-14 moderate; 15-21 severe): 0 Source: Developed by Drs. Emmanuel Juarez, Dacia Rojo, Santos Patel and colleagues, with an educational osmar from [employer]. LANA-7 Assessment Billing LANA-7 Assessment Tool: LANA-7 Assessment 63682 Review of Systems Narrative Review of Systems - Neurological: Reports head tremors for approximately 10 years and intermittent hand tremors. - Musculoskeletal: Reports cracking sounds and pain in the neck with movement. - Gastrointestinal: Reports history of acid reflux. Const All systems reviewed & are unremarkable except as noted in HPI and below Physical exam (Primary Care) Vital Signs: Last Vital Signs Temp 97.7 F 05/09/25 09:07 Pulse 40 L 05/09/25 09:07 Resp 12 05/09/25 09:07 BP 135/63 05/09/25 09:07 Pulse Ox 99 05/09/25 09:07 Oxygen Delivery Method Room Air 05/09/25 09:07 Care Plan Goal for BP management: <140/90 at Goal BMI result Body Mass Index 36.0 BMI Assessment/Plan discussion: High BMI High, discussed plan: lifestyle, weight reduction, dietary, physical activity, alcohol moderation and other Tobacco/Smoking Status: Tobacco use Status Tobacco use date assessed 03/24/25 05/09/25 09:12 Patient Tobacco Use Status Never used Tobacco 05/09/25 09:12 PHQ-9: PHQ-9 Score PHQ-9: Total score 0 05/09/25 09:38 Depression Screening Interpretation: Negative Thrive Assessment: Date of Thrive Assessment Date Thrive assessed 03/24/25 05/09/25 09:12 Currently or been in a relationship where the following occur: No concerns reported Narrative Physical Exam Appearance: Alert. Oriented X3. No acute distress. Head: Normal external exam. Normocephalic. Atraumatic. Tremors noted. Eyes: Pupils are equal, round, and reactive to light. Extraocular movements intact. Conjunctiva and sclera normal. Eyelids normal. Throat: Pharynx normal. Uvula midline. Moist mucous membranes. Neck: Normal inspection. Neck supple. Full range of motion. No adenopathy. Thyroid Normal. No meningeal signs. No neck mass noted. Cracking sounds noted upon movement. Cardiovascular: Normal heart rate and rhythm. Respiratory: No respiratory distress. Painless inspiration. Back: Full range of motion noted. Skin: Skin warm and dry. Normal skin color. Normal skin turgor. No rashes/lesions/lacerations noted. Extremities: Extremities exhibit normal range of motion. Tremors noted in hands. Neuro: Oriented X 3. No motor deficit. No sensory deficit. Reflexes normal. Tremors noted in head and hands. Results Reviewed Results Reviewed: Results - Procedures: Recent endoscopy and colonoscopy performed approximately 3 weeks ago were noted. - Imaging: A small hiatal hernia was identified on a prior study. - Pathology: Biopsies taken during the colonoscopy were negative for colon cance r. - Labs: The patient reports prior blood work showed high creatinine and BUN. Coding Level of Care Code Est Pt Level 4 (31704) Complex visit Add On G2211 Diagnoses Essential tremor G25.0 Neck pain M54.2 Additional Codes LANA-7 Assessment Billing - LANA-7 Assessment Tool: LANA-7 Assessment 63658 ([id number]) PHQ-9 - 97094 - PHQ-9 Billing: Yes ([id number]) Assessment & Plan Assessment & Plan (1) Essential tremor: Code(s): G25.0 - Essential tremor Category: Medical Plan: The patient's tremor is likely an essential tremor versus a dystonic tremor. To rule out contributing factors, fasting blood work was ordered, including a thyroid panel, vitamin B12, comprehensive metabolic panel, and CBC. Propranolol was discussed but declined by the patient due to concerns about lowering heart rate. A prescription for primidone 25 mg to be taken at bedtime was initiated. Potential side effects, including dizziness, fatigue, and nausea, were discussed. If the tremors persist or significantly impact daily living, a referral to neurology will be considered. A follow-up is scheduled in two weeks to assess medication tolerance and response. (2) Neck pain: Code(s): M54.2 - Cervicalgia Category: Medical Plan: For the patient's neck pain and cracking, an X-ray of the neck was ordered. Referrals to Orthopedics and Physical Therapy were placed. Plan Plan Patient was informed and verbally consented to the use of an ambient scribe for clinic note documentation during this visit. 1. Essential Tremor The patient's tremor is likely an essential tremor versus a dystonic tremor. To rule out contributing factors, fasting blood work was ordered, including a t hyroid panel, vitamin B12, comprehensive metabolic panel, and CBC. Propranolol was discussed but declined by the patient due to concerns about lowering heart rate. A prescription for primidone 25 mg to be taken at bedtime was initiated. Potential side effects, including dizziness, fatigue, and nausea, were discussed. If the tremors persist or significantly impact daily living, a referral to neurology will be considered. A follow-up is scheduled in two weeks to assess medication tolerance and response. 2. Neck Pain For the patient's neck pain and cracking, an X-ray of the neck was ordered. Ref errals to Orthopedics and Physical Therapy were placed. 3. Colon Cancer Screening The patient's recent colonoscopy was negative for cancer. The patient is advised to follow up for a repeat colonoscopy in 10 years. Discussion Notes I discussed with the patient that the likely diagnosis for the tremors is an essential tremor, and we would conduct blood work to rule out other causes. I offered propranolol, which the patient declined due to a history of low heart rate with other medications. We agreed to start primidone 25 mg at bedtime and I counseled the patient on potential temporary side effects, including dizziness, sleepiness, and nausea, and to report any significant imbalance. For the neck pain, I ordered an X-ray and placed referrals to Orthopedics and Physical Therapy. I advised the patient that since they were already fasting, they could proceed with the blood work and X-ray today. I scheduled a follow-up appointment in two weeks to review the results and assess the response to treatment. Orders: Orders PT Evaluation and Treatment Today M54.2 - Cervicalgia XR cervical spine min 6V Today M54.2 - Cervicalgia Referrals Orthopedics Referral M54.2 - Cervicalgia Medications: New primidone 25 mg (1/2 x 50 mg) PO BEDTIME 45 tabs 3RF 90 days Patient Instructions: Patient Instructions - Start taking Primidone 25 mg once at bedtime for your tremors. - Be aware that this medication may cause you to feel dizzy, sleepy, or have nausea. These side effects are usually temporary. Please let me know if you feel very dizzy or off-balance. - Please get your fasting blood work done. Do not eat or drink anything other than water before the test. - Please get an X-ray of your neck. - You will receive calls to schedule appointments with Orthopedics and Physical Therapy for your neck pain. - Please follow up in the clinic in two weeks to review your progress and test results. - If the tremors do not improve, we will discuss a referral to a neurologist.
[2025-05-09 09:07] VITALS: BP 135/63; PULSE 40; RESP 12; TEMP 36.5; O2SAT 99; BMI 36.0
--- OUTSIDE RECORDS SUMMARY | 2025-05-09 09:19 | XMS_ITS | Encounter Summary ---
Author Organization [facility] Address [address] [place] [address] Phone Care Team Providers Care Senior Attorney Name Role Phone Kee Ugalde DO Unavailable [phone] Peewee Maxwell MD Primary Care Provider [phone] Pcp, Unknown Primary Care Provider Sylvia Oseguera Primary Care Provider [phone] Encounter Details Date Type Department Care Team (Late st Contact Info) Description 07/02/2024 Procedure Pass [facility] [address] [place] [address] Social History Tobacco Use Types Packs/Day Years [...] Care Team (Late st Contact Info) Description 06/13/2025 1:45 PM EST Office Visit [facility] G[facility] [address] [place] [id number] Polo Vasquez MD [address] [place] [address] documented as of this encounter Visit Diagnoses Not on filedocumented in this encounter Care Teams Senior Attorney Relationship Specialty Start Date End Date Peewee Maxwell MD [address] [place] [address] PCP - General Internal Medicine 08/11/20 03/13/25 Pcp, Unknown PCP - General 03/14/25 04/13/25 Sylvia Ibarra PA [address] [place] [address] PCP - General Physician Product Sales Engineer 04/14/25 Kee Ugalde DO [address] [place] [address] Orthopedics & Sports Medicine, [facility] [place] [address] [email or web address] Historical LMR Provider 04/05/17 documented as of this encounter Additional Source Comments The information contained in this document represents components of the legal health record. It is not the complete legal health record.[facility]
--- OUTSIDE RECORDS SUMMARY | 2025-05-09 09:19 | XMS_ITS | Encounter Summary ---
Author Organization [facility] Address [address] [place] [address] Phone Care Team Providers Care Label Remover Name Role Phone Kee Ugalde DO Unavailable [phone] Peewee Maxwell MD Primary Care Provider [phone] Pcp, Unknown Primary Care Provider Sylvia Oseguera Primary Care Provider [phone] Encounter Details Date Type Department Care Team (Latest Contact Info) Description 03/13/2025 Transcribe Orders [facility] [address] [address] Dacia Watkins NP [address] [place] [address] Bloating (Primary Dx); Gastroesophageal reflux disease, unspecified [...] Description 06/13/2025 1:45 PM EST Office Visit [facility] [address] [place] [id number] Polo Vasquez MD [address] [place] [address] documented as of this encounter Results * Vitamin B12 (03/13/2025 2:28 PM EDT) VITAMIN B12 375 232 - 1,245 pg/mL [facility] Blood 03/13/2025 2:28 PM EDT 03/13/2025 2:37 PM EDT Dacia Watkins NP LAB BLOOD BKR ORDERABLES Final Result [address] [address] * TSH (03/13/2025 2:28 PM EDT) TSH 2.24 0.27 - 4.20 uIU/mL [facility] Blood 03/13/2025 2:28 PM EDT 03/13/2025 2:37 PM EDT Dacia Watkins NP LAB BLOOD BKR ORDERABLES Final Result Performing Organization Address [facility]/ZIP Co de Phone Number [address] [address] * Iron and iron binding capacity (03/13/2025 2:28 PM EDT) IRON 116 45 - 160 ug/dL [facility] IRON BINDING CAPACITY 375 228 - 428 ug/dL [facility] TRANSFERRIN SATURAT. 31 20 - 55 % [facility] Blood 03/13/2025 2:28 PM EDT 03/13/2025 2:37 PM EDT Dacia Watkins NP LAB BLOOD BKR ORDERABLES Final Result Performing Organization Address City/[facility]/ZIP Co de Phone Number [address] [address] * (ABNORMAL) C-Reactive Protein (03/13/2025 2:28 PM EDT) C REACTIVE PROTEIN 4.9(H) 0.0 - 4.0 mg/L [facility] Blood 03/13/2025 2:28 PM EDT 03/13/2025 2:37 PM EDT us Dacia Watkins NP LAB BLOOD BKR ORDERABLES Final Result [address] [address] * (ABNORMAL) Comprehensive metabolic panel (03/13/2025 2:28 PM EDT) Pathologist [facility] SODIUM 138 133 - 146 mmol/L [facility] POTASSIUM 4.2 3.3 - 5.1 mmol/L [facility] CHLORIDE 102 96 - 108 mmol/L [facility] CO2 25 21 - 35 mmol/L [facility] BUN 25(H) 6 - 19 mg/dL [facility] CREATININE 1.10 0.5 - 1.5 mg/dL [facility] GLUCOSE 118(H) 70 - 99 mg/dL [facility] ALBUMIN 4.0 3.9 - 4.8 g/dL [facility] TOTAL PROTEIN 7.2 6.5 - 8.0 g/dL [facility] CALCIUM 9.2 8.4 - 10.3 mg/dL [facility] ALKALINE PHOSPHATASE 67 39 - 117 U/L [facility] TOTAL BILIRUBIN 0.4 0.0 - 1.2 mg/dL [facility] AST 41(H) 0 - 37 U/L [facility] ALT 31 0 - 40 U/L [facility] GLOBULIN 3.2 1 - 4.8 g/dL [facility] EGFR 72 >59 mL/min/1.7 3m2 [facility] Comment:Estimated glomerular filtration rate calculated using the CKD-EPI refit equation. ANION GAP 15 10 - 20 mmol/L [facility] Blood 03/13/2025 2:28 PM EDT 03/13/2025 2:37 PM EDT us Dacia Watkins INSTALLATION AND SERVICE TECHNICIAN LAB BLOOD BKR ORDERABLES Final Result Performing Organization Address [facility]/ZIP Co de Phone Number [address] [address] * (ABNORMAL) CBC (03/13/2025 2:28 PM EDT) WBC 6.47 4.00 - 11.00 K/uL [facility] RBC 4.69 4.50 - 5.90 M/uL [facility] HGB 13.4(L) 13.5 - 17.5 g/dL [facility] HCT 41.8 41.0 - 53.0 % [facility] PLT 279 150 - 450 K/uL [facility] MCV 89.1 80.0 - 100.0 fL [facility] MCH 28.6 27.0 - 31.0 pg [facility] MCHC 32.1 32.0 - 36.0 g/dL [facility] RDW 13.0 11.5 - 14.5 % [facility] MPV 10.0 8.4 - 12.0 fL [facility] NRBC 0.00 0.00 /100 WBCs [facility] ABSOLUTE NRBC 0.00 0.00 K/uL [facility] Blood 03/13/2025 2:28 PM EDT 03/13/2025 2:37 PM EDT us Dacia Watkins NP LAB BLOOD BKR ORDERABLES Final Result Performing Organization Address [facility]/ZIP Co de Phone Number [address] [address] * Immunoglobulin A (03/13/2025 2:28 PM EDT) IgA 302 70 - 400 mg/dL [facility] Blood 03/13/2025 2:28 PM EDT 03/13/2025 2:37 PM EDT us Dacia Watkins INSTALLATION AND SERVICE TECHNICIAN LAB BLOOD BKR ORDERABLES Final Result [address] [place] [address] * Tissue transglutaminase IgA (03/13/2025 2:28 PM EDT) TTG IGA ANTIBODY 1.8 <4.0 (Negative) U/mL [facility] Blood 03/13/2025 2:28 PM EDT 03/13/2025 2:37 PM EDT us Dacia Watkins INSTALLATION AND SERVICE TECHNICIAN LAB BLOOD BKR ORDERABLES Final Result [facility] [address] [place] [address] documented in this encounter Visit Diagnoses Diagnosis Bloating- Primary Flatulence, eructation, and gas pain Gastroesophageal reflux disease, unspecified whether esophagitis present documented in this encounter Care Teams Label Remover Relationship Specialty Start Date End Date Peewee Maxwell MD [address] [place] [address] PCP - General Internal Medicine 08/11/20 03/13/25 Pcp, Unknown PCP - General 03/14/25 04/13/25 Sylvia Ibarra PA [address] [place] [address] PCP - General Physician Home Health Nurse 04/14/25 Kee Ugalde DO [address] [place] [address] Orthopedics & Sports Medicine, [place] [address] Historical LMR Provider 04/05/17 documented as of this encounter Additional Source Comments The information contained in this document represents components of the legal health record. It is not the complete legal health record.[facility]
--- OUTSIDE RECORDS SUMMARY | 2025-05-09 09:19 | XMS_ITS | Encounter Summary ---
Author Organization [facility] Address [address] [facility] [address] [place] [address] Phone Care Team Providers Care Clean In Places Operator Name Role Phone Peewee Maxwell MD Primary Care Provider [phone] Encounter Details Date Type Department Care Team (Late Contact Info) Description 10/30/2020 Orders Only [facility] [address] [place] [address] Kee Hernández MD [address] [facility] [address] [place] [address] Essential (primary) hypertension Social History [...] Visit [facility] [address] [place] [id number] Kee Hernández MD [address] [facility] [address] [place] [address] documented as of this encounter Visit Diagnoses Diagnosis Essential (primary) hypertension documented in this encounter Care Teams Clean In Places Operator Relationship Specialty Start Date End Date Peewee Maxwell MD [address] [place] [address] PCP - General Internal Medicine 10/21/20 documented as of this encounter
--- OUTSIDE RECORDS SUMMARY | 2025-05-09 09:19 | XMS_ITS | Encounter Summary ---
Author Organization [facility] Address [address] [place] [address] Phone Care Team Providers Care Manager Financial Services Name Role Phone Kee Ugalde DO Unavailable [phone] Peewee Maxwell MD Primary Care Provider [phone] Pcp, Unknown Primary Care Provider Sylvia Oseguera Primary Care Provider [phone] Encounter Details Date Type Department Care Team (Late st Contact Info) Description 10/18/2024 Transcribe Orders Virtual Department [address] [place] [address] Kee Hernández MD [address] [place] [address] Dr Wong [email or web address] [address] [email or web address] Hypertension, unspecified type (Primary Dx) Social History [...] Description 06/13/2025 1:45 PM EST Office Visit [facility] [address] [place] [address] Polo Vasquez MD [address] [place] [phone] [email or web address] documented as of this encounter Visit Diagnoses Diagnosis Hypertension, unspecified type- Primary documented in this encounter Care Teams Manager Financial Services Relationship Specialty Start Date End Date Peewee Maxwell MD [address] [place] [address] PCP - General Internal Medicine 08/11/20 03/13/25 Pcp, Unknown PCP - General 03/14/25 04/13/25 Sylvia Ibarra PA [address] [place] [id number] PCP - General Physician Freight Car Loader 04/14/25 Kee Ugalde DO [address] [place] [address] Orthopedics & Sports Medicine, [place] [address] [email or web address] Historical LMR Provider 04/05/17 documented as of this encounter Additional Source Comments The information contained in this document represents components of the legal health record. It is not the complete legal health record.[facility]
--- OUTSIDE RECORDS SUMMARY | 2025-05-09 09:19 | XMS_ITS | Encounter Summary ---
Author Organization [facility] Address [address] [place] [address] Phone Care Team Providers Care Adobe Architect Name Role Phone Tico Martell MD Unavailable Kee Alexander MD Unavailable Kee Ugalde DO Unavailable [phone] Polo Guadarrama MD Unavailable Dilcia Gould MD Unavailable [phone] Antoinette Ching-Bertha Unavailable Peewee Maxwell MD Primary Care Provider [phone] Pcp, Unknown Primary Care Provider UnavailSylvia Brunner Primary Care Provider [phone] Reason for Referral * MRI/CAT Scan - Closed Specialty Diagnoses / Procedures Referred By Contac t Referred To Contact Radiology Diagnoses Sinusitis, unspecified chronicity, unspecified location Procedures CT Face Peewee Maxwell MD [address] [place] [address] Phone: tel: fax: Referral ID Status Reason Start Date Expiration Date Visits Re quested Visits Authorized [id number] Closed 08/11/2020 08/11/2021 1 1 Encounter Details Date Type Department Care Team (Late st Contact Info) Description 08/11/2020 Ancillary Orders Virtual Department [address] [place] [address] Peewee Maxwell MD [address] [place] [address] Sinusitis, unspecified chronicity, unspecified location Social History [...] Description 06/13/2025 1:45 PM EST Office Visit [facility] [address] [place] [address] Polo Vasquez MD [address] [address] [email or web address] documented as of this encounter Results * [...] Technique tailored for patient body habitus and [id number]. FINDINGS: Some mild thickening seen in the [...] images. Technique tailored for patient body habitus [id number]. FINDINGS: Some mild thickening seen in the [...] bony changes of concern. Peewee Maxwell MD IM CT HEAD/NECK Final Res ult documented in this encounter Visit Diagnoses Diagnosis Sinusitis, unspecified chronicity, unspecified location Sinusitis, unspecified chronicity, unspecified location documented in this encounter Additional Health Concerns Infection Onset Date Last Indicated Resolved Time CoV-Exposed Comment:Positive COVID-19 12/24/2021 12/24/2021 12/25/2021 10: 54 AM EDT COVID-19 12/24/2021 12/24/2021 01/14/2022 1:21 AM EDT documented as of this encounter Care Teams Adobe Architect Relationship Specialty Start Date End Date Peewee Maxwell MD [address] [place] [address] PCP - General Internal Medicine 08/11/20 03/13/25 Pcp, Unknown PCP - General 03/14/25 04/13/25 Sylvia Ibarra PA [address] [place] [address] PCP - General Physician Sketch Liner 04/14/25 Tico Martell MD [address] [place] [email or web address] Historical LMR Provider 04/05/17 06/26/21 Kee Alexander MD [address] [place] [address] Historical LMR Provider 04/05/17 Kee Ugalde DO [address] [place] [address] Orthopedics & Sports Medicine, [place] [address] [email or web address] Historical LMR Provider 04/05/17 Polo Guadarrama MD [address] [address] [email or web address] Historical LMR Provider 04/05/17 2 Dilcia Gould MD [address] [place] [address], [address] [place] [address] [email or web address] Historical LMR Provider 04/05/17 Antoinette Ching PA-C [address] [place] [address] Orthopedics & Sports Medicine, [place] [address] [email or web address] Historical LMR Provider 04/05/17 06/26/21 documented as of this encounter Additional Source Comments The information contained in this document represents components of the legal health record. It is not the complete legal health record.[facility]
--- OUTSIDE RECORDS SUMMARY | 2025-05-09 09:19 | XMS_ITS | Clinical Summary ---
Author Organization [facility] Address [address] [place] [address] Phone Care Team Providers Care Show Host/Hostess Name Role Phone Kee Ugalde DO Unavailable [phone] Sylvia Ibarra Primary Care Provider [phone] Allergies No known active allergies Medications spironolactone (ALDACTONE) 25 MG tablet Take 25 mg by mouth daily. Active omeprazole (PRILOSEC) 20 MG capsule Take 20 mg by mouth 2 (two) times a day. Active azelastine (ASTELIN) 137 mcg (0.1 %) nasal spray use 2 spray(s) in each nostril twice daily 5 Active fluticasone propionate (FLONASE) 50 mcg/actuation nasal spray use 2 spray(s) in each nostril once daily 5 Active losartan (COZAAR) 50 MG tablet Take 50 mg by mouth 2 (two) times a day. Active amLODIPine (NORVASC) 2.5 MG tablet Take 1 tablet by mouth daily as needed. Active olopatadine (PATANOL) 0.1 % ophthalmic solution Place 1 drop into each eye 2 (two) times a day. Active loratadine (CLARITIN) 10 mg tablet Take 10 mg by mouth daily. Active losartan (COZAAR) 100 MG tablet Take 50 mg by mouth 2 (two) times a day. 04/28/20 25 Discontinu ed(Stop Taking at Discharge) amLODIPine (NORVASC) 2.5 MG tablet Take 2.5 mg by mouth daily. 04/28/20 25 Discontinu ed(Stop Taking at Discharge) polyethylene glycol (GOLYTELY) 236-22.74-6.74 -5.86 gram solutionIndicat ions:Change in bowel habits Take 4,000 mL by mouth once for 1 dose. 1 mL 5 04/28/20 25 Discontinu ed(Stop Taking at Discharge) Active Problems Problem Noted Date Diagnosed Date Hyperlipidemia 04/27/2025 Anxiety 09/16/2021 Major depressive disorder 09/16/2021 Obstructive sleep apnea syndrome 02/23/2021 Overview (04/27/2025): Obstructive sleep apnea (adult) (pediatric); Note: Date Diagnosed: 02/23/2021 8:05 AM (G47.33) Cyst of nasal sinus 09/21/2020 Overview (04/27/2025): Cyst and mucocele of nose and nasal sinus; Note: Date Diagnosed: 09/21/2020 8:09 AM (J34.1) Headache 09/21/2020 Overview (04/27/2025): Headache, unspecified; Note: Date Diagnosed: 09/21/2020 8:09 AM (R51.9) Incomplete tear of left rotator cuff 01/30/2018 Left shoulder pain 01/25/2018 Right shoulder pain 01/25/2018 Hypertension 05/30/2017 Assessment & Plan (07/02/2024 6:37 PM EST): Avoid hypotension, generally recommend permissive hypertension for stroke Continue amlodipine, spironolactone, losartan Sciatica 05/26/2008 Benign essential hypertension 06/27/2005 Resolved Problems Problem Noted Date Diagnosed Date Resolved Date Ataxia 07/02/2024 07/03/2024 Assessment & Plan (07/02/2024 6:37 PM EST): Improving with time however neurology consult concern of posterior circulation stroke given risk factors. -MRI brain ordered, will not be completed till tomorrow -Check lipid panel and A1c -PT consult in a.m. -Echocardiogram pending Encounters Date Type Department Care Team Description Telephone [facility] [address] [place] [address] Yossi Vasquez MD 5 1:25 PM EST Anesthesia Event [facility] Admitting [facility] Virtual Department [address] [place] [address] Fco Clark MD Matos-Auer bach, Melissa, MD 5 12:30 PM EST - 5 1:00 PM EST Surgery [facility] Admitting [facility] Virtual Department [address] [place] [address] Yossi Vasquez MD ESOPHAGOGASTRODUODENOSCOPY 5 11:11 AM EST - 5 2:59 PM EST Hospital Encounter [facility] Virtual Department [address] [place] [address] Yossi Vasquez MD Discharge Disposition: Home or Self Care 5 Procedure Pass [facility] Admitting [facility] Virtual Department [address] [place] [address] 5 2:45 PM EDT Pre-Admission Testing Pre Procedure Evaluation [address] [place] [address] Yossi Vasquez MD 5 2:28 PM EDT - 5 11:59 PM EDT Hospital Encounter [facility] [address] [address] Dacia Watkins NP Discharge Disposition: Home or Self Care 5 Transcribe Orders [facility] [address] [place] [address] Dacia Watkins NP Bloating (Primary Dx); Gastroesophageal [...] Date Smoking Tobacco: Never Smokeless Tobacco: Never Tobacco Cessation:Counseling Given: Not Answered Alcohol Use Standard Drinks/Week Comments Not Currently [...] as food, clothing, or medical care? No 04/28/2025 In the past 12 months have y ou been in a relationship with a person who hurts, threatens, or tries to control you? No 04/28/2025 Are you denied basic needs s uch as food, clothing, or medical care? No 04/28/2025 In the past 12 months have y ou been in a relationship with a person who hurts, threatens, or tries to control you? No 04/28/2025 Sex and Gender Information Value Date Recorded Sex Assigned at Male 06/26/2017 9:38 AM EST Legal Sex Male 9:56 PM EDT Gender Identity Male 06/26/2017 9:38 AM EST Sexual Orientation Straight 06/26/2017 9: 38 AM EST Last Filed Vital Signs Vital Sign Reading Time Taken Comments Blood Pressure 141/63 04/28/2025 2:17 PM EST Pulse 43 04/28/2025 2:17 PM EST Temperature 36.6 C (97.9 F) 04/28/2025 11:53 AM EST Respiratory Rate 12 04/28/2025 2:17 PM EST Oxygen Saturation 97% 04/28/2025 2:17 PM EST Inhaled Oxygen Concentration - - Weight 98.4 kg (217 lb) 04/24/2025 11:12 AM EST Height 162.6 cm (5' 4 ) 04/24/2025 11:12 AM EST Body Mass Index 37.25 04/24/2025 11:12 AM EST Plan of Treatment Upcoming Encounters Date Type Department Care Team (Late st Contact Info) Description 06/13/2025 1:45 PM EST Office Visit [facility] [address] [place] [address] Yossi Vasquez MD [address] [place] [address] [email or web address] Health Maintenance Due Date Last Done Comments BLOOD PRESSURE 1955 DEPRESSION SCREENING 1966 HEPATITIS C SCREENING 1972 COLOGUARD 1999 FIT TEST 1999 FOBT 1999 SIGMOIDOSCOPY 1999 VIRTUAL COLONOSCOPY 1999 COVID-19 VACCINE ( season) 2025 03/10/2025, 03/28/2024, 04/06/2023, Additional history exists CREATININE LEVEL 03/13/2026 03/13/2025, , 07/01/2024, Additional history exists POTASSIUM LEVEL 03/13/2026 03/13/2025, 11/17, 07/01/2024, Additional history exists COLONOSCOPY 04/18/2027 04/28/2025, 04/18/2017 COLORECTAL CANCER SCREENING 04/18/2027 RSV VACCINE (1 - 1-dose 75+ series) 2029 LIPID PANEL 12/04/2029 12/04/2024, 06/19, 06/27/2005 Adult Td,Tdap Booster 10/21/2034 10/21/2024 , 12/07/2018, 08/14/2012, Additional history exists PNEUMOCOCCAL VACCINES (50+ years) Completed 02/11/2022 ZOSTER VACCINES Completed 05/02/2022, 02/11/2022 INFLUENZA VACCINE Completed 04/04/2025, , 03/08/2023, Additional history exists SMOKING STATUS SCREENING (Once After 26 Yrs) Completed 04/28/2025 HEPATITIS A VACCINES Aged Out No long [...] this topic Medical Devices Implanted Type Area Patient Access Device Identifier Shelf Expiration Date Model / Serial / Lot Bilateral Hip Replacements Metal Right Shoulder Right Knee Repair Metal Procedures Procedure Name Priority Date/Time Associated Diagnosis Comments TISSUE EXAM Routine 04/28/2025 1:30 PM EST GA COLSC FLX W/RMVL OF TUMOR POLYP LESION SNARE TQ 04/28/2025 1:22 PM EST Diverticulosis Special Needs Bradycardia - cardiology notes on chart GA COLONOSCOPY W/BIOPSY SINGLE/MULTIPLE 04/28/2025 1:22 PM EST Diverticulosis Special Needs Bradycardia - cardiology notes on chart GA COLONOSCOPY FLX DX W/SUZY J SPEC WHEN PFRMD 04/28/2025 1:22 PM EST Diverticulosis Special Needs Bradycardia - cardiology notes on chart GA EGD ABLATE TUMOR POLYP/LESION W/DILATION& WIRE 04/28/2025 1:22 PM EST Diverticulosis Special Needs Bradycardia - cardiology notes on chart GA EDG TRANSORAL BIOPSY SINGLE/MULTIPLE 04/28/2025 1:22 PM EST Diverticulosis Special Needs Bradycardia - cardiology notes on chart GA ESOPHAGOGASTRODUODENOSCOP Y TRANSORAL DIAGNOSTIC 04/28/2025 1:22 PM EST Diverticulosis Special Needs Bradycardia - cardiology notes on chart ENDOSCOPY PROCEDURE 04/28/2025 1:08 PM EST ENDOSCOPY, COLON 04/28/2025 1:08 PM EST TISSUE TRANSGLUTAMINASE IGA Routine 02/18 2:28 PM EDT Bloating Gastroesophagea l reflux disease, unspecified whether esophagitis present IMMUNOGLOBULIN A Routine 03/13/2025 2:28 PM EDT Bloating Gastroesophagea l reflux disease, unspecified whether esophagitis present CBC Routine 03/13/2025 2:28 PM EDT Bloating Gastroesophagea l reflux disease, unspecified whether esophagitis present COMPREHENSIVE METABOLIC PANE L (CMP) Routine 03/13/2025 2:28 PM EDT Bloating Gastroesophagea l reflux disease, unspecified whether esophagitis present C-REACTIVE PROTEIN (CRP) Routine 025 2:28 PM EDT Bloating Gastroesophagea l reflux disease, unspecified whether esophagitis present IRON AND IRON BINDING CAPACITY Routine 0 03/13/2025 2:28 PM EDT Bloating Gastroesophagea l reflux disease, unspecified whether esophagitis present THYROID STIMULATING HORMONE (TSH) Routine 03/13/2025 2:28 PM EDT Bloating Gastroesophagea l reflux disease, unspecified whether esophagitis present VITAMIN B12 Routine 03/13/2025 2:28 PM EDT Bloating Gastroesophagea l reflux disease, unspecified whether esophagitis present LIPID PANEL Routine 12/04/2024 8:48 AM EDT Screening for prostate cancer Fatigue, unspecified type from Last 3 Months or Most Recently Relevant to Health Maintenance Results * Tissue Exam (04/28/2025 1:30 PM EST) Final Pathologic Diagnosis A. DUODENUM; BIOPSY: No pathologic abnormalities. B. STOMACH, ANTRUM; BIOPSY: No pathologic abnormalities. C. ESOPHAGUS, DISTAL; BIOPSY: Squamous epithelium with no pathologic abnormalities. D. COLON; BIOPSY: No pathologic abnormalities. 5 12:13 PM [facility] at 1213 EST Clinical History Pre-op diagnosis: Abdominal pain, bloating K21.9, R19.4 5 12:13 PM [facility] Gross Description A. DUODENUM: Received in formalin are multiple irregular cronin-pink soft tissue fragments varying size from 0.2 x 0.2 x 0.2 cm to 0.4 x 0.3 x 0.3 cm which are submitted in toto in a single cassette labeled A1. B. STOMACH, ANTRUM: Received in formalin is a 0.6 x 0.3 x 0.2 cm irregular portion of cronin-pink soft tissue which is submitted in toto in a single cassette labeled B1. C. ESOPHAGUS, DISTAL: Received in formalin are 2 irregular cronin-pink soft tissue fragments measuring an average 0.4 x 0.2 x 0.1 cm which are submitted in toto in a single cassette labeled D. COLON: Received in formalin are multiple irregular cronin-pink soft tissue fragments varying size from 0.3 x 0.2 x 0.1 cm to 0.5 x 0.2 x 0.1 cm which are submitted in toto in a single cassette labeled D1. Grossed by: SHARIR Varner PA(ASCP) 5 12:13 PM [facility] Grossed By Chris Romo 5 12:13 PM [facility] Result Priority Level Routine 5 12:13 PM [facility] Disclaimer By their signature amina martinez, the pathologist listed as making the Final Diagnosis certifies that they have personally reviewed the case and confirmed the diagnosis. All slides and stains were of sufficient quality to establish the diagnosis, unless otherwise stated. Due to loss of elastic tension and/or tissue shrinkage in formalin, the clinical sizes of tissue specimens may be larger than those provided in this report. 12:13 PM EST [facility] Procedure ESOPHAGOGASTRODUODEN OSCOPY COLONOSCOPY 12:13 PM EST [facility] Gastrointestinal Tissue (Duodenum) 04/28/2025 1:30 PM EST 04/28/2025 2:37 PM EST Comment:Pre-op diagnosis: K21.9, R19.4 Gastrointestinal Tissue (Stomach, Antrum) 04/28/2025 1:32 PM EST 04/28/2025 2:37 PM EST Comment:Pre-op diagnosis: K21.9, R19.4 Gastrointestinal Tissue (Esophagus, Distal) 04/28/2025 1:33 PM EST 04/28/2025 2:37 PM EST Comment:Pre-op diagnosis: K21.9, R19.4 Gastrointestinal Tissue (Colon) 04/28/2025 1:42 PM EST 04/28/2025 2:37 PM EST Comment:Pre-op diagnosis: K21.9, R19.4 us Yossi Vasquez MD LAB PATHOLOGY ORDERABLES F inal Result [address] [address] * ENDOSCOPY PROCEDURE (04/28/2025 1:08 PM EST) Narrative Transcriptions Yossi Vasquez MD - 04/28/2025 1:08 PM EST [facility] Patient Name: Joshua Carrillo Attending MD:: YOSSI VASQUEZ MD, Procedure Date: 04/28/2025 1:08 PM Date of : 1955 Age: 70 Admit Type: Outpatient Gender: Male Room: [facility] 05 Referring MD: Sylvia Ibarra Exam Type: Upper GI endoscopy Indications: Heartburn, Abdominal bloating, Diarrhea Medications: Propofol per Anesthesia Procedure: Informed consent was obtained from the patientafter discussion of the indications, limitations, alternatives, benefits, and risks of the procedure. Risks specifically discussed include but are not limited to medication reactions, missed lesions, bleeding, perforation, or the need for emergent surgery. Throughout the procedure, the patient's blood pressure, pulse, end-tidal CO2, and oxygensaturations were monitored continuously. The Endoscope was introduced through the mouth, and advanced to the second part of duodenum. The upperGI endoscopy was accomplished without difficulty. The patient tolerated the procedure well. Complications: No immediate complications. Estimated blood loss:None. Findings: A very small hiatal hernia was present. The exam of the esophagus was otherwise normal. Biopsies were taken with a cold forceps in thelower third of the esophagus for histology. The entire examined stomach and gastroesophageal junction (on retroflexion) were normal. Biopsieswere taken with a cold forceps for histology. (Biopsies were obtained from the antrum.) The examined duodenum was normal. Biopsies weretaken with a cold forceps for histology. Six duodenal biopsies were obtained from the duodenal bulb and duodenal sweep for histology. Impression: - Small hiatal hernia. - Normal stomach and gastroesophageal junction. Biopsied. - Normal examined duodenum. Biopsied. - Biopsies were taken with a cold forceps for histology in the lower third of the esophagus. Recommendation: - Await pathology results. - Continue present medications. YOSSI VASQUEZ MD 04/28/2025 1:49:42 PM This report has been signed electronically. Number of Addenda: 0 Note Initiated On: 04/28/2025 1:08 PM Procedure Code(s): --- Professional --- 18504, Esophagogastroduodenoscopy, flexible, transoral; with biopsy, single or multiple --- Technical --- 37951, Esophagogastroduodenoscopy, flexible, transoral; with biopsy, single or multiple Diagnosis Code(s): --- Professional --- K44.9, Diaphragmatic hernia without obstruction or gangrene R12, Heartburn R14.0, Abdominal distension (gaseous) R19.7, Diarrhea, unspecified --- Technical --- K44.9, Diaphragmatic hernia without obstruction or gangrene R12, Heartburn R14.0, Abdominal distension (gaseous) R19.7, Diarrhea, unspecified CPT copyright 2021 [employer]. All rights reserved. The codes documented in this report are preliminary and upon asset protection lead reviewmay be revised to meet current compliance requirements. Procedure Date: 04/28/2025 1:08:[address] [place] [address] Sylvia LEWIS GI PROCEDURE ORDERABLES F inal Result * ENDOSCOPY, COLON (04/28/2025 1:08 PM EST) Narrative Transcriptions Yossi Vasquez MD - 04/28/2025 1:08 PM EST [facility] Patient Name: Joshua Fairchild MD:: YOSSI VASQUEZ MD, Procedure Date: 04/28/2025 1:08 PM Date of : 1955 Age: 70 Admit Type: Outpatient Gender: Male Room: [facility] 05 Referring MD: Sylvia Ibarra Exam Type: Colonoscopy Indications: Last colonoscopy: March 2017, Change in bowelhabits Medications: Propofol per Anesthesia Procedure: Informed consent was obtained from the patientafter discussion of the indications, limitations, alternatives, benefits, and risks of the procedure. Risks specifically discussed include but are not limited to medication reactions, missed lesions, bleeding, perforation, or the need for emergent surgery. Throughout the procedure, the patient's blood pressure, pulse, end-tidal CO2, and oxygensaturations were monitored continuously. The Olympus adult variable colonoscope [id number] #3 was introduced through the anus and advanced to the terminal ileum, with identification of theappendiceal orifice and IC valve. The terminal ileum, ileocecal valve, appendiceal orifice, and rectum were photographed. The colonoscopy was performed without difficulty. The patient tolerated the procedurewell. The quality of the bowel preparation was good. The bowel preparation used was GoLYTELY via split dose instruction. Complications: No immediate complications. Estimated blood loss:None. Findings: The perianal and digital rectal examinations were normal. Pertinent negatives include no palpablerectal lesions. The retroflexed view of the distal rectum and anal verge was normal and showed no anal or rectal abnormalities. A few small-mouthed diverticula were found in the sigmoid colon and ascending colon. The exam was otherwise without abnormality. The terminal ileum appeared normal. Retroflexion in the right colon was performed. Biopsies for histology were taken with a coldforceps from the ascending colon, transverse colon andsigmoid colon for evaluation of microscopic colitis. Impression: - The distal rectum and anal verge are normal on retroflexion view. - Diverticulosis in the sigmoid colon and in the ascending colon. - The examination was otherwise normal. - The examined portion of the ileum was normal. - Biopsies were taken with a cold forceps from the ascending colon, transverse colon and sigmoid colon for evaluation of microscopic colitis. Recommendation: - Await pathology results. - Use fiber, for example Citrucel, Fibercon, Konsyl or Metamucil. - Start with 1 tablespoon daily in water or juice. If no significant improvement in 1-2 weeks, increase to 2X/d. - Repeat colonoscopy in 10 years for screening purposes. YOSSI VASQUEZ MD 04/28/2025 1:51:47 PM This report has been signed electronically. Number of Addenda: 0 Note Initiated On: 04/28/2025 1:08 PM Procedure Code(s): --- Professional --- 27116, Colonoscopy, flexible; with biopsy, single or multiple --- Technical --- 42910, Colonoscopy, flexible; with biopsy, single or multiple Diagnosis Code(s): --- Professional --- R19.4, Change in bowel habit K57.30, Diverticulosis of large intestine without perforation or abscess without bleeding --- Technical --- R19.4, Change in bowel habit K57.30, Diverticulosis of large intestine without perforation or abscess without bleeding CPT copyright 2021 [employer]. All rights reserved. The codes documented in this report are preliminary and upon asset protection lead reviewmay be revised to meet current compliance requirements. Procedure Date: 04/28/2025 1:08:[address] [place] [address] Sylvia LEWIS GI PROCEDURE ORDERABLES F inal Result * (ABNORMAL) Comprehensive metabolic panel (03/13/2025 2:28 PM EDT) SODIUM 138 133 - 146 mmol/L [facility] POTASSIUM 4.2 3.3 - 5.1 mmol/L [facility] CHLORIDE 102 96 - 108 mmol/L [facility] CO2 25 21 - 35 mmol/L [facility] BUN 25(H) 6 - 19 mg/dL [facility] CREATININE 1.10 0.5 - 1.5 mg/dL [facility] GLUCOSE 118(H) 70 - 99 mg/dL [facility] ALBUMIN 4.0 3.9 - 4.8 g/dL [facility] TOTAL PROTEIN 7.2 6.5 - 8.0 g/dL [facility] CALCIUM 9.2 8.4 - 10.3 mg/dL [facility] ALKALINE PHOSPHATASE 67 39 - 117 U/L [facility] TOTAL BILIRUBIN 0.4 0.0 - 1.2 mg/dL [facility] AST 41(H) 0 - 37 U/L [facility] ALT 31 0 - 40 U/L [facility] GLOBULIN 3.2 1 - 4.8 g/dL [facility] EGFR 72 >59 mL/min/1.7 3m2 [facility] Comment:Estimated glomerular filtration rate calculated using the CKD-EPI refit equation. ANION GAP 15 10 - 20 mmol/L [facility] Blood 03/13/2025 2:28 PM EDT 03/13/2025 2:37 PM EDT Dacia Watkins NP LAB BLOOD BKR ORDERABLES Final Result [address] [address] * Iron and iron binding capacity (03/13/2025 2:28 PM EDT) IRON 116 45 - 160 ug/dL [facility] IRON BINDING CAPACITY 375 228 - 428 ug/dL [facility] TRANSFERRIN SATURAT. 31 20 - 55 % [facility] Blood 03/13/2025 2:28 PM EDT 03/13/2025 2:37 PM EDT Dacia Watkins NP LAB BLOOD BKR ORDERABLES Final Result [address] [address] * Tissue transglutaminase IgA (03/13/2025 2:28 PM EDT) TTG IGA ANTIBODY 1.8 <4.0 (Negative) U/mL [facility] [address] Blood 03/13/2025 2:28 PM EDT 03/13/2025 2:37 PM EDT Dacia Watkins NP LAB BLOOD BKR ORDERABLES Final Result [facility] [email or web address] [place] [address] * (ABNORMAL) CBC (03/13/2025 2:28 PM EDT) WBC 6.47 4.00 - 11.00 K/uL [facility] RBC 4.69 4.50 - 5.90 M/uL [facility] HGB 13.4(L) 13.5 - 17.5 g/dL [facility] HCT 41.8 41.0 - 53.0 % [facility] PLT 279 150 - 450 K/uL [facility] MCV 89.1 80.0 - 100.0 fL [facility] MCH 28.6 27.0 - 31.0 pg [facility] MCHC 32.1 32.0 - 36.0 g/dL [facility] RDW 13.0 11.5 - 14.5 % [facility] MPV 10.0 8.4 - 12.0 fL [facility] NRBC 0.00 0.00 /100 WBCs [facility] ABSOLUTE NRBC 0.00 0.00 K/uL [facility] Blood 03/13/2025 2:28 PM EDT 03/13/2025 2:37 PM EDT Dacia Watkins NP LAB BLOOD BKR ORDERABLES Final Result [facility] [address], [place] [id number] * (ABNORMAL) C-Reactive Protein (03/13/2025 2:28 PM EDT) C REACTIVE PROTEIN 4.9(H) 0.0 - 4.0 mg/L [facility] Blood 03/13/2025 2:28 PM EDT 03/13/2025 2:37 PM EDT Dacia Watkins DEBRANDER LAB BLOOD BKR ORDERABLES Final Result [address] [address] * TSH (03/13/2025 2:28 PM EDT) TSH 2.24 0.27 - 4.20 uIU/mL [facility] Blood 03/13/2025 2:28 PM EDT 03/13/2025 2:37 PM EDT Dacia Watkins DEBRANDER LAB BLOOD BKR ORDERABLES Final Result Performing Organization Address City/Va Hospital/ZIP Co de Phone Number [address] [address] * Immunoglobulin A (03/13/2025 2:28 PM EDT) IgA 302 70 - 400 mg/dL [facility] Blood 03/13/2025 2:28 PM EDT 03/13/2025 2:37 PM EDT Dacia Watkins DEBRANDER LAB BLOOD BKR ORDERABLES Final Result Performing Organization Address City/[facility] Hospital/ZIP Co de Phone Number [address] [address] * Vitamin B12 (03/13/2025 2:28 PM EDT) VITAMIN B12 375 232 - 1,245 pg/mL [facility] Blood 03/13/2025 2:28 PM EDT 03/13/2025 2:37 PM EDT Dacia Watkins DEBRANDER LAB BLOOD BKR ORDERABLES Final Result [address] [address] * (ABNORMAL) Lipid panel (12/04/2024 8:48 AM EDT) HDL 35 mg/dL [facility] Comment: Interpretation <40 mg/dL: Low HDL cholesterol (major risk factor for CHD) Greater than or equal to 60 mg/dL: High HDL cholesterol ( negative risk factor for CHD) HDL - cholesterol is affected by a number of factors, e.g. smoking, excerise, hormones, sex and age. CHOLESTEROL 144 0 - 240 mg/dL [facility] TRIGLYCERIDES 191(H) 30 - 160 mg/dL [facility] LDL 71 50 - 129 mg/dL [facility] Comment: LDL levels in terms of risk for coronary heart disease: <100 mg/dL: Optimal 100-129 mg/dL: Near or above optimal 130-159 mg/dL: Borderline high 160-189 mg/dL: High >190 mg/dL: Very High CARDIAC RISK RATIO 4.1 3.4 - 5.0 [facility] Blood 12/04/2024 8:48 AM EDT 12/04/2024 8:57 AM EDT us Peewee Maxwell MD LAB BLOOD BKR ORDERABLES F inal Result Performing Organization Address City/State/[facility] Co de Phone Number [facility] [address] [place] [address] from Last 3 Months or Most Recently Relevant to Health Maintenance Insurance [place] H[place] BLUE REPLACEMENT MEDICARE HMO BLUE REPLACEMENT MEDICARE HMO BLUE REPLACEMENT MEDICARE HMO BLUE REPLACEMENT MEDICARE HMO BLUE REPLACEMENT [facility] MEDICARE HMO BLUE REPLACEMENT [facility] MEDICARE HMO BLUE REPLACEMENT [facility] MEDICARE HMO BLUE REPLACEMENT [place] [place] BLUE REPLACEMENT WORKERS COMPENSATION Advance Directives For more information, please contact: [phone] (9AM - 5PM [facility], Monday-Monday) Documents on File Type Date Recorded Patient Oiler [employer]ander Expl anation Healthcare Proxy 07/05/2024 1:49 PM * Full Code (Latest Code Status on File) Date Activated Date Inactivated Comments 07/02/2024 7:36 AM Question Answer Comments Code Status Confirmed With: Patient Care Teams Show Host/Hostess Relationship Specialty Start Date End Date Sylvia Ibarra PA [address] [place] [address] PCP - General Physician Enrollment Coordinator 04/14/25 Kee Ugalde DO [address] [place] [address] Orthopedics [facility] Sports Medicine, [place] [address] [email or web address] Historical LMR Provider 04/05/17 Additional Source Comments The information contained in this document represents components of the legal health record. It is not the complete legal health record.[facility]
--- OUTSIDE RECORDS SUMMARY | 2025-05-09 09:19 | XMS_ITS | Encounter Summary ---
Author Organization [facility] Address [address] [facility] [address] [place] [address] Phone Care Team Providers Care Chief Hydroelectric Station Operator Name Role Phone Peewee Maxwell MD Primary Care Provider [phone] Reason for Visit * Reason Comments Med Refill Encounter Details Date Type Department Care Team ([facility] Contact Info) Description 07/18/2021 Refill [facility] [address] [facility] [address] [place] [phone] Kee Hernández MD [address] [facility] [address] [place] [phone] Social History Tobacco Use Types Packs/Day Years [...] Visit [facility] [address] [place] [place] [address] Kee Hernández MD [address] [facility] [address] [place] [address] documented as of this encounter Visit Diagnoses Not on filedocumented in this encounter Care Teams Chief Hydroelectric Station Operator Relationship Specialty Start Date End Date Peewee Maxwell MD [address] [place] [address] PCP - General Internal Medicine 10/21/20 documented as of this encounter
--- OUTSIDE RECORDS SUMMARY | 2025-05-09 09:19 | XMS_ITS | Encounter Summary ---
Author Organization [facility] Address [address] [place] [address] Phone Care Team Providers Care Senior Bi Developer Name Role Phone Kee Ugalde DO Unavailable [phone] Peewee Maxwell MD Primary Care Provider [phone] Pcp, Unknown Primary Care Provider Sylvia Oseguera Primary Care Provider [phone] Encounter Details Date Type Department Care Team (Late st Contact Info) Description 07/01/2024 Procedure Pass [facility], Ct Scan - [address] [address] Social History Tobacco Use Types Packs/Day Years [...] Author No Risk Indicated 07/01/2024 11:31 PM EST Isaura Bray RN * [place] Suicide Severity Rating Scale (Screener/Recent Self-Report) Question Answer Date of Assessment Author 1. Wish to be (Past 1 Month) No 07/01/2024 11:31 PM EST Radha Lee, [place] 2. Non-Specific Active Suicidal Thoughts (Past 1 Month) No 07/01/2024 11:31 PM EST Radha Lee RN 6. Suicidal Behavior (Lifetime) No 07/01/2024 11:31 PM EST Radha Lee RN documented as of this encounter Plan of Treatment Upcoming Encounters Date Type Department Care Team (Late st Contact Info) Description 06/13/2025 1:45 PM EST Office Visit [facility] 10 [place] [address] Polo Vasquez MD [address] [address] [email or web address] documented as of this encounter Visit Diagnoses Not on filedocumented in this encounter Care Teams Senior Bi Developer Relationship Specialty Start Date End Date Peewee Maxwell MD [address] [place] [address] PCP - General Internal Medicine 08/11/20 03/13/25 Pcp, Unknown PCP - General 03/14/25 04/13/25 Sylvia Ibarra PA [address] [place] [address] PCP - General Physician Dean 04/14/25 Kee Ugalde DO [address] [place] [address] [facility] Medicine, [place] [address] Historical LMR Provider 04/05/17 documented as of this encounter Additional Source Comments The information contained in this document represents components of the legal health record. It is not the complete legal health record.[facility]
--- OUTSIDE RECORDS SUMMARY | 2025-05-09 09:19 | XMS_ITS | Encounter Summary ---
Author Organization [facility] Address [address] [place] [address] Phone Care Team Providers Care Pound Attendant Name Role Phone Kee Ugalde DO Unavailable [phone] Peewee Maxwell MD Primary Care Provider [phone] Pcp, Unknown Primary Care Provider Sylvia Oseguera Primary Care Provider [phone] Encounter Details Date Type Department Care Team (Late st Contact Info) Description 07/02/2024 Procedure Pass [facility] [address] [place] [address] Social History Tobacco Use Types Packs/Day Years [...] Description 06/13/2025 1:45 PM EST Office Visit [facility] [address] [place] [address] Polo Vasquez MD [address] [place] [address] documented as of this encounter Visit Diagnoses Not on filedocumented in this encounter Care Teams Pound Attendant Relationship Specialty Start Date End Date Peewee Maxwell MD [address] [place] [address] PCP - General Internal Medicine 08/11/20 03/13/25 Pcp, Unknown PCP - General 03/14/25 04/13/25 Sylvia Ibarra PA [address] [place] [address] PCP - General Physician Senior Occupational Therapist 04/14/25 Kee Ugalde DO [address] [place] [address] [facility], [place] [address] [email or web address] Historical LMR Provider 04/05/17 documented as of this encounter Additional Source Comments The information contained in this document represents components of the legal health record. It is not the complete legal health record.[facility]
--- OUTSIDE RECORDS SUMMARY | 2025-05-09 09:19 | XMS_ITS | Encounter Summary ---
Author Organization [facility] Address [address] [facility] [address] [place] [address] Phone Care Team Providers Care Insurance Appraiser Name Role Phone Kee Ugalde DO Unavailable [phone] Sylvia Ibarra Primary Care Provider [phone] Encounter Details Date Type Department Care Team (Late st Contact Info) Description 04/28/2025 Procedure Pass [facility] Endoscopy Admitting Dept Virtual Department 30 [place] [address] Social History Tobacco Use Types Packs/Day Years [...] Description 06/13/2025 1:45 PM EST Office Visit [facility] [address] [place] [address] Polo Vasquez MD [address] [place] [address] documented as of this encounter Visit Diagnoses Not on filedocumented in this encounter Care Teams Insurance Appraiser Relationship Specialty Start Date End Date Sylvia Ibarra PA [address] [place] [address] PCP - General Physician Farmworker Dairy 04/14/25 Kee Ugalde DO [address] [place] [address] [facility], [place] [address] [email or web address] Historical LMR Provider 04/05/17 documented as of this encounter Additional Source Comments The information contained in this document represents components of the legal health record. It is not the complete legal health record.[facility]
--- OUTSIDE RECORDS SUMMARY | 2025-05-09 09:19 | XMS_ITS | Encounter Summary ---
Author Organization [facility] Address [address] [facility] [address] [place] [address] Phone Care Team Providers Care Human Resource Adviser Name Role Phone Tico Martell MD Unavailable Kee Alexander MD Unavailable Kee Ugalde DO Unavailable Polo Guadarrama MD Unavailable Dilcia Gould MD Unavailable [phone] Antoinette Ching-Bertha Unavailable [phone] Peewee Maxwell MD Primary Care Provider [phone] Pcp, Unknown Primary Care Provider UnavailSylvia Brunner Primary Care Provider [phone] Encounter Details Date Type Department Care Team (Late st Contact Info) Description 08/11/2020 Procedure Pass [facility], Ct Scan - [address] [address] Social History Tobacco Use Types Packs/Day Years [...] Description 06/13/2025 1:45 PM EST Office Visit [facility] 10 [place] [address] Polo Vasquez MD [address] [address] [email or web address] documented as of this encounter Visit Diagnoses Not on filedocumented in this encounter Additional Health Concerns Infection Onset Date Last Indicated Resolved Time CoV-Exposed Comment:Positive COVID-19 12/24/2021 12/24/2021 12/25/2021 10: 54 AM EDT COVID-19 12/24/2021 12/24/2021 01/14/2022 1:21 AM EDT documented as of this encounter Care Teams Human Resource Adviser Relationship Specialty Start Date End Date Peewee Maxwell MD [address] [place] [address] PCP - General Internal Medicine 08/11/20 03/13/25 Pcp, Unknown PCP - General 03/14/25 04/13/25 Sylvia Ibarra PA [address] [place] [address] PCP - General Physician It Intern 04/14/25 Tico Martell MD [address] [place] [address] [email or web address] Historical LMR Provider 04/05/17 06/26/21 Kee Alexander MD [address] [place] [address] Historical LMR Provider 04/05/17 Kee Ugalde DO [facility] [place] [address] [email or web address] Historical LMR Provider 04/05/17 Polo Guadarrama MD [address] [address] [email or web address] Historical LMR Provider 04/05/17 2 Dilcia Gould MD [address] [address] [email or web address] Historical LMR Provider 04/05/17 Antoinette Ching PA-C 4 [facility] [place] [address] [email or web address] Historical LMR Provider 04/05/17 06/26/21 documented as of this encounter Additional Source Comments The information contained in this document represents components of the legal health record. It is not the complete legal health record.[facility]
--- OUTSIDE RECORDS SUMMARY | 2025-05-09 09:20 | XMS_ITS | Encounter Summary ---
Author Organization [facility] Address [address] [place] [address] Phone Care Team Providers Care Shearing Machine Feeder Name Role Phone Kee Ugalde DO Unavailable [phone] Sylvia Ibarra Primary Care Provider [phone] Encounter Details Date Type Department Care Team ([facility] st Contact Info) Description 05/05/2025 Telephone [facility] 10 [place] [address] Polo Vasquez MD [address] [address] Social History Tobacco Use Types Packs/Day Years [...] AM EST documented as of this encounter Progress Notes * Polo Vasquez MD - 05/05/2025 7:27 AM EST C/O neck pain, R side. EGD?CLS done 04/28, he woke upwith this morning of 05/02. Nothing in procedure notes or anaesthesia note to suggest airway issues that may have required extra nexk extension/jaw thrust/etc. I shared with him that I dont think this is likely related to procedure. Rec ibuprofen with food and and moist heat, massage if possible. To call PCP if not improving. documented in this encounter Plan of Treatment Upcoming Encounters Date Type Department Care Team (Late st Contact Info) Description 06/13/2025 1:45 PM EST Office Visit [facility] [address] [place] [address] Polo Vasquez MD [address] [address] [email or web address] documented as of this encounter Visit Diagnoses Not on filedocumented in this encounter Care Teams Shearing Machine Feeder Relationship Specialty Start Date End Date Sylvia Ibarra PA [address] [place] [address] PCP - General Physician Entomology Teacher 04/14/25 Kee Ugalde DO [address] [place] [address] [facility], [place] [address] [email or web address] Historical LMR Provider 04/05/17 documented as of this encounter Additional Source Comments The information contained in this document represents components of the legal health record. It is not the complete legal health record.[facility]
--- OUTSIDE RECORDS SUMMARY | 2025-05-09 09:20 | XMS_ITS | Encounter Summary ---
Author Organization [facility] Address [address] [facility] [address] [place] [address] Phone Care Team Providers Care Car Mover Name Role Phone Eulalio Ahuja MD Primary Care Provider [phone] Tico Martell MD Unavailable [phone] Kee Alexander MD Unavailable [phone] Kee Ugalde DO Unavailable [phone] Polo Guadarrama MD Unavailable Dilcia Gould MD Unavailable [phone] Antoinette Ching PA-C Unavailable [phone] Seamus Hadley MD Primary Care Provide r Peewee Maxwell MD Primary Care Provider [phone] Pcp, Unknown Primary Care Provider UnavailSylvia Brunner Primary Care Provider [phone] Encounter Details Date Type Department Care Team (Late st Contact Info) Description 04/18/2017 Procedure Pass [facility]oscopy Admitting Dept Virtual Department [address] [place], [place] [id number] Social History Tobacco Use Types Packs/Day Years [...] Description 06/13/2025 1:45 PM EST Office Visit [facility] 10 [place] [address] Polo Vasquez MD [address] [address] [email or web address] documented as of this encounter Visit Diagnoses Not on filedocumented in this encounter Additional Health Concerns Infection Onset Date Last Indicated Resolved Time CoV-Exposed Comment:Positive COVID-19 12/24/2021 12/24/2021 12/25/2021 10: 54 AM EDT COVID-19 12/24/2021 12/24/2021 01/14/2022 1:21 AM EDT documented as of this encounter Care Teams Car Mover Relationship Specialty Start Date End Date [place] [address] [email or web address] PCP - General 04/04/17 08/04/18 Seamus Hadley MD [address] [place] [address] PCP - General Family Medicine 08/05/18 08/10/20 Peewee Maxwell MD [address] [place] [address] PCP - General Internal Medicine 08/11/20 03/13/25 Pcp, Unknown PCP - General 03/14/25 04/13/25 Sylvia Ibarra PA [address] [place] [address] PCP - General Physician Slitter Operator 04/14/25 Tico Martell MD [address] [place] [address] [email or web address] Historical LMR Provider 04/05/17 06/26/21 Kee Alexander MD [address] [place] [address] Historical LMR Provider 04/05/17 Kee Ugalde DO [address] [place] [address] Orthopedics & Sports [facility], [place] [address] [email or web address] Historical LMR Provider 04/05/17 Polo Guadarrama MD [address] [place] [address] [email or web address] Historical LMR Provider 04/05/17 2 Dilcia Gould MD [address] [place] [address] [email or web address] Historical LMR Provider 04/05/17 Antoinette Ching PA-C [address] [place] [address] Orthopedics Sports [facility] [place] [address] [email or web address] Historical LMR Provider 04/05/17 06/26/21 documented as of this encounter Additional Source Comments The information contained in this document represents components of the legal health record. It is not the complete legal health record.[facility]
--- OUTSIDE RECORDS SUMMARY | 2025-05-09 09:20 | XMS_ITS | Data Portability ---
Author Organization [place] [facility], Allergy Address [address] [address] Care Team Providers Care Gun Welder Name Role Phone EBENEZER URRUTIA Primary Care Provider Assessment Encounter Date Assessment Date Assessment LastModified by Organization Details LastModified Time 10/01/2024 10/01/2024 69-year-old male presents today for routine evaluation of obstructive sleep apnea. He is doing well with CPAP. He previously had some dryness in his nose but this is better now that humidity in his house is increased to 46%. He should continue nasal rinses and nasal gel. Next winter he can try Ponaris if the dryness worsens again. I renewed his azelastine. [email or web address] Not available 10/02/2024 07:21:16 Plan of Treatment Reminders Order Date Submit Date Provider Last Modified By Organization Details Last Modified Time Details Appointments None recorded. Lab None recorded. Referral None recorded. Procedures None recorded. Surgeries None recorded. Imaging None recorded. Medication Orders azelastine 137 mcg (0.1 %) nasal spray 2024 025 [facility] [address] [place], [address], 5 14:32:20 Patient TargetsNo targets recorded. Patient InstructionsNo instructions recorded. Reason for Referral None Reported. Problems Name Problem SNOMED Code Status Onset Date Resolution Date Notes Provider Name and Address Organization Details Recorded Time Headache 57789361 Active 2020 Headache, unspecifie d; Note: Date Diagnosed: 09/21/2020 8:09 AM (R51.9) Not Available [facility] 4 02:41:40 Cyst of nasal sinus 39106922 Active 2020 Cyst and mucocele of nose and nasal sinus; Note: Date Diagnosed: 09/21/2020 8:09 AM (J34.1) Not Available [facility] 4 02:41:33 Chronic rhinitis 03058489 Active 2020 Chronic rhinitis; Note: Date Diagnosed: 11/28/2020 11:19 AM (J31.0) Not Available [facility] 4 02:41:36 Allergic rhinitis 23185257 Active 2020 Other allergic rhinitis; Note: Date Diagnosed: 02/23/2021 8:05 AM (J30.89) Not Available [facility] 4 02:41:35 Obstructiv e sleep apnea syndrome 99955296 Active 2020 Obstructiv e sleep apnea (adult) (pediatric ); Note: Date Diagnosed: 02/23/2021 8:05 AM (G47.33) Not Available [facility] 4 02:41:38 Problem Notes None recorded. Medical Equipment None Reported. Allergies No known drug allergies Medications Name Sig Start Date Stop Date Status Note LastModified by Organization Details LastModified Time losartan 50 mg tablet TAKE 1 TABLET BY MOUTH TWICE DAILY active Not Available Not Available No t Available nifedipin e ER 30 mg tablet,ex tended release 24 hr 10/01 completed Medicati on ID: [id number] rand Name: nifedipi ne Send Method: E-Prescr ibed Sub s Allowed: subs OK Speci al Instruct ion: TAKE 1 TABLET BY MOUTH ONCE DAILY. DO NOT CRUSH CHEW OR SPLIT Me dication GenericN castillo: nifedipi ne Not Available Not Available Not Available amoxicill in 500 mg capsule TAKE 4 CAPSULES 1 HOUR PRIOR TO DENTAL PROCEDUR E active Not Available Not Available No t Available desonide 0.05 % topical cream active Medicati on ID: [id number] B rand Name: desonide Send Method: E-Prescr ibed Sub s Allowed: subs OK Medic ationGen ericName : desonide Not Available Not Available Not Available tizanidin e 2 mg tablet 12/14 completed Medicati on ID: [id number] B rand Name: tizanidi ne Send Method: E-Prescr ibed Sub s Allowed: subs OK Medic ationGen ericName : tizanidi ne Not Available Not Available Not Available metoprolo l succinate ER 50 mg tablet,ex tended release 24 hr 12/14 completed Medicati on ID: [id number] B rand Name: metoprol ol succinat e Send Method: E-Prescr ibed Sub s Allowed: subs OK Medic ationGen ericName : metoprol ol succinat e Not Available Not Available Not Available lisinopri l 20 mg tablet 12/14 completed Medicati on ID: [id number] B rand Name: lisinopr il Send Method: E-Prescr ibed Sub s Allowed: subs OK Medic ationGen ericName : lisinopr il Not Available Not Available Not Available prednison e 20 mg tablet TAKE 1 TABLET BY MOUTH TWICE DAILY FOR 7 DAYS 10/01 completed Not Available Not Available Not Available amlodipin e 2.5 mg tablet TAKE 1 TABLET BY MOUTH ONCE DAILY FOR HIGH BLOOD PRESSURE active Not Available Not Available No t Available spironola ctone 25 mg tablet TAKE 1 TABLET BY MOUTH ONCE DAILY active Not Available Not Available No t Available lorazepam 0.5 mg tablet 12/14 completed Medicati on ID: [id number] B rand Name: lorazepa m Send Method: E-Prescr ibed Sub s Allowed: subs OK Medic ationGen ericName : lorazepa m Not Available Not Available Not Available amlodipin e 10 mg tablet 12/14 completed Medicati on ID: [id number] B rand Name: amlodipi ne Send Method: E-Prescr ibed Sub s Allowed: subs OK Medic ationGen ericName : amlodipi ne Not Available Not Available Not Available omeprazol e 20 mg capsule,d elayed release TAKE 1 CAPSULE BY MOUTH ONCE DAILY active Not Available Not Available No t Available doxazosin 4 mg tablet 10/01 completed Medicati on ID: [id number] B rand Name: doxazosi n Send Method: E-Prescr ibed Sub s Allowed: subs OK Medic ationGen ericName : doxazosi n Not Available Not Available Not Available hydrochlo rothiazid e 25 mg tablet 10/01 completed Medicati on ID: [id number] B rand Name: hydrochl orothiaz caty Send Method: E-Prescr ibed Sub s Allowed: subs OK Medic ationGen ericName : hydrochl orothiaz caty Not Available Not Available Not Available mirtazapi ne 15 mg tablet 12/14 completed Medicati on ID: [id number] B rand Name: mirtazap ine Send Method: E-Prescr ibed Sub s Allowed: subs OK Speci al Instruct ion: TAKE 1 TABLET BY MOUTH DAILY AT BEDTIME Medicati onGeneri cName: mirtazap ine Not Available Not Available Not Available metoprolo l succinate ER 25 mg tablet,ex tended release 24 hr 10/01 completed Medicati on ID: [id number] B rand Name: metoprol ol succinat e Send Method: E-Prescr ibed Sub s Allowed: subs OK Speci al Instruct ion: TAKE 1 TABLET BY MOUTH ONCE DAILY Me dication GenericN castillo: metoprol ol succinat e Not Available Not Available Not Available azelastin e 137 mcg (0.1 %) nasal spray USE 2 SPRAY(S) IN EACH NOSTRIL TWICE DAILY active Not Available Not Available No t Available levofloxa rudy 500 mg tablet TAKE 1 TABLET BY MOUTH EVERY 24 HOURS FOR 7 DAYS 10/01 completed Not Available Not Available Not Available albuterol sulfate HFA 90 mcg/actua tion aerosol inhaler INHALE 2 PUFFS BY MOUTH EVERY 4 TO 6 HOURS NEEDED 10/01 completed Not Available Not Available Not Available losartan 100 mg tablet TAKE 1 TABLET BY MOUTH ONCE DAILY IN THE MORNING 10/01 completed Not Available Not Available Not Available fluticaso ne propionat e 50 mcg/actua tion nasal spray,gi pension SPRAY 2 SPRAYS IN EACH NOSTRIL BY INTRANAS AL ROUTE ONCE DAILY active Not Available Not Available No t Available doxycycli ne hyclate 100 mg tablet TAKE 1 TABLET BY MOUTH EVERY 12 HOURS FOR 7 DAYS MAY TAKE WITH FOOD TO MINIMIZE ABDOMINA L DISCOMFO RT , TAKE WITH A FULL GLASS OF WATER 10/01 completed Not Available Not Available Not Available naproxen 500 mg tablet 10/01 completed Medicati on ID: [id number] B rand Name: naproxen Send Method: E-Prescr ibed Sub s Allowed: subs OK Speci al Instruct ion: TAKE 1 TABLET BY MOUTH TWICE DAILY WITH FOOD Med icationG enericNa me: naproxen Not Available Not Available Not Available Vitals Date Recorded Body height Body mass index (BMI) Body weight Provider Name and Address Organization Details Last Updated DateTime 10/01/2024 165.1 cm 33.3 kg/m2 72775.47 g Annaamina Cutler [place] [facility] 10/01/2024 14:22:03 Social History None recorded. Functional Status None recorded. Mental Status None recorded. Family History Nothing Reported Notes:hypertension - multipl e Medical History No medical history recorded. Past Encounters Encounter ID Performer Location Encounter Start Date Encounter Closed Date Diagnosis/Indication Diagnosis SNOMED-CT Code Diagnosis ICD10 Code Diagnosis IMO Codes Diagnosis Note [id number] NELLY GIORDANO MD [facility] on [address] [place] [address] 10/01/2024 14:00:10 10/04/2024 12:24:02 Allergic rhinitis 84919306 J30.9 Obstructiv e sleep apnea syndrome 50804057 G47.33 Health Concerns Section Related Observation LastModified by Organization Detai ls LastModified Time None Recorded Concern Status LastModified by Organization Details LastModified Time None Recorded Advance Directives Directive None Recorded Payers Insurance Date Sequence Insurance Name Policy Number Policy Jeter Covered Member ID Jeter Member ID Guarantor Name 10/01/2024 1 [facility]: MEDICARE HMO BLUE (MEDICARE REPLACEMENT HMO) [id number] [id number] Notes Date Note Type Note Provider Name and Address Organization Details Recorded Time 10/01/2024 text/html 69 yo M with OLGA on CPAP presents for evaluation CPAP, seems to work okuses antibacterial device, uses nasal rinse dry nose better now now humidity 46%, lower before PV (2022): 67 yo M here for follow up. Most recent compliance report from May showed good response. Avg AHI 0, 0%leak time. Since then, he has a new machine and it does not seem to be working as well.He has been using another machine and feels this has been causing him to have some increased sensation of hearing his heartbeat. BP has been controlled. 136/70today. NELLY GIORDANO MD [address] [place] [address], [phone], [facility] - [facility] 10/02/2024 07:21:27
--- OUTSIDE RECORDS SUMMARY | 2025-05-09 09:20 | XMS_ITS | Clinical Summary ---
Author Organization [facility] Address [address] [facility] [address] [place] [address] Phone Care Team Providers Care Tong Carrier Name Role Phone Peewee Maxwell MD Primary Care Provider [phone] Allergies No known active allergies Medications spironolactone [...] Partial thickness rotator cuff tear 01/30/2018 01/07/2021 Pain of shoulder region 01/25/201812/18 Immunizations Immunization Administration Dates Next Due Td, [...] Visit [facility] [address] [place] [address] Kee Hernández MD [address] [facility] [address] [place] [address] Health Maintenance Due Date Last [...] patient's age to complete this topic Insurance [facility] PPO Blue([id number]) [facility] PPO Blue([id number]) Care Teams Tong Carrier Relationship Specialty Start Date End Date Peewee Maxwell MD [address] [place] [address] PCP - General Internal Medicine 10/21/20
== END 2025-05-09 09:39 | disposition home or self-care (01) ==
PROVIDERS: PCP Physician Assistant Medical; Visit Provider Physician Assistant Medical
DX: G25.0 Essential tremor (principal); M54.2 Cervicalgia

== ENCOUNTER → 2025-05-09 10:40 | Outpatient (BNV) | payer MEDICARE, SELFPAY | PROVIDERS: PCP Physician Assistant Medical; Visit Provider Radiology Diagnostic Radiology | DX: M47.812 Spondylosis without myelopathy or radiculopathy, cervical region (principal) | CPT/HCPCS: 72052 ==

== ENCOUNTER 2025-06-03 13:27 | Outpatient (AMB) | payer MEDICARE, SELFPAY ==
--- NOTE | 2025-06-03 13:39 | A.OFFPC_ITS ---
Vital Signs 06/03/25 13:40 Height 5 ft 5.1 in Weight 211 lb BMI 35.0 BP 132/62 Blood Pressure Location Rt brachial Position Sitting Respiration 17 Pulse 35 L Pulse Source Pulse Oximeter Temp 97.2 F Temp Source Temporal Artery Scan Pulse Oximetry (%) 98 Oxygen Delivery Method Room Air Intake Visit Reasons: 2 week follow up Quantity Surveyor Required: No Accompanied by: Self / Same As Patient Allergies No Known Allergies Allergy (Verified 06/03/25 15:11) Medication List - Last Reconciled 06/03/25 by Sylvia Ibarra PA-C amlodipine 2.5 mg PO .DAILY@0200 azelastine 1 spray intranasal DAILY PRN clotrimazole-betamethasone 1-0.05 % 1 appl topical Q12H 4 weeks fluticasone propionate 50 mcg/actuation 1 spray intranasal DAILY PRN losartan 50 mg PO BID 90 days omeprazole 20 mg PO BID 90 days primidone 25 mg (1/2 x 50 mg) PO BEDTIME 90 days spironolactone 25 mg PO DAILY Tobacco use date assessed: 03/24/25 Dental Screening Dental Screen Date: 03/24/25 HPI HPI Comments History of Present Illness Details History of Present Illness The patient is a 70 year old male presenting for a two-week follow-up appointment for tremors. During the visit, he was incidentally found to have significant bradycardia with a heart rate of 35-40 beats per minute. The patient has a known history of sinus bradycardia, with an episode in 2020 for which he was evaluated by cardiology. He had an outpatient Holter monitor and echocardiogram, both of which were within normal limits. At that time, there was no indication for a pacemaker and he was advised to stay off beta-blockers. He reports following up with cardiology every six months and last saw them in October of the previous year. He has had a total of three Holter monitors. He takes spironolactone in the morning. The patient also reports a long-standing history of urinary dribbling after urination, which requires him to change his underwear frequently. He is currently followed by a urologist, is on finasteride, and his PSA level is normal. Regarding his essential tremor, he was started on medication but feels it is no longer helping, though it was effective initially. He takes the medication nightly before bed. He is reluctant to see a neurologist at this time. Past medical history is also significant for severe arthritis and spondylosis of the neck, confirmed by an X-ray. He notes his neck does not crack as much as it used to. He has upcoming appointments for a hearing exam. He has had a prior colonoscopy and endoscopy. His recent blood work was normal except for triglycerides of 209 and HDL of 32. Social History - Exercise: He reports using a treadmill for 30 minutes, using a stationary bicycle for an hour, and walking a mile and a half daily. - Nutrition: He has been advised to decr ease sugar intake. - Weight Management: He has lost 10 poun ds in the last 17 days, with a current weight of 208 lbs in the morning. - Functional Status: He experiences diff iculty riding an electric bike due to his neck condition. [facility] Medical History (Updated 06/03/25 @ 15:14 by Sylvia Ibarra PA-C) Healthcare maintenance Low HDL (under 40) Hypertriglyceridemia Cervical spondylosis Overflow incontinence Essential tremor Nontraumatic neck pain Neck pain Preventative health care Sinusitis Hearing difficulty Ear pressure Bilateral knee pain Abdominal cramps Osteoarthritis of right hip Sinus bradycardia COPD (chronic obstructive pulmonary disease) Asthma DJD (degenerative joint disease) Allergic rhinitis Hx of renal artery stenosis Arthritis Has a tremor GERD (gastroesophageal reflux disease) History of itching Itching of male genitalia Seasonal allergies Nasal dryness Morbid obesity Hypertension Surgical History History of endoscopy (~04/28/25) Hx of colonoscopy (~04/28/25) History of total left hip replacement (~2015) Hx of repair of right rotator cuff Hx of eye surgery Hx of vasectomy Hx of Achilles tendon repair (~2005) History of hip surgery Hx of cholecystectomy H/O right knee surgery (~2016) Family History Father Enlarged heart Mother No problems noted. Social History Household Members: Spouse Housing: House Are you a primary rn intensive care unit to a significant other at home: No Do you presently have visiting nurse or other home services: No Alcohol intake: current Alcohol intake frequency: does not drink Comment: Uses store carriage for stability when shopping Patient Tobacco Use Status: Never used Tobacco Second Hand Smoke Exposure: No service: No Current occupational status: retired Cognitive needs: No Hearing needs: No Vision needs: Yes (reading glasses ) Questionnaire PHQ-9 Over the last 2 weeks, how often have you been bothered by any of the following problems? 1. Little interest or pleasure in doing things: not at all 2. Feeling down, depressed, or hopeless: not at all 3. Trouble falling or staying asleep, or sleeping too much: not at all 4. Feeling tired or having little energy: not at all 5. Poor appetite or overeating: not at all 6. Feeling bad about yourself - or that you are a failure or have let yourself or your family down: not at all 7. Trouble concentrating on things, such as reading the newspaper or watching television: not at all 8. Moving or speaking so slowly that other people could have noticed. Or the opposite - being so fidgety or restless that you have been moving around a lot more than usual: not at all 9. Thoughts that you would be better off or of hurting yourself in some way: not at all Total score: 0 Depression Screening Interpretation: Negative Depression Screening Done: Yes 66309 - PHQ-9 Billing: Yes Source: Developed by Drs. Emmanuel Juarez, Dacia Rojo, Santos Patel and colleagues, with an educational osmar from [employer]. Thrive Questionnaire Date Thrive assessed: 03/24/25 I am a: Patient What is your living situation today?: I have a steady place to live Within the past 12 months, did the food you bought not last and you didn't have the money to get more?: Never true Within the past 12 months, did you worry whether your food would run out before you got money to buy more?: Never true Do you have trouble paying for medicines?: No Do you have trouble getting transportation to medical appointments?: No Do you have trouble paying your heating and electricity bill?: No Do you have trouble taking care of your child, family member or friend?: No Do you have trouble with day-to-day activities such as bathing, preparing meals, shopping, managing finances, etc.?: No Are you currently unemployed and looking for a job?: No Are you interested in more education?: No Please select the resources that you would like help with: None Currently or been in a relationship where the following occur: No concerns reported THRIVE Score: 0 AUDIT C Alcohol Use Questionnaire (AUDIT-C) 1. How often do you have a drink containing alcohol?: Never 3. How often do you have six or more drinks on one occasion?: Never Total Score: 0 Score Reviewed/Action Taken: No LANA-7 AMB Questionnaire LANA-7 Date LANA - 7 assessed: 03/24/25 Feeling nervous, anxious, or on edge: 0 = Not at all Not being able to stop or control worryin = Not at all Worrying too much about different things: 0 = Not at all Trouble relaxin = Not at all Being so restless that it is hard to sit still: 0 = Not at all Becoming easily annoyed or irritable: 0 = Not at all Feeling afraid as if something awful might happen: 0 = Not at all Total LANA-7 score (0-4 normal; 5-9 mild; 10-14 moderate; 15-21 severe): 0 Source: Developed by Drs. Emmanuel Juarez, Dacia Rojo, Santos Patel and colleagues, with an educational osmar from [employer]. LANA-7 Assessment Billing LANA-7 Assessment Tool: LANA-7 Assessment 63575 Review of Systems Narrative Review of Systems - Constitutional: Reports a 10-pound weight loss over 17 days. - HEENT: Reports intermittent difficulty with hearing. - Cardiovascular: Denies dizziness, lightheadedness, feeling of passing out, and chest pain. - Genitourinary: Reports urinary dribbling after voiding, which has been occurring for a long time. - Musculoskeletal: Reports arthritis in the neck. - Neurological: Reports essential tremors. Const All systems reviewed & are unremarkable except as noted in HPI and below Physical exam (Primary Care) Vital Signs: Last Vital Signs Temp 97.2 F 06/03/25 13:40 Pulse 35 L 06/03/25 13:40 Resp 17 06/03/25 13:40 BP 142/62 H 06/03/25 13:40 Pulse Ox 98 06/03/25 13:40 Oxygen Delivery Method Room Air 06/03/25 13:40 Care Plan Goal for BP management: <140/90 at Goal BMI result Body Mass Index 35.0 BMI Assessment/Plan discussion: High BMI High, discussed plan: lifestyle, weight reduction, dietary, physical activity, alcohol moderation and other Tobacco/Smoking Status: Tobacco use Status Tobacco use date assessed 03/24/25 06/03/25 13:49 Patient Tobacco Use Status Never used Tobacco 06/03/25 13:49 PHQ-9: PHQ-9 Score PHQ-9: Total score 0 06/03/25 13:49 Depression Screening Interpretation: Negative Thrive Assessment: Date of Thrive Assessment Date Thrive assessed 03/24/25 06/03/25 13:49 Currently or been in a relationship where the following occur: No concerns re ported Narrative Physical Exam Appearance: Alert. Oriented X3. No acute distress. Head: Normal external exam. Normocephalic. Atraumatic. Eyes: Pupils are equal, round, and reactive to light. Extraocular movements intact. Conjunctiva and sclera normal. Eyelids normal. Throat: Pharynx normal. Uvula midline. Moist mucous membranes. Neck: Normal inspection. Neck supple. Full range of motion. Cardiovascular: Bradycardia noted with heart rate between 35-40 bpm. Normal heart rate and rhythm otherwise. Heart sound normal. No murmurs noted. Pulses normal throughout. Respiratory: No respiratory distress. Painless inspiration. Breath sounds normal. No wheezes/rales/rhonchi noted. No accessory muscle usage noted or decreased air movement noted. Back: Full range of motion noted. Skin: Skin warm and dry. Normal skin color. Normal skin turgor. No rashes/lesions/lacerations noted. Extremities: No lower extremity edema. Extremities exhibit normal range of motion. Neuro: Oriented X 3. No motor deficit. No sensory deficit. Reflexes normal. Office Procedures EKG Details: EKG sinus bradycardia. No acute ischemic change are noted. Similar compared to prior EKGs. Discussed this with Dr. Bhat who agreed with EKG reading and Dr. Hernandez. 68075-Dwplmbedwmymtbmjk, Complete Results Reviewed Results Reviewed: Results - EKG: Showed sinus bradycardia. - Labs: Recent blood work was reviewed. - Triglycerides: 209. - HDL cholesterol: 32. - PSA: Normal. - X-ray of Neck: Shows spondylosis. Coding Level of Care Code Est Pt Level 4 (80462) Add On Problem Visit Only Diagnoses Overflow incontinence N39.490 Sinus bradycardia R00.1 Essential tremor G25.0 Cervical spondylosis M47.812 Hypertriglyceridemia E78.1 Low HDL (under 40) E78.6 Healthcare maintenance Z00.00 CPT Codes EKG - CPT: 23078-Osxmfryojkvdqklqd, Complete ([id number]) Additional Codes LANA-7 Assessment Billing - LANA-7 Assessment Tool: LANA-7 Assessment 79276 ([id number]) PHQ-9 - 55621 - PHQ-9 Billing: Yes ([id number]) Time Spent (min) 60 Assessment & Plan Assessment & Plan (1) Overflow incontinence: Code(s): N39.490 - Overflow incontinence Category: Medical Plan: The patient reports a long-standing issue with post-void dribbling. He is currently followed by urology and takes finasteride. His PSA is normal, and it was determined that no new medications are needed. He was counseled on behavioral modification, specifically timed voiding every hour to manage the overflow incontinence. (2) Sinus bradycardia: Code(s): R00.1 - Bradycardia, unspecified Category: Medical Plan: The patient presented with a heart rate of 35-40 bpm and an EKG confirmed sinus bradycardia. He denied symptoms of dizziness, lightheadedness, or chest pain. After discussion with the patient's casting supervisor, it was confirmed that this is his baseline heart rate and no changes to his medications, including amlodipine, are needed at this time. The patient was advised to schedule a follow-up appointment with his casting supervisor. (3) Essential tremor: Code(s): G25.0 - Essential tremor Category: Medical Plan: The patient reports that the medication for his essential tremor is no longer effective. A referral to neurology was offered, but the patient declined at this time, stating he wishes to address other issues first. (4) Cervical spondylosis: Code(s): M47.812 - Spondylosis without myelopathy or radiculopathy, cervical region Category: Medical Plan: The patient has severe arthritis and spondylosis of the neck confirmed on X-ray. A referral to a neck surgeon was discussed, but the patient declined to pursue this at this time. (5) Hypertriglyceridemia: Code(s): E78.1 - Pure hyperglyceridemia Category: Medical Plan: Recent lab work showed elevated triglycerides at 209 and low HDL at 32. The patient was advised to decrease sugar intake. (6) Low HDL (under 40): Code(s): E78.6 - Lipoprotein deficiency Category: Medical Plan: Recent lab work showed elevated triglycerides at 209 and low HDL at 32. The patient was advised to decrease sugar intake. (7) Healthcare maintenance: Code(s): Z00.00 - Encounter for general adult medical examination without abnormal findings Category: Medical Plan: The patient endorsed that his medication refills were completed recently. A refill for his nasal spray will be sent as a precaution. He has a hearing exam scheduled and was instructed to schedule his cardiology appointment. A follow-up visit is scheduled in three months. Plan Plan Patient was informed and verbally consented to the use of an ambient scribe for clinic note documentation during this visit. 1. Sinus Bradycardia The patient presented with a heart rate of 35-40 bpm and an EKG confirmed sinus bradycardia. He denied symptoms of dizziness, lightheadedness, or chest pain. After discussion with the patient's casting supervisor, it was confirmed that this is his baseline heart rate and no changes to his medications, including amlodipine, are needed at this time. The patient was advised to schedule a follow-up appointment with his casting supervisor. 2. Overflow Incontinence The patient reports a long-standing issue with post-void dribbling. He is currently followed by urology and takes finasteride. His PSA is normal, and it was determined that no new medications are needed. He was counseled on behavioral modification, specifically timed voiding every hour to manage the overflow incontinence. 3. Essential Tremor The patient reports that the medication for his essential tremor is no longer effective. A referral to neurology was offered, but the patient declined at this time, stating he wishes to address other issues first. 4. Cervical Spondylosis The patient has severe arthritis and spondylosis of the neck confirmed on X-ray. A referral to a neck surgeon was discussed, but the patient declined to pursue this at this time. 5. Hypertriglyceridemia And Low Hdl Recent lab work showed elevated triglycerides at 209 and low HDL at 32. The patient was advised to decrease sugar intake. 6. Medication Reconciliation And Health Maintenance The patient endorsed that his medication refills were completed recently. A refill for his nasal spray will be sent as a precaution. He has a hearing exam scheduled and was instructed to schedule his cardiology appointment. A follow-up visit is scheduled in three months. Discussion Notes I discussed the finding of bradycardia with the patient, noting his heart rate was 35-40 bpm. An EKG was performed which showed sinus bradycardia. I spoke with his casting supervisor, who confirmed this is the patient's normal baseline and advised to continue current management without changes. I reassured the patient and advised him to follow up with cardiology. We discussed his overflow incontinence, and I explained that since his PSA is normal, no new medication is needed at this time. I educated him on the strategy of timed voiding every hour to help manage the symptoms. Regarding his essential tremor, I offered a referral to neurology, which he declined for now. I also offered a referral to a neck surgeon for his cervical spondylosis, which he also declined. We reviewed his recent labs, and I advised him to reduce sugar intake due to elevated triglycerides. I commended him on his recent weight loss and exercise regimen. We agreed on a follow-up appointment in three months. Medications: New fluticasone propionate 50 mcg/actuation 1 spray intranasal DAILY PRN 16 grams 3RF Dry Nasal Passages Patient Instructions: Patient Instructions - Your low heart rate is normal for you, according to your heart doctor. Please continue your current medications. - Please schedule an appointment with your casting supervisor. - For the urinary dribbling, please try to urinate every hour, even if you do not feel the urge to go. This can help prevent leakage. - Your lab work showed high triglycerides (a type of fat in the blood). Try to reduce your intake of sugary foods and drinks. - Please proceed with your scheduled hearing exam. - A refill for your nasal spray will be sent to the pharmacy. - Let us know if you change your mind and wish to see a neurologist for your tremors. - We will see you back in the office in three months for a follow-up visit.
[2025-06-03 13:40] VITALS: BP 132/62; PULSE 35; RESP 17; TEMP 36.2; O2SAT 98; BMI 35.0
--- OUTSIDE RECORDS SUMMARY | 2025-06-03 17:32 | XMS_ITS | Encounter Summary ---
Author Organization [facility] Address [address] [place] [address] Phone Care Team Providers Care Touring Production Manager Name Role Phone Eulalio Ahuja MD Primary Care Provider [phone] Tico Martell MD Unavailable [phone] Kee Alexander MD Unavailable [phone] Kee Ugalde DO Unavailable [phone] Polo Guadarrama MD Unavailable Dilcia Gould MD Unavailable [phone] Antoinette Ching PA-C Unavailable [phone] Seamus Hadley MD Primary Care Provide r Peewee Maxwell MD Primary Care Provider [phone] Pcp, Unknown Primary Care Provider UnavailSylvia Brunner Primary Care Provider [phone] Encounter Details Date Type Department Care Team (Late st Contact Info) Description 04/18/2017 Procedure Pass [facility] Endoscopy Admitting Dept Virtual Department [address] [place], [place] [id number] Social History Tobacco Use Types Packs/Day Years [...] Description 06/13/2025 1:45 PM EST Office Visit [facility] [address] [place] [address] Polo Vasquez MD [address] [address] [email or web address] documented as of this encounter Visit Diagnoses Not on filedocumented in this encounter Additional Health Concerns Infection Onset Date Last Indicated Resolved Time CoV-Exposed Comment:Positive COVID-19 12/24/2021 12/24/2021 12/25/2021 10: 54 AM EDT COVID-19 12/24/2021 12/24/2021 01/14/2022 1:21 AM EDT documented as of this encounter Care Teams Touring Production Manager Relationship Specialty Start Date End [place] [address] [email or web address] PCP - General 04/04/17 08/04/18 Seamus Hadley MD [address] [place] [id number] PCP - General Family Medicine 08/05/18 08/10/20 Peewee Maxwell MD [address] [place] [id number] PCP - General Internal Medicine 08/11/20 03/13/25 Pcp, Unknown PCP - General 03/14/25 04/13/25 Sylvia Ibarra PA [address] [place] [address] PCP - General Physician Cut Off Machine Unloader 04/14/25 Tico Martell MD [address] [place] [id number] [email or web address] Historical LMR Provider 04/05/17 06/26/21 Kee Alexander MD [address] [place] [address] Historical LMR Provider 04/05/17 Kee Ugalde DO [address] [place] [address] [facility], [place] [address] [email or web address] Historical LMR Provider 04/05/17 Polo Guadarrama MD [address] [place] [phone] [email or web address] Historical LMR Provider 04/05/17 2 Dilcia Gould MD [address] [place] [phone] [email or web address] Historical LMR Provider 04/05/17 Antoinette Ching PA-C [address] [place] [address] [facility], [place] [address] [email or web address] Historical LMR Provider 04/05/17 06/26/21 documented as of this encounter Additional Source Comments The information contained in this document represents components of the legal health record. It is not the complete legal health record.[facility]
--- OUTSIDE RECORDS SUMMARY | 2025-06-03 17:32 | XMS_ITS | Encounter Summary ---
Author Organization [facility] Address [address] [place] [address] Phone Care Team Providers Care Clutch Rebuilder Name Role Phone Tico Martell MD Unavailable Kee Alexander MD Unavailable [phone] Kee Ugalde DO Unavailable [phone] Polo Guadarrama MD Unavailable Dilcia Gould MD Unavailable Antoinette Ching-Bertha Unavailable Peewee Maxwell MD Primary Care Provider [phone] Pcp, Unknown Primary Care Provider UnavailSylvia Brunner Primary Care Provider [phone] Encounter Details Date Type Department Care Team (Late st Contact Info) Description 08/11/2020 Procedure Pass [facility], Ct Scan - [address] [address] Social History Tobacco Use Types Packs/Day Years [...] Description 06/13/2025 1:45 PM EST Office Visit [facility] [address] [place] [address] Polo Vasquez MD [address] [address] [email or web address] documented as of this encounter Visit Diagnoses Not on filedocumented in this encounter Additional Health Concerns Infection Onset Date Last Indicated Resolved Time CoV-Exposed Comment:Positive COVID-19 12/24/2021 12/24/2021 12/25/2021 10: 54 AM EDT COVID-19 12/24/2021 12/24/2021 01/14/2022 1:21 AM EDT documented as of this encounter Care Teams Clutch Rebuilder Relationship Specialty Start Date End Date Peewee Maxwell MD [address] [place] [phone] PCP - General Internal Medicine 08/11/20 03/13/25 Pcp, Unknown PCP - General 03/14/25 04/13/25 Sylvia Ibarra PA [address] [place] [phone] PCP - General Physician Tire Tester 04/14/25 Tico Martell MD [address] [place] [phone] [email or web address] Historical LMR Provider 04/05/17 06/26/21 Kee Alexander MD [address] [place] [address] Historical LMR Provider 04/05/17 Kee Ugalde DO [facility] [place] [address] [email or web address] Historical LMR Provider 04/05/17 Polo Guadarrama MD [address] [address] [email or web address] Historical LMR Provider 04/05/17 2 Dilcia Gould MD [address] [address] [email or web address] Historical LMR Provider 04/05/17 Antoinette Ching PA-C 4 [facility] [place] [address] [email or web address] Historical LMR Provider 04/05/17 06/26/21 documented as of this encounter Additional Source Comments The information contained in this document represents components of the legal health record. It is not the complete legal health record.[facility]
--- OUTSIDE RECORDS SUMMARY | 2025-06-03 17:32 | XMS_ITS | Encounter Summary ---
Author Organization [facility] Address [address] [place] [address] Phone Care Team Providers Care Infrastructure Manager Name Role Phone Kee Ugalde DO Unavailable [phone] Peewee Maxwell MD Primary Care Provider [phone] Pcp, Unknown Primary Care Provider Sylvia Oseguera Primary Care Provider [phone] Encounter Details Date Type Department Care Team (Latest Contact Info) Description 03/13/2025 Transcribe Orders [facility] [place] [address] [address] Dacia Watkins NP 10 [place] [address] Bloating (Primary Dx); Gastroesophageal reflux disease, unspecified [...] Visit [facility] [address] [place] [address] Polo Vasquez MD [address] [place] [address] documented as of this encounter Results * Vitamin B12 (03/13/2025 2:28 PM EDT) VITAMIN B12 375 232 - 1,245 pg/mL [facility] Blood 03/13/2025 2:28 PM EDT 03/13/2025 2:37 PM EDT Dacia Watkins NP LAB BLOOD BKR ORDERABLES Final Result [address] [address] * TSH (03/13/2025 2:28 PM EDT) TSH 2.24 0.27 - 4.20 uIU/mL [facility] Blood 03/13/2025 2:28 PM EDT 03/13/2025 2:37 PM EDT Dacia Watkins NP LAB BLOOD BKR ORDERABLES Final Result Performing Organization Address [facility]/ZIP Co de Phone Number [address] [address] * Iron and iron binding capacity (03/13/2025 2:28 PM EDT) IRON 116 45 - 160 ug/dL [facility] IRON BINDING CAPACITY 375 228 - 428 ug/dL [facility] TRANSFERRIN SATURAT. 31 20 - 55 % [facility] Blood 03/13/2025 2:28 PM EDT 03/13/2025 2:37 PM EDT Dacia Waktins NP LAB BLOOD BKR ORDERABLES Final Result Performing Organization Address City/[facility]/ZIP Co de Phone Number [address] [address] * (ABNORMAL) C-Reactive Protein (03/13/2025 2:28 PM EDT) C REACTIVE PROTEIN 4.9(H) 0.0 - 4.0 mg/L [facility] Blood 03/13/2025 2:28 PM EDT 03/13/2025 2:37 PM EDT us Dacia Watkins NP LAB BLOOD BKR ORDERABLES Final Result [address] [address] * (ABNORMAL) Comprehensive metabolic panel (03/13/2025 2:28 PM EDT) Pathologist [facility] SODIUM 138 133 - 146 mmol/L [facility] POTASSIUM 4.2 3.3 - 5.1 mmol/L [facility] CHLORIDE 102 96 - 108 mmol/L [facility] CO2 25 21 - 35 mmol/L [facility] BUN 25(H) 6 - 19 mg/dL [facility] CREATININE 1.10 0.5 - 1.5 mg/dL [facility] GLUCOSE 118(H) 70 - 99 mg/dL [facility] ALBUMIN 4.0 3.9 - 4.8 g/dL [facility] TOTAL PROTEIN 7.2 6.5 - 8.0 g/dL [facility] CALCIUM 9.2 8.4 - 10.3 mg/dL [facility] ALKALINE PHOSPHATASE 67 39 - 117 U/L [facility] TOTAL BILIRUBIN 0.4 0.0 - 1.2 mg/dL [facility] AST 41(H) 0 - 37 U/L [facility] ALT 31 0 - 40 U/L [facility] GLOBULIN 3.2 1 - 4.8 g/dL [facility] EGFR 72 >59 mL/min/1.7 3m2 [facility] Comment:Estimated glomerular filtration rate calculated using the CKD-EPI refit equation. ANION GAP 15 10 - 20 mmol/L [facility] Blood 03/13/2025 2:28 PM EDT 03/13/2025 2:37 PM EDT us Dacia Watkins EXTRUDER OPERATOR VERTICAL LAB BLOOD BKR ORDERABLES Final Result Performing Organization Address City/[facility]/ZIP Co de Phone Number [address] [address] * (ABNORMAL) CBC (03/13/2025 2:28 PM EDT) WBC 6.47 4.00 - 11.00 K/uL [facility] RBC 4.69 4.50 - 5.90 M/uL [facility] HGB 13.4(L) 13.5 - 17.5 g/dL [facility] HCT 41.8 41.0 - 53.0 % [facility] PLT 279 150 - 450 K/uL [facility] MCV 89.1 80.0 - 100.0 fL [facility] MCH 28.6 27.0 - 31.0 pg [facility] MCHC 32.1 32.0 - 36.0 g/dL [facility] RDW 13.0 11.5 - 14.5 % [facility] MPV 10.0 8.4 - 12.0 fL [facility] NRBC 0.00 0.00 /100 WBCs [facility] ABSOLUTE NRBC 0.00 0.00 K/uL [facility] Blood 03/13/2025 2:28 PM EDT 03/13/2025 2:37 PM EDT us Dacia Watkins NP LAB BLOOD BKR ORDERABLES Final Result Performing Organization Address City/[facility]/ZIP Co de Phone Number [address] [address] * Immunoglobulin A (03/13/2025 2:28 PM EDT) IgA 302 70 - 400 mg/dL [facility] Blood 03/13/2025 2:28 PM EDT 03/13/2025 2:37 PM EDT us Dacia Watkins EXTRUDER OPERATOR VERTICAL LAB BLOOD BKR ORDERABLES Final Result [address] [place] [address] * Tissue transglutaminase IgA (03/13/2025 2:28 PM EDT) TTG IGA ANTIBODY 1.8 <4.0 (Negative) U/mL [facility] Blood 03/13/2025 2:28 PM EDT 03/13/2025 2:37 PM EDT us Dacia Watkins EXTRUDER OPERATOR VERTICAL LAB BLOOD BKR ORDERABLES Final Result [facility] [address] [place] [address] documented in this encounter Visit Diagnoses Diagnosis Bloating- Primary Flatulence, eructation, and gas pain Gastroesophageal reflux disease, unspecified whether esophagitis present documented in this encounter Care Teams Infrastructure Manager Relationship Specialty Start Date End Date Peewee Maxwell MD [address] [place] [address] PCP - General Internal Medicine 08/11/20 03/13/25 Pcp, Unknown PCP - General 03/14/25 04/13/25 Sylvia Ibarra PA [address] [place] [address] PCP - General Physician Turnaround Engineer 04/14/25 Kee Ugalde DO [address] [place] [address] [facility] Medicine, [place] [address] Historical LMR Provider 04/05/17 documented as of this encounter Additional Source Comments The information contained in this document represents components of the legal health record. It is not the complete legal health record.[facility]
--- OUTSIDE RECORDS SUMMARY | 2025-06-03 17:32 | XMS_ITS | Clinical Summary ---
Author Organization [facility] Address [address] [place] [address] Phone Care Team Providers Care Riverboat Master Name Role Phone Kee Ugalde DO Unavailable [phone] Sylvia Ibarra Primary Care Provider [phone] Allergies No known active allergies Medications spironolactone (ALDACTONE) 25 MG tablet Take 25 mg by mouth daily. Active omeprazole (PRILOSEC) 20 MG capsule Take 20 mg by mouth 2 (two) times a day. Active azelastine (ASTELIN) 137 mcg (0.1 %) nasal spray use 2 spray(s) in each nostril twice daily 01/17/2025 Active fluticasone propionate (FLONASE) 50 mcg/actuation nasal spray use 2 spray(s) in each nostril once daily 01/17/2025 Active losartan (COZAAR) 50 MG tablet Take 50 mg by mouth 2 (two) times a day. Active amLODIPine (NORVASC) 2.5 MG tablet Take 1 tablet by mouth daily as needed. Active olopatadine (PATANOL) 0.1 % ophthalmic solution Place 1 drop into each eye 2 (two) times a day. Active loratadine (CLARITIN) 10 mg tablet Take 10 mg by mouth daily. Active Active Problems [...] Encounters Date Type Department Care Team Description 5 Telephone [facility] [address] [place] [address] Yossi Vasquez MD 5 Telephone [facility] [address] [place] [address] Yossi Vasuqez MD 5 1:25 PM EST Anesthesia Event [facility] Admitting [facility] Virtual Department [address] [place] [address] Fco Clark MD Matos-Auer bach, Melissa, MD 5 12:30 PM EST - 5 1:00 PM EST Surgery [facility] Admitting [facility] Virtual Department [address] [place] [address] Yossi Vasquez MD ESOPHAGOGASTRODUODENOSCOPY 5 11:11 AM EST - 5 2:59 PM EST Hospital Encounter [facility] Virtual Department [address] [place] [address] Yossi Vasquez MD Discharge Disposition: Home or Self Care 5 Procedure Pass [facility] Admitting [facility] Virtual Department [address] [place] [address] 5 2:45 PM EDT Pre-Admission Testing Pre Procedure Evaluation [address] [place] [address] Yossi Vasquez MD 5 2:28 PM EDT - 5 11:59 PM EDT Hospital Encounter [facility] [place]le[place] [address] [place] [address] Dacia Watkins NP Discharge Disposition: Home or Self Care 5 Transcribe Orders [facility] Phle[place] [address] [place] [address] Dacia Watkins NP Bloating (Primary Dx); Gastroesophageal [...] Upcoming Encounters Date Type Department Care Team ([facility] st Contact Info) Description 06/13/2025 1:45 PM EST Office Visit [facility] [address] [place] [address] Yossi Vasquez MD [address] [place] [address] [email or web address] Health Maintenance Due Date Last Done Comments [...] this topic Medical Devices Implanted Type Area Bridge Gang Worker Device Identifier Shelf Expiration Date Model / Serial / Lot Bilateral Hip Replacements Metal Right Shoulder Right Knee Repair Metal Procedures Procedure Name Priority Date/Time Associated Diagnosis Comments TISSUE EXAM Routine 04/28/2025 1:30 PM EST RI COLSC FLX W/RMVL OF TUMOR POLYP LESION SNARE TQ 04/28/2025 1:22 PM EST Diverticulosis Special Needs Bradycardia - cardiology notes on chart RI COLONOSCOPY W/BIOPSY SINGLE/MULTIPLE 04/28/2025 1:22 PM EST Diverticulosis Special Needs Bradycardia - cardiology notes on chart RI COLONOSCOPY FLX DX W/SUZY J SPEC WHEN PFRMD 04/28/2025 1:22 PM EST Diverticulosis Special Needs Bradycardia - cardiology notes on chart RI EGD ABLATE TUMOR POLYP/LESION W/DILATION& WIRE 04/28/2025 1:22 PM EST Diverticulosis Special Needs Bradycardia - cardiology notes on chart RI EDG TRANSORAL BIOPSY SINGLE/MULTIPLE 04/28/2025 1:22 PM EST Diverticulosis Special Needs Bradycardia - cardiology notes on chart RI ESOPHAGOGASTRODUODENOSCOP Y TRANSORAL DIAGNOSTIC 04/28/2025 1:22 PM [...] BIOPSY: No pathologic abnormalities. 5 12:13 PM [facility] at 1213 EST Clinical History Pre-op diagnosis: Abdominal pain, bloating K21.9, R19.4 5 12:13 PM [facility] Gross Description A. DUODENUM: Received in formalin [...] a single cassette labeled D1. Grossed by: SHARRI Varner PA([facility]) 5 12:13 PM [facility] Grossed By Chris Romo 5 12:13 PM [facility] Result Priority Level Routine 5 12:13 PM [facility] Disclaimer By their signature amina martinez, the [...] larger than those provided in this report. 5 12:13 PM [facility] Procedure ESOPHAGOGASTRODUODEN OSCOPY COLONOSCOPY 5 12:13 PM EST [facility] Gastrointestinal Tissue (Duodenum) 04/28/2025 1:30 PM [...] MD LAB PATHOLOGY ORDERABLES F inal Result [address] [address] * ENDOSCOPY PROCEDURE (04/28/2025 1:08 PM EST) Narrative Transcriptions Yossi Vasquez MD - 04/28/2025 1:08 PM EST [facility] Patient Name: Joshua Fairchild MD:: YOSSI VASQUEZ MD, Procedure Date: 04/28/2025 1:08 PM Date of : 1955 Age: 70 Admit Type: Outpatient Gender: Male Room: [place] [address] Referring MD: Sylvia Ibarra Exam Type: Upper [...] 1:08 PM Procedure Code(s): --- Professional --- 53275, Esophagogastroduodenoscopy, flexible, transoral; with biopsy, single or multiple --- Technical --- 52194, Esophagogastroduodenoscopy, flexible, transoral; with biopsy, single or multiple Diagnosis Code(s): --- Professional --- K44.9, Diaphragmatic hernia without obstruction or gangrene R12, Heartburn R14.0, Abdominal distension (gaseous) R19.7, Diarrhea, unspecified --- Technical --- K44.9, Diaphragmatic hernia without obstruction or gangrene R12, Heartburn R14.0, Abdominal distension (gaseous) R19.7, Diarrhea, unspecified CPT copyright 2021 [employer]. All rights reserved. The codes documented in this report are preliminary and upon financial project manager reviewmay be revised to meet current compliance requirements. Procedure Date: 04/28/2025 1:08:[address] [place] [address] us Sylvia ELWIS GI PROCEDURE ORDERABLES F inal Result * ENDOSCOPY, COLON (04/28/2025 1:08 PM EST) Narrative Transcriptions Yossi Vasquez MD - 04/28/2025 1:08 PM EST [facility] Patient Name: Joshua Fairchild MD:: YOSSI VASQUEZ MD, Procedure Date: 04/28/2025 1:08 PM Date of : 1955 Age: 70 Admit Type: Outpatient Gender: Male Room: [place] [address] Referring MD: Sylvia Ibarra Exam Type: Colonoscopy [...] monitored continuously. The Olympus adult variable colonoscope [id number] #[id number] was introduced through the anus and [...] 1:08 PM Procedure Code(s): --- Professional --- 66139, Colonoscopy, flexible; with biopsy, single or multiple --- Technical --- 80938, Colonoscopy, flexible; with biopsy, single or multiple Diagnosis Code(s): --- Professional --- R19.4, Change in bowel habit K57.30, Diverticulosis of large intestine without perforation or abscess without bleeding --- Technical --- R19.4, Change in bowel habit K57.30, Diverticulosis of large intestine without perforation or abscess without bleeding CPT copyright 2021 [employer]. All rights reserved. The codes documented in this report are preliminary and upon financial project manager reviewmay be revised to meet current compliance requirements. Procedure Date: 04/28/2025 1:08:[address] [place] [address] Sylvia LEWIS GI PROCEDURE ORDERABLES F inal Result * (ABNORMAL) Comprehensive metabolic panel (03/13/2025 2:28 PM EDT) SODIUM 138 133 - 146 mmol/L [facility] POTASSIUM 4.2 3.3 - 5.1 mmol/L [facility] CHLORIDE 102 96 - 108 mmol/L [facility] CO2 25 21 - 35 mmol/L [facility] BUN 25(H) 6 - 19 mg/dL [facility] CREATININE 1.10 0.5 - 1.5 mg/dL [facility] GLUCOSE 118(H) 70 - 99 mg/dL [facility] ALBUMIN 4.0 3.9 - 4.8 g/dL [facility] TOTAL PROTEIN 7.2 6.5 - 8.0 g/dL [facility] CALCIUM 9.2 8.4 - 10.3 mg/dL [facility] ALKALINE PHOSPHATASE 67 39 - 117 U/L [facility] TOTAL BILIRUBIN 0.4 0.0 - 1.2 mg/dL [facility] AST 41(H) 0 - 37 U/L [facility] ALT 31 0 - 40 U/L [facility] GLOBULIN 3.2 1 - 4.8 g/dL [facility] EGFR 72 >59 mL/min/1.7 3m2 [facility] Comment:Estimated glomerular filtration rate calculated using the CKD-EPI refit equation. ANION GAP 15 10 - 20 mmol/L [facility] Blood 03/13/2025 2:28 PM EDT 03/13/2025 2:37 PM EDT Dacia Watkins EDUCATION RESEARCH ANALYST LAB BLOOD BKR ORDERABLES Final Result [address] [address] * Iron and iron binding capacity (03/13/2025 2:28 PM EDT) Pathologist [facility] IRON 116 45 - 160 ug/dL [facility] IRON BINDING CAPACITY 375 228 - 428 ug/dL [facility] TRANSFERRIN SATURAT. 31 20 - 55 % [facility] Blood 03/13/2025 2:28 PM EDT 03/13/2025 2:37 PM EDT Dacia Watkins NP LAB BLOOD BKR ORDERABLES Final Result Performing Organization Address [facility]/ZIP Co de Phone Number [address] [address] * Tissue transglutaminase IgA (03/13/2025 2:28 PM EDT) Pathologist [facility] TTG IGA ANTIBODY 1.8 <4.0 (Negative) U/mL [facility] Blood 03/13/2025 2:28 PM EDT 03/13/2025 2:37 PM EDT Dacia Watkins NP LAB BLOOD BKR ORDERABLES Final Result Performing Organization Address City/[facility]/ZIP Co de Phone Number [facility] [address] [place] [address] * (ABNORMAL) CBC (03/13/2025 2:28 PM EDT) WBC 6.47 4.00 - 11.00 K/uL [facility] RBC 4.69 4.50 - 5.90 M/uL [facility] HGB 13.4(L) 13.5 - 17.5 g/dL [facility] HCT 41.8 41.0 - 53.0 % [facility] PLT 279 150 - 450 K/uL [facility] MCV 89.1 80.0 - 100.0 fL [facility] MCH 28.6 27.0 - 31.0 pg [facility] MCHC 32.1 32.0 - 36.0 g/dL [facility] RDW 13.0 11.5 - 14.5 % [facility] MPV 10.0 8.4 - 12.0 fL [facility] NRBC 0.00 0.00 /100 WBCs [facility] ABSOLUTE NRBC 0.00 0.00 K/uL [facility] Blood 03/13/2025 2:28 PM EDT 03/13/2025 2:37 PM EDT Dacia Watkins NP LAB BLOOD BKR ORDERABLES Final Result [address] [address] * (ABNORMAL) C-Reactive Protein (03/13/2025 2:28 PM EDT) C REACTIVE PROTEIN 4.9(H) 0.0 - 4.0 mg/L [facility] Blood 03/13/2025 2:28 PM EDT 03/13/2025 2:37 PM EDT Dacia Watkins EDUCATION RESEARCH ANALYST LAB BLOOD BKR ORDERABLES Final Result [address] [address] * TSH (03/13/2025 2:28 PM EDT) TSH 2.24 0.27 - 4.20 uIU/mL [facility] Blood 03/13/2025 2:28 PM EDT 03/13/2025 2:37 PM EDT Dacia Watkins NP LAB BLOOD BKR ORDERABLES Final Result Performing Organization Address City/[facility]/ZIP Co de Phone Number [address] [address] * Immunoglobulin A (03/13/2025 2:28 PM EDT) Pathologist [facility] IgA 302 70 - 400 mg/dL [facility] Blood 03/13/2025 2:28 PM EDT 03/13/2025 2:37 PM EDT Dacia Watkins NP LAB BLOOD BKR ORDERABLES Final Result Performing Organization Address [facility] Co de Phone Number [address] [address] * Vitamin B12 (03/13/2025 2:28 PM EDT) Pathologist [facility] VITAMIN B12 375 232 - 1,245 pg/mL [facility] Blood 03/13/2025 2:28 PM EDT 03/13/2025 2:37 PM EDT Dacia Watkins NP LAB BLOOD BKR ORDERABLES Final Result Performing Organization Address [facility] Co de Phone Number [address] [address] * (ABNORMAL) Lipid panel (12/04/2024 8:48 AM EDT) Pathologist [facility] HDL 35 mg/dL [facility] Comment: Interpretation <40 mg/dL: Low HDL cholesterol (major risk factor for CHD) Greater than or equal to 60 mg/dL: High HDL cholesterol ( negative risk factor for CHD) HDL - cholesterol is affected by a number of factors, e.g. smoking, excerise, hormones, sex and age. CHOLESTEROL 144 0 - 240 mg/dL [facility] TRIGLYCERIDES 191(H) 30 - 160 mg/dL [facility] LDL 71 50 - 129 mg/dL [facility] Comment: LDL levels in terms of risk for coronary heart disease: <100 mg/dL: Optimal 100-129 mg/dL: Near or above optimal 130-159 mg/dL: Borderline high 160-189 mg/dL: High >190 mg/dL: Very High CARDIAC RISK RATIO 4.1 3.4 - 5.0 C [facility] Blood 12/04/2024 8:48 AM EDT 12/04/2024 8:57 AM EDT us Peewee Maxwell MD LAB BLOOD BKR ORDERABLES F inal Result [facility] [address] [place], [place] [id number] from Last 3 Months or Most Recently Relevant to Health Maintenance Insurance [facility] MEDICARE HMO BLUE REPLACEMENT [facility] MEDICARE HMO BLUE REPLACEMENT [facility] MEDIC[facility] HMO BLUE REPLACEMENT [facility] MEDIC[facility] HMO BLUE REPLACEMENT Member Subscriber Plan / Payer (Ef fective 2019-Present) Name:Joshua Carrillo Relation to Subscriber:Self Name:Joshua Carrillo Payer ID:[id number] (NAIC) Type:Medicare Address: [address] [place], [place] [facility] MEDIC[facility] HMO BLUE REPLACEMENT [place] [address] MEDICARE HMO [address] [address] MEDICARE O BLUE REPLACEMENT [facility] MEDICARE HMO BLUE REPLACEMENT [place] MEDIC[place] HMO BLUE REPLACEMENT WORKERS COMPENSATION Advance Directives For more information, please contact: [phone] (9AM - 5PM [facility], Monday-Monday) Documents on File Type Date Recorded Patient Mine Engineering Superintendent Expl anation Healthcare Proxy 07/05/2024 1:49 PM * Full Code (Latest Code Status on File) Date Activated Date Inactivated Comments 07/02/2024 7:36 AM Question Answer Comments Code Status Confirmed With: Patient Care Teams Riverboat Master Relationship Specialty Start Date End Date Sylvia Ibarra PA [address] [place] [address] PCP - General Physician Run Boat Operator 04/14/25 Kee Ugalde DO [address] [place] [address] Orthopedics [facility] Sports Medicine, [place] [address] Historical LMR Provider 04/05/17 Additional Source Comments The information contained in this document represents components of the legal health record. It is not the complete legal health record.[facility]
--- OUTSIDE RECORDS SUMMARY | 2025-06-03 17:32 | XMS_ITS | Encounter Summary ---
Author Organization [facility] Address [address] [place] [address] Phone Care Team Providers Care Advertising Solicitor Name Role Phone Kee Ugalde DO Unavailable [phone] Peewee Maxwell MD Primary Care Provider [phone] Pcp, Unknown Primary Care Provider Sylvia Oseguera Primary Care Provider [phone] Encounter Details Date Type Department Care Team (Late st Contact Info) Description 07/02/2024 Procedure Pass [facility] [address] [place] [address] Social History Tobacco Use Types Packs/Day Years [...] Description 06/13/2025 1:45 PM EST Office Visit [facility] [address] [place] [address] Polo Vasquez MD [address] [place] [address] documented as of this encounter Visit Diagnoses Not on filedocumented in this encounter Care Teams Advertising Solicitor Relationship Specialty Start Date End Date Peewee Maxwell MD [address] [place] [address] PCP - General Internal Medicine 08/11/20 03/13/25 Pcp, Unknown PCP - General 03/14/25 04/13/25 Sylvia Ibarra PA [address] [place] [address] PCP - General Physician Rehab Aid 04/14/25 Kee Ugalde DO [address] [place] [address] [facility], [place] [address] [email or web address] Historical LMR Provider 04/05/17 documented as of this encounter Additional Source Comments The information contained in this document represents components of the legal health record. It is not the complete legal health record.[facility]
--- OUTSIDE RECORDS SUMMARY | 2025-06-03 17:32 | XMS_ITS | Encounter Summary ---
Author Organization [facility] Address [address] [place] [address] Phone Care Team Providers Care Security Rep Name Role Phone Kee Ugalde DO Unavailable [phone] Sylvia Ibarra Primary Care Provider [phone] Encounter Details Date Type Department Care Team ([facility] st Contact Info) Description 05/29/2025 Telephone [facility] [address] [place] [address] Polo Vasquez MD [address] [address] [email or web address] Social History Tobacco Use Types Packs/Day Years [...] as of this encounter Progress Notes * Starr Adrian - 05/29/2025 9:01 AM EST Patient walked in today stating insurance claims will not pay for procedure or appts because Provider [Christina] was out of network at the time of [facility] transition and did not properly credential himself in time for their visits to be covered. Patient needs someone to call their insurance company. Advised they asked for Christina to call them. Thank you. documented in this encounter Plan of Treatment Upcoming Encounters Date Type Department Care Team (Late st Contact Info) Description 06/13/2025 1:45 PM EST Office Visit [facility] [address] [place] [address] Polo Vasquez MD [address] [address] [email or web address] documented as of this encounter Visit Diagnoses Not on filedocumented in this encounter Care Teams Security Rep Relationship Specialty Start Date End Date Sylvia Ibarra PA [address] [place] [address] PCP - General Physician Nurses' Aide 04/14/25 Kee Ugalde DO [address] [place] [address] Orthopedics & Sports Medicine, [place] [address] [email or web address] Historical LMR Provider 04/05/17 documented as of this encounter Additional Source Comments The information contained in this document represents components of the legal health record. It is not the complete legal health record.[facility]
--- OUTSIDE RECORDS SUMMARY | 2025-06-03 17:32 | XMS_ITS | Encounter Summary ---
Author Organization [facility] Address [address] [place] [address] Phone Care Team Providers Care System Integration Engineer Name Role Phone Kee Ugalde DO Unavailable [phone] Peewee Maxwell MD Primary Care Provider [phone] Pcp, Unknown Primary Care Provider Sylvia Oseguera Primary Care Provider [phone] Encounter Details Date Type Department Care Team (Late st Contact Info) Description 07/02/2024 Procedure Pass [facility] [address] [place] [address] Social History Tobacco Use Types Packs/Day Years [...] Description 06/13/2025 1:45 PM EST Office Visit [facility] [address] [place] [address] Polo Vasquez MD [address] [place] [address] documented as of this encounter Visit Diagnoses Not on filedocumented in this encounter Care Teams System Integration Engineer Relationship Specialty Start Date End Date Peewee Maxwell MD [address] [place] [address] PCP - General Internal Medicine 08/11/20 03/13/25 Pcp, Unknown PCP - General 03/14/25 04/13/25 Sylvia Ibarra PA [address] [place] [address] PCP - General Physician Manager Of Planning 04/14/25 Kee Ugalde DO [address] [place] [address] Orthopedics & Sports Medicine, [facility] [place] [address] [email or web address] Historical LMR Provider 04/05/17 documented as of this encounter Additional Source Comments The information contained in this document represents components of the legal health record. It is not the complete legal health record.[facility]
--- OUTSIDE RECORDS SUMMARY | 2025-06-03 17:32 | XMS_ITS | Encounter Summary ---
Author Organization [facility] Address [address] [place] [address] Phone Care Team Providers Care Manager Assembly Name Role Phone Kee Ugalde DO Unavailable [phone] Sylvia Ibarra Primary Care Provider [phone] Encounter Details Date Type Department Care Team (Late st Contact Info) Description 04/28/2025 Procedure Pass [facility] Admitting Dept Virtual Department [address] [place] [address] Social History Tobacco Use Types Packs/Day Years [...] Description 06/13/2025 1:45 PM EST Office Visit [facility] [address] [place] [address] Polo Vasquez MD [address] [place] [address] documented as of this encounter Visit Diagnoses Not on filedocumented in this encounter Care Teams Manager Assembly Relationship Specialty Start Date End Date Sylvia Ibarra PA [address] [place] [address] PCP - General Physician Bar Waiter/Waitress 04/14/25 Kee Ugalde DO [address] [place] [address] Orthopedics & Sports Medicine, [place] [address] [email or web address] Historical LMR Provider 04/05/17 documented as of this encounter Additional Source Comments The information contained in this document represents components of the legal health record. It is not the complete legal health record.[facility]
--- OUTSIDE RECORDS SUMMARY | 2025-06-03 17:32 | XMS_ITS | Encounter Summary ---
Author Organization [facility] Address [address] [place] [address] Phone Care Team Providers Care Key Account Manager Name Role Phone Kee Ugalde DO Unavailable [phone] Peewee Maxwell MD Primary Care Provider [phone] Pcp, Unknown Primary Care Provider Sylvia Oseugera Primary Care Provider [phone] Encounter Details Date Type Department Care Team (Late st Contact Info) Description 10/18/2024 Transcribe Orders Virtual Department 30 [place] [address] Kee Hernández MD [address] [place] [address] [email or web address] [address] [email or web address] Hypertension, unspecified type (Primary Dx) Social History [...] 06/13/2025 1:45 PM EST Office Visit [facility] 10 [place] [address] Polo Vasquez MD [address] [place] [address] [email or web address] documented as of this encounter Visit Diagnoses Diagnosis Hypertension, unspecified type- Primary documented in this encounter Care Teams Key Account Manager Relationship Specialty Start Date End Date Peewee Maxwell MD [address] [place] [address] PCP - General Internal Medicine 08/11/20 03/13/25 Pcp, Unknown PCP - General 03/14/25 04/13/25 Sylvia Ibarra PA [address] [place] [address] PCP - General Physician Grain Operations Manager 04/14/25 Kee Ugalde DO [address] [place] [address] Orthopedics & Sports Medicine, [place] [address] [email or web address] Historical LMR Provider 04/05/17 documented as of this encounter Additional Source Comments The information contained in this document represents components of the legal health record. It is not the complete legal health record.[facility]
--- OUTSIDE RECORDS SUMMARY | 2025-06-03 17:32 | XMS_ITS | Data Portability ---
Author Organization [place] [facility] Address [address] [address] Care Team Providers Care Rn Long Term Care Name Role Phone EBENEZER URRUTIA Primary Care Provider [phone] Assessment Encounter Date Assessment Date Assessment LastModified [...] mcg (0.1 %) nasal spray 2024 025 [facility], [address] [place], [address], 5 14:32:20 Patient TargetsNo targets recorded. Patient InstructionsNo instructions recorded. Reason for Referral None Reported. Problems Name Problem SNOMED Code Status Onset Date Resolution Date Notes Provider Name and Address Organization Details Recorded Time Headache 96169955 Active 2020 Headache, unspecifie d; Note: Date Diagnosed: 09/21/2020 8:09 AM (R51.9) Not Available [facility] 4 02:41:40 Cyst of nasal sinus 61140475 Active 2020 Cyst and mucocele of nose and nasal sinus; Note: Date Diagnosed: 09/21/2020 8:09 AM (J34.1) Not Available [facility] 4 02:41:33 Chronic rhinitis 68480234 Active 2020 Chronic rhinitis; Note: Date Diagnosed: 11/28/2020 11:19 AM (J31.0) Not Available [facility] 4 02:41:36 Allergic rhinitis 57075200 Active 2020 Other allergic rhinitis; Note: Date Diagnosed: 02/23/2021 8:05 AM (J30.89) Not Available [facility] 4 02:41:35 Obstructiv e sleep apnea syndrome 98793611 Active 2020 Obstructiv e sleep apnea (adult) (pediatric ); Note: Date Diagnosed: 02/23/2021 8:05 AM (G47.33) Not Available [facility] 4 02:41:38 Problem Notes None recorded. Medical [...] 24 hr 10/01 completed Medicati on ID: [id number] B rand Name: nifedipi ne Send Method: [...] % topical cream active Medicati on ID: [id number] B rand Name: desonide Send Method: E-Prescr ibed Sub s Allowed: subs OK Medic ationGen ericName : desonide Not Available Not Available Not Available tizanidin e 2 mg tablet 12/14 completed Medicati on ID: [id number] B rand Name: tizanidi ne Send Method: E-Prescr ibed Sub s Allowed: subs OK Medic ationGen ericName : tizanidi ne Not Available Not Available Not Available metoprolo l succinate ER 50 mg tablet,ex tended release 24 hr 12/14 completed Medicati on ID: [id number] B rand Name: metoprol ol succinat e Send Method: E-Prescr ibed Sub s Allowed: subs OK Medic ationGen ericName : metoprol ol succinat e Not Available Not Available Not Available lisinopri l 20 mg tablet 12/14 completed Medicati on ID: [id number] B rand Name: lisinopr il Send Method: [...] mg tablet 12/14 completed Medicati on ID: [id number] B rand Name: lorazepa m Send Method: E-Prescr ibed Sub s Allowed: subs OK Medic ationGen ericName : lorazepa m Not Available Not Available Not Available amlodipin e 10 mg tablet 12/14 completed Medicati on ID: [id number] B rand Name: amlodipi ne Send Method: E-Prescr ibed Sub s Allowed: subs OK Medic ationGen ericName : amlodipi ne Not Available Not Available Not Available omeprazol e 20 mg capsule,d elayed release TAKE 1 CAPSULE BY MOUTH ONCE DAILY active Not Available Not Available No t Available doxazosin 4 mg tablet 10/01 completed Medicati on ID: [id number] B rand Name: doxazosi n Send Method: E-Prescr ibed Sub s Allowed: subs OK Medic ationGen ericName : doxazosi n Not Available Not Available Not Available hydrochlo rothiazid e 25 mg tablet 10/01 completed Medicati on ID: [id number] B rand Name: hydrochl orothiaz caty Send Method: E-Prescr ibed Sub s Allowed: subs OK Medic ationGen ericName : hydrochl orothiaz caty Not Available Not Available Not Available mirtazapi ne 15 mg tablet 12/14 completed Medicati on ID: [id number] B rand Name: mirtazap ine Send Method: E-Prescr ibed Sub s Allowed: subs OK Speci al Instruct ion: TAKE 1 TABLET BY MOUTH DAILY AT BEDTIME Medicati onGeneri cName: mirtazap ine Not Available Not Available Not Available metoprolo l succinate ER 25 mg tablet,ex tended release 24 hr 10/01 completed Medicati on ID: [id number] B rand Name: metoprol ol succinat e [...] mg tablet 10/01 completed Medicati on ID: [id number] B rand Name: naproxen Send Method: E-Prescr ibed Sub s Allowed: subs OK Speci al Instruct ion: TAKE 1 TABLET BY MOUTH TWICE DAILY WITH FOOD Med icationG enericNa me: naproxen Not Available Not Available Not Available Vitals Date Recorded Body height Body mass index (BMI) Body weight Provider Name and Address Organization Details Last Updated DateTime 10/01/2024 165.1 cm 33.3 kg/m2 81655.47 g Annaamina Cutler [place] [facility] 10/01/2024 14:22:03 Social History None recorded. Functional Status None recorded. Mental Status None recorded. Family History Nothing Reported Notes:hypertension - multipl e Medical History No medical history recorded. Past Encounters Encounter ID Performer Location Encounter Start Date Encounter Closed Date Diagnosis/Indication Diagnosis SNOMED-CT Code Diagnosis ICD10 Code Diagnosis IMO Codes Diagnosis Note [id number] NELLY GIORDANO MD [facility] on [address] [place] [address] 10/01/2024 14:00:10 10/04/2024 12:24:02 Allergic rhinitis 37197659 J30.9 Obstructiv e sleep apnea syndrome 87603410 G47.33 Health Concerns Section Related Observation LastModified by Organization Detai ls LastModified Time None Recorded Concern Status LastModified by Organization Details LastModified Time None Recorded Advance Directives Directive None Recorded Payers Insurance Date Sequence Insurance Name Policy Number Policy Jeter Covered Member ID Jeter Member ID Guarantor Name 10/01/2024 1 [facility]: MEDICARE HMO BLUE (MEDICARE REPLACEMENT HMO) [id number] [id number] Notes Date Note Type [...] has been controlled. 136/70today. NELLY GIORDANO MD [address] [place] [address], [id number], [facility] 10/02/2024 07:21:27
--- OUTSIDE RECORDS SUMMARY | 2025-06-03 17:32 | XMS_ITS | Encounter Summary ---
Author Organization [facility] Address [address] [place] [address] Phone Care Team Providers Care Rn Social Services Name Role Phone Tico Martell MD Unavailable Kee Alexander MD Unavailable Kee Ugalde DO Unavailable [phone] Polo Guadarrama MD Unavailable Dilcia Gould MD Unavailable [phone] Antoinette Ching-Bertha Unavailable [phone] Peewee Maxwell MD Primary Care Provider [phone] Pcp, Unknown Primary Care Provider UnavailSylvia Brunner Primary Care Provider [phone] Reason for Referral * MRI/CAT Scan - Closed Specialty Diagnoses / Procedures Referred By Contac t Referred To Contact Radiology Diagnoses Sinusitis, unspecified chronicity, unspecified location Procedures CT Face Peewee Maxwell MD [address] [place] [address] Phone: tel: fax: Referral ID Status Reason Start Date Expiration Date Visits Re quested Visits Authorized [id number] Closed 08/11/2020 08/11/2021 1 1 Encounter Details Date Type Department Care Team (Late st Contact Info) Description 08/11/2020 Ancillary Orders Virtual Department [address] [place] [address] Peewee Maxwell MD [address] [place] [address] Sinusitis, unspecified chronicity, unspecified location Social History [...] Description 06/13/2025 1:45 PM EST Office Visit [facility] 10 [place] [address] Polo Vasquez MD [address] [address] [email or web address] documented as of this encounter Results * [...] Technique tailored for patient body habitus and [id number]. FINDINGS: Some mild thickening seen in the [...] images. Technique tailored for patient body habitus [id number]. FINDINGS: Some mild thickening seen in the [...] documented as of this encounter Care Teams Rn Social Services Relationship Specialty Start Date End Date Peewee Maxwell MD [address] [place] [address] PCP - General Internal Medicine 08/11/20 03/13/25 Pcp, Unknown PCP - General 03/14/25 04/13/25 Sylvia Ibarra PA [address] [place] [address] PCP - General Physician Pig Lead Melter Helper 04/14/25 Tico Martell MD [address] [place] [address] [email or web address] Historical LMR Provider 04/05/17 06/26/21 Kee Alexander MD [address] [place] [address] Historical LMR Provider 04/05/17 Kee Ugalde DO [address] [place] [address] Orthopedics & Sports Medicine, [place] [address] [email or web address] Historical LMR Provider 04/05/17 Polo Guadarrama MD [address] [address] [email or web address] Historical LMR Provider 04/05/17 2 Dilcia Gould MD [address] [place] [address], [address] [place] [address] [email or web address] Historical LMR Provider 04/05/17 Antoinette Ching PA-C [address] [place] [address] Orthopedics & Sports Medicine, [facility] [place] [address] [email or web address] Historical LMR Provider 04/05/17 06/26/21 documented as of this encounter Additional Source Comments The information contained in this document represents components of the legal health record. It is not the complete legal health record.[facility]
--- OUTSIDE RECORDS SUMMARY | 2025-06-03 17:32 | XMS_ITS | Encounter Summary ---
Author Organization [facility] Address [address] [place] [address] Phone Care Team Providers Care Breakfast Server Name Role Phone Kee Ugalde DO Unavailable [phone] Peewee Maxwell MD Primary Care Provider [phone] Pcp, Unknown Primary Care Provider Sylvia Oseguera Primary Care Provider [phone] Encounter Details Date Type Department Care Team (Late st Contact Info) Description 07/01/2024 Procedure Pass [facility], Ct Scan - [address] [address] Social History Tobacco Use Types Packs/Day Years [...] 11:31 PM EST Isaura Bray RN * [place] Suicide Severity Rating Scale (Screener/Recent Self-Report) Question [...] Description 06/13/2025 1:45 PM EST Office Visit [facility] [address] [place] [address] Polo Vasquez MD [address] [address] [email or web address] documented as of this encounter Visit Diagnoses Not on filedocumented in this encounter Care Teams Breakfast Server Relationship Specialty Start Date End Date Peewee Maxwell MD [address] [place] [address] PCP - General Internal Medicine 08/11/20 03/13/25 Pcp, Unknown PCP - General 03/14/25 04/13/25 Sylvia Ibarra PA [address] [place] [address] PCP - General Physician Rice Dryer Mechanic 04/14/25 Kee Ugalde DO [address] [place] [address] Orthopedics & Sports Medicine, [place] [address] Historical LMR Provider 04/05/17 documented as of this encounter Additional Source Comments The information contained in this document represents components of the legal health record. It is not the complete legal health record.[facility]
== END 2025-06-03 14:32 | disposition home or self-care (01) ==
LOC: HO.HMCSH 13:27
PROVIDERS: PCP Physician Assistant Medical; Visit Provider Physician Assistant Medical
DX: N39.490 Overflow incontinence (principal); R00.1 Bradycardia, unspecified; G25.0 Essential tremor; M47.812 Spondylosis without myelopathy or radiculopathy, cervical region; E78.1 Pure hyperglyceridemia; E78.6 Lipoprotein deficiency; Z00.00 Encounter for general adult medical examination without abnormal findings

== ENCOUNTER → 2025-06-03 13:27 | Outpatient (BNVA) | payer MEDICARE, SELFPAY | PROVIDERS: PCP Physician Assistant Medical; Visit Provider Physician Assistant Medical | DX: Z00.00 Encounter for general adult medical examination without abnormal findings (principal); R00.1 Bradycardia, unspecified; N39.490 Overflow incontinence; G25.0 Essential tremor; M47.812 Spondylosis without myelopathy or radiculopathy, cervical region; E78.1 Pure hyperglyceridemia; E78.6 Lipoprotein deficiency | CPT/HCPCS: 93005; 96127; 99212 ==

== ENCOUNTER 2025-06-05 14:20 | Outpatient (AMB) | payer MEDICARE, SELFPAY ==
--- NOTE | 2025-06-05 14:31 | A.OFFVIS_ITS ---
Vital Signs 06/05/25 14:34 Height 5 ft 5.1 in Weight 215 lb 2.738 oz BMI 35.7 BP 110/56 L Blood Pressure Location Rt brachial Position Sitting Pulse 46 L Pulse Source Monitor Intake Visit Reasons: f/u R by PCP low HR Intake Note: f/up-by pcp low HR Broadband Installer Required: No Accompanied by: Self / Same As Patient Allergies No Known Allergies Allergy (Verified 06/03/25 15:11) Medication List - Last Reconciled 06/05/25 by ALEJANDRA Garcia amlodipine 2.5 mg PO .DAILY@0200 azelastine 1 spray intranasal DAILY PRN clotrimazole-betamethasone 1-0.05 % 1 appl topical Q12H 4 weeks diaper,brief,adult,disposable As directed- use three times a day as needed. Size XL fluticasone propionate 50 mcg/actuation 1 spray intranasal DAILY PRN losartan 50 mg PO BID 90 days omeprazole 20 mg PO BID 90 days primidone 25 mg (1/2 x 50 mg) PO BEDTIME 90 days spironolactone 25 mg PO DAILY HPI HPI f/u R by PCP low HR: Details: The patient is a 70 year old male presenting for follow-up of sinus bradycardia and hypertension. He has a history of sinus bradycardia for several years, which he notes has been progressively worsening with his average heart rate decreasing over time. He reports recent episodes of lightheadedness when his heart rate drops to around 37 bpm, though he denies any fainting or falls. A 3-day Holter monitor on 10/18/2023 showed total sinus rhythm, an average heart rate of 51 bpm, frequent sinus bradycardia with the heart rate less than 60 bpm for 80% of the time, and rates as low as 40 bpm. His last echocardiogram on 05/17/2022 showed an ejection fraction of 65-70% with no significant valvular abnormalities. An exercise stress test on 12/01/2023 showed a normal chronotropic response with no evidence of ischemia. The patient reports that he exercises regularly by walking in order to raise his heart rate. Lately he has noticed his heart rate now only goes up to 57 bpm with exercise, whereas it previously went up to 68 bpm. He is conerned that is heart is getting to slow. He is not having chest pains, shortness of breath or leg swelling. His past medical history is also significant for obesity, GERD, renal artery stenosis, and asthma/COPD. Current cardiac medications include amlodipine and losartan. present. [facility] Medical History Healthcare maintenance Low HDL (under 40) Hypertriglyceridemia Cervical spondylosis Overflow incontinence Essential tremor Nontraumatic neck pain Neck pain Preventative health care Sinusitis Hearing difficulty Ear pressure Bilateral knee pain Abdominal cramps Osteoarthritis of right hip Sinus bradycardia COPD (chronic obstructive pulmonary disease) Asthma DJD (degenerative joint disease) Allergic rhinitis Hx of renal artery stenosis Arthritis Has a tremor GERD (gastroesophageal reflux disease) History of itching Itching of male genitalia Seasonal allergies Nasal dryness Morbid obesity Hypertension Surgical History History of endoscopy (~04/28/25) Hx of colonoscopy (~04/28/25) History of total left hip replacement (~2015) Hx of repair of right rotator cuff Hx of eye surgery Hx of vasectomy Hx of Achilles tendon repair (~2005) History of hip surgery Hx of cholecystectomy H/O right knee surgery (~2016) Family History Father Enlarged heart Mother No problems noted. Social History Household Members: Spouse Housing: House Are you a primary health care / medical job titles to a significant other at home: No Do you presently have visiting nurse or other home services: No Alcohol intake: current Alcohol intake frequency: does not drink Comment: Uses store carriage for stability when shopping Patient Tobacco Use Status: Never used Tobacco Second Hand Smoke Exposure: No service: No Current occupational status: retired Cognitive needs: No Hearing needs: No Vision needs: Yes (reading glasses ) Review of Systems Const All systems reviewed & are unremarkable except as noted in HPI and below Denies chills, Denies fatigue, Denies fever(s), Denies frequent falls, Denies weakness, Denies weight gain and Denies weight loss ENT Denies dizziness Card Denies chest pain, Denies leg edema, Reports lightheadedness, Denies palpitations, Denies dyspnea and Denies dyspnea on exertion Resp Denies cough, Denies dyspnea and Denies dyspnea on exertion GI Denies hematochezia Musc Denies abnormal gait, Denies muscle weakness, Denies numbness, Denies radiating pain into limb and Denies tingling Neuro Denies abnormal gait, Denies dizziness, Denies frequent falls, Denies numbness, Denies tingling and Denies weakness Endo Denies fatigue and Denies palpitations Physical Exam Vital Signs: Last Vital Signs Pulse 46 L 06/05/25 14:34 BP 110/56 L 06/05/25 14:34 BMI result Body Mass Index 35.7 Const General: cooperative, healthy appearing, comfortable and no acute distress Orientation/consciousness: patient oriented x3 Neck Neck: Yes normal visual inspection and Yes no JVD Resp Effort & Inspection: normal respiratory effort Auscultation: clear to auscultation bilaterally, no crackles, no rales, no rhonchi and no wheezes Cardio Jugular venous distension: no JVD Rate: bradycardic Rhythm: regular rhythm Heart sounds: S1 normal heart sound present, S2 normal heart sound present, no murmurs and no rubs Neuro General: patient oriented x3 Extrem General: Yes normal to inspection and No no pedal edema Psych Appearance: grossly normal Mental Status: mental status grossly normal Speech and movement: Normal speech and movement present Office Procedures EKG Details: Today, read by me, sinus bradycardia, left axis deviation, rate 46, Qtc 351ms [id number], Complete Assessment & Plan Assessment & Plan (1) Sinus bradycardia: Code(s): R00.1 - Bradycardia, unspecified Category: Medical Plan: History of chronic sinus bradycardia, previously asymptomatic and with good mains and service supervisor notropic competence. Now with reported intermittent lightheadedness and reported blunted heart rate response to exercise. EKG today sinus bradycardia, rate 46. Will check an exercise stress test tomorrow to assess for chronotropic competence. Will apply Holter monitor to assess average heart rates, rhythm. Plan to call him with results. Depending on findings pacemaker may be indicated. This was reviewed with him and he is very willing to proceed if warranted. Cardiology office visit 4-6 weeks, sooner if needed. (2) Hypertension: Code(s): I10 - Essential (primary) hypertension Category: Medical Plan: Blood pressure goal less than 130/80. Normal range today. No med changes made. (3) Left renal artery stenosis: Code(s): I70.1 - Atherosclerosis of renal artery Category: Medical Plan: Prior MRI of the abdomen shows mild stenosis in the superior branch of the left renal artery, the main arteries are widely patent. Blood pressure is controlled. He is not on statin for unclear reason however labs done 05/09/2025 showed LDL 60. Continue amlodipine, losartan, spironolactone. Plan I reviewed the patient's history of progressive sinus bradycardia and his new symptom of lightheadedness. I explained that the heart's electrical system may be weakening, causing the progressively lower heart rates. We discussed that although he has requested a pacemaker in the past, he did not meet the criteria because previous testing showed his heart rate responded adequately to exercise. Given the time elapsed and his subjective report of a blunted heart rate response during his walks, I recommended a new exercise stress test. I explained that if this test shows his heart rate does not increase as it should (chronotropic incompetence), it would confirm the need for a pacemaker. We will also check a holter monitor again to assess his heart rate range and for pauses. The patient and his understood and agreed to proceed with the tests, which we are attempting to schedule for tomorrow. Orders: Orders CA stress test Today R00.1 - Bradycardia, unspecified ECG 3 day holter monitor Today R00.1 - Bradycardia, unspecified Patient Instructions: - We are scheduling you for an exercise stress test, tomorrow morning, to check how your heart responds to activity. - The results of this test will help us decide if you need a pacemaker to help with your low heart rate. - A Heart monitor will be applied tomorrow. - Continue taking your current medications as prescribed. - Keep monitoring your heart rate and blood pressure at home. - Follow up in 4-6 week - sooner if needed Patient was informed and verbally consented to the use of an ambient scribe for clinic note documentation during this visit. Visit time spent on chart review, interview, assessment, orders, documentation. Coding Level of Care Code Est Pt Level 4 (07318) Add On Problem Visit Only Diagnoses Sinus bradycardia R00.1 Hypertension I10 Left renal artery stenosis I70.1 CPT Codes EKG - CPT: 69732-[id number], Complete ([id number]) Time Spent (min) 32
[2025-06-05 14:34] VITALS: BP 110/56; PULSE 46; BMI 35.7
--- OUTSIDE RECORDS SUMMARY | 2025-06-05 18:32 | XMS_ITS | Encounter Summary ---
Author Organization [facility] Address [address] [place] [address] Phone Care Team Providers Care Licensed Massage Practitioner Name Role Phone Kee Ugalde DO Unavailable [phone] Peewee Maxwell MD Primary Care Provider [phone] Pcp, Unknown Primary Care Provider Sylvia Oseguera Primary Care Provider [phone] Encounter Details Date Type Department Care Team (Late st Contact Info) Description 10/18/2024 Transcribe Orders Virtual Department [address] [place] [address] Kee Hernández MD [address] [place] [address] [address] Wong [address] [address] [email or web address] Hypertension, unspecified type (Primary Dx) Social [...] Description 06/13/2025 1:45 PM EST Office Visit [facility] [address] [place] [address] Polo Vasquez MD [address] [place] [address] [email or web address] documented as of this encounter Visit Diagnoses Diagnosis Hypertension, unspecified type- Primary documented in this encounter Care Teams Licensed Massage Practitioner Relationship Specialty Start Date End Date Peewee Maxwell MD [address] [place] [address] PCP - General Internal Medicine 08/11/20 03/13/25 Pcp, Unknown PCP - General 03/14/25 04/13/25 Sylvia Ibarra PA [address] [place] [address] PCP - General Physician Bed Teacher 04/14/25 Kee Ugalde DO [address] [place] [address] [facility] Medicine, [place] [address] [email or web address] Historical LMR Provider 04/05/17 documented as of this encounter Additional Source Comments The information contained in this document represents components of the legal health record. It is not the complete legal health record.[facility]
--- OUTSIDE RECORDS SUMMARY | 2025-06-05 18:32 | XMS_ITS | Encounter Summary ---
Author Organization [facility] Address [address] [place] [address] Phone Care Team Providers Care Forensic Nurse Name Role Phone Kee Ugalde DO Unavailable [phone] Peewee Maxwell MD Primary Care Provider [phone] Pcp, Unknown Primary Care Provider Sylvia Oseguera Primary Care Provider [phone] Encounter Details Date Type Department Care Team (Late st Contact Info) Description 07/02/2024 Procedure Pass [facility] [address] [place] [address] Social History Tobacco Use Types Packs/Day Years [...] Description 06/13/2025 1:45 PM EST Office Visit [facility] [address] [place] [address] Polo Vasquez MD [address] [place] [address] documented as of this encounter Visit Diagnoses Not on filedocumented in this encounter Care Teams Forensic Nurse Relationship Specialty Start Date End Date Peewee Maxwell MD [address] [place] [address] PCP - General Internal Medicine 08/11/20 03/13/25 Pcp, Unknown PCP - General 03/14/25 04/13/25 Sylvia Ibarra PA [address] [place] [address] PCP - General Physician Psychotherapist 04/14/25 Kee Ugalde DO [address] [place] [address] Orthopedics & Sports Medicine, [facility] [place] [address] [email or web address] Historical LMR Provider 04/05/17 documented as of this encounter Additional Source Comments The information contained in this document represents components of the legal health record. It is not the complete legal health record.[facility]
--- OUTSIDE RECORDS SUMMARY | 2025-06-05 18:32 | XMS_ITS | Encounter Summary ---
Author Organization [facility] Address [address] [place] [address] Phone Care Team Providers Care Automobile Service Writer Name Role Phone Kee Ugalde DO Unavailable [phone] Peewee Maxwell MD Primary Care Provider [phone] Pcp, Unknown Primary Care Provider Sylvia Oseguera Primary Care Provider [phone] Encounter Details Date Type Department Care Team (Latest Contact Info) Description 03/13/2025 Transcribe Orders [facility] [place] [address] [address] Dacia Watkins NP [address] [place] [address] Bloating (Primary Dx); Gastroesophageal reflux disease, unspecified [...] 06/13/2025 1:45 PM EST Office Visit [facility] [address] [place] [address] Polo Vasquez MD [address] [place] [address] documented as of this encounter Results * Vitamin B12 (03/13/2025 2:28 PM EDT) VITAMIN B12 375 232 - 1,245 pg/mL [facility] Blood 03/13/2025 2:28 PM EDT 03/13/2025 2:37 PM EDT Dacia Watkins NP LAB BLOOD BKR ORDERABLES Final Result [address] [address] * TSH (03/13/2025 2:28 PM EDT) TSH 2.24 0.27 - 4.20 uIU/mL [facility] Blood 03/13/2025 2:28 PM EDT 03/13/2025 2:37 PM EDT Dacia Watkins NP LAB BLOOD BKR ORDERABLES Final Result Performing Organization Address [facility]/ZIP Co de Phone Number [address] [address] * Iron and iron binding capacity (03/13/2025 2:28 PM EDT) IRON 116 45 - 160 ug/dL [facility] IRON BINDING CAPACITY 375 228 - 428 ug/dL [facility] TRANSFERRIN SATURAT. 31 20 - 55 % [facility] Blood 03/13/2025 2:28 PM EDT 03/13/2025 2:37 PM EDT Dacia Watkins NP LAB BLOOD BKR ORDERABLES Final Result Performing Organization Address City/[facility]/ZIP Co de Phone Number [address] [address] * (ABNORMAL) C-Reactive Protein (03/13/2025 2:28 PM EDT) C REACTIVE PROTEIN 4.9(H) 0.0 - 4.0 mg/L [facility] Blood 03/13/2025 2:28 PM EDT 03/13/2025 2:37 PM EDT us Dacia Watkins NP LAB BLOOD BKR ORDERABLES Final Result [address] [address] * (ABNORMAL) Comprehensive metabolic panel (03/13/2025 2:28 PM EDT) Pathologist [facility] SODIUM 138 133 - 146 mmol/L [facility] POTASSIUM 4.2 3.3 - 5.1 mmol/L [facility] CHLORIDE 102 96 - 108 mmol/L [facility] CO2 25 21 - 35 mmol/L [facility] BUN 25(H) 6 - 19 mg/dL [facility] CREATININE 1.10 0.5 - 1.5 mg/dL [facility] GLUCOSE 118(H) 70 - 99 mg/dL [facility] ALBUMIN 4.0 3.9 - 4.8 g/dL [facility] TOTAL PROTEIN 7.2 6.5 - 8.0 g/dL [facility] CALCIUM 9.2 8.4 - 10.3 mg/dL [facility] ALKALINE PHOSPHATASE 67 39 - 117 U/L [facility] TOTAL BILIRUBIN 0.4 0.0 - 1.2 mg/dL [facility] AST 41(H) 0 - 37 U/L [facility] ALT 31 0 - 40 U/L [facility] GLOBULIN 3.2 1 - 4.8 g/dL [facility] EGFR 72 >59 mL/min/1.7 3m2 [facility] Comment:Estimated glomerular filtration rate calculated using the CKD-EPI refit equation. ANION GAP 15 10 - 20 mmol/L [facility] Blood 03/13/2025 2:28 PM EDT 03/13/2025 2:37 PM EDT us Dacia Watkins VP TRAINING LAB BLOOD BKR ORDERABLES Final Result Performing Organization Address City/[facility]/ZIP Co de Phone Number [address] [address] * (ABNORMAL) CBC (03/13/2025 2:28 PM EDT) WBC 6.47 4.00 - 11.00 K/uL [facility] RBC 4.69 4.50 - 5.90 M/uL [facility] HGB 13.4(L) 13.5 - 17.5 g/dL [facility] HCT 41.8 41.0 - 53.0 % [facility] PLT 279 150 - 450 K/uL [facility] MCV 89.1 80.0 - 100.0 fL [facility] MCH 28.6 27.0 - 31.0 pg [facility] MCHC 32.1 32.0 - 36.0 g/dL [facility] RDW 13.0 11.5 - 14.5 % [facility] MPV 10.0 8.4 - 12.0 fL [facility] NRBC 0.00 0.00 /100 WBCs [facility] ABSOLUTE NRBC 0.00 0.00 K/uL [facility] Blood 03/13/2025 2:28 PM EDT 03/13/2025 2:37 PM EDT us Dacia Watkins NP LAB BLOOD BKR ORDERABLES Final Result Performing Organization Address City/[facility]/ZIP Co de Phone Number [address] [address] * Immunoglobulin A (03/13/2025 2:28 PM EDT) IgA 302 70 - 400 mg/dL [facility] Blood 03/13/2025 2:28 PM EDT 03/13/2025 2:37 PM EDT us Dacia Watkins VP TRAINING LAB BLOOD BKR ORDERABLES Final Result [address] [place] [address] * Tissue transglutaminase IgA (03/13/2025 2:28 PM EDT) TTG IGA ANTIBODY 1.8 <4.0 (Negative) U/mL [facility] Blood 03/13/2025 2:28 PM EDT 03/13/2025 2:37 PM EDT us Dacia Watkins VP TRAINING LAB BLOOD BKR ORDERABLES Final Result [facility] [address] [place] [address] documented in this encounter Visit Diagnoses Diagnosis Bloating- Primary Flatulence, eructation, and gas pain Gastroesophageal reflux disease, unspecified whether esophagitis present documented in this encounter Care Teams Automobile Service Writer Relationship Specialty Start Date End Date Peewee Maxwell MD [address] [place] [address] PCP - General Internal Medicine 08/11/20 03/13/25 Pcp, Unknown PCP - General 03/14/25 04/13/25 Sylvia Ibarra PA [address] [place] [address] PCP - General Physician Educational Audiologist 04/14/25 Kee Ugalde DO [address] [place] [address] [facility] Medicine, [place] [address] Historical LMR Provider 04/05/17 documented as of this encounter Additional Source Comments The information contained in this document represents components of the legal health record. It is not the complete legal health record.[facility]
--- OUTSIDE RECORDS SUMMARY | 2025-06-05 18:32 | XMS_ITS | Encounter Summary ---
Author Organization [facility] Address [address] [facility] [address] [place] [address] Phone Care Team Providers Care Hospital Scientist Name Role Phone Peewee Maxwell MD Primary Care Provider [phone] Reason for Visit * Reason Comments Med Refill Encounter Details Date Type Department Care Team ([facility] Contact Info) Description 07/18/2021 Refill [facility] [address] [facility] [address] [place] [phone] Kee Hernández MD [address] [facility] [address] [place] [phone] Social History Tobacco Use Types Packs/Day Years [...] Visit [facility] [address] [place] [address] Kee Hernández MD [address] [facility] [address] [place] [address] documented as of this encounter Visit Diagnoses Not on filedocumented in this encounter Care Teams Hospital Scientist Relationship Specialty Start Date End Date Peewee Maxwell MD [address] [place] [address] PCP - General Internal Medicine 10/21/20 documented as of this encounter
--- OUTSIDE RECORDS SUMMARY | 2025-06-05 18:32 | XMS_ITS | Clinical Summary ---
Author Organization [facility] Address [address] [place] [address] Phone Care Team Providers Care Financial Cost Analyst Name Role Phone Kee Ugalde DO Unavailable [phone] Sylvia Ibarra Primary Care Provider [phone] Allergies No known active allergies Medications spironolactone [...] Type Department Care Team Description 5 Telephone [facility] [address] [place] [address] Yossi Vasquez MD 5 Telephone [facility] [address] [place] [address] Yossi Vasquez MD 5 1:25 PM EST Anesthesia Event [facility] End[facility] Admitting [facility] Virtual Department [address] [place] [address] Fco Clark MD Matos-Auer bach, Melissa, MD 5 12:30 PM EST - 5 1:00 PM EST Surgery [facility] Endoscopy Admitting Dept Virtual Department [address] [place] [address] Yossi Vasquez MD ESOPHAGOGASTRODUODENOSCOPY 5 11:11 AM EST - 5 2:59 PM EST Hospital Encounter [facility] Virtual Department [address] [place] [address] Yossi Vasquez MD Discharge Disposition: Home or Self Care 5 Procedure Pass [facility] Endoscopy Admitting Dept Virtual Department [address] [place] [address] 5 2:45 PM EDT Pre-Admission Testing Pre Procedure Evaluation [address] [place] [address] Yossi Vasquez MD 5 2:28 PM EDT - 5 11:59 PM EDT Hospital Encounter [facility] Phleb Kait [address] [place] [address] Dacia Watkins NP Discharge Disposition: Home or Self Care 5 Transcribe Orders [facility] Phleb Kait [address] [place] [address] Dacia Watkins NP Bloating (Primary Dx); Gastroesophageal [...] Upcoming Encounters Date Type Department Care Team ([facility] st Contact Info) Description 06/13/2025 1:45 PM EST Office Visit [facility] [address] [place] [address] Yossi Vasquez MD [address] [place] [address] [email or web address] Health Maintenance Due Date Last Done Comments [...] this topic Medical Devices Implanted Type Area Irradiated Fuel Handler Device Identifier Shelf Expiration Date Model / Serial / Lot Bilateral Hip Replacements Metal Right Shoulder Right Knee Repair Metal Procedures Procedure Name Priority Date/Time Associated Diagnosis Comments TISSUE EXAM Routine 04/28/2025 1:30 PM EST DE COLSC FLX W/RMVL OF TUMOR POLYP LESION SNARE TQ 04/28/2025 1:22 PM EST Diverticulosis Special Needs Bradycardia - cardiology notes on chart DE COLONOSCOPY W/BIOPSY SINGLE/MULTIPLE 04/28/2025 1:22 PM EST Diverticulosis Special Needs Bradycardia - cardiology notes on chart DE COLONOSCOPY FLX DX W/SUZY J SPEC WHEN PFRMD 04/28/2025 1:22 PM EST Diverticulosis Special Needs Bradycardia - cardiology notes on chart DE EGD ABLATE TUMOR POLYP/LESION W/DILATION& WIRE 04/28/2025 1:22 PM EST Diverticulosis Special Needs Bradycardia - cardiology notes on chart DE EDG TRANSORAL BIOPSY SINGLE/MULTIPLE 04/28/2025 1:22 PM EST Diverticulosis Special Needs Bradycardia - cardiology notes on chart DE ESOPHAGOGASTRODUODENOSCOP Y TRANSORAL DIAGNOSTIC 04/28/2025 1:22 PM [...] BIOPSY: No pathologic abnormalities. 5 12:13 PM [facility] at 1213 EST Clinical History Pre-op diagnosis: Abdominal pain, bloating K21.9, R19.4 5 12:13 PM [facility] Gross Description A. DUODENUM: Received in formalin [...] cassette labeled D1. Grossed by: SHARRI Varner PA([facility]) 5 12:13 PM [facility] Grossed By Chris Romo 5 12:13 PM [facility] Result Priority Level Routine 5 12:13 PM [facility] Disclaimer By their signature amina martinez, the [...] provided in this report. 5 12:13 PM [facility] Procedure ESOPHAGOGASTRODUODEN OSCOPY COLONOSCOPY 5 12:13 PM EST [facility] Gastrointestinal Tissue (Duodenum) 04/28/2025 1:30 PM [...] MD LAB PATHOLOGY ORDERABLES F inal Result [address] [address] * ENDOSCOPY PROCEDURE (04/28/2025 1:08 PM EST) Narrative Transcriptions Yossi Vasquez MD - 04/28/2025 1:08 PM EST [facility] Patient Name: Joshua Fairchild MD:: YOSSI VASQUEZ MD, Procedure Date: 04/28/2025 1:08 PM Date of : 1955 Age: 70 Admit Type: Outpatient Gender: Male Room: [place] [address] Referring MD: Sylvia Ibarra Exam Type: Upper [...] 1:08 PM Procedure Code(s): --- Professional --- 40346, Esophagogastroduodenoscopy, flexible, transoral; with biopsy, single or multiple --- Technical --- 89825, Esophagogastroduodenoscopy, flexible, transoral; with biopsy, single or multiple Diagnosis Code(s): --- Professional --- K44.9, Diaphragmatic hernia without obstruction or gangrene R12, Heartburn R14.0, Abdominal distension (gaseous) R19.7, Diarrhea, unspecified --- Technical --- K44.9, Diaphragmatic hernia without obstruction or gangrene R12, Heartburn R14.0, Abdominal distension (gaseous) R19.7, Diarrhea, unspecified CPT copyright 2021 [employer]. All rights reserved. The codes documented in this report are preliminary and upon supervisor tank storage reviewmay be revised to meet current compliance requirements. Procedure Date: 04/28/2025 1:08:[address] [place] [address] us Sylvia LEWIS GI PROCEDURE ORDERABLES F inal Result * ENDOSCOPY, COLON (04/28/2025 1:08 PM EST) Narrative Transcriptions Yossi Vasquez MD - 04/28/2025 1:08 PM EST [facility] Patient Name: Joshua Fairchild MD:: YOSSI VASQUEZ MD, Procedure Date: 04/28/2025 1:08 PM Date of : 1955 Age: 70 Admit Type: Outpatient Gender: Male Room: [place] [address] Referring MD: Sylvia Ibarra Exam Type: Colonoscopy [...] monitored continuously. The Olympus adult variable colonoscope [id number] #3 was introduced through the anus and [...] 1:08 PM Procedure Code(s): --- Professional --- 75270, Colonoscopy, flexible; with biopsy, single or multiple --- Technical --- 51549, Colonoscopy, flexible; with biopsy, single or multiple Diagnosis Code(s): --- Professional --- R19.4, Change in bowel habit K57.30, Diverticulosis of large intestine without perforation or abscess without bleeding --- Technical --- R19.4, Change in bowel habit K57.30, Diverticulosis of large intestine without perforation or abscess without bleeding CPT copyright 2021 [employer]. All rights reserved. The codes documented in this report are preliminary and upon supervisor tank storage reviewmay be revised to meet current compliance requirements. Procedure Date: 04/28/2025 1:08:[address] [place] [address] Sylvia LEWIS GI PROCEDURE ORDERABLES F inal Result * (ABNORMAL) Comprehensive metabolic panel (03/13/2025 2:28 PM EDT) SODIUM 138 133 - 146 mmol/L [facility] POTASSIUM 4.2 3.3 - 5.1 mmol/L [facility] CHLORIDE 102 96 - 108 mmol/L [facility] CO2 25 21 - 35 mmol/L [facility] BUN 25(H) 6 - 19 mg/dL [facility] CREATININE 1.10 0.5 - 1.5 mg/dL [facility] GLUCOSE 118(H) 70 - 99 mg/dL [facility] ALBUMIN 4.0 3.9 - 4.8 g/dL [facility] TOTAL PROTEIN 7.2 6.5 - 8.0 g/dL [facility] CALCIUM 9.2 8.4 - 10.3 mg/dL [facility] ALKALINE PHOSPHATASE 67 39 - 117 U/L [facility] TOTAL BILIRUBIN 0.4 0.0 - 1.2 mg/dL [facility] AST 41(H) 0 - 37 U/L [facility] ALT 31 0 - 40 U/L [facility] GLOBULIN 3.2 1 - 4.8 g/dL [facility] EGFR 72 >59 mL/min/1.7 3m2 [facility] Comment:Estimated glomerular filtration rate calculated using the CKD-EPI refit equation. ANION GAP 15 10 - 20 mmol/L [facility] Blood 03/13/2025 2:28 PM EDT 03/13/2025 2:37 PM EDT Dacia Watkins LIVE TRUCK OPERATOR LAB BLOOD BKR ORDERABLES Final Result [address] [address] * Iron and iron binding capacity (03/13/2025 2:28 PM EDT) Pathologist [facility] IRON 116 45 - 160 ug/dL [facility] IRON BINDING CAPACITY 375 228 - 428 ug/dL [facility] TRANSFERRIN SATURAT. 31 20 - 55 % [facility] Blood 03/13/2025 2:28 PM EDT 03/13/2025 2:37 PM EDT Dacia Watkins NP LAB BLOOD BKR ORDERABLES Final Result Performing Organization Address [facility]/ZIP Co de Phone Number [address] [address] * Tissue transglutaminase IgA (03/13/2025 2:28 PM EDT) Pathologist [facility] TTG IGA ANTIBODY 1.8 <4.0 (Negative) U/mL [facility] Blood 03/13/2025 2:28 PM EDT 03/13/2025 2:37 PM EDT Dacia Watkins NP LAB BLOOD BKR ORDERABLES Final Result Performing Organization Address City/[facility]/ZIP Co de Phone Number [facility] [address] [place] [address] * (ABNORMAL) CBC (03/13/2025 2:28 PM EDT) WBC 6.47 4.00 - 11.00 K/uL [facility] RBC 4.69 4.50 - 5.90 M/uL [facility] HGB 13.4(L) 13.5 - 17.5 g/dL [facility] HCT 41.8 41.0 - 53.0 % [facility] PLT 279 150 - 450 K/uL [facility] MCV 89.1 80.0 - 100.0 fL [facility] MCH 28.6 27.0 - 31.0 pg [facility] MCHC 32.1 32.0 - 36.0 g/dL [facility] RDW 13.0 11.5 - 14.5 % [facility] MPV 10.0 8.4 - 12.0 fL [facility] NRBC 0.00 0.00 /100 WBCs [facility] ABSOLUTE NRBC 0.00 0.00 K/uL [facility] Blood 03/13/2025 2:28 PM EDT 03/13/2025 2:37 PM EDT Dacia Watkins NP LAB BLOOD BKR ORDERABLES Final Result [address] [address] * (ABNORMAL) C-Reactive Protein (03/13/2025 2:28 PM EDT) C REACTIVE PROTEIN 4.9(H) 0.0 - 4.0 mg/L [facility] Blood 03/13/2025 2:28 PM EDT 03/13/2025 2:37 PM EDT Dacia Watkins LIVE TRUCK OPERATOR LAB BLOOD BKR ORDERABLES Final Result [address] [address] * TSH (03/13/2025 2:28 PM EDT) TSH 2.24 0.27 - 4.20 uIU/mL [facility] Blood 03/13/2025 2:28 PM EDT 03/13/2025 2:37 PM EDT Dacia Watkins NP LAB BLOOD BKR ORDERABLES Final Result Performing Organization Address City/[facility]/ZIP Co de Phone Number [address] [address] * Immunoglobulin A (03/13/2025 2:28 PM EDT) Pathologist [facility] IgA 302 70 - 400 mg/dL [facility] Blood 03/13/2025 2:28 PM EDT 03/13/2025 2:37 PM EDT Dacia Watkins NP LAB BLOOD BKR ORDERABLES Final Result Performing Organization Address [facility] Co de Phone Number [address] [address] * Vitamin B12 (03/13/2025 2:28 PM EDT) Pathologist [facility] VITAMIN B12 375 232 - 1,245 pg/mL [facility] Blood 03/13/2025 2:28 PM EDT 03/13/2025 2:37 PM EDT Dacia Watkins NP LAB BLOOD BKR ORDERABLES Final Result Performing Organization Address [facility] Co de Phone Number [address] [address] * (ABNORMAL) Lipid panel (12/04/2024 8:48 AM EDT) Pathologist [facility] HDL 35 mg/dL [facility] Comment: Interpretation <40 mg/dL: Low HDL cholesterol (major risk factor for CHD) Greater than or equal to 60 mg/dL: High HDL cholesterol ( negative risk factor for CHD) HDL - cholesterol is affected by a number of factors, e.g. smoking, excerise, hormones, sex and age. CHOLESTEROL 144 0 - 240 mg/dL [facility] TRIGLYCERIDES 191(H) 30 - 160 mg/dL [facility] LDL 71 50 - 129 mg/dL [facility] Comment: LDL levels in terms of risk for coronary heart disease: <100 mg/dL: Optimal 100-129 mg/dL: Near or above optimal 130-159 mg/dL: Borderline high 160-189 mg/dL: High >190 mg/dL: Very High CARDIAC RISK RATIO 4.1 3.4 - 5.0 C [facility] Blood 12/04/2024 8:48 AM EDT 12/04/2024 8:57 AM EDT us Peewee Maxwell MD LAB BLOOD BKR ORDERABLES F inal Result [facility] [address] [place], [place] [id number] from Last 3 Months or Most Recently Relevant to Health Maintenance [facility] BLUE REPLACEMENT [facility]UE [facility]PLACEMENT [facility] H[facility] BLUE REPLACEMENT [facility] H[facility] BLUE REPLACEMENT Member Subscriber Plan / Payer (Ef fective 2019-Present) Name:Joshua Carrillo Relation to Subscriber:Self Name:Joshua Carrillo Payer ID:[id number] (NAIC) Type:Medicare Address: [address] [place], [place] [facility] MED[facility] HMO BLUE [place] [address] [address] [place] [address] MEDICARE HMO [address] [place] [address] [place] [address] MEDICARE O BLUE REPLACEMENT [facility] H[facility] BLUE RE[place]ACEMENT [place] MED[place] H[place] BLUE REPLACEMENT WORKERS COMPENSATION Advance Directives For more information, please contact: [phone] (9AM - 5PM [facility], Monday-Monday) Documents on File Type Date Recorded Patient Luster Repairer Expl anation Healthcare Proxy 07/05/2024 1:49 PM * Full Code (Latest Code Status on File) Date Activated Date Inactivated Comments 07/02/2024 7:36 AM Question Answer Comments Code Status Confirmed With: Patient Care Teams Financial Cost Analyst Relationship Specialty Start Date End Date Sylvia Ibarra PA [address] [place] [address] PCP - General Physician [facility] 04/14/25 Kee Ugalde DO [address] [place] [address] Orthopedics & Sports Medicine, [place] [address] Historical LMR Provider 04/05/17 Additional Source Comments The information contained in this document represents components of the legal health record. It is not the complete legal health record.[facility]
--- OUTSIDE RECORDS SUMMARY | 2025-06-05 18:32 | XMS_ITS | Encounter Summary ---
Author Organization [facility] Address [address] [place] [address] Phone Care Team Providers Care Auctioneer Automobile Name Role Phone Kee Ugalde DO Unavailable [phone] Peewee Maxwell MD Primary Care Provider [phone] Pcp, Unknown Primary Care Provider Sylvia Oseguera Primary Care Provider [phone] Encounter Details Date Type Department Care Team (Late st Contact Info) Description 07/02/2024 Procedure Pass [facility] [address] [place] [address] Social History Tobacco Use Types Packs/Day Years [...] Description 06/13/2025 1:45 PM EST Office Visit [facility] [address] [place] [address] Polo Vasquez MD [address] [place] [address] documented as of this encounter Visit Diagnoses Not on filedocumented in this encounter Care Teams Auctioneer Automobile Relationship Specialty Start Date End Date Peewee Maxwell MD [address] [place] [address] PCP - General Internal Medicine 08/11/20 03/13/25 Pcp, Unknown PCP - General 03/14/25 04/13/25 Sylvia Ibarra PA [address] [place] [address] PCP - General Physician Apartment Maintenance Worker 04/14/25 Kee Ugalde DO [address] [place] [address] Orthopedics & Sports Medicine, [place] [address] [email or web address] Historical LMR Provider 04/05/17 documented as of this encounter Additional Source Comments The information contained in this document represents components of the legal health record. It is not the complete legal health record.[facility]
--- OUTSIDE RECORDS SUMMARY | 2025-06-05 18:33 | XMS_ITS | Clinical Summary ---
Author Organization [facility] Address [address] [facility] [address] [place] [address] Phone Care Team Providers Care Construction Craft Laborer Name Role Phone Peewee Maxwell MD Primary Care Provider [phone] Allergies No known active allergies Medications spironolactone [...] Visit [facility] [address] [place] [address] Kee Hernández MD [address] [facility] [address] [place] [address] Health Maintenance Due Date Last [...] patient's age to complete this topic Insurance [facility] PPO Blue([id number]) [facility] PPO Blue([id number]) Care Teams Construction Craft Laborer Relationship Specialty Start Date End Date Peewee Maxwell MD [address] [place] [address] PCP - General Internal Medicine 10/21/20
--- OUTSIDE RECORDS SUMMARY | 2025-06-05 18:33 | XMS_ITS | Encounter Summary ---
Author Organization [facility] Address [address] [place] [address] Phone Care Team Providers Care Conference Manager Name Role Phone Eulalio Ahuja MD Primary Care Provider [phone] Tico Martell MD Unavailable [phone] Kee Alexander MD Unavailable [phone] Kee Ugalde DO Unavailable [phone] Polo Guadarrama MD Unavailable Dilcia Gould MD Unavailable [phone] Antoinette Ching PA-C Unavailable [phone] Seamus Hadley MD Primary Care Provide r Peewee Maxwell MD Primary Care Provider + [phone] Pcp, Unknown Primary Care Provider UnavailSylvia Brunner Primary Care Provider [phone] Encounter Details Date Type Department Care Team (Late st Contact Info) Description 04/18/2017 Procedure Pass [facility] Endoscopy Admitting Dept Virtual Department 30 [place], [place] [id number] Social History Tobacco Use Types Packs/Day Years [...] Description 06/13/2025 1:45 PM EST Office Visit [facility] 10 [place] [address] Polo Vasquez MD [address] [address] [email or web address] documented as of this encounter Visit Diagnoses Not on filedocumented in this encounter Additional Health Concerns Infection Onset Date Last Indicated Resolved Time CoV-Exposed Comment:Positive COVID-19 12/24/2021 12/24/2021 12/25/2021 10: 54 AM EDT COVID-19 12/24/2021 12/24/2021 01/14/2022 1:21 AM EDT documented as of this encounter Care Teams Conference Manager Relationship Specialty Start Date End Date [place] [address] [email or web address] PCP - General 04/04/17 08/04/18 Seamus Hadley MD [address] [place] [address] PCP - General Family Medicine 08/05/18 08/10/20 Peewee Maxwell MD [address] [place] [address] PCP - General Internal Medicine 08/11/20 03/13/25 Pcp, Unknown PCP - General 03/14/25 04/13/25 Sylvia Ibarra PA [address] [place] [address] PCP - General Physician Acute Care Nursing Assistant 04/14/25 Tico Martell MD [address] [place] [address] [email or web address] Historical LMR Provider 04/05/17 06/26/21 Kee Alexander MD [address] [place] [address] Historical LMR Provider 04/05/17 Kee Ugalde DO [address] [place] [address] Orthopedics & Sports [facility], [place] [address] [email or web address] Historical LMR Provider 04/05/17 Polo Guadarrama MD [address] [place] [address] [email or web address] Historical LMR Provider 04/05/17 2 Dilcia Gould MD [address] [place] [address] [email or web address] Historical LMR Provider 04/05/17 Antoinette Ching PA-C [address] [place] [address] Orthopedics Sports [facility], [place] [address] [email or web address] Historical LMR Provider 04/05/17 06/26/21 documented as of this encounter Additional Source Comments The information contained in this document represents components of the legal health record. It is not the complete legal health record.[facility]
--- OUTSIDE RECORDS SUMMARY | 2025-06-05 18:33 | XMS_ITS | Data Portability ---
Author Organization [place] [facility], Allergy Address [address] [address] Care Team Providers Care Java Lead Name Role Phone EBENEZER URRUTIA Primary Care [...] mcg (0.1 %) nasal spray 2024 025 [facility], [address] [place], [address], 5 14:32:20 Patient TargetsNo targets recorded. Patient InstructionsNo instructions recorded. Reason for Referral None Reported. Problems Name Problem SNOMED Code Status Onset Date Resolution Date Notes Provider Name and Address Organization Details Recorded Time Headache 95365233 Active 2020 Headache, unspecifie d; Note: Date Diagnosed: 09/21/2020 8:09 AM (R51.9) Not Available [facility] 4 02:41:40 Cyst of nasal sinus 38896231 Active 2020 Cyst and mucocele of nose and nasal sinus; Note: Date Diagnosed: 09/21/2020 8:09 AM (J34.1) Not Available [facility] 4 02:41:33 Chronic rhinitis 16710298 Active 2020 Chronic rhinitis; Note: Date Diagnosed: 11/28/2020 11:19 AM (J31.0) Not Available [facility] 4 02:41:36 Allergic rhinitis 63310017 Active 2020 Other allergic rhinitis; Note: Date Diagnosed: 02/23/2021 8:05 AM (J30.89) Not Available [facility] 4 02:41:35 Obstructiv e sleep apnea syndrome 76292526 Active 2020 Obstructiv e sleep apnea (adult) (pediatric ); Note: Date Diagnosed: 02/23/2021 8:05 AM (G47.33) Not Available [facility] 4 02:41:38 Problem Notes None [...] 24 hr 10/01 completed Medicati on ID: [id number] B rand Name: nifedipi ne Send Method: [...] % topical cream active Medicati on ID: [id number] B rand Name: desonide Send Method: E-Prescr ibed Sub s Allowed: subs OK Medic ationGen ericName : desonide Not Available Not Available Not Available tizanidin e 2 mg tablet 12/14 completed Medicati on ID: [id number] B rand Name: tizanidi ne Send Method: E-Prescr ibed Sub s Allowed: subs OK Medic ationGen ericName : tizanidi ne Not Available Not Available Not Available metoprolo l succinate ER 50 mg tablet,ex tended release 24 hr 12/14 completed Medicati on ID: [id number] B rand Name: metoprol ol succinat e Send Method: E-Prescr ibed Sub s Allowed: subs OK Medic ationGen ericName : metoprol ol succinat e Not Available Not Available Not Available lisinopri l 20 mg tablet 12/14 completed Medicati on ID: [id number] B rand Name: lisinopr il Send Method: [...] mg tablet 12/14 completed Medicati on ID: [id number] B rand Name: lorazepa m Send Method: E-Prescr ibed Sub s Allowed: subs OK Medic ationGen ericName : lorazepa m Not Available Not Available Not Available amlodipin e 10 mg tablet 12/14 completed Medicati on ID: [id number] B rand Name: amlodipi ne Send Method: E-Prescr ibed Sub s Allowed: subs OK Medic ationGen ericName : amlodipi ne Not Available Not Available Not Available omeprazol e 20 mg capsule,d elayed release TAKE 1 CAPSULE BY MOUTH ONCE DAILY active Not Available Not Available No t Available doxazosin 4 mg tablet 10/01 completed Medicati on ID: [id number] B rand Name: doxazosi n Send Method: E-Prescr ibed Sub s Allowed: subs OK Medic ationGen ericName : doxazosi n Not Available Not Available Not Available hydrochlo rothiazid e 25 mg tablet 10/01 completed Medicati on ID: [id number] B rand Name: hydrochl orothiaz caty Send Method: E-Prescr ibed Sub s Allowed: subs OK Medic ationGen ericName : hydrochl orothiaz caty Not Available Not Available Not Available mirtazapi ne 15 mg tablet 12/14 completed Medicati on ID: [id number] B rand Name: mirtazap ine Send Method: E-Prescr ibed Sub s Allowed: subs OK Speci al Instruct ion: TAKE 1 TABLET BY MOUTH DAILY AT BEDTIME Medicati onGeneri cName: mirtazap ine Not Available Not Available Not Available metoprolo l succinate ER 25 mg tablet,ex tended release 24 hr 10/01 completed Medicati on ID: [id number] B rand Name: metoprol ol succinat e [...] mg tablet 10/01 completed Medicati on ID: [id number] B rand Name: naproxen Send Method: E-Prescr ibed Sub s Allowed: subs OK Speci al Instruct ion: TAKE 1 TABLET BY MOUTH TWICE DAILY WITH FOOD Med icationG enericNa me: naproxen Not Available Not Available Not Available Vitals Date Recorded Body height Body mass index (BMI) Body weight Provider Name and Address Organization Details Last Updated DateTime 10/01/2024 165.1 cm 33.3 kg/m2 09544.47 g Annaamina Cutler [place] [facility] 10/01/2024 14:22:03 Social History None recorded. Functional Status None recorded. Mental Status None recorded. Family History Nothing Reported Notes:hypertension - multipl e Medical History No medical history recorded. Past Encounters Encounter ID Performer Location Encounter Start Date Encounter Closed Date Diagnosis/Indication Diagnosis SNOMED-CT Code Diagnosis ICD10 Code Diagnosis IMO Codes Diagnosis Note [id number] NELLY GIORDANO MD [facility] on [address] [place] [address] 10/01/2024 14:00:10 10/04/2024 12:24:02 Allergic rhinitis 03019536 J30.9 Obstructiv e sleep apnea syndrome 82833303 G47.33 Health Concerns Section Related Observation LastModified by Organization Detai ls LastModified Time None Recorded Concern Status LastModified by Organization Details LastModified Time None Recorded Advance Directives Directive None Recorded Payers Insurance Date Sequence Insurance Name Policy Number Policy Jeter Covered Member ID Jeter Member ID Guarantor Name 10/01/2024 1 [facility]: MEDICARE HMO BLUE (MEDICARE REPLACEMENT HMO) [id number] [id number] Notes Date Note Type [...] has been controlled. 136/70today. NELLY GIORDANO MD [address] [place] [address], [id number], [facility] - [facility] 10/02/2024 07:21:27
--- OUTSIDE RECORDS SUMMARY | 2025-06-05 18:33 | XMS_ITS | Encounter Summary ---
Author Organization [facility] Address [address] [facility] [address] [place] [address] Phone Care Team Providers Care Salt Cutter Name Role Phone Tico Martell MD Unavailable Kee Alexander MD Unavailable Kee Ugalde DO Unavailable [phone] Polo Guadarrama MD Unavailable Dilcia Gould MD Unavailable [phone] Antoinette Ching-Bertha Unavailable Peewee Maxwell MD Primary Care Provider [phone] Pcp, Unknown Primary Care Provider UnavailSylvia Brunner Primary Care Provider [phone] Reason for Referral * MRI/CAT Scan - Closed Specialty Diagnoses / Procedures Referred By Contac t Referred To Contact Radiology Diagnoses Sinusitis, unspecified chronicity, unspecified location Procedures CT Face Peewee Maxwell MD [address] [place] [address] Phone: tel: fax: Referral ID Status Reason Start Date Expiration Date Visits Re quested Visits Authorized [id number] Closed 08/11/2020 08/11/2021 1 1 Encounter Details Date Type Department Care Team (Late st Contact Info) Description 08/11/2020 Ancillary Orders Virtual Department 30 [place] [address] Peewee Maxwell MD 96 [place] [address] Sinusitis, unspecified chronicity, unspecified location Social History [...] Description 06/13/2025 1:45 PM EST Office Visit [facility] 10 [place] [address] Polo Vasquez MD [address] [address] [email or web address] documented as of this encounter Results * [...] Technique tailored for patient body habitus and [id number]. FINDINGS: Some mild thickening seen in the [...] images. Technique tailored for patient body habitus [id number]. FINDINGS: Some mild thickening seen in the [...] documented as of this encounter Care Teams Salt Cutter Relationship Specialty Start Date End Date Peewee Maxwell MD [address] [place] [address] PCP - General Internal Medicine 08/11/20 03/13/25 Pcp, Unknown PCP - General 03/14/25 04/13/25 Sylvia Ibarra PA [address] [place] [address] PCP - General Physician Grazing Examiner 04/14/25 Tico Martell MD [address] [place] [address] [email or web address] Historical LMR Provider 04/05/17 06/26/21 Kee Alexander MD [address] [place] [address] Historical LMR Provider 04/05/17 Kee Ugalde DO [address] [place] [address] [facility], [place] [address] [email or web address] Historical LMR Provider 04/05/17 Polo Guadarrama MD [address] [address] [email or web address] Historical LMR Provider 04/05/17 2 Dilcia Gould MD [address] [place] [address], [address] [place] [address] [email or web address] Historical LMR Provider 04/05/17 Antoinette Ching PA-C [address] [place] [address] [facility], [facility] [place] [address] [email or web address] Historical LMR Provider 04/05/17 06/26/21 documented as of this encounter Additional Source Comments The information contained in this document represents components of the legal health record. It is not the complete legal health record.[facility]
--- OUTSIDE RECORDS SUMMARY | 2025-06-05 18:33 | XMS_ITS | Encounter Summary ---
Author Organization [facility] Address [address] [facility] 200 [place] [address] Phone Care Team Providers Care Driver Education Road Instructor Name Role Phone Peewee Maxwell MD Primary Care Provider [phone] Encounter Details Date Type Department Care Team (Late Contact Info) Description 10/30/2020 Orders Only [facility] [address] [place] [address] Kee Hernández MD [address] [facility] [address] [place] [address] Essential (primary) hypertension Social History [...] [facility] the [address] [place] [id number] Kee Hernández MD [address] [facility] 204 [place] [address] documented as of this encounter Visit Diagnoses Diagnosis Essential (primary) hypertension documented in this encounter Care Teams Driver Education Road Instructor Relationship Specialty Start Date End Date Peewee Maxwell MD [address] [place] [address] PCP - General Internal Medicine 10/21/20 documented as of this encounter
--- OUTSIDE RECORDS SUMMARY | 2025-06-05 18:33 | XMS_ITS | Encounter Summary ---
Author Organization [facility] Address [address] [facility] [address] [place] [address] Phone Care Team Providers Care Tin Cutter Name Role Phone Kee Ugalde DO Unavailable [phone] Sylvia Ibarra Primary Care Provider [phone] Encounter Details Date Type Department Care Team (Late st Contact Info) Description 04/28/2025 Procedure Pass [facility]oscopy Admitting Dept Virtual Department 30 [place] [address] Social History Tobacco Use Types Packs/Day Years [...] Office Visit [facility] [address] [place] [address] Polo Vasquez MD [address] [place] [address] documented as of this encounter Visit Diagnoses Not on filedocumented in this encounter Care Teams Tin Cutter Relationship Specialty Start Date End Date Sylvia Ibarra PA [address] [place] [address] PCP - General Physician Oracle Consultant 04/14/25 Kee Ugalde DO [address] [place] [address] [facility] Sports Medicine, [place] [address] [email or web address] Historical LMR Provider 04/05/17 documented as of this encounter Additional Source Comments The information contained in this document represents components of the legal health record. It is not the complete legal health record.[facility]
--- OUTSIDE RECORDS SUMMARY | 2025-06-05 18:33 | XMS_ITS | Encounter Summary ---
Author Organization [facility] Address [address] [facility] [address] [place] [address] Phone Care Team Providers Care Janitorial Supervisor Name Role Phone Tico Martell MD Unavailable [phone] Kee Alexander MD Unavailable [phone] Kee Ugalde DO Unavailable Polo Guadarrama MD Unavailable Dilcia Gould MD Unavailable Antoinette Ching-Bertha Unavailable Peewee Maxwell MD Primary Care Provider [phone] Pcp, Unknown Primary Care Provider UnavailSylvia Brunner Primary Care Provider [phone] Encounter Details Date Type Department Care Team (Late st Contact Info) Description 08/11/2020 Procedure Pass [facility], Ct Scan - [address] [address] Social History Tobacco Use Types Packs/Day Years [...] EST Office Visit [facility] 10 [place] [address] Polo Vasquez MD [address] [address] [email or web address] documented as of this encounter Visit Diagnoses Not on filedocumented in this encounter Additional Health Concerns Infection Onset Date Last Indicated Resolved Time CoV-Exposed Comment:Positive COVID-19 12/24/2021 12/24/2021 12/25/2021 10: 54 AM EDT COVID-19 12/24/2021 12/24/2021 01/14/2022 1:21 AM EDT documented as of this encounter Care Teams Janitorial Supervisor Relationship Specialty Start Date End Date Peewee Maxwell MD [address] [place] [address] PCP - General Internal Medicine 08/11/20 03/13/25 Pcp, Unknown PCP - General 03/14/25 04/13/25 Sylvia Ibarra PA [address] [place] [address] PCP - General Physician Crystal Calibrator 04/14/25 Tico Martell MD [address] [place] [address] [email or web address] Historical LMR Provider 04/05/17 06/26/21 Kee Alexander MD 115 [place] [address] Historical LMR Provider 04/05/17 Kee Ugalde DO [facility] [place] [place] [address] [email or web address] Historical LMR Provider 04/05/17 Polo Guaadrrama MD [address] [address] [email or web address] Historical LMR Provider 04/05/17 2 Dilcia Gould MD [address] [address] [email or web address] Historical LMR Provider 04/05/17 Antoinette Ching PA-C 4 [facility] [place] [place] [address] [email or web address] Historical LMR Provider 04/05/17 06/26/21 documented as of this encounter Additional Source Comments The information contained in this document represents components of the legal health record. It is not the complete legal health record.[facility]
--- OUTSIDE RECORDS SUMMARY | 2025-06-05 18:33 | XMS_ITS | Encounter Summary ---
Author Organization [facility] Address [address] [place] [address] Phone Care Team Providers Care Duco Polisher Name Role Phone Kee Ugalde DO Unavailable [phone] Peewee Maxwell MD Primary Care Provider [phone] Pcp, Unknown Primary Care Provider Sylvia Oseguera Primary Care Provider [phone] Encounter Details Date Type Department Care Team (Late st Contact Info) Description 07/01/2024 Procedure Pass [facility], Ct Scan - [address] [address] Social History Tobacco Use Types Packs/Day Years [...] 11:31 PM EST Isaura Bray RN * Ada Suicide Severity Rating Scale (Screener/Recent Self-Report) Question [...] 06/13/2025 1:45 PM EST Office Visit [facility]astro[facility]ology Clinic 10 [place] [address] Polo Vasquez MD [address] [address] [email or web address] documented as of this encounter Visit Diagnoses Not on filedocumented in this encounter Care Teams Duco Polisher Relationship Specialty Start Date End Date Peewee Maxwell MD [address] [place] [address] PCP - General Internal Medicine 08/11/20 03/13/25 Pcp, Unknown PCP - General 03/14/25 04/13/25 Sylvia Ibarra PA [address] [place] [address] PCP - General Physician Instructional Systems Designer 04/14/25 Kee Ugalde DO [address] [place] [address] [facility], [place] [address] Historical LMR Provider 04/05/17 documented as of this encounter Additional Source Comments The information contained in this document represents components of the legal health record. It is not the complete legal health record.[facility]
== END 2025-06-05 15:16 | disposition home or self-care (01) ==
LOC: HO.HCS 14:21
PROVIDERS: PCP Physician Assistant Medical; Visit Provider Nurse Practitioner Family
DX: R00.1 Bradycardia, unspecified (principal); I10 Essential (primary) hypertension; I70.1 Atherosclerosis of renal artery
CPT/HCPCS: 93010; 99214; G2211

== ENCOUNTER → 2025-06-05 14:20 | Outpatient (BNVA) | payer MEDICARE, SELFPAY | PROVIDERS: PCP Physician Assistant Medical; Visit Provider Nurse Practitioner Family | DX: R00.1 Bradycardia, unspecified (principal); I10 Essential (primary) hypertension; I70.1 Atherosclerosis of renal artery; R42 Dizziness and giddiness | CPT/HCPCS: 93005; 99212 ==

== ENCOUNTER → 2025-06-06 08:43 | Outpatient (REF) | payer MEDICARE, SELFPAY ==
--- NOTE | 2025-06-06 08:50 | CA_ITS ---
Acquisition Time: 2025-06-06 09:25:09 Total Exercise Time: 00:06:00 Test Indications: Abnormal ECG.CHRONOTROPIC COMPETENCY Medications: AMLODIPIONE LOSARTAN OMEPRAZOLE PRIMIDONE SPIRONALACTONE Protocol: MARGY Max HR: 120 BPM 80% of Pred: 149 BPM Max BP: 180/60 mmHG Max Work Load: 7.0 METS Exercise stress test with exercise 6 mins of Margy Protocol achieving 80% MPHR, with reports of headache at baseline that improved in recovery, no dizziness, with isolated PACs and PVCs, with normotensive response to exercise. without any EKG changes meeting criteria for ischemia. In recovery, pt fell well. Test reviewed with Dr. Dyson. Referred By: Elisa Rojo Electronically Signed By: Frederic Mcgraw
--- OUTSIDE RECORDS SUMMARY | 2025-06-06 08:56 | XMS_ITS | Encounter Summary ---
Author Organization [facility] Address [address] [place] [address] Phone Care Team Providers Care Real Estate Professor Name Role Phone Kee Ugalde DO Unavailable [phone] Peewee Maxwell MD Primary Care Provider [phone] Pcp, Unknown Primary Care Provider Sylvia Oseguera Primary Care Provider [phone] Encounter Details Date Type Department Care Team (Late st Contact Info) Description 07/02/2024 Procedure Pass [facility], [facility] 30 [place] [address] Social History Tobacco Use Types Packs/Day Years [...] Description 06/13/2025 1:45 PM EST Office Visit [facility] [address] [place] [address] Polo Vasquez MD [address] [place] [address] documented as of this encounter Visit Diagnoses Not on filedocumented in this encounter Care Teams Real Estate Professor Relationship Specialty Start Date End Date Peewee Maxwell MD [address] [place] [address] PCP - General Internal Medicine 08/11/20 03/13/25 Pcp, Unknown PCP - General 03/14/25 04/13/25 Sylvia Ibarra PA [address] [place] [address] PCP - General Physician Supervisor Cell Maintenance 04/14/25 Kee Ugalde DO [address] [place] [address] [facility], [place] [address] [email or web address] Historical LMR Provider 04/05/17 documented as of this encounter Additional Source Comments The information contained in this document represents components of the legal health record. It is not the complete legal health record.[facility]
--- OUTSIDE RECORDS SUMMARY | 2025-06-06 08:56 | XMS_ITS | Encounter Summary ---
Author Organization [facility] Address [address] [facility] [address] [place] [address] Phone Care Team Providers Care Manufacturing Maintenance Technician Name Role Phone Peewee Maxwell MD Primary Care Provider [phone] Reason for Visit * Reason Comments Med Refill Encounter Details Date Type Department Care Team ([facility] Contact Info) Description 07/18/2021 Refill [facility] [address] [facility] [address] [facility] [facility] 200 [place] [phone] Kee Hernández MD [address] [facility] [address] [place] [address] Social History Tobacco Use Types Packs/Day Years [...] [facility] [address] [place] [address] Kee Hernández MD [address] [facility] [address] [place] [address] documented as of this encounter Visit Diagnoses Not on filedocumented in this encounter Care Teams Manufacturing Maintenance Technician Relationship Specialty Start Date End Date Peewee Maxwell MD [address] [place] [address] PCP - General Internal Medicine 10/21/20 documented as of this encounter
--- OUTSIDE RECORDS SUMMARY | 2025-06-06 08:56 | XMS_ITS | Clinical Summary ---
Author Organization [facility] Address [address] [place] [address] Phone Care Team Providers Care Recruitment Coordinator Name Role Phone Kee Ugalde DO Unavailable [phone] Sylvia Ibarra Primary Care Provider [phone] Allergies No known active allergies Medications spironolactone [...] Type Department Care Team Description [address] [facility] [address] [place] [address] Yossi Vasquez MD [address] [facility] [address] [place] [address] Yossi Vasquez MD 5 1:25 PM EST Anesthesia Event [facility] Endoscopy Admitting Dept Virtual Department [address] [place] [address] Fco Clark MD Matos-Auer bach, Melissa, MD 5 12:30 PM EST - 5 1:00 PM EST Surgery [facility] Endoscopy Admitting Dept Virtual Department [address] [place] [address] Yossi Vasquez MD ESOPHAGOGASTRODUODENOSCOPY 5 11:11 AM EST - 5 2:59 PM EST Hospital Encounter [facility] Admitting [facility] Virtual Department [address] [place] [address] Yossi Vasquez MD Discharge Disposition: Home or Self Care 5 Procedure Pass [facility] Endoscopy Admitting Dept Virtual Department [address] [place] [address] 5 2:45 PM EDT Pre-Admission Testing Pre Procedure Evaluation [address] [place] [address] Yossi Vasquez MD 5 2:28 PM EDT - 5 11:59 PM EDT Hospital Encounter [facility] Phleb Kait [address] [place] [address] Dacia Watkins NP Discharge Disposition: Home or Self Care 5 Transcribe Orders [facility] Phleb Kait [address] [place] [address] Dacia Watkins NP Bloating (Primary Dx); Gastroesophageal [...] Upcoming Encounters Date Type Department Care Team ([facility] st Contact Info) Description 06/13/2025 1:45 PM EST Office Visit [facility] [address] [place] [address] Yossi Vasquez MD [address] [place] [address] [email or web address] Health Maintenance Due Date Last Done Comments [...] this topic Medical Devices Implanted Type Area Parachute/Combatant Diver Officer Device Identifier Shelf Expiration Date Model / Serial / Lot Bilateral Hip Replacements Metal Right Shoulder Right Knee Repair Metal Procedures Procedure Name Priority Date/Time Associated Diagnosis Comments TISSUE EXAM Routine 04/28/2025 1:30 PM EST LA COLSC FLX W/RMVL OF TUMOR POLYP LESION SNARE TQ 04/28/2025 1:22 PM EST Diverticulosis Special Needs Bradycardia - cardiology notes on chart LA COLONOSCOPY W/BIOPSY SINGLE/MULTIPLE 04/28/2025 1:22 PM EST Diverticulosis Special Needs Bradycardia - cardiology notes on chart LA COLONOSCOPY FLX DX W/SUZY J SPEC WHEN PFRMD 04/28/2025 1:22 PM EST Diverticulosis Special Needs Bradycardia - cardiology notes on chart LA EGD ABLATE TUMOR POLYP/LESION W/DILATION& WIRE 04/28/2025 1:22 PM EST Diverticulosis Special Needs Bradycardia - cardiology notes on chart LA EDG TRANSORAL BIOPSY SINGLE/MULTIPLE 04/28/2025 1:22 PM EST Diverticulosis Special Needs Bradycardia - cardiology notes on chart LA ESOPHAGOGASTRODUODENOSCOP Y TRANSORAL DIAGNOSTIC 04/28/2025 1:22 PM [...] BIOPSY: No pathologic abnormalities. 5 12:13 PM [facility] at 1213 EST Clinical History Pre-op diagnosis: Abdominal pain, bloating K21.9, R19.4 5 12:13 PM [facility] Gross Description A. DUODENUM: Received in [...] cassette labeled D1. Grossed by: SHARRI Varner PA([facility]) 5 12:13 PM [facility] Grossed By Chris Romo 5 12:13 PM [facility] Result Priority Level Routine 5 12:13 PM [facility] Disclaimer By their signature amina martinez, [...] provided in this report. 5 12:13 PM [facility] Procedure ESOPHAGOGASTRODUODEN OSCOPY COLONOSCOPY 5 12:13 PM EST [facility] Gastrointestinal Tissue (Duodenum) 04/28/2025 1:30 PM [...] MD LAB PATHOLOGY ORDERABLES F inal Result [address] [address] * ENDOSCOPY PROCEDURE (04/28/2025 1:08 PM EST) Narrative Transcriptions Yossi Vasquez MD - 04/28/2025 1:08 PM EST [facility] Patient Name: Joshua Fairchild MD:: YOSSI VASQUEZ MD, Procedure Date: 04/28/2025 1:08 PM Date of : 1955 Age: 70 Admit Type: Outpatient Gender: Male Room: [place] [address] Referring MD: Sylvia Ibarra Exam Type: Upper [...] 1:08 PM Procedure Code(s): --- Professional --- 11566, Esophagogastroduodenoscopy, flexible, transoral; with biopsy, single or multiple --- Technical --- 32237, Esophagogastroduodenoscopy, flexible, transoral; with biopsy, single or multiple Diagnosis Code(s): --- Professional --- K44.9, Diaphragmatic hernia without obstruction or gangrene R12, Heartburn R14.0, Abdominal distension (gaseous) R19.7, Diarrhea, unspecified --- Technical --- K44.9, Diaphragmatic hernia without obstruction or gangrene R12, Heartburn R14.0, Abdominal distension (gaseous) R19.7, Diarrhea, unspecified CPT copyright 2021 [employer]. All rights reserved. The codes documented in this report are preliminary and upon recyclable products sorter reviewmay be revised to meet current compliance requirements. Procedure Date: 04/28/2025 1:08:[address] [place] [address] us Sylvia LEWIS GI PROCEDURE ORDERABLES F inal Result * ENDOSCOPY, COLON (04/28/2025 1:08 PM EST) Narrative Transcriptions Yossi Vasquez MD - 04/28/2025 1:08 PM EST [facility] Patient Name: Joshua Fairchild MD:: YOSSI VASQUEZ MD, Procedure Date: 04/28/2025 1:08 PM Date of : 1955 Age: 70 Admit Type: Outpatient Gender: Male Room: [place] [address] Referring MD: Sylvia Ibarra Exam Type: Colonoscopy [...] monitored continuously. The Olympus adult variable colonoscope [id number] #3 was introduced through the anus and [...] 1:08 PM Procedure Code(s): --- Professional --- 61961, Colonoscopy, flexible; with biopsy, single or multiple --- Technical --- 93316, Colonoscopy, flexible; with biopsy, single or multiple Diagnosis Code(s): --- Professional --- R19.4, Change in bowel habit K57.30, Diverticulosis of large intestine without perforation or abscess without bleeding --- Technical --- R19.4, Change in bowel habit K57.30, Diverticulosis of large intestine without perforation or abscess without bleeding CPT copyright 2021 [employer]. All rights reserved. The codes documented in this report are preliminary and upon recyclable products sorter reviewmay be revised to meet current compliance requirements. Procedure Date: 04/28/2025 1:08:[address] [place] [address] Sylvia LEWIS GI PROCEDURE ORDERABLES F inal Result * (ABNORMAL) Comprehensive metabolic panel (03/13/2025 2:28 PM EDT) SODIUM 138 133 - 146 mmol/L [facility] POTASSIUM 4.2 3.3 - 5.1 mmol/L [facility] CHLORIDE 102 96 - 108 mmol/L [facility] CO2 25 21 - 35 mmol/L [facility] BUN 25(H) 6 - 19 mg/dL [facility] CREATININE 1.10 0.5 - 1.5 mg/dL [facility] GLUCOSE 118(H) 70 - 99 mg/dL [facility] ALBUMIN 4.0 3.9 - 4.8 g/dL [facility] TOTAL PROTEIN 7.2 6.5 - 8.0 g/dL [facility] CALCIUM 9.2 8.4 - 10.3 mg/dL [facility] ALKALINE PHOSPHATASE 67 39 - 117 U/L [facility] TOTAL BILIRUBIN 0.4 0.0 - 1.2 mg/dL [facility] AST 41(H) 0 - 37 U/L [facility] ALT 31 0 - 40 U/L [facility] GLOBULIN 3.2 1 - 4.8 g/dL [facility] EGFR 72 >59 mL/min/1.7 3m2 [facility] Comment:Estimated glomerular filtration rate calculated using the CKD-EPI refit equation. ANION GAP 15 10 - 20 mmol/L [facility] Blood 03/13/2025 2:28 PM EDT 03/13/2025 2:37 PM EDT Dacia Watkins [employer] LAB BLOOD BKR ORDERABLES Final Result [address] [address] * Iron and iron binding capacity (03/13/2025 2:28 PM EDT) Pathologist [facility] IRON 116 45 - 160 ug/dL [facility] IRON BINDING CAPACITY 375 228 - 428 ug/dL [facility] TRANSFERRIN SATURAT. 31 20 - 55 % [facility] Blood 03/13/2025 2:28 PM EDT 03/13/2025 2:37 PM EDT Dacia Watkins NP LAB BLOOD BKR ORDERABLES Final Result Performing Organization Address [facility]/ZIP Co de Phone Number [address] [address] * Tissue transglutaminase IgA (03/13/2025 2:28 PM EDT) Pathologist [facility] TTG IGA ANTIBODY 1.8 <4.0 (Negative) U/mL [facility] Blood 03/13/2025 2:28 PM EDT 03/13/2025 2:37 PM EDT Dacia Watkins NP LAB BLOOD BKR ORDERABLES Final Result Performing Organization Address City/[facility]/ZIP Co de Phone Number [facility] [address] [address] [place] [address] * (ABNORMAL) CBC (03/13/2025 2:28 PM EDT) WBC 6.47 4.00 - 11.00 K/uL [facility] RBC 4.69 4.50 - 5.90 M/uL [facility] HGB 13.4(L) 13.5 - 17.5 g/dL [facility] HCT 41.8 41.0 - 53.0 % [facility] PLT 279 150 - 450 K/uL [facility] MCV 89.1 80.0 - 100.0 fL [facility] MCH 28.6 27.0 - 31.0 pg [facility] MCHC 32.1 32.0 - 36.0 g/dL [facility] RDW 13.0 11.5 - 14.5 % [facility] MPV 10.0 8.4 - 12.0 fL [facility] NRBC 0.00 0.00 /100 WBCs [facility] ABSOLUTE NRBC 0.00 0.00 K/uL [facility] Blood 03/13/2025 2:28 PM EDT 03/13/2025 2:37 PM EDT Dacia Watkins NP LAB BLOOD BKR ORDERABLES Final Result [address] [address] * (ABNORMAL) C-Reactive Protein (03/13/2025 2:28 PM EDT) C REACTIVE PROTEIN 4.9(H) 0.0 - 4.0 mg/L [facility] Blood 03/13/2025 2:28 PM EDT 03/13/2025 2:37 PM EDT Dacia Watkins [employer] LAB BLOOD BKR ORDERABLES Final Result [address] [address] * TSH (03/13/2025 2:28 PM EDT) TSH 2.24 0.27 - 4.20 uIU/mL [facility] Blood 03/13/2025 2:28 PM EDT 03/13/2025 2:37 PM EDT Dacia Watkins NP LAB BLOOD BKR ORDERABLES Final Result Performing Organization Address City/[facility]/ZIP Co de Phone Number [address] [address] * Immunoglobulin A (03/13/2025 2:28 PM EDT) Pathologist [facility] IgA 302 70 - 400 mg/dL [facility] Blood 03/13/2025 2:28 PM EDT 03/13/2025 2:37 PM EDT Dacia Watkins NP LAB BLOOD BKR ORDERABLES Final Result Performing Organization Address [facility] Co de Phone Number [address] [address] * Vitamin B12 (03/13/2025 2:28 PM EDT) Pathologist [facility] VITAMIN B12 375 232 - 1,245 pg/mL [facility] Blood 03/13/2025 2:28 PM EDT 03/13/2025 2:37 PM EDT Dacia Watkins NP LAB BLOOD BKR ORDERABLES Final Result Performing Organization Address [facility] Co de Phone Number [address] [address] * (ABNORMAL) Lipid panel (12/04/2024 8:48 AM EDT) Pathologist [facility] HDL 35 mg/dL [facility] Comment: Interpretation <40 mg/dL: Low HDL cholesterol (major risk factor for CHD) Greater than or equal to 60 mg/dL: High HDL cholesterol ( negative risk factor for CHD) HDL - cholesterol is affected by a number of factors, e.g. smoking, excerise, hormones, sex and age. CHOLESTEROL 144 0 - 240 mg/dL [facility] TRIGLYCERIDES 191(H) 30 - 160 mg/dL [facility] LDL 71 50 - 129 mg/dL [facility] Comment: LDL levels in terms of risk for coronary heart disease: <100 mg/dL: Optimal 100-129 mg/dL: Near or above optimal 130-159 mg/dL: Borderline high 160-189 mg/dL: High >190 mg/dL: Very High CARDIAC RISK RATIO 4.1 3.4 - 5.0 C [facility] Blood 12/04/2024 8:48 AM EDT 12/04/2024 8:57 AM EDT us Peewee Maxwell MD LAB BLOOD BKR ORDERABLES F inal Result [facility] [address] [place], [place] [id number] from Last 3 Months or Most Recently Relevant to Health Maintenance Insurance [facility] MEDICARE HMO BLUE REPLACEMENT [facility] MEDICARE HMO BLUE REPLACEMENT [facility] MEDICARE HMO BLUE REPLACEMENT [facility] MEDICARE HMO BLUE REPLACEMENT Member Subscriber Plan / Payer (Ef fective 2019-Present) Name:Joshua Carrillo Relation to Subscriber:Self Name:Joshua Carrillo Payer ID:[id number] (NAIC) Type:Medicare Address: [address] [place], [place] [facility] MEDICARE HMO BLUE REPLACEMENT [address] [place] [address] MEDICARE HMO BLUE REPLACEMENT [address] [place] [address] MEDICARE O BLUE REPLACEMENT [facility] MEDICARE HMO BLUE RE[place]ACEMENT [place] MEDIC[place] HMO BLUE REPLACEMENT WORKERS COMPENSATION Advance Directives For more information, please contact: [phone] (9AM - 5PM [facility], Monday-Monday) Documents on File Type Date Recorded Patient Educational Guidance Counselor Expl anation Healthcare Proxy 07/05/2024 1:49 PM * Full Code (Latest Code Status on File) Date Activated Date Inactivated Comments 07/02/2024 7:36 AM Question Answer Comments Code Status Confirmed With: Patient Care Teams Recruitment Coordinator Relationship Specialty Start Date End Date Sylvia Ibarra PA [address] [place] [address] PCP - General Physician Reefer Engineer 04/14/25 Kee Ugalde DO [address] [place] [address] Orthopedics & Sports Medicine, [place] [address] Historical LMR Provider 04/05/17 Additional Source Comments The information contained in this document represents components of the legal health record. It is not the complete legal health record.[facility]
--- OUTSIDE RECORDS SUMMARY | 2025-06-06 08:57 | XMS_ITS | Encounter Summary ---
Author Organization [facility] Address [address] [place] [address] Phone Care Team Providers Care Laborer Mine Name Role Phone Kee Ugalde DO Unavailable Peewee Maxwell MD Primary Care Provider [phone] Pcp, Unknown Primary Care Provider Syliva Oseguera Primary Care Provider [phone] Encounter Details Date Type Department Care Team (Late st Contact Info) Description 10/18/2024 Transcribe Orders Virtual Department [address] [place] [address] Kee Hernández MD [address] [place] [address] Dr Wong [email or web address] [address] [email or web address] Hypertension, unspecified type (Primary Dx) Social [...] 06/13/2025 1:45 PM EST Office Visit [facility] [address] [place] [address] Polo Vasquez MD [address] [place] [address] [email or web address] documented as of this encounter Visit Diagnoses Diagnosis Hypertension, unspecified type- Primary documented in this encounter Care Teams Laborer Mine Relationship Specialty Start Date End Date Peewee Maxwell MD [address] [place] [address] PCP - General Internal Medicine 08/11/20 03/13/25 Pcp, Unknown PCP - General 03/14/25 04/13/25 Sylvia Ibarra PA [address] [place] [address] PCP - General Physician Journalist 04/14/25 Kee Ugalde DO [address] [place] [address] Orthopedics & Sports Medicine, [place] [address] [email or web address] Historical LMR Provider 04/05/17 documented as of this encounter Additional Source Comments The information contained in this document represents components of the legal health record. It is not the complete legal health record.[facility]
--- OUTSIDE RECORDS SUMMARY | 2025-06-06 08:57 | XMS_ITS | Encounter Summary ---
Author Organization [facility] Address [address] [place] [address] Phone Care Team Providers Care Roll Weigher Name Role Phone Tico Martell MD Unavailable Kee Alexander MD Unavailable [phone] Kee Ugalde DO Unavailable [phone] Polo Guadarrama MD Unavailable Dilcia Gould MD Unavailable [phone] Antoinette Ching-Bertha Unavailable Peewee Maxwell MD Primary Care Provider [phone] Pcp, Unknown Primary Care Provider UnavailSylvia Brunner Primary Care Provider [phone] Reason for Referral * MRI/CAT Scan - Closed Specialty Diagnoses / Procedures Referred By Contac t Referred To Contact Radiology Diagnoses Sinusitis, unspecified chronicity, unspecified location Procedures CT Face Peewee Maxwell MD [address] [place] [address] Phone: tel: fax: Referral ID Status Reason Start Date Expiration Date Visits Re quested Visits Authorized [id number] Closed 08/11/2020 08/11/2021 1 1 Encounter Details Date Type Department Care Team (Late st Contact Info) Description 08/11/2020 Ancillary Orders Virtual Department [address] [place] [address] Peewee Maxwell MD [address] [place] [address] Sinusitis, unspecified chronicity, unspecified location Social History [...] Description 06/13/2025 1:45 PM EST Office Visit [facility] [address] [place] [address] Polo Vasquez MD [address] [address] [email or web address] documented as of this encounter Results * [...] Technique tailored for patient body habitus and [id number]. FINDINGS: Some mild thickening seen in the [...] images. Technique tailored for patient body habitus [id number]. FINDINGS: Some mild thickening seen in the [...] documented as of this encounter Care Teams Roll Weigher Relationship Specialty Start Date End Date Peewee Maxwell MD [address] [place] [address] PCP - General Internal Medicine 08/11/20 03/13/25 Pcp, Unknown PCP - General 03/14/25 04/13/25 Sylvia Ibarra PA [address] [place] [address] PCP - General Physician Practice Coordinator 04/14/25 Tico Martell MD [address] [place] [address] [email or web address] Historical LMR Provider 04/05/17 06/26/21 Kee Alexander MD [address] [place] [address] Historical LMR Provider 04/05/17 Kee Ugalde DO [address] [place] [address] Orthopedics & Sports Medicine, [place] [address] [email or web address] Historical LMR Provider 04/05/17 Polo Guadarrama MD [address] [address] [email or web address] Historical LMR Provider 04/05/17 2 Dilcia Gould MD [address] [place] [address], [address] [place] [address] [email or web address] Historical LMR Provider 04/05/17 Antoinette Ching PA-C [address] [place] [address] Orthopedics & Sports Medicine, [facility] [place] [address] [email or web address] Historical LMR Provider 04/05/17 06/26/21 documented as of this encounter Additional Source Comments The information contained in this document represents components of the legal health record. It is not the complete legal health record.[facility]
--- OUTSIDE RECORDS SUMMARY | 2025-06-06 08:57 | XMS_ITS | Encounter Summary ---
Author Organization [facility] Address [address] [place] [address] Phone Care Team Providers Care Joss House Keeper Name Role Phone Kee Ugalde DO Unavailable [phone] Peewee Maxwell MD Primary Care Provider [phone] Pcp, Unknown Primary Care Provider Sylvia Oseguera Primary Care Provider [phone] Encounter Details Date Type Department Care Team (Latest Contact Info) Description 03/13/2025 Transcribe Orders [facility] [place] [address] [address] Dacia Watkins NP 10 [place] [address] Bloating (Primary Dx); Gastroesophageal reflux disease, unspecified [...] Description 06/13/2025 1:45 PM EST Office Visit [facility] [address] [place] [address] Polo Vasquez MD [address] [place] [address] documented as of this encounter Results * Vitamin B12 (03/13/2025 2:28 PM EDT) VITAMIN B12 375 232 - 1,245 pg/mL [facility] Blood 03/13/2025 2:28 PM EDT 03/13/2025 2:37 PM EDT Dacia Watkins NP LAB BLOOD BKR ORDERABLES Final Result [address] [address] * TSH (03/13/2025 2:28 PM EDT) TSH 2.24 0.27 - 4.20 uIU/mL [facility] Blood 03/13/2025 2:28 PM EDT 03/13/2025 2:37 PM EDT Dacia Watkins NP LAB BLOOD BKR ORDERABLES Final Result Performing Organization Address [facility]/ZIP Co de Phone Number [address] [address] * Iron and iron binding capacity (03/13/2025 2:28 PM EDT) IRON 116 45 - 160 ug/dL [facility] IRON BINDING CAPACITY 375 228 - 428 ug/dL [facility] TRANSFERRIN SATURAT. 31 20 - 55 % [facility] Blood 03/13/2025 2:28 PM EDT 03/13/2025 2:37 PM EDT Dacia Watkins NP LAB BLOOD BKR ORDERABLES Final Result Performing Organization Address City/[facility]/ZIP Co de Phone Number [address] [address] * (ABNORMAL) C-Reactive Protein (03/13/2025 2:28 PM EDT) C REACTIVE PROTEIN 4.9(H) 0.0 - 4.0 mg/L [facility] Blood 03/13/2025 2:28 PM EDT 03/13/2025 2:37 PM EDT us Dacia Watkins NP LAB BLOOD BKR ORDERABLES Final Result [address] [address] * (ABNORMAL) Comprehensive metabolic panel (03/13/2025 2:28 PM EDT) Pathologist [facility] SODIUM 138 133 - 146 mmol/L [facility] POTASSIUM 4.2 3.3 - 5.1 mmol/L [facility] CHLORIDE 102 96 - 108 mmol/L [facility] CO2 25 21 - 35 mmol/L [facility] BUN 25(H) 6 - 19 mg/dL [facility] CREATININE 1.10 0.5 - 1.5 mg/dL [facility] GLUCOSE 118(H) 70 - 99 mg/dL [facility] ALBUMIN 4.0 3.9 - 4.8 g/dL [facility] TOTAL PROTEIN 7.2 6.5 - 8.0 g/dL [facility] CALCIUM 9.2 8.4 - 10.3 mg/dL [facility] ALKALINE PHOSPHATASE 67 39 - 117 U/L [facility] TOTAL BILIRUBIN 0.4 0.0 - 1.2 mg/dL [facility] AST 41(H) 0 - 37 U/L [facility] ALT 31 0 - 40 U/L [facility] GLOBULIN 3.2 1 - 4.8 g/dL [facility] EGFR 72 >59 mL/min/1.7 3m2 [facility] Comment:Estimated glomerular filtration rate calculated using the CKD-EPI refit equation. ANION GAP 15 10 - 20 mmol/L [facility] Blood 03/13/2025 2:28 PM EDT 03/13/2025 2:37 PM EDT us Dacia Watkins COAT FITTER LAB BLOOD BKR ORDERABLES Final Result Performing Organization Address City/[facility]/ZIP Co de Phone Number [address] [address] * (ABNORMAL) CBC (03/13/2025 2:28 PM EDT) WBC 6.47 4.00 - 11.00 K/uL [facility] RBC 4.69 4.50 - 5.90 M/uL [facility] HGB 13.4(L) 13.5 - 17.5 g/dL [facility] HCT 41.8 41.0 - 53.0 % [facility] PLT 279 150 - 450 K/uL [facility] MCV 89.1 80.0 - 100.0 fL [facility] MCH 28.6 27.0 - 31.0 pg [facility] MCHC 32.1 32.0 - 36.0 g/dL [facility] RDW 13.0 11.5 - 14.5 % [facility] MPV 10.0 8.4 - 12.0 fL [facility] NRBC 0.00 0.00 /100 WBCs [facility] ABSOLUTE NRBC 0.00 0.00 K/uL [facility] Blood 03/13/2025 2:28 PM EDT 03/13/2025 2:37 PM EDT us Dacia Watkins NP LAB BLOOD BKR ORDERABLES Final Result Performing Organization Address City/[facility]/ZIP Co de Phone Number [address] [address] * Immunoglobulin A (03/13/2025 2:28 PM EDT) IgA 302 70 - 400 mg/dL [facility] Blood 03/13/2025 2:28 PM EDT 03/13/2025 2:37 PM EDT us Dacia Watkins COAT FITTER LAB BLOOD BKR ORDERABLES Final Result [address] [place] [address] * Tissue transglutaminase IgA (03/13/2025 2:28 PM EDT) TTG IGA ANTIBODY 1.8 <4.0 (Negative) U/mL [facility] Blood 03/13/2025 2:28 PM EDT 03/13/2025 2:37 PM EDT us Dacia Watkins COAT FITTER LAB BLOOD BKR ORDERABLES Final Result [facility] [address] [place] [address] documented in this encounter Visit Diagnoses Diagnosis Bloating- Primary Flatulence, eructation, and gas pain Gastroesophageal reflux disease, unspecified whether esophagitis present documented in this encounter Care Teams Joss House Keeper Relationship Specialty Start Date End Date Peewee Maxwell MD [address] [place] [address] PCP - General Internal Medicine 08/11/20 03/13/25 Pcp, Unknown PCP - General 03/14/25 04/13/25 Sylvia Ibarra PA [address] [place] [address] PCP - General Physician Registrar Museum 04/14/25 Kee Ugalde DO [address] [place] [address] Orthopedics & Sports Medicine, [place] [address] Historical LMR Provider 04/05/17 documented as of this encounter Additional Source Comments The information contained in this document represents components of the legal health record. It is not the complete legal health record.[facility]
--- OUTSIDE RECORDS SUMMARY | 2025-06-06 08:57 | XMS_ITS | Encounter Summary ---
Author Organization [facility] Address [address] [facility] 200 [address] Phone Care Team Providers Care Painter And Decorator Name Role Phone Peewee Maxwell MD Primary Care Provider [phone] Encounter Details Date Type Department Care Team (Late Contact Info) Description 10/30/2020 Orders Only [facility] [address] [place] [address] Kee Hernández MD [address] [facility] 204 [phone] Essential (primary) hypertension Social History Tobacco [...] Visit [facility] the [address] [place] [phone] Kee Hernández MD [address] [facility] [phone] documented as of this encounter Visit Diagnoses Diagnosis Essential (primary) hypertension documented in this encounter Care Teams Painter And Decorator Relationship Specialty Start Date End Date Peewee Maxwell MD [address] [place] [address] PCP - General Internal Medicine 10/21/20 documented as of this encounter
--- OUTSIDE RECORDS SUMMARY | 2025-06-06 08:58 | XMS_ITS | Clinical Summary ---
Author Organization [facility] Address [address] [facility] 20 0 [place] [address] Phone Care Team Providers Care High School French Teacher Name Role Phone Peewee Maxwell MD Primary Care Provider [phone] Allergies No known active allergies Medications spironolactone [...] Visit [facility] [address] [place] [address] Kee Hernández MD [address] [facility] 204 [place] [address] Health Maintenance Due Date Last [...] [facility] PPO Blue([id number]) Care Teams High School French Teacher Relationship Specialty Start Date End Date Peewee Maxwell MD [address] [place] [address] PCP - General Internal Medicine 10/21/20
--- OUTSIDE RECORDS SUMMARY | 2025-06-06 08:58 | XMS_ITS | Encounter Summary ---
Author Organization [facility] Address [address] [facility] [address] [place] [address] Phone Care Team Providers Care Prospecting Driller Helper Name Role Phone Eulalio Ahuja MD Primary Care Provider [phone] Tico Martell MD Unavailable [phone] Kee Alexander MD Unavailable [phone] Kee Ugalde DO Unavailable [phone] Polo Guadarrama MD Unavailable Dilcia Gould MD Unavailable [phone] Antoinette Ching PA-C Unavailable [phone] Seamus Hadley MD Primary Care Provide r Peewee Maxwell MD Primary Care Provider + [phone] Pcp, Unknown Primary Care Provider UnavailSylvia Brunner Primary Care Provider [phone] Encounter Details Date Type Department Care Team (Late st Contact Info) Description 04/18/2017 Procedure Pass [facility] Endoscopy Admitting Dept Virtual Department 30 [place], [place] [id number] Social History Tobacco Use Types Packs/Day Years [...] Description 06/13/2025 1:45 PM EST Office Visit [facility] 10 [place] [address] Polo Vasquez MD [address] [address] [email or web address] documented as of this encounter Visit Diagnoses Not on filedocumented in this encounter Additional Health Concerns Infection Onset Date Last Indicated Resolved Time CoV-Exposed Comment:Positive COVID-19 12/24/2021 12/24/2021 12/25/2021 10: 54 AM EDT COVID-19 12/24/2021 12/24/2021 01/14/2022 1:21 AM EDT documented as of this encounter Care Teams Prospecting Driller Helper Relationship Specialty Start Date End Date [place] [address] [email or web address] PCP - General 04/04/17 08/04/18 Seamus Hadley MD [address] [place] [address] PCP - General Family Medicine 08/05/18 08/10/20 Peewee Maxwell MD [address] [place] [address] PCP - General Internal Medicine 08/11/20 03/13/25 Pcp, Unknown PCP - General 03/14/25 04/13/25 Sylvia Ibarra PA [address] [place] [address] PCP - General Physician Portable Sawmill Operator 04/14/25 Tico Martell MD [address] [place] [place] [address] [email or web address] Historical LMR Provider 04/05/17 06/26/21 Kee Alexander MD [address] [place] [address] Historical LMR Provider 04/05/17 Kee Ugalde DO [address] [place] [address] Orthopedics & Sports [facility], [place] [address] [email or web address] Historical LMR Provider 04/05/17 Polo Guadarrama MD [address] [place] [address] [email or web address] Historical LMR Provider 04/05/17 2 Dilcia Gould MD [address] [place] [address] [email or web address] Historical LMR Provider 04/05/17 Antoinette Ching PA-C [address] [place] [address] Orthopedics Sports [facility], [place] [address] [email or web address] Historical LMR Provider 04/05/17 06/26/21 documented as of this encounter Additional Source Comments The information contained in this document represents components of the legal health record. It is not the complete legal health record.[facility]
--- OUTSIDE RECORDS SUMMARY | 2025-06-06 08:58 | XMS_ITS | Encounter Summary ---
Author Organization [facility] Address [address] [place] [address] Phone Care Team Providers Care Merchandise Buyer Name Role Phone Kee Ugalde DO Unavailable [phone] Peewee Maxwell MD Primary Care Provider [phone] Pcp, Unknown Primary Care Provider Sylvia Oseguera Primary Care Provider [phone] Encounter Details Date Type Department Care Team (Late st Contact Info) Description 07/01/2024 Procedure Pass [facility], Ct Scan - [address] [address] Social History Tobacco Use Types Packs/Day Years [...] Description 06/13/2025 1:45 PM EST Office Visit [facility] [address] [place] [address] Polo Vasquez MD [address] [place] [address] documented as of this encounter Visit Diagnoses Not on filedocumented in this encounter Care Teams Merchandise Buyer Relationship Specialty Start Date End Date Peewee Maxwell MD 96 [place] [address] PCP - General Internal Medicine 08/11/20 03/13/25 Pcp, Unknown PCP - General 03/14/25 04/13/25 Sylvia Ibarra PA [address] [place] [address] PCP - General Physician Rv Body Mechanic 04/14/25 Kee Ugalde DO [address] [place] [address] Orthopedics & Sports Medicine, [place] [address] [email or web address] Historical LMR Provider 04/05/17 documented as of this encounter Additional Source Comments The information contained in this document represents components of the legal health record. It is not the complete legal health record.[facility]
--- OUTSIDE RECORDS SUMMARY | 2025-06-06 08:58 | XMS_ITS | Encounter Summary ---
Author Organization [facility] Address [address] [facility] [address] [place] [address] Phone Care Team Providers Care Top Lifter Name Role Phone Kee Ugalde DO Unavailable [phone] Sylvia Ibarra Primary Care Provider [phone] Encounter Details Date Type Department Care Team (Late st Contact Info) Description 04/28/2025 Procedure Pass [facility] Endoscopy Admitting Dept Virtual Department 30 [place] [address] Social History Tobacco Use Types Packs/Day Years [...] PM EST Office Visit [facility] [address] [place] [address] Polo Vasquez MD [address] [place] [address] documented as of this encounter Visit Diagnoses Not on filedocumented in this encounter Care Teams Top Lifter Relationship Specialty Start Date End Date Sylvia Ibarra PA [address] [place] [address] PCP - General Physician Reservations And Ticketing Agent 04/14/25 Kee Ugalde DO [address] [place] [address] Orthopedics & Sports Medicine, [place] [address] [email or web address] Historical LMR Provider 04/05/17 documented as of this encounter Additional Source Comments The information contained in this document represents components of the legal health record. It is not the complete legal health record.[facility]
--- OUTSIDE RECORDS SUMMARY | 2025-06-06 08:58 | XMS_ITS | Encounter Summary ---
Author Organization [facility] Address [address] [facility] [address] [place] [address] Phone Care Team Providers Care Accounts Payables Clerk Name Role Phone Tico Martell MD Unavailable [phone] Kee Alexander MD Unavailable Kee Ugalde DO Unavailable Polo Guadarrama MD Unavailable Dilcia Gould MD Unavailable [phone] Antoinette Ching-Bertha Unavailable Peewee Maxwell MD Primary Care Provider [phone] Pcp, Unknown Primary Care Provider UnavailSylvia Brunner Primary Care Provider [phone] Encounter Details Date Type Department Care Team (Late st Contact Info) Description 08/11/2020 Procedure Pass [facility], Ct Scan - [address] [address] Social History Tobacco Use Types Packs/Day Years [...] Visit [facility] 10 [place] [address] Polo Vasquez MD [address] [address] [email or web address] documented as of this encounter Visit Diagnoses Not on filedocumented in this encounter Additional Health Concerns Infection Onset Date Last Indicated Resolved Time CoV-Exposed Comment:Positive COVID-19 12/24/2021 12/24/2021 12/25/2021 10: 54 AM EDT COVID-19 12/24/2021 12/24/2021 01/14/2022 1:21 AM EDT documented as of this encounter Care Teams Accounts Payables Clerk Relationship Specialty Start Date End Date Peewee Maxwell MD [address] [place] [address] PCP - General Internal Medicine 08/11/20 03/13/25 Pcp, Unknown PCP - General 03/14/25 04/13/25 Sylvia Ibarra PA [address] [place] [address] PCP - General Physician Length Control Tester 04/14/25 Tico Martell MD [address] [place] [address] [email or web address] Historical LMR Provider 04/05/17 06/26/21 Kee Alexander MD [address] [place] [address] Historical LMR Provider 04/05/17 Kee Ugalde DO [facility] [place] [address] [email or web address] Historical LMR Provider 04/05/17 Polo Guadarrama MD [address] [address] [email or web address] Historical LMR Provider 04/05/17 2 Dilcia Gould MD [address] [address] [email or web address] Historical LMR Provider 04/05/17 Antoinette Ching PA-C 4 [facility] [place] [address] [email or web address] Historical LMR Provider 04/05/17 06/26/21 documented as of this encounter Additional Source Comments The information contained in this document represents components of the legal health record. It is not the complete legal health record.[facility]
== END ==
LOC: HO.CARD 08:43
PROVIDERS: PCP Physician Assistant Medical; Visit Provider Nurse Practitioner Family
DX: R00.1 Bradycardia, unspecified (principal)
CPT/HCPCS: 93017; 93242

== ENCOUNTER → 2025-06-06 08:50 | Outpatient (BNV) | payer MEDICARE, SELFPAY | PROVIDERS: PCP Physician Assistant Medical | DX: I49.1 Atrial premature depolarization (principal); I49.3 Ventricular premature depolarization | CPT/HCPCS: 93016; 93018 ==